=== PATIENT | male | born 1950 | race Caucasian/White ===

== ENCOUNTER 2017-07-03 07:25 | Emergency (ER) | payer OTHER, SELFPAY ==
[2017-07-03 07:26] VITALS: BP 146/96; PULSE 66; RESP 24; TEMP 36.7; O2SAT 95; BMI 35.8
--- NOTE | 2017-07-03 07:40 | ED.VISSUMM ---
- ER Visit Summary Date of Service: 07/03/17 Chief Complaint: Laceration History of Present Illness: The patient is a [address] Dashawn Perez. Reports that this morning he slipped and fell. He hit his face on a ladder. No loss of consciousness. He is not on any blood thinners. He is unsure when his last tetanus shot was. Patient suffered a laceration to the right side of his lower lip. He denies any loose teeth. No dental malocclusion. He also has a laceration to the bridge of his nose from his glasses. He reports the pain is 7 out of 10 in severity. He denies any pain to his neck, back, shoulder, wrist, or hips. Physical Examination: Vitals: Stable. Afebrile. Face: 3 cm laceration to the right side of his lower lip that does cross the vermilion border. This does not involve muscle. A superficial laceration is approximately 1 cm in length to the bridge of his nose with no active bleeding. No dental malocclusion. No loose teeth. No pain with palpation of his mandible and opening and closing his jaw. Neck: No vertebral tenderness. Full ROM without difficulty. Cleared by NEXUS criteria. Back: No vertebral tenderness. General: A&O x 3. NAD. Cardiovascular exam: Regular rate and rhythm, no murmur, rub or gallop. Respiratory exam: Chest nontender. No crepitus. Clear to auscultation bilaterally. No wheezes or stridor. Abdominal exam: Soft, nontender, nondistended, normal bowel sounds. No pain in RUQ or LUQ specifically. No peritoneal signs. Extremity: Atraumatic. No pain with range of motion. Emergency Department Course and Treatment: Patient refused pain medications. He had his tetanus updated. He had his wounds anesthetized and repaired. He tolerated this well. Treatment Plan: Patient will be discharged instructions to follow-up with Dr. Dashawn Perez as needed. Repair of the inner surface of his lip the patient will on amoxicillin and given a first dose in the emergency department. Return to the emergency department for any worsening symptoms. Disposition: To home in improved and stable condition. Impression: 1. Fall. 2. Laceration lower lip, 3 cm, repaired. 3. Laceration to bridge of nose, 1 cm, not repaired. Procedure note: Wound was cleansed with chlorhexidine soap. Anesthetized with 1% lidocaine without epinephrine. Copiously irrigated with normal saline. Wound was explored there is no foreign material present. It was closed with 5 simple interrupted 5-0 rapid Vicryl sutures externally and 2 simple interrupted 5-0 Vicryl sutures internally. Care was taken to align the vermilion border with the first stitch. The patient tolerated it well. This note was generated with [employer] dictation software. It may contain incorrect words, spelling, and punctuation that were not noted in review of the chart prior to signing ED Disposition - Plan for ED Patient: Chief Complaint: Fall Instructions: ED Laceration Facial Sutr Tape Prescriptions: Amoxicillin 500 mg PO TID #21 tab Referrals: Dashawn Perez MD [Primary Care Provider] - As Needed
[2017-07-03] MEDS: Diphth,Pertuss(Acell),Tet Vac 0.5 ML Vial IM (07:54)
[2017-07-03] MEDS: AMOXICILLIN 500 MG CAPSULE PO (08:27)
== END 2017-07-03 08:38 | disposition home or self-care (01) ==
LOC: ED 08:07
PROVIDERS: Emergency Provider Emergency Medicine; Family Provider Family Medicine; PCP Family Medicine
DX: S01.511A Laceration without foreign body of lip, initial encounter (principal); S01.21XA Laceration without foreign body of nose, initial encounter; Z23 Encounter for immunization; I10 Essential (primary) hypertension; E78.00 Pure hypercholesterolemia, unspecified; Z79.82 Long term (current) use of aspirin; Z79.899 Other long term (current) drug therapy; W01.198A Fall on same level from slipping, tripping and stumbling with subsequent striking against other object, initial encounter; Y93.89 Activity, other specified; Y92.009 Unspecified place in unspecified non-institutional (private) residence as the place of occurrence of the external cause; Y99.8 Other external cause status
CPT/HCPCS: 12013; 90715; 99283

== ENCOUNTER → 2017-10-13 08:48 | Outpatient (CLI) | payer OTHER, SELFPAY ==
[2017-10-13 10:45] LABS: Anion Gap 10 (5-15); BUN 22 mg/dL (7-18); BUN/Creat Ratio 23.7 RATIO (10-20); Calcium,Total 8.4 mg/dL (8.5-10.1); Chloride 104 mmol/L (98-107); Cholesterol 196 mg/dL (200); Creatinine, Serum 0.93 mg/dL (0.70-1.30); EST Glomerular Filtration Rate 87 mL/min (>60); Est Glom Filt Rate - Afr Amer 105 mL/min (>60); Glucose 224 mg/dL (74-106); High Density Lipoprotein 37 mg/dL; PSA,Total - Annual Screen 1.91 ng/mL (0.00-4.00); Potassium 3.9 mmol/L (3.5-5.1); Sodium Level 141 mmol/L (136-145); Thyroid Stim Hormone (TSH) 1.43 uIU/mL (0.358-3.74); Triglycerides 111 mg/dL; Very Low Density Lipoprotein 22 mg/dL (5-40)
== END ==
PROVIDERS: Family Provider Family Medicine; PCP Family Medicine; Visit Provider Family Medicine
DX: I10 Essential (primary) hypertension (principal); E89.0 Postprocedural hypothyroidism; E78.5 Hyperlipidemia, unspecified; Z12.5 Encounter for screening for malignant neoplasm of prostate
CPT/HCPCS: 36415; 80048; 80061; 84153; 84443; G0103

== ENCOUNTER 2017-10-26 16:13 | Emergency (ER) | payer OTHER, SELFPAY ==
[2017-10-26 16:14] VITALS: BP 179/98; PULSE 67; RESP 16; TEMP 37.1; O2SAT 97; BMI 32.9
--- NOTE | 2017-10-26 16:34 | ED.DCSUM_ITS ---
- ER Visit Summary Date of Service: 10/26/17 Chief Complaint: Headache History of Present Illness: The patient is a 67 M with history of ocular migraines. Patient states he had visual auras from his right eye this morning. During voodoo had a slight vision cut from the right peripheral vision. After voodoo he developed pressure across his eyes and sinuses. He states he usually does not get any pain with these ocular migraines. He has had some nausea and dry heaves. He did take 3 tabs of ibuprofen approximately 1 hour prior to arrival. Patient denies recent URI symptoms. He has not had recent head trauma. There is no clotting disorders in the family. Physical Examination: Blood pressure is 179/98, other vitals normal. Patient sitting upright in bed no acute distress. Head neck examination unremarkable. Heart is regular rate and rhythm. Lung sounds are clear. Abdomen is soft nontender. Neuro exam is unremarkable with an NIH score of 0. Test Results: Noncontrast head CT is unremarkable other than chronic involutional changes. Emergency Department Course and Treatment: Patient had taken ibuprofen shortly before arrival. He was given IV fluids, Compazine, and Benadryl. On repeat evaluation headache and vision changes are essentially resolved. He will be discharged home with family at this time. Treatment Plan: [] Disposition: Discharge Impression: Migraine, improved This note was generated with [employer] dictation software. It may contain incorrect words, spelling, and punctuation that were not noted in review of the chart prior to signing ED Disposition - Plan for ED Patient: Chief Complaint: Headache Referrals: Dashawn Perez MD [Primary Care Provider] -
[2017-10-26] MEDS: 0.9% Normal Saline 1,000 ML 999 ML IV (16:43)
[2017-10-26] MEDS: DiphenhydrAMINE 50 MG/ML Syringe 25 MG IV (16:44)
[2017-10-26] MEDS: proCHLORPERazine 10 MG/2 ML Vial IV (16:45)
[2017-10-26 17:39] VITALS: BP 176/101; PULSE 74; RESP 18; O2SAT 96
--- NOTE | 2017-10-26 17:39 | NURSING ---
NO LW OR POA
--- NOTE | 2017-10-26 17:49 | ED.DEP ---
ED Disposition - Plan for ED Patient: Disposition: Home or Assisted Living Chief Complaint: Headache Instructions: ED Headache Migraine Referrals: Dashawn Perez MD [Primary Care Provider] - As Needed
[2017-10-26 18:10] VITALS: BP 160/96; PULSE 70; RESP 18; O2SAT 98
== END 2017-10-26 18:11 | disposition home or self-care (01) ==
PROVIDERS: Emergency Provider Emergency Medicine; Family Provider Family Medicine; PCP Family Medicine
DX: G43.109 Migraine with aura, not intractable, without status migrainosus (principal); K21.9 Gastro-esophageal reflux disease without esophagitis; Z79.82 Long term (current) use of aspirin; Z79.899 Other long term (current) drug therapy
CPT/HCPCS: 70450; 96374; 96375; 99283; J7030; A4216

== ENCOUNTER → 2017-12-08 08:25 | Outpatient (CLI) | payer OTHER, SELFPAY ==
[2017-12-08 10:25] LABS: Glucose 263 mg/dL (74-106)
[2017-12-08 10:35] LABS: Hemoglobin A1c 9.8 % (4.2-6.3)
== END ==
PROVIDERS: Family Provider Family Medicine; PCP Family Medicine; Visit Provider Family Medicine
DX: E11.9 Type 2 diabetes mellitus without complications (principal)
CPT/HCPCS: 36415; 82947; 83036

== ENCOUNTER → 2018-02-27 08:43 | Outpatient (CLI) | payer OTHER, SELFPAY ==
--- NOTE | 2018-02-27 08:46 | US_ITS ---
STUDY: ABDOMINAL ULTRASOUND - RIGHT UPPER QUADRANT REASON FOR VISIT: Male, 67 years old. epigastric pain x 2 years -- hernia repair 2001. TECHNIQUE: Ultrasound evaluation of the right upper quadrant was performed with real-time and static villalta-scale imaging. TECHNICAL QUALITY: Adequate. COMPARISON: None. FINDINGS: Liver: The liver measures 16.3 cm. There is normal echogenicity of the liver. The bile ducts are within normal limits. There is hepatic color flow. The direction of portal flow is hepatopetal. There is no demonstrated mass lesion. Gallbladder: Normal distended gallbladder. The gallbladder wall measures 2.4 mm. There is a negative sonographic Kay's sign. There is no pericholecystic fluid. There are no gallstones. Common Bile Duct (C.B.D.): The common bile duct measures 4.0 mm. Pancreas: Normal size of the head, body of the pancreas. There is normal echogenicity of the pancreas. There is no demonstrated pancreatic mass or cyst. Right Kidney: Normal size of the right kidney. The right kidney measures 10.0 x 4.8 x 5.6 cm. Normal renal cortex. The right cortex measures cm. There is no demonstrated renal mass or cyst. There is no right hydronephrosis. US/Abdomen Limited IMPRESSION: Normal right upper quadrant ultrasound examination. Electronically Signed: Shravan Craig MD at 12:26 EST Tel , Service support ,
--- OUTSIDE RECORDS SUMMARY | 2018-04-14 21:15 | XMS RPT_ITS ---
:1950 Author Organization [place] Support Name Relationship Address Phone [facility] Unavailable [address] + [place] [address] [place] Unavailable [address] + [place] [address] [facility] Unavailable [address] + [place] [address] [place] Unavailable [address] + [place] [address] [facility] Unavailable [address] + [place] [address] [place] Unavailable [address] + [place] [address] [facility] Unavailable [address] + [place] [address] [place] Unavailable [address] + [place] [address] [facility] Unavailable [address] + [place] [address] [place] Unavailable [address] + [place] [address] HERALD, ASAF Unavailable Unavailable Unavailable CAITLIN HAAS Unavailable Unavailable Unavailable [facility] Unavailable [address] + [place] [address] [place] Unavailable [address] + [place] [address] HERALD, ASAF Unavailable Unavailable Unavailable HERCAITLIN GRANADO Unavailable Unavailable Unavailable HERALD, ASAF Unavailable Unavailable Unavailable HERLOY, CAITLIN Unavailable Unavailable Unavailable HERALD, ASAF Unavailable Unavailable Unavailable HERALD, CAITLIN Unavailable Unavailable Unavailable HERALD, ASAF Unavailable Unavailable Unavailable HERALD, CAITLIN Unavailable Unavailable Unavailable HERALD, ASAF Unavailable Unavailable Unavailable HERALD, CAITLIN Unavailable Unavailable Unavailable [facility] Unavailable [address] + [place] [address] HERNEW GRANADO Unavailable [address] + [place] [address] [facility] Unavailable [address] + [place] [address] HERNEW GRANADO Unavailable [address] + [place] [address] [facility] Unavailable [address] + [place] [address] HERNEW GRANADO Unavailable [address] + [place] [address] [facility] Unavailable [address] + [place] [address] HERNEW GRANADO Unavailable [address] + [place] [address] [facility] Unavailable [address] + [place] [address] HERNEW GRANADO Unavailable [address] + [place] [address] [facility] Unavailable [address] + [place] [address] HERNEW GRANADO Unavailable [address] + [place] [address] [facility] Unavailable [address] + [place] [address] HERLOYFORTINOE Unavailable [address] + [place] [address] [facility] Unavailable [address] + [place] [address] HERLOYFORTINOE Unavailable [address] + [place] [address] [facility] Unavailable [address] + [place] [address] HERLO[facility]FORTINOE Unavailable [address] + [place] [address] Care Team Providers Name Role Phone KEMAR IGNACIO Attending Unavailable CEBUL, CAITLIN D Referring Unavailable DIAZ, GEETHA K Primary Care Unavailable KEMAR IGNACIO Admitting Unavailable KEMAR IGNACIO Attending Unavailable CEBUL, CAITLIN D Referring Unavailable DIAZ, GEETHA K Primary Care Unavailable KEMAR IGNACIO Attending Unavailable SELF, SELF Referring Unavailable DIAZ, GEETHA K Primary Care Unavailable KEMRA IGNACIO Attending Unavailable BERNARDO REEDER Referring Unavailable DIAZ, GEETHA K Primary Care Unavailable KEMAR IGNACIO Referring Unavailable DIAZ, GEETHA K Primary Care Unavailable KEMAR IGNACIO Attending Unavailable PRAH, ALFRED Referring Unavailable DIAZ, GEETHA K Primary Care Unavailable NANCY MCGUIRE (DEYSI) Attending Unavailable Diaz, Geetha Attending Unavailable Diaz, Geetha Referring Unavailable Diaz, Geetha Primary Care Unavailable Cebul, Caitlin Attending Unavailable Diaz, Geetha Referring Unavailable Cebul, Caitlin Attending Unavailable Cebul, Caitlin Referring Unavailable Diaz, Geetha Primary Care Unavailable Cebul, Caitlin Attending Unavailable Cebul, Caitlin Referring Unavailable Diaz, Geetha Primary Care Unavailable Cebul, Caitlin Attending Unavailable Cebul, Caitlin Referring Unavailable Diaz, Geetha Primary Care Unavailable Prah, Alfred Attending Unavailable Diaz, Geetha Primary Care Unavailable Diaz, Geetha Primary Care Unavailable Robel Montoya Attending Unavailable Diaz, Geetha Attending Unavailable Diaz, Geetha Referring Unavailable Diaz, Geetha Primary Care Unavailable Diaz, Geetha Primary Care Unavailable Funmilayo Hu Attending Unavailable Prah, Alfred Attending Unavailable Diaz, Geetha Primary Care Unavailable Prah, Alfred Consulting Unavailable Cebul, Caitlin Referring Unavailable Cebul, Caitlin Attending Unavailable Diaz, Geetha Referring Unavailable Cebul, Caitlin Attending Unavailable Diaz, Geetha Primary Care Unavailable Cebul, Caitlin Referring Unavailable RocioBritany concepcion Attending Unavailable Diaz, Geetha Primary Care Unavailable Prah, Alfred Consulting Unavailable Prah, Alfred Attending Unavailable Diaz, Geetha Primary Care Unavailable Prah, Alfred Consulting Unavailable Diaz, Geetha Referring Unavailable Diaz, Geetha Attending Unavailable Diaz, Geetha Referring Unavailable Diaz, Geetha Primary Care Unavailable PROBLEMS PROBLEMS DATE TYPE CONDITION / CODE ATTENDING STATUS SOURCE 04/01/2018 Unknown R11.2 - Nausea MarnieAlfred harrell Active [place] with vomiting, Community unspecified / Hospital R11.2(ICD-10) Repository 04/01/2018 Unknown C25.1 - Malignant Prajulio cesar, Alfred Active [place] neoplasm of body Community of pancreas / Hospital C25.1(ICD-10) Repository 04/01/2018 Unknown C25.9 - Malignant Prah, Alfred Active [place] neoplasm of Community pancreas, Hospital unspecified / Repository C25.9(ICD-10) 04/01/2018 Unknown R52 - Kaylie, Alfred Estrella Active [place] unspecified / Community R52(ICD-10) Hospital Repository 03/12/2018 Admitting Post Op Visit / KEMAR IGNACIO Active [facility] diagnosis 554() [facility] Repository 03/05/2018 Admitting Disease of KEMAR IGNACIO Active [facility] diagnosis pancreas, University unspecified / [facility] K86.9(ICD-10) Center Repository 03/05/2018 Admitting Type 2 diabetes KMEAR IGNACIO Active [facility] diagnosis mellitus with University other specified [facility] complication / Center E11.69(ICD-10) Repository 03/16/2018 Unknown R14.0 - Abdominal CebulCaitlin Active [place] distension Community (gaseous) / Hospital R14.0(ICD-10) Repository 03/04/2018 Unknown Z86.010 - Personal CebulCaitlin Active [place] history of colonic Community polyps / Hospital Z86.010(ICD-10) Repository 10/26/2017 Active Unspecified visual NANCY MCGUIRE Active [place] disturbance / ([facility] Main H53.9(ICD-10) [place] Repository PROCEDURES PROCEDURES No Procedure Records FoundRESULTS RESULTS ONCOLOGY VISIT REPORT Observed: 04/01/2018 Status: F Source: [place] 1:[address] [facility] REPOSITORY [facility] [address] [place] [address] OFFICE VISIT Date of Service: 04/01/18 0859 MR#: [id number] Acct: [id number] Name: CAITLIN HAAS Rep #: [id number] : 1950 From: Alfred Estrella MD Age/Sex: 67/M Location: ONC Status: Signed Subjective - Date of Service Date of Service:: 04/01/18 - Chief Complaint F/u for chemotherapy-FOLFIRNOX - History of Present Illness 67y.o.man was found to have duodenal obstruction secondary to a mass in the body of the pancreas. CA19-9 was elevated-2139. He had laparotomy at [facility] and was found to have multiple peritoneal nodules. He had gastrojejunostomy for duodenal obstruction and biopsy of peritoneal nodules on 03/06/2018. He is now referred for palliative chemotherapy. 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 He had a PET/CT and comes to start chemotherapy. - Past Medical/Social History Past Medical History Cancer: Pancreatic cancer Social History Social History: No changes Smoking Status Former smoker Review of Systems Constitutional:: Reports: Pain - epigastric area on and off, taking tylenol.. Denies: Fever, Sweats, Weight loss, Appetite change, Chills Cardiovascular:: Denies: Chest pain, Palpitations, Dyspnea on exertion, Orthopnea, PND, Shortness of breath Respiratory: Denies: Cough, Hemoptysis, Shortness of Breath, Wheezing Gastrointestinal:: Denies: Abdominal pain, Nausea, Vomiting, Diarrhea, Constipation, Hematochezia Genitourinary: Denies: Dysuria, Hematuria, 15, Flank pain Musculoskeletal:: Denies: Back pain, Myalgia, Arthralgia Skin: Denies: Rash, Skin Changes, Wounds Neurological:: Denies: Headache, Dizziness, Visual changes, Tinnitus, Hearing loss Psychiatric: Denies: Anxiety, Depression, Homicidal Ideations, Suicidal Ideations Vital Signs Height 5 ft 6 in Weight: 79.379 kg Weight in Pounds 175.0 lbs Pulse Ox 97 - Physical Exam General: Alert, Oriented x3, No apparent distress Laboratory Data: Laboratory Tests WBC 10.0 Hgb 12.0 L Hct 36.8 L Plt Count 218 Absolute Neuts (auto) 7.2 Diagnostic Data: Diagnostic Data PET, CT Tumor Imaging 03/23/18 11:03 IMPRESSION: 1. ABNORMAL EXAMINATION INDICATIVE OF MALIGNANT VIABLE NEOPLASM. 2. Increased glucose concentration observed in the pancreatic body-tail fulfills quantitative criteria for viable neoplasm. 3. Facilitated glucose concentration noted throughout the abdominal-pelvic mesentery and abdominal retroperitoneum corresponding soft tissue adenopathy, mass formation, fulfills quantitative criteria for viable neoplasm. 4. Enhanced FDG distribution noted in the mid to distal gastric body likely represents physiologic distribution of the radiopharmaceutical. Histopathologic analysis may be indicated. 5. The increase in radiopharmaceutical concentration noted in the bilateral supraclavicular regions fulfills quantitative criteria for viable neoplasm with single point technique. 6. The facilitated fluorine labeled glucose uptake noted in the left lobe of the hepatic parenchyma involving segment I does not fulfill strict quantitative criteria for viable hepatic parenchymal neoplasm. (Tamara et al, Archives of Surgery, 133:510 1997). Correlation with magnetic resonance imaging utilizing Gd-EOB-DTPA may be of benefit for further evaluation. (Job et al, J Nucl Med 51: 692, 2010). Electronic Signature Navneet Bhandari D.O. Electronically Signed: Navneet Bhandari DO at 22:56 EST Tel , Service support , Assessment and Plan Pancreatic cancer, stage IV(cT3 cNx M1) Peritoneal nodules/supraclavicular nodes. PS 0. To start FOLFIRINOX every 2 weeks today. Discussed risks, benefits and side effects again. Pt accepted. Port placed 03/24/2018. Plan is to proceed with C1 FOLFIRINOX today with Neulasta. RTC 2 weeks with CBC/CMP for C2. Medications: Prescriptions This Visit Medication Instructions Recorded Docusate Sodium [Colace] 100 mg PO BID 03/16/18 Enoxaparin [Lovenox] 40 mg SC DAILY@0600 03/16/18 Medications Added to Medication List This Visit 0.9% Saline Lock Med 04/01/18 00:00 Active 10 ml IV UD PRN Atropine Sulfate Med 04/01/18 00:00 Active 0.25 mg SC UD PRN Dexamethasone [Decadron] 10 mg Med 04/01/18 00:00 Active Primary Care Provider: Geetha Diaz MD Referring Provider: - Problem List (1) Pancreatic cancer Status: Chronic Code Visit Office Visits / Consults: [id number] OV L5 Est 04/01/18 1331 <Electronically signed by Alfred Estrella MD> Date Alfred Estrella MD Cosign Signature: Date (if applicable) CC: Geetha Diaz MD ONCOLOGY VISIT REPORT Observed: 03/26/2018 Status: F Source: [place] 3:[address] [facility] REPOSITORY [facility] [address] [place] [address] OFFICE VISIT Date of Service: 03/26/18 1314 MR#: [id number] Acct: [id number] Name: CAITLIN HAAS Rep #: [id number] : 1950 From: Britany IBARRA Age/Sex: 67/M Location: OMD Status: Signed Subjective - Date of Service Date of Service:: 03/26/18 - Chief Complaint Chemotherapy Education-FOLFIRNOX - History of Present Illness 67y.o.man was found to have duodenal obstruction secondary to a mass in the body of the pancreas. CA19-9 was elevated-2139. He had laparotomy at [facility] and was found to have multiple peritoneal nodules. He had gastrojejunostomy for duodenal obstruction and biopsy of peritoneal nodules on 03/06/2018. He is now referred for palliative chemotherapy. 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 - Interval History The patient is presenting to clinic accompanied by spouse for chemotherapy education. It has been proposed he begin palliative chemotherapy with FOLFIRINOX. Describes good support system at home by way of spouse, family and his friends. ECOG 0. - Past Medical/Social History Social History Social History: No changes Smoking Status Former smoker Review of Systems Constitutional:: Reports: Fatigue, Weight loss. Denies: Fever, Sweats, Appetite change, Chills Cardiovascular:: Denies: Chest pain, Palpitations, Dyspnea on exertion, Orthopnea, PND, Shortness of breath Respiratory: Denies: Cough, Hemoptysis, Shortness of Breath, Wheezing Gastrointestinal:: Reports: Nausea - Intermittently, improved with Reglan. Denies: Abdominal pain, Vomiting, Diarrhea, Constipation, Hematochezia Genitourinary: Denies: Dysuria, Hematuria, 15, Flank pain Musculoskeletal:: Reports: Backache. Denies: Back pain, Myalgia, Arthralgia Skin: Denies: Rash, Skin Changes, Wounds Neurological:: Denies: Headache, Dizziness, Numbness, Tingling, Visual changes, Tinnitus, Hearing loss Psychiatric: Denies: Anxiety, Depression, Homicidal Ideations, Suicidal Ideations Vital Signs Height 5 ft 6 in Weight: 181 lb Weight in Pounds 181.0 lbs Pulse Ox 95 - Physical Exam General: Alert, Oriented x3, No apparent distress HEENT: Atraumatic, PERRLA, EOMI, Normocephalic Psychiatric:: Appropriate affect, Euthymic Diagnostic Data: Diagnostic Data PET, CT Tumor Imaging 03/23/18 11:03 IMPRESSION: 1. ABNORMAL EXAMINATION INDICATIVE OF MALIGNANT VIABLE NEOPLASM. 2. Increased glucose concentration observed in the pancreatic body-tail fulfills quantitative criteria for viable neoplasm. 3. Facilitated glucose concentration noted throughout the abdominal-pelvic mesentery and abdominal retroperitoneum corresponding soft tissue adenopathy, mass formation, fulfills quantitative criteria for viable neoplasm. 4. Enhanced FDG distribution noted in the mid to distal gastric body likely represents physiologic distribution of the radiopharmaceutical. Histopathologic analysis may be indicated. 5. The increase in radiopharmaceutical concentration noted in the bilateral supraclavicular regions fulfills quantitative criteria for viable neoplasm with single point technique. 6. The facilitated fluorine labeled glucose uptake noted in the left lobe of the hepatic parenchyma involving segment I does not fulfill strict quantitative criteria for viable hepatic parenchymal neoplasm. (Tamara et al, Archives of Surgery, 133:510 1998). Correlation with magnetic resonance imaging utilizing Gd-EOB-DTPA may be of benefit for further evaluation. (Job et al, J Nucl Med 51: 692, 2010). Electronic Signature Navneet Bhandari D.O. Electronically Signed: Navneet Bhandari DO at 22:56 EST Tel , Service support , Assessment and Plan 1. Pancreatic cancer, stage IV(cT3 cNx M1), Peritoneal nodules- PET/CT obtained 03/23/18, report is pending. It has been proposed he begin palliative FOLFIRINOX. The patient has been thoroughly educated to risks/benefits associated with oxaliplatin, irinotecan, fluorouracil and leucovorin. Specifically, he has been educated to potential side effects, recommendations for symptom management, and circumstances in which he should contact provider immediately, such as the development of any signs/symptoms of infection inclusive of temperature > 100.4. Encouraged to go directly to ED should fever occur outside normal clinic hours. He has been provided written educational information and after hours contact information and prescriptions for prn antiemetics/EMLA cream. Port placement Greater than 50% of this one hour visit was spent in counseling and a significant amount of time was allotted for questions. All the patient's concerns were addressed to his satisfaction and he is agreeable to proceed. Tentatively, he will commence with cycle 1 on 04/01/18. Britany Chan, MSN, SPLUNK ARCHITECT, AOCNP Medications: Prescriptions This Visit Medication Instructions Recorded Docusate Sodium [Colace] 100 mg PO BID 03/16/18 Primary Care Provider: Geetha Diaz MD Referring Provider: - Problem List (1) Pancreatic cancer Status: Acute (2) Educational circumstance Status: Acute 03/26/18 1542 <Electronically signed by Britany Chan BINDER STRIPPER HAND-C> Date Britany Chan BINDER STRIPPER HAND-C Cosigner Signature: Date (if applicable) CC: CBC W/DIFF, AUTOMATED Collected: 03/26/2018 Status: F Source: [place] 1:[address] [facility] REPOSITORY Order Comment: Reason for Laboratory Test . TYPE CODE TESTS RESULT OUT OF RANGE REFERENCE UNITS LAB L100.1000 4.4-11.0 K/mm3 Normal WBC 10.0 LAB L100.1200 4.6-6.2 M/mm3 Low RBC 3.97 LAB L100.1300 13.0-16.5 g/dl Low HGB 12.0 LAB L100.1400 40-54 % Low HCT 36.8 LAB L100.1500 80-94 fL Normal MCV 92.7 LAB L100.1600 27.0-32.0 pg Normal MCH 30.2 LAB L100.1700 32-36 g/gl Normal MCHC 32.6 LAB L100.1810 11.6-14.6 % High RDW CV 14.8 LAB L100.1820 35.1-43.9 fl High RDW SD 49.3 LAB L100.1900 150-450 K/mm3 Normal PLT 218 LAB L100.2000 6.2-12.0 fl Normal MPV 11.6 LAB L100.2100 47-70 % High NEUT% 72.5 LAB L100.2200 19-41 % Low LY% 11.3 LAB L100.2300 0-10 % High MONO% 11.0 LAB L100.2400 0-5 % Normal EO% 4.7 LAB L100.2500 0-1 % Normal BASO% 0.3 LAB L100.2550 0.0-0.9 % Normal IM GRAN % 0.200 Result Comment: IG% - Immature Granulocytes (promyelocytes, myelocytes and metamyelocytes) > 1% indicates that a LEFT SHIFT is Present. LAB L100.2620 2.0-7.7 X10 3/uL Normal Absolute Neut 7.2 LAB L100.2720 0.83-4.51 X10 3/ul Normal Absolute Lymph 1.13 Performed By: #### L100.0100 #### [facility] [address] [place], [address] COMPREHENSIVE METABOLIC Collected: 03/26/2018 Status: F Source: [facility] 1:[address] [facility] REPOSITORY Order Comment: Reason for Laboratory Test . TYPE CODE TESTS RESULT OUT OF RANGE REFERENCE UNITS LAB L501.0100 74-106 mg/dL High GLU 134 Result Comment: Fasting Glucose result greater than or equal to 126 mg/dL suggests DIABETES MELLITUS per A.D.A. criteria. Please note revised GLUCOSE reference range effective 2017. LAB L501.1000 7-18 mg/dL Normal BUN 16 LAB L501.1100 0.70-1.30 mg/dL Normal CREAT,SERUM 0.77 Result Comment: The validity of the calculated GFR AND GFRAA in patients over 70 years has not been determined. Clinical correlation is essential. LAB L501.1110 >60 mL/min Normal EST GFR 108 Result Comment: Non- GFR Calc LAB L501.1115 >60 mL/min Normal EST GFR - AA 130 Result Comment: GFR Calc LAB L501.1255 ml/min Normal Estimated CRCL 86.31 LAB L501.1300 10-20 RATIO High BUN/CRE 20.8 LAB L501.1500 6.4-8. g/dL Normal 2 T PROT 6.5 LAB L501.1800 3.2-5. g/dL Low 0 ALB 2.9 LAB L501.1950 2.2-4. g/dL Normal 2 GLOB 3.6 LAB L501.2000 0.9-2. RATIO Low 4 A/G 0.8 LAB L501.2200 8.5-10 mg/dL Normal .1 CA 8.5 LAB L501.4100 15-37 U/L Low AST 9 LAB L501.4305 45-117 U/L Normal ALK P 58 LAB L501.4405 16-61 U/L Normal ALT 16 LAB L501.4600 0.20-1 mg/dL Normal .00 T BILI 0.40 LAB L501.5300 136-14 mmol/L Normal 5 NA 137 LAB L501.5600 3.5-5. mmol/L Normal 1 K 3.7 LAB L501.5900 98-107 mmol/L Normal CL 102 LAB L501.6100 21.0-3 mmol/L Normal 2.0 CO2 26.0 LAB L501.6200 5-15 Normal GAP 9 Performed By: #### L500.4050 #### [facility] [address] [place], [place] [address], [address] CARBOHYDRATE AG 19-9 Collected: 03/26/2018 Status: F Source: [place] 1:[address] [facility] REPOSITORY Order Comment: Reason for Laboratory Test . TYPE CODE TESTS RESULT OUT OF RANGE REFERENCE UNITS LAB L3100.5020 0-35 U/mL High CA 19-9 1276 2261 Result Comment: Results confirmed on dilution. [facility] Electrochemiluminescence Immunoassay (ECLIA) Values obtained with different assay methods or kits cannot be used interchangeably. Results cannot be interpreted as absolute evidence of the presence or absence of malignant disease. Performed at: - [facility], [place], [place] [id number] Real Estate Intern: Eladio Yu PhD, Phone: [phone] Performed By: #### L3100.5020 #### [facility] (refer to report for specific site) refer to report for address and phone number OPERATIVE REPORT Observed: 03/25/2018 Status: F Source: [place] 6:[address] [facility] REPOSITORY 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 Reference #[id number] lot number RECX [id number] expiry date 08/15/2019 Description of Surgical Findings:: Timeout and informed consent was obtained. 67-year-old gent was taken the operative placement table underwent monitored anesthesia care local anesthetic. Ancef 2 g given intravenously preoperatively. The right neck and chest were sterilely prepped and draped. Under ultrasound guidance 1% lidocaine mixed 50-50 with 0.5% Marcaine was used as a local anesthetic. Throughout the procedure a total of 17 cc was used. Local was instilled micropuncture needle inserted micropuncture wire inserted micropuncture sheath inserted 035 Glidewire was used to advance the sheath in the good position and fluoroscopic control and exchange out for an 035 J-wire. Local was instilled down upon the chest wall. A transverse incision was made midclavicular line second intercostal space and using electrocautery sub-changes pocket was created. The tubing was tunneled from the neck to the chest site. The sheath dilator was placed over the wire the wire and dilator were removed the catheter was advanced to the sheath the sheath was split the catheter was positioned to be at the SVC atrial junction. It was amputated to length connected the port secured there with port attachment device. The port was placed in the pocket and secured there with interrupted 2- 0 silk. The port site was closed with interrupted 3-0 Vicryl subdermal stitches. The neck was closed with interrupted 5-0 Vicryl subdermal stitch. Steri-Strips Telfa and OpSite dressings applied. The port was accessed and aspirated easily was flushed with saline and then 2 cc of heparinized saline. Sponge and instrument and needle counts were reported to the surgeon be correct. Specimens none. Drains none. Blood loss minimal. Stat portable chest x-ray is pending as the patient is taken to the recovery area in satisfactory condition. Caitlin Cueto M.D., F.A.C.S. Type of Anesthesia:: Local MAC Anesthesiologist: Ana Abad 03/25/18 0622 <Electronically signed by Caitlin Cueto MD> Date Caitlin Cueto MD CC: Geetha Diaz MD; Caitlin Cueto MD Signed DISCHARGE INSTRUCTION Observed: 03/25/2018 Status: F Source: [place] 6:[address] [facility] REPOSITORY [facility] Medical Records Department [address] [place] [address] Instructions for Home/Discharge Instructions 03/24/18 1008 MR#: [id number] Acct: [id number] Name: CAITLIN HAAS Rep #: [id number] : 1950 67 From: Caitlin Cueto MD PCP: Geetha Diaz MD Status: DEP [facility] Discharge Diet: No Restrictions - Pain medication may cause nausea. You should typically eat light foods as you take your pain medication. Discharge Activity: Return to Normal Activity, May Shower - Leave the bandage on for 2-3 days. When you remove the bandage, leave the steri-strips intact until they fall off. Additional Dressing/Incision Instructions:: Leave the bandage on for 2-3 days. When you remove the bandage, leave the steri-strips intact until they fall off. Allergies/Adverse Reactions: Allergies oxycodone HCl [From Percocet] Adverse Reaction (Severe, Verified 03/23/18 11:42) Other nightmares Tetracyclines Adverse Reaction (Severe, Verified 03/23/18 11:42) Upset Stomach Medications to take at Discharge Cholecalciferol (VIT D3) [Vitamin D3] 2,000 unit PO DAILY 02/24/15 Lisinopril/Hydrochlorothiazide [Zestoretic 20-12.5 mg Tablet] 1 ea PO DAILY 02/24/15 Multivitamins,Therapeutic [Multivitamin] 1 tab PO MOWEFR 02/24/15 Levothyroxine [Synthroid] 125 mcg PO DAILY #90 tab 02/27/15 Aspirin [Aspirin, Baby] 81 mg PO DAILY@0800 09/19/16 Escitalopram Oxalate [Lexapro] 10 mg PO DAILY 09/19/16 Pantoprazole Sodium [Protonix] 40 mg PO DAILY 09/19/16 glipizide 10 mg tablet 10 mg PO DAILY 03/03/18 Docusate Sodium [Colace] 100 mg PO BID 03/16/18 Enoxaparin [Lovenox] 40 mg SC DAILY@0600 03/16/18 Lorazepam [Ativan] 1 mg PO DAILY PRN 03/16/18 Mirtazapine [Remeron] 15 mg PO QHS #30 tab 03/16/18 Metoclopramide [Reglan] 10 mg PO DAILY #90 tablet 03/24/18 The following prescriptions were given: Metoclopramide [Reglan] 10 mg PO DAILY #90 tablet Primary Care Physician: Geetha Diaz MD [Primary Care Provider] - Test Results: Test results from this visit will be discussed in further detail at your follow-up appointment, if applicable. Please Follow Up With: Caitlin Cueto MD - [phone] When: Office follow-up may be as needed 03/25/18621 <Electronically signed by Caitlin Cueto MD> Date Caitlin Cueto MD CC: Geetha Diaz MD Signed CHEST 1 VIEW Observed: 03/24/2018 Status: F Source: LUCAS (PORTABLE) 10:[address] [facility] REPOSITORY [facility] Imaging Services [facility] [place] [address] [place] [address] Chest 1 View (Portable) MR#: [id number] Acct: [id number] Name: CAITLIN HAAS Rep #: [id number] : 1950 M 67 From: Sonny Guevara MD PCP: Geetha Diaz MD Status: REG [facility] Study: Chest 1 View (Portable) Date of Exam: 03/24/18 Exam# [id number] Ordering Dr: Caitlin Cueto MD STUDY: X-RAY CHEST REASON FOR EXAM: Male, 67 years old. Port placement. TECHNIQUE: Single AP portable view of the chest. COMPARISON: Comparison is made with prior study dated September 19, 2016. FINDINGS: A right-sided sulema catheter is in situ. The tip is in the midportion of the superior vena cava. Stable elevation of the left hemidiaphragm. Mild increased linear markings at the left lung base suggestive of linear atelectasis and/or linear scarring. There is no demonstrated pleural abnormality. Normal size heart. Normal mediastinum and andreas. Normal visualized pulmonary arteries. Normal visualized aortic arch and descending thoracic aorta. Normal visualized thoracic spine. Normal visualized ribs, clavicles, and shoulders. There is no demonstrated abnormality of the visualized soft tissue structures of the upper abdomen. RAD/Chest 1 View (Portable) IMPRESSION: The tip of the right portacatheter is in the midportion of the superior vena cava. Stable elevation of the left hemidiaphragm with linear scarring and/or atelectasis. Electronically Signed: Sonny Guevara MD at 11:43 EST Tel [phone], Service support , CC: Geetha Diaz MD; Caitlin Cueto MD Comber Fixer: Signed BEDSIDE GLUCOSE Collected: 03/24/2018 Status: F Source: LUCAS 9:[address] [facility] REPOSITORY TYPE CODE TESTS RESULT OUT OF REFERENCE UNITS RANGE LAB L501.080 70-110 mg/dL High BEDSIDE GLU 113 Result Comment: MANAGEMENT OF PATIENT CARE PER NURSING PROTOCOL Performed By: #### L501.080 #### [facility] Point of Care [address] [place] [address] PET/CT TUMOR BASE Observed: 03/23/2018 Status: F Source: LUCAS -THIGH INIT 11:[address] [facility] REPOSITORY [facility] Imaging Services [address] [place] [address] PET/CT Tumor Base -Thigh Init MR#: [id number] Acct: [id number] Name: CAITLIN HAAS Rep #: [id number] : 1950 M 67 From: Navneet Bhandari DO PCP: Geetha Diaz MD Status: REG RCR Study: PET/CT Tumor Base -Thigh Init Date of Exam: 03/23/18 Exam# [id number] Ordering Dr: Alfred Estrella MD EXAMINATION: FDG PET/CT INDICATIONS: A 67-year-old male with reported history of primary pancreatic carcinoma presenting for initial staging examination. COMPARISON EXAMINATION: CT of the abdomen and pelvis report dated 03/04/18 INDEX LESION SIZE SUV INTERPRETATION Pancreatic body-tail mass 40.1 x 61.9-mm (frame 152) 9.7 Fulfills quantitative criteria for viable neoplasm Abdominal retroperitoneum, abdominal-pelvic mesentery soft tissue mass, lymph nodes 36.9 x 30.3-mm (largest) (frame 138) 5.4 (max) Fulfills quantitative criteria for viable neoplasm Bilateral supraclavicular region (n=2) 9.3-mm (largest) (frame 232) 2.7 (max) Fulfills quantitative criteria for viable neoplasm Left lobe hepatic parenchyma segment I 10.4-mm (frame 160) 3.1 ratio < 2.0 May be further investigated with magnetic resonance imaging Distal gastric body 6.8 (max) May necessitate histopathologic investigation TECHNIQUE: Following the intravenous administration of 13.11 mCi of F-18 deoxyglucose via the right antecubital fossa, multiplanar image acquisitions of the neck, chest, abdomen and pelvis to level of mid thigh, obtained at one hour post radiopharmaceutical administration contemporaneously interpreted with the current CT of the neck, chest, abdomen and pelvis to level of mid thigh, dated 03/23/[address] of the abdomen and pelvis report dated 03/04/18 reveal: SERUM GLUCOSE LEVEL: 76 mg/dl. HEIGHT: 66 inches. WEIGHT: 170 lbs. FINDINGS: 1. Heterogeneous enhanced glucose metabolism is manifest in the left upper abdomen contiguous to apparent pancreatic body-tail mass formation generating a calculated maximal standard uptake value of 9.7. The maximal axial diameter of the corresponding metabolic, morphologic abnormality on review of CT of the abdomen dated 03/23/18 is 40.1-mm (transverse) x 61.9-mm (AP). 2. Multifocal increased glucose metabolism is defined in the abdominal mesentery, single nodular focus within the left upper pelvic mesentery and left paramedian abdominal retroperitoneum, peripancreatic in location. The calculated maximal standard uptake value is 5.4. The largest corresponding metabolic, morphologic abnormality on review of CT of the abdomen and pelvis dated 03/23/18 is 36.9-mm (transverse) x 30.3-mm (AP). 3. Prominent glucose metabolism is defined in the lesser curvature of the mid-distal gastric body, segmental in presentation, generating a calculated maximal standard uptake value of 6.8. 4. Mild increased FDG concentration is demonstrated in the bilateral supraclavicular regions with a calculated maximal standard uptake value of 2.7. The maximal axial diameter of the largest corresponding soft tissue density on review of CT of the neck-chest dated 03/23/18 is 9.3-mm (AP). 5. Subtle enhanced FDG concentration is noted in the left lobe of the hepatic (2.4) parenchyma involving segment I. The calculated maximal standard uptake value is 3.1. The maximal axial diameter of the metabolic abnormality on review of CT of the abdomen dated 03/23/18 is 10.4-mm (AP). 6. Normal physiologic distribution of the radiopharmaceutical is apparent in the splenic parenchyma, both renal units, bladder and visualized intestinal tract. Diffuse radiopharmaceutical concentration is noted in all four quadrants of the abdomen and pelvis. Pertinent CT findings are as follows: CHEST: There is atherosclerotic calcification defined in the thoracic aorta without evidence of dilatation-aneurysm formation. Coronary arterial calcification is observed. ABDOMEN AND PELVIS: Abdominal-pelvic ascites formation demonstrates no evidence of quantitatively significant increased glucose metabolism. Multiple subcentimeter mesenteric soft tissue densities are non-glucose avid. Right-left inguinal soft tissue is ametabolic. Dystrophic calcification is manifest within the prostate gland without evidence of facilitated glucose metabolism. Calcified phlebolith formation is noted in the left lower hemipelvis. SKELETAL: Degenerative changes are noted in the cervical, thoracic and lumbar spine. PET/PET/CT Tumor Base -Thigh Init IMPRESSION: 1. ABNORMAL EXAMINATION INDICATIVE OF MALIGNANT VIABLE NEOPLASM. 2. Increased glucose concentration observed in the pancreatic body-tail fulfills quantitative criteria for viable neoplasm. 3. Facilitated glucose concentration noted throughout the abdominal-pelvic mesentery and abdominal retroperitoneum corresponding soft tissue adenopathy, mass formation, fulfills quantitative criteria for viable neoplasm. 4. Enhanced FDG distribution noted in the mid to distal gastric body likely represents physiologic distribution of the radiopharmaceutical. Histopathologic analysis may be indicated. 5. The increase in radiopharmaceutical concentration noted in the bilateral supraclavicular regions fulfills quantitative criteria for viable neoplasm with single point technique. 6. The facilitated fluorine labeled glucose uptake noted in the left lobe of the hepatic parenchyma involving segment I does not fulfill strict quantitative criteria for viable hepatic parenchymal neoplasm. (Tamara et al, Archives of Surgery, 133:510 1997). Correlation with magnetic resonance imaging utilizing Gd-EOB-DTPA may be of benefit for further evaluation. (Job et al, J Nucl Med 51: 692, 2010). Electronic Signature Navneet Bhandari D.O. Electronically Signed: Navneet Bhandari DO at 22:56 EST Tel , Service support , CC: Geetha Diaz MD; Alfred Estrella MD Comber Fixer: Signed SURGERY VISIT REPORT Observed: 03/21/2018 Status: F Source: IRVINE 9:49 AM [facility] [address] [place] [address] [address] [place] [address] OFFICE VISIT Date of Service: 03/21/18 MR#: [id number] Acct: [id number] Name: CAITLIN HAAS Rep #: [id number] : 1950 Provider: Caitlin Cueto MD Age/Sex: 67/M Location: [facility] Status: Signed Intake Vital Signs03/21/18 Blood Pressure 112/75 Intake Visit Reasons: Port Placement Consult Chief Complaint: port consult High Value Associate Required: No Is patient in pain?: No Allergies acetaminophen [From Percocet] Adverse Reaction (Severe, Verified 03/21/18 08:13) Other oxycodone HCl [From Percocet] Adverse Reaction (Severe, Verified 03/21/18 08:13) Other Tetracyclines Adverse Reaction (Severe, Verified 03/21/18 08:13) Upset Stomach Medications Cholecalciferol (VIT D3) [Vitamin D3] 2,000 unit PO DAILY 02/24/15 [History Confirmed 03/16/18] Lisinopril/Hydrochlorothiazide [Zestoretic 20-12.5 mg Tablet] 1 ea PO DAILY 02/24/15 [History Confirmed 03/16/18] Multivitamins,Therapeutic [Multivitamin] 1 tab PO MOWEFR 02/24/15 [History Confirmed 03/16/18] Levothyroxine [Synthroid] 125 mcg PO DAILY #90 tab 02/27/15 [Rx Confirmed 03/16/18] Aspirin [Aspirin, Baby] 81 mg PO DAILY@0800 09/19/16 [History Confirmed 03/16/18] Escitalopram Oxalate [Lexapro] 10 mg PO DAILY 09/19/16 [History Confirmed 03/16/18] Pantoprazole Sodium [Protonix] 40 mg PO DAILY PRN 09/19/16 [History Confirmed 03/16/18] glipizide 10 mg tablet 10 mg PO DAILY 03/03/18 [History Confirmed 03/16/18] Docusate Sodium [Colace] 100 mg PO BID 03/16/18 [History Confirmed 03/16/18] Enoxaparin [Lovenox] 40 mg SUBCUT DAILY@0600 03/16/18 [History Confirmed 03/16/18] Lorazepam [Ativan] 1 mg PO DAILY 03/16/18 [History Confirmed 03/16/18] Mirtazapine [Remeron] 15 mg PO QHS #30 tab 03/16/18 [Rx] Oxycodone [Oxyir] 5 mg PO UD 03/16/18 [History Confirmed 03/16/18] Senna [Senokot] 1 tab PO DAILY PRN 03/16/18 [History Confirmed 03/16/18] [facility] Medical History Abdominal distension (gaseous) (Acute) Personal history of colonic polyps (Acute) Nausea and vomiting (Acute) Bloating (Acute) Diabetes (Acute) GERD (gastroesophageal reflux disease) (Acute) Hemorrhoids (Acute) Hypothyroidism (Acute) robotic gastrojejunostomy (Acute) HTN (hypertension) (Chronic) Surgical History History of colonoscopy (Acute 2014) History of esophagogastroduodenoscopy (EGD) (Acute 2014) History of right inguinal hernia repair (Acute) History of rotator cuff surgery (Acute) History of thyroidectomy (Acute) Family History Father Colon cancer Heart disease Hypertension Myocardial infarction Social History Smoking Status: Former smoker HPI HPI HPI: CAITLIN HAAS, is a 67 M who presents to the office today for port placement referred from Dr Estrella. I have assisted with previous evaluation with CT and EGD and Colonoscopy. 67y.o.man was found to have duodenal obstruction secondary to a mass in the body of the pancreas. CA19-9 was elevated-2139. He had robotic laparoscopy at [facility] and was found to have multiple peritoneal nodules. He had gastrojejunostomy for duodenal obstruction and biopsy of peritoneal nodules on 03/06/2018. He is now referred for palliative chemotherapy. Pathology on 03/06/2018 peritoneal nodules showed adenocarcinoma poorly differentiated My previous notes reflect: MR#:[id number]:[id number] Name: CAITLIN HAAS [facility] #:[id number] : 1950 Provider:Catilin Cueto MD Age/Sex: 67/M Location:[facility] Status:Signed Intake Vital Signs 03/03/18 Height 5 ft 6 in 03/03/18 Weight: 177 lb 1 oz 03/03/18 Body Mass Index (BMI) 28.5 03/03/18 Blood Pressure 121/81 H 03/03/18 Blood Pressure Location Rt brachial 03/03/18 Blood Pressure Position Sitting 03/03/18 Respiratory Rate 20 H 03/03/18 Pulse Rate 86 03/03/18 Pulse Ox 97 Intake Visit Reasons: HX OF COLON POLYPS AND GERD, TROUBLE EATING Chief Complaint: bloating/ GERD, history of colon polyps High Value Associate Required: No Is patient in pain?: No Allergies acetaminophen [From Percocet] Adverse Reaction (Verified 03/03/18 15:52) Other oxycodone HCl [From Percocet] Adverse Reaction (Verified 03/03/18 15:52) Other Tetracyclines Adverse Reaction (Verified 03/03/18 15:52) Upset Stomach Medications Cholecalciferol (VIT D3) [Vitamin D3] 2,000 unit PO DAILY 02/24/15 [History Confirmed 03/03/18] Lisinopril/Hydrochlorothiazide [Zestoretic 20-12.5 mg Tablet] 1 ea PO DAILY 02/24/15 [History Confirmed 03/03/18] Multivitamins,Therapeutic [Multivitamin] 1 tab PO MOWEFR 02/24/15 [History Confirmed 03/03/18] Levothyroxine [Synthroid] 125 mcg PO DAILY #90 tab 02/27/15 [Rx Confirmed 03/03/18] Aspirin [Aspirin, Baby] 81 mg PO DAILY@0800 09/19/16 [History Confirmed 03/03/18] Escitalopram Oxalate [Lexapro] 5 mg PO DAILY 09/19/16 [History Confirmed 03/03/18] Pantoprazole Sodium [Protonix] 40 mg PO DAILY PRN 09/19/16 [History Confirmed 03/03/18] glipizide 10 mg tablet 10 mg PO DAILY 03/03/18 [History Confirmed 03/03/18] sitagliptin 100 mg tablet 100 mg PO DAILY 03/03/18 [History Confirmed 03/03/18] PFSH Medical History Abdominal distension (gaseous) (Acute) Personal history of colonic polyps (Acute) Nausea and vomiting (Acute) Bloating (Acute) Diabetes (Acute) GERD (gastroesophageal reflux disease) (Acute) Hemorrhoids (Acute) Hypothyroidism (Acute) HTN (hypertension) (Chronic) Surgical History History of colonoscopy (Acute 2014) History of esophagogastroduodenoscopy (EGD) (Acute 2014) History of right inguinal hernia repair (Acute) History of rotator cuff surgery (Acute) History of thyroidectomy (Acute) Family History Father Colon cancer Heart disease Hypertension Myocardial infarction Social History Smoking Status: Former smoker HPI HPI HPI: CAITLIN HAAS, is a 67 M who presents to the office today for surgical consultation regarding abdominal bloating nausea vomiting. He has had a previous upper and lower endoscopy per myself December 13, 2014. The upper endoscopy was not remarkable showing normal structures. The colonoscopy demonstrated 2 polyps both in the distal sigmoid colon. Pathology was consistent with tubular adenoma. On this occasion however the patient is referred by Dr. Geetha Diaz for surgical consultation regarding significant weight loss equivalent greater than 40 pounds abdominal distention bloating nausea vomiting significant belching of air. He has had a right upper quadrant ultrasound showing a normal gallbladder this was performed on February 27, 2018. He complains of feeling bloated does not really have any focused abdominal pain. He has been taking a stool softener claims that his stools seem to be more sticky but are not discolored ROS General General: Yes weight change and fatigue; no appetite, colon cancer, breast cancer or weakness HEENT HEENT: No difficulty swallowing, eye injury, eye surgery, swollen glands or hoarseness Endo Endocrine: Yes thyroid disease and diabetes mellitus; no thyroid cancer, Hair loss, heat intolerance or cold intolerance Cardio Cardiovascular: Yes high blood pressure; no murmur, pacemaker, heart disease, atrial fibrillation, heart attack, heart stent, palpitations, shortness of breat with exertion or chest pain Resp Respiratory: No shortness of breath, Yes sleep apnea, No cough, No COPD, No asthma, No emphysema, No wheezing Gastro Gastrointestinal: Yes abdominal pain, Yes nausea or vomiting, No diarrhea, Yes constipation, No blood in stool, Yes acid reflux, Yes hemorrhoids, No ulcers, No gallbladder problem, No black,tarry stools Neuro Neurologic: No weakness Exam Const General: cooperative Orientation: alert, awake, oriented x3 HENMT Head: normal to inspection Chest Chest palpation AND inspection: normal inspection of the chest Resp Effort AND Inspection: normal respiratory effort Auscultation: clear to auscultation bilaterally Cardio Rate: regular rate Rhythm: regular rhythm Heart Sounds: no murmurs GI Palpation: soft Auscultation: high-pitched sounds, hyperactive bowel sounds Other: Notably distended and tympanitic Neuro General: alert, awake Extrem General: no clubbing, cyanosis or edema Psych Affect: normal affect Assessment AND Plan Problems 1. Nausea and vomiting, intractability of vomiting not specified, unspecified vomiting type R11.2 2. Personal history of colonic polyps Z86.010 3. Abdominal distension (gaseous) R14.0 Plan The initial concern was that the patient's nausea vomiting burping belching weight loss was secondary to oral diabetic medications. It is not completely clear to me at this point that the severity of his symptoms correlates as well. The patient however did start having troubles when he initiated Janumet. The patient is acting like potential of a bowel obstruction or ileus or possible gastroparesis. I recommend to him a CT scan of the abdomen and pelvis with oral and IV contrast. We will obtain a complete metabolic profile CBC and lipase. I then would recommend to a combined esophagogastroduodenoscopy with possible biopsy or colonoscopy with possible biopsy or polypectomy is indicated. He is aware of the technique, benefits, risks and alternatives. We will obtain the CT scan tomorrow morning and then proceed with further diagnostic maneuvers as indicated. I very much appreciate the kind opportunity of assisting with his surgical care CC: Dr. SHERRIE Cueto M.D., F.A.C.S. ROS General General: Yes weight change and fatigue; no appetite, colon cancer, breast cancer or weakness HEENT HEENT: No difficulty swallowing, eye injury, eye surgery, swollen glands or hoarseness Endo Endocrine: Yes thyroid disease and diabetes mellitus; no thyroid cancer, Hair loss, heat intolerance or cold intolerance Cardio Cardiovascular: Yes high blood pressure; no murmur, pacemaker, heart disease, atrial fibrillation, heart attack, heart stent, palpitations, shortness of breat with exertion or chest pain Resp Respiratory: No shortness of breath, Yes sleep apnea, No cough, No COPD, No asthma, No emphysema, No wheezing Gastro Gastrointestinal: Yes abdominal pain, Yes nausea or vomiting, No diarrhea, Yes constipation, No blood in stool, Yes acid reflux, Yes hemorrhoids, No ulcers, No gallbladder problem, No black,tarry stools Neuro Neurologic: No weakness Exam Const General: cooperative, healthy appearing, comfortable, no acute distress Nutritional Appearance: average body habitus [facility] Head: normal to inspection Chest Chest palpation AND inspection: normal inspection of the chest Resp Effort AND Inspection: normal respiratory effort Auscultation: clear to auscultation bilaterally Cardio Rate: regular rate Rhythm: regular rhythm Heart Sounds: no murmurs GI Other: Soft, slightly distended, nicely healed low abdomen robotic port sites Extrem General: no calf tenderness bilaterally Psych Affect: normal affect Assessment AND Plan Problems 1. Malignant neoplasm of tail of pancreas C25.2 Plan Metastatic pancreatic cancer I have previously assisted this patient with a thyroidectomy He also has had right shoulder reconstruction surgery. He has incisions at both of these sites I propose for him a right internal jugular port placement. I have discussed the technique, benefits, risks, alternatives. He has had an opportunity to ask and have questions answered. He has a PET scan scheduled for Friday, March 23, 2018. I hopefully anticipate a port placement the following Friday. CC: Dr. Alfred Estrella and Dr. SHERRIE Cueto M.D., F.A.C.S. Coding Level of Care Code Off vis,est,level 2 Diagnoses Malignant neoplasm of tail of pancreas C25.2 Pancreatic malignancy location: tail of pancreas 03/21/18 0949 <Electronically signed by Caitlin Cueto MD> Date Caitlin Cueto MD Cosigner Signature: Date (if applicable) CC: Geetha Diaz MD; Alfred Estrella MD ONCOLOGY CONSULTATION Observed: 03/19/2018 Status: F Source: IRVINE 12:[address] [facility] REPOSITORY [facility] [address] [place] [address] Oncology Consultation Date of Service: 03/16/18 1434 MR#: [id number] Acct: [id number] Name: CAITLIN HAAS Rep #: [id number] : 1950 From: Alfred Estrella MD Age/Sex: 67/M Location: [facility] Status: Signed Consult Referring Physician: Dr. Girish Cueto, Dr. Tony Ignacio Consult Results: Pancreatic cancer stage IV-peritoneal metastasis. Subjective Date of Service:: 03/16/18 Chief Complaint: Referred for management of metastatic pancreatic cancer. History of Present Illness: 67y.o.man was found to have duodenal obstruction secondary to a mass in the body of the pancreas. CA19-9 was elevated-2139. He had laparotomy at [facility] and was found to have multiple peritoneal nodules. He had gastrojejunostomy for duodenal obstruction and biopsy of peritoneal nodules on 03/06/2018. He is now referred for palliative chemotherapy. 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 Living Will: Yes Health History: Past Medical History (Last Reviewed 03/16/18 @ 13:32 by Porsha Villagomez) Abdominal distension (gaseous) (Acute) Personal history of colonic polyps (Acute) Nausea and vomiting (Acute) Bloating (Acute) Diabetes (Acute) GERD (gastroesophageal reflux disease) (Acute) Hemorrhoids (Acute) Hypothyroidism (Acute) robotic gastrojejunostomy (Acute) HTN (hypertension) (Chronic) Past Surgical History (Last Reviewed 03/16/18 @ 13:32 by Porsha Villagomez) History of colonoscopy (Acute 2014) History of esophagogastroduodenoscopy (EGD) (Acute 2014) History of right inguinal hernia repair (Acute) History of rotator cuff surgery (Acute) History of thyroidectomy (Acute) Family History (Last Reviewed 03/16/18 @ 13:32 by Porsha Villagomez) Father Colon cancer Heart disease Hypertension Myocardial infarction Allergies/Adverse Reactions: Allergy/AdvReac Type Severity Reaction Status Date / Time acetaminophen [From Percocet] AdvReac Severe Other Verified 03/16/18 13:33 Review of Systems Constitutional:: Reports: Weight loss - 50lbs over 6 months. Denies: Fever, Sweats, Appetite change, Chills Cardiovascular:: Denies: Chest pain, Palpitations, Dyspnea on exertion, Orthopnea, PND, Shortness of breath Respiratory: Denies: Cough, Hemoptysis, Shortness of Breath, Wheezing Gastrointestinal:: Denies: Abdominal pain, Nausea, Vomiting, Diarrhea, Constipation, Hematochezia Genitourinary: Denies: Dysuria, Hematuria, 15, Flank pain Musculoskeletal:: Denies: Back pain, Myalgia, Arthralgia Skin: Denies: Rash, Skin Changes, Wounds Neurological:: Denies: Headache, Dizziness, Visual changes, Tinnitus, Hearing loss Psychiatric: Denies: Anxiety, Depression, Homicidal Ideations, Suicidal Ideations Vital Signs Height 5 ft 6 in Weight: 82.1 kg Weight in Pounds 181.0 lbs Pulse Ox 95 - Physical Exam General: Alert, Oriented x3, No apparent distress HEENT: Atraumatic, PERRLA, EOMI, Normocephalic Oropharynx:: Dry mucosa Neck:: Supple, Trachea midline. Negative for: JVD, bilateral Cardiac:: Regular rate, Regular rhythm, Normal S1, Normal S2. Negative for: Murmur Lungs: Clear to auscultation, Excusion symmetrical. Negative for: Rhonchi, Wheezes Abdomen:: Bowel sounds x 4, Soft, Non-tender, Non-distended. Negative for: Hepatosplenomegaly Extremities:: Negative for: Cyanosis, Edema Neurological: Neuro grossly intact Skin:: Negative for: Lesions, Rash, Petechiae, Ecchymosis Psychiatric:: Appropriate affect, Euthymic Lymphatics:: Negative for: Cervical lymphadenopathy, Supraclavicular lymphadenopathy, Axillary lymphadenopathy Diagnostic Data: 02/22/2018 CT abdomen and pelvis reviewed, shows 9.7 cm irregular mass involving body and tail of pancreas with increased markings in the peritoneal fat. There is dilation of the second and third portions of the duodenum. Nonopacification of the splenic vein with evidence of varices in the region of the splenic hilum. Assessment and Plan Pancreatic cancer, stage IV(cT3 cNx M1) Peritoneal nodules. PS 0. Discussed therapy with various chemotherapy regimens. Suggested FOLFIRINOX every 2 weeks. Discussed risks, benefits and side effects. Pt accepted. Plan is to obtain PET/CT, surgery consult for Port placement. RTC 2 weeks to start chemotherapy. Medications: Prescriptions This Visit Medication Instructions Recorded Docusate Sodium [Colace] 100 mg PO BID 03/16/18 Primary Care Provider: Geetha Diaz MD Referring Provider: - Problem List (1) Pancreatic cancer Status: Acute Code Visit Office Visits / Consults: [id number] OP Consult L5 03/19/18 1255 <Electronically signed by Alfred Estrella MD> Date Alfred Estrella MD Cosigner Signature: Date (if applicable) CC: Geetha Diaz MD XR ABDOMEN 1 VIEW Observed: 03/11/2018 Status: F Source: [facility] 12:[address] [facility] REPOSITORY EXAM: XR ABDOMEN 1 VIEW PORTABLE, 03/08/2018 13:43 PM COMPARISON: 2017 10:32 AM CLINICAL INDICATIONS: eval for gastric bubble. Previous XRs were not high enough to see the stomach. Thank you! FINDINGS: Tubes: Enteric tube with its tip backward into the gastric fundus and its sidehole near the gastric cardia. A questionable left hemidiaphragm. No gross free air. A small gastric gas bubble in the left upper quadrant. There is a non obstructive bowel gas pattern. No organomegaly or mass effect. No significant calcific densities or definite stones. Visualized osseous structures are unremarkable for the patient's age. IMPRESSION: No gaseous distention of the stomach. ABDOMEN 1 VIEW Observed: 03/09/2018 Status: F Source: [facility] 1:[address] [facility] REPOSITORY EXAM: XR ABDOMEN 1 VIEW PORTABLE, 03/08/2018 10:30 AM COMPARISON: March 06, 2018. CLINICAL INDICATIONS: eval gastric distention FINDINGS: Tubes: A nasogastric tube tip is in the gastric fundus as before. The bowel gas pattern is normal, and there is no gross free intraperineal air. There is no unusual gastric distention. IMPRESSION: 1. Satisfactory positioning of the nasogastric tube. 2. Normal bowel gas pattern, with no gastric distention. ABDOMEN 1 VIEW Observed: 03/09/2018 Status: F Source: [facility] 1:[address] [facility] REPOSITORY EXAM: XR ABDOMEN 1 VIEW PORTABLE, 03/06/2018 20:56 PM COMPARISON: No prior abdominal radiographs available for comparison. CLINICAL INDICATIONS: NG tube placement FINDINGS: Tubes: NG tube tip is in the proximal gastric body, with the proximal side port likely in the gastric cardia. The lower abdomen was excluded. There is elevation of the left hemidiaphragm. No gross free peritoneal air. The bowel gas pattern is normal. IMPRESSION: Satisfactory position of the nasogastric tube. GRAM (CBC AND Collected: 03/09/2018 Status: F Source: [place] [employer] [facility]) 1:[address] [facility] REPOSITORY TYPE CODE TESTS RESULT OUT OF REFERENCE UNITS RANGE LAB WBC 3.73-10.10 K/uL WBC Count 7.69 LAB RBC 4.38-5.83 M/uL RBC Count 4.40 LAB HGB 13.4-16.8 g/dL Low Hemoglobin 13.2 LAB HCT 39.6-48.8 % Hematocrit 39.6 LAB MCV 79.0-94.5 fL Mean Cell Volume 90.0 LAB MCH 26.1-33.3 pg Mean Cell Hgb 30.0 LAB MCHC 31.9-36.5 g/dL Mean Cell Hgb Conc 33.3 LAB RDW 10.9-14.3 % RBC Distribution 13.2 LAB PLT 146-337 K/uL Platelet Count 154 LAB MPV 8.7-12.3 fL Mean Platelet High Volume 12.7 LAB NRBC 0.0-0.2 /100 WBC NUCLEATED RBC 0.0 Performed By: #### HEMOGC, CA, CHM7, IPB, MGO #### [facility] [address] [address] CALCIUM Collected: 03/09/2018 Status: F Source: [facility] 1:[address] [facility] REPOSITORY TYPE CODE TESTS RESULT OUT OF REFERENCE UNITS RANGE LAB CA 8.6-10.5 mg/dL Low Calcium 8.1 Performed By: #### HEMOGC, CA, CHM7, IPB, MGO #### [facility] [address] [address] CHEM 7 Collected: 03/09/2018 Status: F Source: [facility] 1:[address] [facility] REPOSITORY TYPE CODE TESTS RESULT OUT OF REFERENCE UNITS RANGE LAB BUN 7-22 mg/dL BUN 8 LAB NA 133-143 mmol/L Sodium 138 LAB K 3.5-5.0 mmol/L Potassium 3.7 LAB CL 98-108 mmol/L Chloride 104 LAB CO2 22-30 mmol/L Carbon Dioxide 28 LAB GLUC 70-99 mg/dL Glucose High 153 LAB CREA 0.70-1.30 mg/dL Creatinine 0.70 LAB GAP 7-17 mmol/L Anion Gap 10 LAB BC BUN/CREA Ratio 11 LAB [facility] 278-305 mOsm/kg Osmolality 290 (Calc) LAB GFR >60 mL/min/1.73 sqM Est GFR,non >60 Lithuanian LAB GFRA >60 mL/min/1.73 sqM Est GFR, >60 Performed By: #### HEMOGC, CA, CHM7, IPB, MGO #### [facility] [address] [place] [id number] [place] [address] [place] [address] INORGANIC PHOSPHATE Collected: 03/09/2018 Status: F Source: [facility] 1:[address] [facility] REPOSITORY TYPE CODE TESTS RESULT OUT OF REFERENCE UNITS RANGE LAB IP 2.2-4.6 mg/dL Inorg Phosphate 2.7 Performed By: #### HEMOGC, CA, CHM7, IPB, MGO #### [facility] [address] [place] [address] [place] [address] MAGNESIUM Collected: 03/09/2018 Status: F Source: [facility] 1:[address] [facility] REPOSITORY TYPE CODE TESTS RESULT OUT OF REFERENCE UNITS RANGE LAB MG 1.6-2.6 mg/dL Magnesium 2.1 Performed By: #### HEMOGC, CA, CHM7, IPB, MGO #### [facility] [address] [id number] [place] [address] [place] [id number] HEMOGRAM (CBC AND Collected: 03/08/2018 Status: F Source: [facility]) 2:[address] [facility] REPOSITORY TYPE CODE TESTS RESULT OUT OF REFERENCE UNITS RANGE LAB WBC 3.73-10.10 K/uL WBC Count 8.69 LAB RBC 4.38-5.83 M/uL RBC Count 4.56 LAB HGB 13.4-16.8 g/dL Hemoglobin 13.7 LAB HCT 39.6-48.8 % Hematocrit 41.9 LAB MCV 79.0-94.5 fL Mean Cell Volume 91.9 LAB MCH 26.1-33.3 pg Mean Cell Hgb 30.0 LAB MCHC 31.9-36.5 g/dL Mean Cell Hgb Conc 32.7 LAB RDW 10.9-14.3 % RBC Distribution 13.5 LAB PLT 146-337 K/uL Platelet Count 161 LAB MPV 8.7-12.3 fL Mean Platelet High Volume 12.4 LAB NRBC 0.0-0.2 /100 WBC NUCLEATED RBC 0.0 Performed By: #### HEMOGC, CHM7, CA, IPB, MGO #### [facility] [address] [place] [address] [place] [address] CHEM 7 Collected: 03/08/2018 Status: F Source: [facility] 2:[address] [facility] REPOSITORY TYPE CODE TESTS RESULT OUT OF REFERENCE UNITS RANGE LAB BUN 7-22 mg/dL BUN 10 LAB NA 133-143 mmol/L Sodium 137 LAB K 3.5-5.0 mmol/L Potassium 3.7 LAB CL 98-108 mmol/L Chloride 103 LAB CO2 22-30 mmol/L Carbon Dioxide 26 LAB GLUC 70-99 mg/dL Glucose High 184 LAB CREA 0.70-1.30 mg/dL Low Creatinine 0.69 LAB GAP 7-17 mmol/L Anion Gap 12 LAB BC BUN/CREA Ratio 14 LAB [facility] 278-305 mOsm/kg Osmolality 291 (Calc) LAB GFR >60 mL/min/1.73 sqM Est GFR,non >60 Lithuanian LAB GFRA >60 mL/min/1.73 sqM Est GFR, >60 Performed By: #### HEMOGC, CHM7, CA, IPB, MGO #### [facility] [address] [place] [address] [place] [address] CALCIUM Collected: 03/08/2018 Status: F Source: [facility] 2:[address] [facility] REPOSITORY TYPE CODE TESTS RESULT OUT OF REFERENCE UNITS RANGE LAB CA 8.6-10.5 mg/dL Low Calcium 7.7 Performed By: #### HEMOGC, CHM7, CA, IPB, MGO #### [facility] [address] [id number] [place] [address] [place] [id number] INORGANIC PHOSPHATE Collected: 03/08/2018 Status: F Source: [facility] 2:[address] [facility] REPOSITORY TYPE CODE TESTS RESULT OUT OF REFERENCE UNITS RANGE LAB IP 2.2-4.6 mg/dL Inorg Phosphate 2.6 Performed By: #### HEMOGC, CHM7, CA, IPB, MGO #### [facility] [address] [place] [address] [facility] [address] [place], [place] [address] MAGNESIUM Collected: 03/08/2018 Status: F Source: [facility] 2:[address] [facility] REPOSITORY TYPE CODE TESTS RESULT OUT OF REFERENCE UNITS RANGE LAB MG 1.6-2.6 mg/dL Magnesium 2.0 Performed By: #### HEMOGC, CHM7, CA, IPB, MGO #### [facility] [address] [place] [address] [facility] [address] [place], [place] [address] *POC GLUCOSE BATTERY Collected: 03/07/2018 Status: F Source: [facility] 11:[address] [facility] REPOSITORY TYPE CODE TESTS RESULT OUT OF REFERENCE UNITS RANGE LAB GLUP 70-99 mg/dL High Glucose (poc 113 device) Result Comment: No BRAVE per RN: PATIENT TYPE LAB PCSTYP *POC Capillary SAMPLE TYPE Blood HEMOGRAM (CBC AND Collected: 03/07/2018 Status: F Source: [facility]) 2:[address] [facility] REPOSITORY TYPE CODE TESTS RESULT OUT OF REFERENCE UNITS RANGE LAB WBC 3.73-10.10 K/uL WBC Count High 10.97 LAB RBC 4.38-5.83 M/uL RBC Count 4.44 LAB HGB 13.4-16.8 g/dL Hemoglobin 13.4 LAB HCT 39.6-48.8 % Hematocrit 40.0 LAB MCV 79.0-94.5 fL Mean Cell Volume 90.1 LAB MCH 26.1-33.3 pg Mean Cell Hgb 30.2 LAB MCHC 31.9-36.5 g/dL Mean Cell Hgb Conc 33.5 LAB RDW 10.9-14.3 % RBC Distribution 13.4 LAB PLT 146-337 K/uL Platelet Count 156 LAB MPV 8.7-12.3 fL Mean Platelet High Volume 12.9 LAB NRBC 0.0-0.2 /100 WBC NUCLEATED RBC 0.0 Performed By: #### HEMOGC, CA, CHM7, IPB, MGO #### [facility] [address] [place] [address] [facility] [address] [place] [address] CALCIUM Collected: 03/07/2018 Status: F Source: [facility] 2:[address] [facility] REPOSITORY TYPE CODE TESTS RESULT OUT OF REFERENCE UNITS RANGE LAB CA 8.6-10.5 mg/dL Low Calcium 8.2 Performed By: #### HEMOGC, CA, CHM7, IPB, MGO #### [facility] [address] [place] [phone] [place] [address] [address] [place] [id number] CHEM 7 Collected: 03/07/2018 Status: F Source: [facility] 2:[address] [facility] REPOSITORY TYPE CODE TESTS RESULT OUT OF REFERENCE UNITS RANGE LAB BUN 7-22 mg/dL BUN 10 LAB NA 133-143 mmol/L Sodium 137 LAB K 3.5-5.0 mmol/L Potassium 3.6 LAB CL 98-108 mmol/L Chloride 101 LAB CO2 22-30 mmol/L Carbon Dioxide 29 LAB GLUC 70-99 mg/dL Glucose High 134 LAB CREA 0.70-1.30 mg/dL Creatinine 0.79 LAB GAP 7-17 mmol/L Anion Gap 11 LAB BC BUN/CREA Ratio 13 LAB [facility] 278-305 mOsm/kg Osmolality 288 (Calc) LAB GFR >60 mL/min/1.73 sqM Est GFR,non >60 Lithuanian LAB GFRA >60 mL/min/1.73 sqM Est GFR, >60 Performed By: #### HEMOGC, CA, CHM7, IPB, MGO #### [facility] [address] [place] [phone] [place] [address] [address] [place] [id number] INORGANIC PHOSPHATE Collected: 03/07/2018 Status: F Source: [facility] 2:[address] [facility] REPOSITORY TYPE CODE TESTS RESULT OUT OF REFERENCE UNITS RANGE LAB IP 2.2-4.6 mg/dL Inorg High Phosphate 4.9 Performed By: #### HEMOGC, CA, CHM7, IPB, MGO #### [facility] [address] [place] [address] [facility] [address] [place], [place] [address] MAGNESIUM Collected: 03/07/2018 Status: F Source: [facility] 2:[address] [facility] REPOSITORY TYPE CODE TESTS RESULT OUT OF REFERENCE UNITS RANGE LAB MG 1.6-2.6 mg/dL Magnesium 1.9 Performed By: #### HEMOGC, CA, CHM7, IPB, MGO #### [facility] [address] [place] [address] [facility] [address] [place], [place] [address] *POC GLUCOSE BATTERY Collected: 03/06/2018 Status: F Source: [facility] 8:[address] [facility] REPOSITORY TYPE CODE TESTS RESULT OUT OF REFERENCE UNITS RANGE LAB GLUP 70-99 mg/dL High Glucose (poc 143 device) Result Comment: No BRAVE per RN: PATIENT TYPE LAB PCSTYP *POC Capillary SAMPLE TYPE Blood *POC GLUCOSE BATTERY Collected: 03/06/2018 Status: F Source: [facility] 7:[address] [facility] REPOSITORY TYPE CODE TESTS RESULT OUT OF REFERENCE UNITS RANGE LAB GLUP 70-99 mg/dL High Glucose (poc 148 device) Result Comment: No BRAVE per RN: PATIENT TYPE LAB PCSTYP *POC Capillary SAMPLE TYPE Blood *POC GLUCOSE BATTERY Collected: 03/06/2018 Status: F Source: [facility] 6:[address] [facility] REPOSITORY TYPE CODE TESTS RESULT OUT OF REFERENCE UNITS RANGE LAB GLUP 70-99 mg/dL High Glucose (poc 141 device) Result Comment: No BRAVE per RN: PATIENT TYPE LAB PCSTYP *POC Capillary SAMPLE TYPE Blood CYTOLOGY- NON-NEONATAL SPECIALIST Observed: 03/06/2018 Status: F Source: [facility] 6:[address] [facility] REPOSITORY Cytology Report Patient Name: CAITLIN HAAS Med. Rec. #: [id number] Submitting Physician: KEMAR IGNACIO ---Clinical History:--- - 67 year old male with history of a pancreatic body mass and multiple pancreatic nodules ---Source of Specimen(s):--- A: Peritoneal Fluid Cytologic Diagnosis PERITONEAL FLUID (CYTOLOGY AND CELL BLOCK): - No Malignant Cells Are Identified. - Lymphocytosis. pexw/PEXW:03/12/2018 ---Electronically Signed Out By Iraj Saldaña Jr, MD--- Perfumer: Malik Cruz ---Procedures/Addenda--- Performed By: #### NONGN #### [facility] [address] [place] [address] [place] [address] Observed: 03/06/2018 Status: F Source: [facility] TYPE AND CROSS 4:[address] [facility] REPOSITORY ABO/RH(D): A NEGATIVE ANTIBODY SCREEN: NEGATIVE Performed By: #### XM #### [facility] [address] [place] [address] [place] [address] *POC GLUCOSE BATTERY Collected: 03/06/2018 Status: F Source: [facility] 4:[address] [facility] REPOSITORY TYPE CODE TESTS RESULT OUT OF REFERENCE UNITS RANGE LAB GLUP 70-99 mg/dL High Glucose (poc 193 device) Result Comment: No BRAVE per RN: PATIENT TYPE LAB PCSTYP *POC SAMPLE TYPE Venous SURGICAL PATHOLOGY Observed: 03/06/2018 Status: F Source: [facility] 8:[address] [facility] REPOSITORY Surgical Pathology Report Patient Name: CAITLIN HAAS Med. Rec #: [id number] Submitting Physician: KEMAR IGNACIO --- Clinical History --- K86.9 E11.69. Preop Diagnosis: Pancreatic mass. Type 2 diabetes mellitus with other specified complication, unspecified whether long- term insulin use. Medical History: Diabetes mellitus. Hyperlipidemia. Hypothyroidism. GERD. Essential hypertension, benign. Obstructive sleep apnea. ---Final Pathologic Diagnosis--- A. Peritoneum #1, biopsy: - Adipose tissue with detached clusters of atypical cells B. Peritoneum #2, biopsy: - Adenocarcinoma, moderately differentiated, involving fibroadipose tissue See COMMENT. COMMENT The tumor histomorphology is not site-specific but can be seen in metastatic pancreatic adenocarcinoma. cies03/MMY:03/12/2018 Electronically Signed By Saloni Mcfarland MD 03/12/2018 15:49:27 Professional Interpretation performed at location: [address] [place] [phone] ---SPECIMEN(S) RECEIVED:--- SBX A: Peritoneum, BX B: Peritoneum, BX ---GROSS DESCRIPTION:--- The specimens are received in two properly labeled containers with the patient's name and accession number. A. The specimen is designated peritoneal biopsy #1 and consists of one fragment of yellow soft tissue measuring 0.8 x 0.5 x 0.3 cm. TE 1 B. The specimen is designated peritoneal biopsy #2 and consists of one fragment of yellow-hannah rubbery tissue measuring 1.5 x 1.0 x 0.4 cm. TE 1 Lab Use Only: JobID [id number] Gross description by: Montse Lu Performed By: #### SURGP #### [facility] [address] [place] [address] XR CHEST PA AND Observed: 03/05/2018 Status: F Source: [facility] 6:[address] [facility] REPOSITORY EXAM: XR CHEST PA AND LATERAL, 03/05/2018 15:16 PM COMPARISON: No prior studies available for comparison. CLINICAL INDICATIONS: pre op RELEVANT CLINICAL HISTORY: K86.9:Pancreatic mass E11.69:Type 2 diabetes mellitus with other specified complication, unspecified whether long-term insulin use FINDINGS: (Adequate technique) Tubes, Lines, and life support hardware: None. Lungs: The lungs are clear. There are no pleural effusions. There is no pneumothorax. Nonspecific elevation of left hemidiaphragm. Cardiac, mediastinum, and hilum: The cardiomediastinal silhouette is within normal limits. ... Pulmonary Vessels: Normal, without PVH Bones, chest wall, and soft tissues: The visualized osseous structures are unremarkable. IMPRESSION: 1. No acute disease in the chest. 2. Nonspecific elevation of left hemidiaphragm. WITH DIFF Collected: 03/05/2018 Status: F Source: [facility] 2:[address] [facility] REPOSITORY TYPE CODE TESTS RESULT OUT OF REFERENCE UNITS RANGE LAB WBC 3.73-10.10 K/uL WBC Count 10.22 High LAB RBC 4.38-5.83 M/uL RBC Count 4.72 LAB HGB 13.4-16.8 g/dL Hemoglobin 14.8 LAB HCT 39.6-48.8 % Hematocrit 41.0 LAB MCV 79.0-94.5 fL Mean Cell 86.9 Volume LAB MCH 26.1-33.3 pg Mean Cell 31.4 Hgb LAB MCHC 31.9-36.5 g/dL Mean Cell 36.1 Hgb Conc LAB RDW 10.9-14.3 % RBC 13.2 Distribution LAB PLT 146-337 K/uL Platelet 166 Count LAB MPV 8.7-12.3 fL Mean 12.2 Platelet Volume LAB NRBC 0.0-0.2 /100 WBC NUCLEATED 0.0 RBC LAB DTYPE Electronic DIFFERENTIAL TYPE Differential LAB IGRE % IMMATURE 0.3 GRANS % LAB SEGS % NEUTROPHIL 68.2 SEGMENTED LAB LYM % LYMPHOCYTE 18.1 % LAB MON % MONOCYTE % 11.4 LAB EOS % *EOSINOPHIL 1.5 % LAB BASO % BASOPHIL % 0.5 LAB IGABS 0.00-0.07 K/uL IMMATURE <0.04 GRANS ABSOLUTE LAB SBANS 1.57-6.19 K/uL SEGS + 6.97 High Bands,Absolute LAB ALYM 0.83-3.57 K/uL Abs Lymph 1.85 LAB AMONO 0.24-0.93 K/uL Abs Unicoi 1.17 High LAB AEOS 0.00-0.48 K/uL Abs Eos 0.15 LAB ABASO 0.00-0.09 K/uL Abs Baso 0.05 Performed By: #### CBCDFM, CMPNC, LIPAC #### [facility] [address] [place] [address] #### CRP, PALB, A1CB, CA199 #### [facility] [address] [place] [address] [address] [place] [address] COMP METABOLIC Collected: 03/05/2018 Status: F Source: [facility] 2:[address] [facility] REPOSITORY TYPE CODE TESTS RESULT OUT OF REFERENCE UNITS RANGE LAB NA 133-143 mmol/L Sodium 137 LAB K 3.5-5.0 mmol/L Low Potassium 3.4 LAB CL 98-108 mmol/L Chloride 99 LAB BUN 7-22 mg/dL BUN 15 LAB CREA 0.70-1.30 mg/dL Creatinine 0.80 LAB GLUC 70-99 mg/dL Glucose High 117 LAB BILT <1.5 mg/dL Bilirubin Total 0.7 LAB ALB 3.5-5.0 g/dL Albumin 3.7 LAB TP 6.4-8.3 g/dL Total Protein 6.7 LAB AST 14-40 U/L Low AST 13 LAB ALP 32-126 U/L Alkaline Phosphatase 48 LAB CA 8.6-10.5 mg/dL Calcium 9.1 LAB CO2 22-30 mmol/L Carbon Dioxide 28 LAB ALT 10-52 U/L ALT 13 LAB GFR >60 mL/min/1.7 3sqM Est GFR,non >60 LAB GFRA >60 mL/min/1.7 3sqM Est GFR, >60 LAB GAP 7-17 mmol/L Anion Gap 13 LAB [facility] 278-305 mOsm/kg Osmolality (Calc) 288 Performed By: #### CBCDFM, CMPNC, LIPAC #### [facility] [address] [place] [address] #### CRP, PALB, A1CB, CA199 #### [place] [address] [address] [address] Collected: 03/05/2018 Status: F Source: [facility] 2:[address] [facility] REPOSITORY TYPE CODE TESTS RESULT OUT OF REFERENCE UNITS RANGE LAB LIPA 11-82 U/L Lipase 26 Performed By: #### CBCDFM, CMPNC, LIPAC #### [facility] [address] [place] [address] #### CRP, PALB, A1CB, CA199 #### [facility] [address] [place] [id number] C REACTIVE PROTEIN Collected: 03/05/2018 Status: F Source: [facility] 2:[address] [facility] REPOSITORY TYPE CODE TESTS RESULT OUT OF REFERENCE UNITS RANGE LAB CRP <10.00 mg/L C High Reactive 54.50 Protein Performed By: #### CBCDFM, CMPNC, LIPAC #### [place] [address] #### CRP, PALB, A1CB, CA199 #### [facility] [address] [place] [id number] [place] [address] [place] [address] PREALBUMIN Collected: 03/05/2018 Status: F Source: [facility] 2:[address] [facility] REPOSITORY TYPE CODE TESTS RESULT OUT OF REFERENCE UNITS RANGE LAB PALB 17-34 mg/dL Low Prealbumin 14 Performed By: #### CBCDFM, CMPNC, LIPAC #### [place] [address] #### CRP, PALB, A1CB, CA199 #### [facility] [address] [place] [address] [place] [address] HEMOGLOBIN A1C Collected: 03/05/2018 Status: F Source: [facility] 2:[address] [facility] REPOSITORY TYPE CODE TESTS RESULT OUT OF REFERENCE UNITS RANGE LAB A1C 4.7-5.6 % High Hemoglobin A1C 6.6 LAB EAG mg/dL Estimated 143 Average Glucose Performed By: #### CBCDFM, CMPNC, LIPAC #### [place] [address] #### CRP, PALB, A1CB, CA199 #### [facility] [address] [place] [address] CA 19-9 Collected: 03/05/2018 Status: F Source: [facility] 2:[address] [facility] REPOSITORY TYPE CODE TESTS RESULT OUT OF RANGE REFERENCE UNITS LAB CA199 0-37.00 U/mL High CA 19-9 2139.11 Performed By: #### CBCDFM, CMPNC, LIPAC #### [place] [address] #### CRP, PALB, A1CB, CA199 #### [facility] [address] [place] [address] [facility] [address] [place], [place] [address] OPERATIVE REPORT - Observed: 03/05/2018 Status: F Source: [facility] 7:[address] [facility] REPOSITORY [facility] Medical Records Department [address] [place] [address] Operative Report - Endoscopy MR#: [id number] Acct: [id number] Name: CAITLIN HAAS Rep #: [id number] : 1950 67 From: Caitlin Cueto MD PCP: Geetha Diaz MD Status: [facility] Patient Name: Caitlin Haas Procedure Date: 03/05/2018 6:48 AM Date of : 1950 Age: 67 Procedure: Colonoscopy Indications: Epigastric abdominal pain Providers: Caitlin Cueto MD Medicines: Midazolam 2 mg IV, Meperidine 50 mg IV Patient Profile: Last Colonoscopy: November 2014. Complications: No immediate complications. Procedure: Pre-Anesthesia Assessment: - Prior to the procedure, a History and Physical was performed, and patient medications and allergies were reviewed. The patient's tolerance of previous anesthesia was also reviewed. The risks and benefits of the procedure and the sedation options and risks were discussed with the patient. All questions were answered, and informed consent was obtained. Prior Anticoagulants: The patient has taken no previous anticoagulant or antiplatelet agents. ASA Grade Assessment: III - A patient with severe systemic disease. After reviewing the risks and benefits, the patient was deemed in satisfactory condition to undergo the procedure. After I obtained informed consent, the scope was passed under direct vision. Throughout the procedure, the patient's blood pressure, pulse, and oxygen saturations were monitored continuously. The Colonoscope was introduced through the anus and advanced to the cecum, identified by appendiceal orifice and ileocecal valve. The colonoscopy was performed without difficulty. The patient tolerated the procedure well. The quality of the bowel preparation was adequate to identify polyps. The ileocecal valve and the appendiceal orifice were photographed. Moderate Sedation: Moderate (conscious) sedation was personally administered by the endoscopist. The following parameters were monitored: oxygen saturation, heart rate, blood pressure, and response to care. Total physician intraservice time was 15 minutes. Scope In: 6:50:12 AM Scope Withdrawal Time 0 hours 14 minutes 48 seconds Scope Out: 7:10:02 AM Total Procedure Duration Time 0 hours 19 minutes 50 seconds Findings: The perianal and digital rectal examinations were normal. A 5 mm polyp was found in the proximal transverse colon. The polyp was sessile. The polyp was removed with a cold biopsy forceps. Resection and retrieval were complete. A 7 mm polyp was found in the distal sigmoid colon. The polyp was sessile. The polyp was removed with a hot snare. Resection and retrieval were complete. A 5 mm polyp was found in the rectum. The polyp was sessile. The polyp was removed with a hot snare. Resection and retrieval were complete. A 4 mm polyp was found in the rectum. The polyp was sessile. The polyp was removed with a cold biopsy forceps. Resection and retrieval were complete. A 6 mm polyp was found in the rectum. The polyp was sessile. The polyp was removed with a cold biopsy forceps. Resection and retrieval were complete. Scattered diverticula were found in the sigmoid colon. A 3 mm polyp was found in the proximal sigmoid colon. The polyp was sessile. The polyp was removed with a cold biopsy forceps. Resection and retrieval were complete. Impression: - One 5 mm polyp in the proximal transverse colon, removed with a cold biopsy forceps. Resected and retrieved. - One 7 mm polyp in the distal sigmoid colon, removed with a hot snare. Resected and retrieved. - One 3mm polyp in the distal sigmoid colon, removed with a cold biopsy forceps. Resected and retrieved - One 5 mm polyp in the rectum, removed with a hot snare. Resected and retrieved. - One 4 mm polyp in the rectum, removed with a cold biopsy forceps. Resected and retrieved. - One 6 mm polyp in the rectum, removed with a cold biopsy forceps. Resected and retrieved. - Diverticulosis in the sigmoid colon. Recommendation: - Discharge patient to home. - Resume previous diet. - Continue present medications. - Repeat colonoscopy in 3 years for surveillance. - Telephone my office for pathology results in 1 week. Procedure Code(s): --- Professional --- 64194, Colonoscopy, flexible; with removal of tumor(s), polyp(s), or other lesion(s) by snare technique 87386, 59, Colonoscopy, flexible; with biopsy, single or multiple 60057, 59, Moderate sedation services provided by the same physician or other qualified health medicare nurse performing the diagnostic or therapeutic service that the sedation supports, requiring the presence of an independent trained observer to assist in the monitoring of the patient's level of consciousness and physiological status; initial 15 minutes of intraservice time, patient age 5 years or older Diagnosis Code(s): --- Professional --- D12.3, Benign neoplasm of transverse colon (hepatic flexure or splenic flexure) D12.5, Benign neoplasm of sigmoid colon K62.1, Rectal polyp R10.13, Epigastric pain K57.30, Diverticulosis of large intestine without perforation or abscess without bleeding CPT copyright 2017 [employer]. All rights reserved. The codes documented in this report are preliminary and upon draw bench operator helper review may be revised to meet current compliance requirements. Caitlin Cueto MD 03/05/2018 7:26:49 AM This report has been signed electronically. Number of Addenda: 0 Note Initiated On: 03/05/2018 6:48 AM 03/05/18 0727 Date Caitlin Cueto MD Cosigner Signature: Date (if indicated) CC: Geetha Diaz MD; Caitlin Cueto MD Date Dictated: 03/05/18 0648 Date Transcribed: Comber Fixer: GLADIS Signed OPERATIVE REPORT - Observed: 03/05/2018 Status: F Source: [facility] ENDOSCOPY 7:[address] [facility] REPOSITORY [facility] Medical Records Department [address] [place] [address] Operative Report - Endoscopy MR#: [id number] Acct: [id number] Name: CAITLIN HAAS Rep #: [id number] : 1950 67 From: Caitlin Cueto MD PCP: Geetha Diaz MD Status: REG [facility] Patient Name: Caitlin Haas Procedure Date: 03/05/2018 6:22 AM Date of : 1950 Age: 67 Procedure: Upper GI endoscopy Indications: Epigastric abdominal pain, Abnormal CT of the GI tract Providers: Caitlin Cueto MD Medicines: Midazolam 4 mg IV, Meperidine 100 mg IV Complications: No immediate complications. Procedure: Pre-Anesthesia Assessment: - Prior to the procedure, a History and Physical was performed, and patient medications and allergies were reviewed. The patient's tolerance of previous anesthesia was also reviewed. The risks and benefits of the procedure and the sedation options and risks were discussed with the patient. All questions were answered, and informed consent was obtained. Prior Anticoagulants: The patient has taken no previous anticoagulant or antiplatelet agents. ASA Grade Assessment: III - A patient with severe systemic disease. After reviewing the risks and benefits, the patient was deemed in satisfactory condition to undergo the procedure. After obtaining informed consent, the endoscope was passed under direct vision. Throughout the procedure, the patient's blood pressure, pulse, and oxygen saturations were monitored continuously. The colonoscope was introduced through the mouth, and advanced to the fourth part of duodenum. The upper GI endoscopy was accomplished without difficulty. The patient tolerated the procedure well. Moderate Sedation: Moderate (conscious) sedation was personally administered by the endoscopist. The following parameters were monitored: oxygen saturation, heart rate, blood pressure, and response to care. Total physician intraservice time was 15 minutes. Scope In: 6:38:33 AM Scope Out: 6:47:11 AM Total Procedure Duration Time 0 hours 8 minutes 38 seconds Findings: The examined esophagus was normal. The Z-line was regular and was found 40 cm from the incisors. Diffuse moderate inflammation characterized by congestion (edema) was found in the entire examined stomach. Biopsies were taken with a cold forceps for histology. A medium amount of food (residue) was found in the gastric body. An acquired extrinsic severe stenosis was found in the fourth portion of the duodenum. Impression: - Normal esophagus. - Z-line regular, 40 cm from the incisors. - Gastritis. Biopsied. - A medium amount of food (residue) in the stomach. - Acquired duodenal stenosis. Recommendation: - Discharge patient to home. - - full liquid diet and supplements as tolerated - Continue present medications. Procedure Code(s): --- Professional --- 08743, Esophagogastroduodenoscopy, flexible, transoral; with biopsy, single or multiple 95027, 59, Moderate sedation services provided by the same physician or other qualified health medicare nurse performing the diagnostic or therapeutic service that the sedation supports, requiring the presence of an independent trained observer to assist in the monitoring of the patient's level of consciousness and physiological status; initial 15 minutes of intraservice time, patient age 5 years or older Diagnosis Code(s): --- Professional --- K29.70, Gastritis, unspecified, without bleeding K31.5, Obstruction of duodenum R10.13, Epigastric pain R93.3, Abnormal findings on diagnostic imaging of other parts of digestive tract CPT copyright 2017 [employer]. All rights reserved. The codes documented in this report are preliminary and upon draw bench operator helper review may be revised to meet current compliance requirements. Caitlin Cueto MD 03/05/2018 7:18:13 AM This report has been signed electronically. Number of Addenda: 0 Note Initiated On: 03/05/2018 6:22 AM 03/05/18717 Date Caitlin Cueto MD Cosigner Signature: Date (if indicated) CC: Geetha Diaz MD; Caitlin Cueto MD Date Dictated: 03/05/18621 Date Transcribed: Comber Fixer: GLADIS Signed EGD ([facility]) Observed: 03/05/2018 Status: F Source: [facility] 6:[address] [facility] REPOSITORY Patient: CAITLIN HAAS : 1950 (67/M) Acct Num: [id number] Phys: Nory LOPES,Caitlin Unit Num: [id number] Loc: EN Specimen: [id number] Received: 03/05/1831 Spec Type: EGD BIOPSY TISSUES 1 TISSUES: A. Gastric mucous membrane B. Transverse colon C. Sigmoid colon biopsy D. Rectum, NOS E. Rectum, NOS COMMENT A. The results of immunohistochemistry for Helicobacter pylori will be reported separately ([id number]). GROSS DESCRIPTION A - Received in fixative is one container labeled with the patient's name and designated antral biopsy. The specimen consists of two irregular fragments of light hannah soft tissue that in aggregate measure 0.6 x 0.2 x 0.1 cm. The specimen is totally submitted in one cassette. B - Received in fixative is one container labeled with the patient's name and designated proximal transverse polyp. The specimen consists of one irregular fragment of light hannah soft tissue that measures 0.5 x 0.3 x 0.1 cm. The specimen is totally submitted in one cassette. C - Received in fixative is one container labeled with the patient's name and designated distal sigmoid polyp. The specimen consists of multiple irregular fragments of light hannah soft tissue that in aggregate measure 1.3 x 1 x 0.2 cm. The specimen is totally submitted in one cassette. D - Received in fixative is one container labeled with the patient's name and designated proximal rectal polyp. The specimen consists of one irregular fragment of light hannah soft tissue that measures 0.6 x 0.5 x 0.2 cm. The specimen is totally submitted in one cassette. E - Received in fixative is one container labeled with the patient's name and designated distal rectal polyp biopsy. The specimen consists of two irregular fragments of light hannah soft tissue that in aggregate measure 0.5 x 0.3 x 0.1 cm. The specimen is totally submitted in one cassette. / AM:rg 03/05/18 TC:1 CPT: 92261 x5 HEADER OPERATION: Colonoscopy, EGD (MOD) PRE-OP DIAGNOSIS: GERD, history of polyps TISSUE SUBMITTED: A - Antral biopsy for H. pylori and pathology, B - Proximal transverse polyp biopsy, C - Distal sigmoid polyps, D - Proximal rectal polyp, E - Distal rectal polyp biopsies MICROSCOPIC DESCRIPTION Slides are reviewed. A. The specimen shows fragments of gastric mucosa with chronic inflammatory cell infiltrates in the lamina propria consisting of lymphocytes and plasma cells, consistent with mild chronic gastritis. MICROSCOPIC DIAGNOSIS A. Antral biopsy: Mild gastritis. B. Proximal transverse colon polyp, biopsy: Hyperplastic polyp. C. Distal sigmoid polyps, biopsy: Tubular adenoma. Serrated adenoma (mixed tubular adenoma and hyperplastic polyp). Fragments of fecal material. D. Proximal rectal polyp, biopsy: Serrated adenoma (mixed tubular adenoma and hyperplastic polyp). E. Distal rectal polyp, biopsy: Tubular adenoma. Serrated adenoma (mixed tubular adenoma and hyperplastic polyp). SJ:luke 03/06/18 Signed Robles Becerra MD 03/06/18 <signature on file> Performed By: #### PEGD #### [facility] [address] [place] [address]. [place], [place], [address] IMMUNOHISTOCHEMISTRY Observed: 03/05/2018 Status: F Source: [facility] 6:[address] [facility] REPOSITORY Patient: CAITLIN HAAS : 1950 (67/M) Acct Num: [id number] Phys: Caitlin Cueto MD Unit Num: [id number] Loc: EN Specimen: [id number] Received: 03/05/189 Spec Type: IMMUNO TISSUES 1 TISSUES: A. Stomach, NOS SPECIMEN INFORMATION: Tissue Source: A - Antral biopsy Clinical Info: GERD, history of polyps Specimen Number: [id number] CPT code: 89184 METHODOLOGY: Deparaffinized sections of prefer/formalin-fixed tissue or PAP/DQ stained slides are incubated with monoclonal/polyclonal antibodies/oligonucleotide probes. Localization is made via biotin free immunoperoxidase method. Appropriate controls are performed and reacted as expected. Results on target cell population are indicated in the following table: RESULTS: ANTIBODY / CLONE RESULT Block A H Pylori (polyclonal) negative These tests were developed and their performance characteristics determined by [facility]. They may not have been cleared or approved by the [place].S. Food and Drug Administration. The FDA has determined that such clearance or approval is not necessary. INTERPRETATION: A. Antral biopsy: Negative for Helicobacter pylori organisms. SJ:luke 03/06/18 PHYSICIAN AND INSTITUTION [address] [address] Signed Robles Becerra MD 03/06/18 <signature on file> Performed By: #### PIMM #### [facility] [address] [place], [address] BEDSIDE GLUCOSE Collected: 03/05/2018 Status: F Source: [facility] 6:[address] [facility] REPOSITORY TYPE CODE TESTS RESULT OUT OF REFERENCE UNITS RANGE LAB L501.080 70-110 mg/dL High BEDSIDE GLU 139 Result Comment: MANAGEMENT OF PATIENT CARE PER NURSING PROTOCOL Performed By: #### L501.080 #### [facility] Point of Care [address] [place] [address] ABDOMEN/PELVIS WITH Observed: 03/04/2018 Status: F Source: [facility] CONTRAST 8:[address] [facility] REPOSITORY [facility] Imaging Services [address] [place] [address] Abdomen/Pelvis WITH Contrast MR#: [id number] Acct: [id number] Name: CAITLIN HAAS Rep #: [id number] : 1950 M 67 From: Sonny Guevara MD PCP: Geetha Diaz MD Status: REG CLI Study: Abdomen/Pelvis WITH Contrast Date of Exam: 03/04/18 Exam# [id number] Ordering Dr: Caitlin Cueto MD STUDY: CT ABDOMEN AND PELVIS WITH CONTRAST REASON FOR EXAM: Male, 67 years old. Abdominal distention and constipation. History of 50 pound weight loss. RADIATION DOSAGE (If Supplied By Facility): CTDIvol = ( 18.94 ) mGy, DLP = ( 1120.89 ) mGycm TECHNIQUE: Transaxial images were obtained from the dome of the diaphragm to the symphysis pubis with oral contrast. 100CC ml of Isovue 300 contrast was administered. Sagittal and coronal images were reconstructed. Individualized dose optimization techniques were used for this CT. COMPARISON: None. FINDINGS: The visualized lung bases are unremarkable. The visualized portions of the heart are within normal limits. Minimally dilated central intrahepatic biliary ducts. Mildly distended gallbladder. Normal spleen. The splenic vein is not opacified. There is evidence of varices within the splenic hilum. There is evidence of irregular soft tissue mass with air involving the body and tail portions of the pancreas. This measures 9.7 cm x 4.1 cm. There is evidence of increased markings in the surrounding peritoneal fat. Infiltration at the root of the mesentery is suspected as well. A neoplastic process should be ruled out. The pancreatic head is unremarkable. Normal bilateral adrenal glands. Normal right kidney. Tiny cysts are seen in the lower pole of the left kidney. There is a diffuse thickening of the distal body of the stomach. There is a dilatation of the second and third portion of the duodenum up to the region of the ligament of Treitz. The right hemicolon is not well opacified with contrast although there is suggestion of the diffuse wall thickening. Increased markings are seen in the surrounding peritoneal fat. Scattered sigmoid diverticula. The appendix is visualized and appears normal. Normal abdominal aorta. Normal inferior vena cava. Normal retroperitoneum. Normal urinary bladder. There is enlargement of the prostate gland. This measures 5.2 cm x 6.5 cm. Small amount of free fluid is seen in the pelvis. Small bilateral inguinal hernias containing fat. 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 Disc space narrowing at the L5-S1 level. Loss of the normal lumbar lordosis. CT/Abdomen/Pelvis WITH Contrast IMPRESSION: Inhomogeneous mass seen in the body and tail portions of the pancreas with the air within it. There is evidence of thickening of the distal body of the stomach as well as dilatation of the second and third portions of the duodenum up to the ligament of Treitz. Nonopacification of the splenic vein with evidence of varices in the region of the splenic hilum. Small amount of free fluid in the cul-de-sac. Electronically Signed: Sonny Guevara MD at 9:34 EST Tel [phone], Service support , CC: Geetha Diaz MD; Caitlin Cueto MD Comber Fixer: Signed SURGERY VISIT REPORT Observed: 03/03/2018 Status: F Source: [place] 4:[address] [facility] REPOSITORY [facility] [address] [place] [address] [address] [place] [address] OFFICE VISIT Date of Service: 03/03/18 MR#: [id number] Acct: [id number] Name: CAITLIN HAAS Rep #: [id number] : 1950 Provider: Caitlin Cueto MD Age/Sex: 67/M Location: [facility] Status: Signed Intake Vital Signs03/03/18 Height 5 ft 6 in 03/03/18 Weight: 177 lb 1 oz 03/03/18 Body Mass Index (BMI) 28.5 03/03/18 Blood Pressure 121/81 H Intake Visit Reasons: HX OF COLON POLYPS AND GERD, TROUBLE EATING Chief Complaint: bloating/ GERD, history of colon polyps High Value Associate Required: No Is patient in pain?: No Allergies acetaminophen [From Percocet] Adverse Reaction (Verified 03/03/18 15:52) Other oxycodone HCl [From Percocet] Adverse Reaction (Verified 03/03/18 15:52) Other Tetracyclines Adverse Reaction (Verified 03/03/18 15:52) Upset Stomach Medications Cholecalciferol (VIT D3) [Vitamin D3] 2,000 unit PO DAILY 02/24/15 [History Confirmed 03/03/18] Lisinopril/Hydrochlorothiazide [Zestoretic 20-12.5 mg Tablet] 1 ea PO DAILY 02/24/15 [History Confirmed 03/03/18] Multivitamins,Therapeutic [Multivitamin] 1 tab PO MOWEFR 02/24/15 [History Confirmed 03/03/18] Levothyroxine [Synthroid] 125 mcg PO DAILY #90 tab 02/27/15 [Rx Confirmed 03/03/18] Aspirin [Aspirin, Baby] 81 mg PO DAILY@0800 09/19/16 [History Confirmed 03/03/18] Escitalopram Oxalate [Lexapro] 5 mg PO DAILY 09/19/16 [History Confirmed 03/03/18] Pantoprazole Sodium [Protonix] 40 mg PO DAILY PRN 09/19/16 [History Confirmed 03/03/18] glipizide 10 mg tablet 10 mg PO DAILY 03/03/18 [History Confirmed 03/03/18] sitagliptin 100 mg tablet 100 mg PO DAILY 03/03/18 [History Confirmed 03/03/18] [facility] Medical History Abdominal distension (gaseous) (Acute) Personal history of colonic polyps (Acute) Nausea and vomiting (Acute) Bloating (Acute) Diabetes (Acute) GERD (gastroesophageal reflux disease) (Acute) Hemorrhoids (Acute) Hypothyroidism (Acute) HTN (hypertension) (Chronic) Surgical History History of colonoscopy (Acute 2014) History of esophagogastroduodenoscopy (EGD) (Acute 2014) History of right inguinal hernia repair (Acute) History of rotator cuff surgery (Acute) History of thyroidectomy (Acute) Family History Father Colon cancer Heart disease Hypertension Myocardial infarction Social History Smoking Status: Former smoker HPI HPI HPI: CAITLIN HAAS, is a 67 M who presents to the office today for surgical consultation regarding abdominal bloating nausea vomiting. He has had a previous upper and lower endoscopy per myself December 13, 2014. The upper endoscopy was not remarkable showing normal structures. The colonoscopy demonstrated 2 polyps both in the distal sigmoid colon. Pathology was consistent with tubular adenoma. On this occasion however the patient is referred by Dr. Geetha Diaz for surgical consultation regarding significant weight loss equivalent greater than 40 pounds abdominal distention bloating nausea vomiting significant belching of air. He has had a right upper quadrant ultrasound showing a normal gallbladder this was performed on February 27, 2018. He complains of feeling bloated does not really have any focused abdominal pain. He has been taking a stool softener claims that his stools seem to be more sticky but are not discolored ROS General General: Yes weight change and fatigue; no appetite, colon cancer, breast cancer or weakness HEENT HEENT: No difficulty swallowing, eye injury, eye surgery, swollen glands or hoarseness Endo Endocrine: Yes thyroid disease and diabetes mellitus; no thyroid cancer, Hair loss, heat intolerance or cold intolerance Cardio Cardiovascular: Yes high blood pressure; no murmur, pacemaker, heart disease, atrial fibrillation, heart attack, heart stent, palpitations, shortness of breat with exertion or chest pain Resp Respiratory: No shortness of breath, Yes sleep apnea, No cough, No COPD, No asthma, No emphysema, No wheezing Gastro Gastrointestinal: Yes abdominal pain, Yes nausea or vomiting, No diarrhea, Yes constipation, No blood in stool, Yes acid reflux, Yes hemorrhoids, No ulcers, No gallbladder problem, No black,tarry stools Neuro Neurologic: No weakness Exam Const General: cooperative Orientation: alert, awake, oriented x3 HENMT Head: normal to inspection Chest Chest palpation AND inspection: normal inspection of the chest Resp Effort AND Inspection: normal respiratory effort Auscultation: clear to auscultation bilaterally Cardio Rate: regular rate Rhythm: regular rhythm Heart Sounds: no murmurs GI Palpation: soft Auscultation: high-pitched sounds, hyperactive bowel sounds Other: Notably distended and tympanitic Neuro General: alert, awake Extrem General: no clubbing, cyanosis or edema Psych Affect: normal affect Assessment AND Plan Problems 1. Nausea and vomiting, intractability of vomiting not specified, unspecified vomiting type R11.2 2. Personal history of colonic polyps Z86.010 3. Abdominal distension (gaseous) R14.0 Plan The initial concern was that the patient's nausea vomiting burping belching weight loss was secondary to oral diabetic medications. It is not completely clear to me at this point that the severity of his symptoms correlates as well. The patient however did start having troubles when he initiated Janumet. The patient is acting like potential of a bowel obstruction or ileus or possible gastroparesis. I recommend to him a CT scan of the abdomen and pelvis with oral and IV contrast. We will obtain a complete metabolic profile CBC and lipase. I then would recommend to a combined esophagogastroduodenoscopy with possible biopsy or colonoscopy with possible biopsy or polypectomy is indicated. He is aware of the technique, benefits, risks and alternatives. We will obtain the CT scan tomorrow morning and then proceed with further diagnostic maneuvers as indicated. I very much appreciate the kind opportunity of assisting with his surgical care CC: Dr. SHERRIE Cueto M.D., F.A.C.S. Orders Orders: Medications New: Coding Level of Care Code Comprehensive,moderate Diagnoses Nausea and vomiting, intractability of vomiting not specified, unspecified vomiting type R11.2 Vomiting type: unspecified Vomiting Intractability: unspecified Personal history of colonic polyps Z86.010 Abdominal distension (gaseous) R14.0 03/03/18 1652 <Electronically signed by Caitlin Cueto MD> Date Caitlin Cueto MD Cosigner Signature: Date (if applicable) CC: Geetha Diaz MD COMPREHENSIVE METABOLIC Collected: 03/03/2018 Status: F Source: [facility] CADE 4:[address] [facility] REPOSITORY TYPE CODE TESTS RESULT OUT OF RANGE REFERENCE UNITS LAB L501.0100 74-106 mg/dL High GLU 135 Result Comment: Fasting Glucose result greater than or equal to 126 mg/dL suggests DIABETES MELLITUS per A.D.A. criteria. Please note revised GLUCOSE reference range effective 2017. LAB L501.1000 7-18 mg/dL Normal BUN 18 LAB L501.1100 0.70-1.30 mg/dL Normal CREAT,SERUM 0.97 Result Comment: The validity of the calculated GFR AND GFRAA in patients over 70 years has not been determined. Clinical correlation is essential. LAB L501.1110 >60 mL/min Normal EST GFR 82 Result Comment: Non- GFR Calc LAB L501.1115 >60 mL/min Normal EST GFR - AA 100 Result Comment: GFR Calc LAB L501.1300 10-20 RATIO Normal BUN/CRE 18.5 LAB L501.1500 6.4-8.2 g/dL T Normal PROT 7.1 LAB L501.1800 3.2-5.0 g/dL Normal ALB 3.4 LAB L501.1950 2.2-4.2 g/dL Normal GLOB 3.7 LAB L501.2000 0.9-2.4 RATIO Normal A/G 0.9 LAB L501.2200 8.5-10.1 mg/dL Low CA 8.4 LAB L501.4100 15-37 U/L Low AST 11 LAB L501.4305 45-117 U/L Normal ALK P 59 LAB L501.4405 16-61 U/L Normal ALT 18 LAB L501.4600 0.20-1.00 mg/dL High T BILI 1.30 LAB L501.5300 136-145 mmol/L NA Normal 139 LAB L501.5600 3.5-5.1 mmol/L K Normal 3.9 LAB L501.5900 98-107 mmol/L CL Normal 100 LAB L501.6100 21.0-32.0 mmol/L Normal CO2 28.0 LAB L501.6200 5-15 Normal GAP 11 Performed By: #### L500.4050, L501.2450 #### [facility] [address] [place], [place], [address] LIPASE Collected: 03/03/2018 Status: F Source: [place] 4:[address] [facility] REPOSITORY TYPE CODE TESTS RESULT OUT OF RANGE REFERENCE UNITS LAB L501.2450 73-393 U/L Normal LIPASE 160 Performed By: #### L500.4050, L501.2450 #### [facility] [address] [place], [address] CBC W/DIFF, AUTOMATED Collected: 03/03/2018 Status: F Source: [place] 4:[address] [facility] REPOSITORY TYPE CODE TESTS RESULT OUT OF RANGE REFERENCE UNITS LAB L100.1000 4.4-11.0 K/mm3 High WBC 14.1 LAB L100.1200 4.6-6.2 M/mm3 Normal RBC 5.08 LAB L100.1300 13.0-16.5 g/dl Normal HGB 15.7 LAB L100.1400 40-54 % Normal HCT 45.8 LAB L100.1500 80-94 fL Normal MCV 90.2 LAB L100.1600 27.0-32.0 pg Normal MCH 30.9 LAB L100.1700 32-36 g/gl Normal MCHC 34.3 LAB L100.1810 11.6-14.6 % Normal RDW CV 13.8 LAB L100.1820 35.1-43.9 fl High RDW SD 45.1 LAB L100.1900 150-450 K/mm3 Normal PLT 176 LAB L100.2000 6.2-12.0 fl High MPV 13.2 LAB L100.2100 47-70 % High NEUT% 75.3 LAB L100.2200 19-41 % Low LY% 10.8 LAB L100.2300 0-10 % High MONO% 13.0 LAB L100.2400 0-5 % Normal EO% 0.5 LAB L100.2500 0-1 % Normal BASO% 0.2 LAB L100.2550 0.0-0.9 % Normal IM GRAN % 0.200 Result Comment: IG% - Immature Granulocytes (promyelocytes, myelocytes and metamyelocytes) > 1% indicates that a LEFT SHIFT is Present. LAB L100.2620 2.0-7.7 X10 3/uL High Absolute Neut 10.6 LAB L100.2720 0.83-4.51 X10 3/ul Normal Absolute Lymph 1.53 LAB L100.4500 Normal SMEAR COMMENT SCANNED Performed By: #### L100.0100 #### [facility] [address] [facility] [place], [address] ABDOMEN LIMITED Observed: 02/27/2018 Status: F Source: [place]VINE 8:[address] [facility] REPOSITORY [facility] Imaging Services [address] [place] [address] Abdomen Limited MR#: [id number] Acct: [id number] Name: CAITLIN HAAS Rep #: [id number] : 1950 67 From: Shravan Craig PCP: Geetha Diaz MD Status: REG CLI Study: Abdomen Limited Date of Exam: 02/27/18 Exam# [id number] Ordering Dr: Geetha Diaz MD STUDY: ABDOMINAL ULTRASOUND - RIGHT UPPER QUADRANT REASON FOR VISIT: Male, 67 years old. epigastric pain x 2 years -- hernia repair 2001. TECHNIQUE: Ultrasound evaluation of the right upper quadrant was performed with real-time and static villalta-scale imaging. TECHNICAL QUALITY: Adequate. COMPARISON: None. FINDINGS: Liver: The liver measures 16.3 cm. There is normal echogenicity of the liver. The bile ducts are within normal limits. There is hepatic color flow. The direction of portal flow is hepatopetal. There is no demonstrated mass lesion. Gallbladder: Normal distended gallbladder. The gallbladder wall measures 2.4 mm. There is a negative sonographic Kay's sign. There is no pericholecystic fluid. There are no gallstones. Common Bile Duct (C.B.D.): The common bile duct measures 4.0 mm. Pancreas: Normal size of the head, body of the pancreas. There is normal echogenicity of the pancreas. There is no demonstrated pancreatic mass or cyst. Right Kidney: Normal size of the right kidney. The right kidney measures 10.0 x 4.8 x 5.6 cm. Normal renal cortex. The right cortex measures cm. There is no demonstrated renal mass or cyst. There is no right hydronephrosis. US/Abdomen Limited IMPRESSION: Normal right upper quadrant ultrasound examination. Electronically Signed: Shravan Craig MD at 12:26 EST Tel , Service support , CC: Geetha Diaz MD Comber Fixer: Signed CNPN Observed: 12/16/2017 Status: COMPLETED Source: [place] 12:00 AM [facility] REPOSITORY Telephone (CHRISSY) CAITLIN HAAS ([id number]) 1950 M Date Time Provider Department 12/16/17 GEETHA DIAZ During your visit today, we recorded the following information about you: Mayuri Jacques, RN, RN 12/16/2017 11:17 AM Signed Patient due for 3 year follow up colonoscopy. Patient has h/o polyps. Patient needs OV prior due to family history of 1st-degree relative with colorectal cancer . Please call patient and schedule with Vaishali Nguyen. Mayuri Jacques RN Cindi Senior, RN, RN 12/17/2017 2:26 PM Signed Pt should be fine for open access. Will not need appt. RENATO Quiñones 12/19/2017 8:38 AM Signed Patient is not due till 2019 for a 5 year. . Can you update [email or web address] [facility]. Thank you Josue Diaz 12/19/2017 2:04 PM Signed 1st failed attempt Josue Senior, RN, RN 12/24/2017 11:59 AM Signed See pathology result note. Dr. Caitlin Cueto recommended 3 yr follow up. Pt is due for colonoscopy now. Pt okay for open access. Please call pt to schedule. Thank you, Cindi Senior, RENATO Rocha 12/24/2017 12:44 PM Signed 2nd failed attempt to contact patient, left voice message Candace Rocha Montse Fragoso Psr 12/26/2017 8:48 AM Signed 3rd failed attempt to contact patient, left voice message. Mailing colonoscopy letter. Montse Fragoso Psr Montse Fragoso Psr 12/26/2017 2:55 PM Signed Patient returned phone call, stated he wasn't aware he was due this year but will call back in at a better time to schedule colonoscopy. Montse Fragoso Psr Allergies As of Date: 12/16/2017 Noted Allergy Reaction HAY FEVER (SEASONAL ALLERGIES) 01/30/2015 1 - Mental Status Change Comments: Itchy eyes, runny nose, coughing, sneezing. TETRACYCLINE 02/27/2015 8 - GI Upset Date Reviewed: 10/26/2017 Reviewed by: [facility] Hospital[facility]ire - Fully Assessed Reason for Visit: open access colonoscopy [Other] Reason For Visit History Recorded Prescriptions as of 12/16/2017 Sig: MAGNESIUM OXIDE 500 MG TABLET Take 500 mg by mouth once salomon* LEVOTHYROXINE 125 MCG TABLET Take 1 tablet by mouth daily * LOVASTATIN 20 MG TABLET Take 1 tablet by mouth daily * COQ-10 ORAL Take 300 mg by mouth once salomon* NASACORT NASAL Use in the nose once daily. CHOLECALCIFEROL (VITAMIN D3) * Take 1 capsule by mouth once * CPAP LISINOPRIL 20 MG-HYDROCHLOROT* Take 1 tablet by mouth once d* LORAZEPAM 1 MG TABLET Take 1 mg by mouth once daily. GABAPENTIN 300 MG CAPSULE as needed. MULTIVITAMIN TABLET Take one(1) tablet daily. CLARITIN 10 MG TABLET Take one(1) tablet daily as n* Problem List As Of Date 12/16/2017 Noted Resolved Enlarged thyroid [E04.9] INVALID FOR*04/21/2015 Esophageal reflux [K21.9] INVALID FOR* HTN (hypertension) [I10] INVALID FOR* CORY (obstructive sleep apnea) [G47.33] INVALID FOR* More... Hyperthyroidism [E05.90] INVALID FOR*04/21/2015 Hyperlipidemia [E78.5] INVALID FOR* DDD (degenerative disc disease), lumbar [M51.36]INVALID FOR* JACKSON (hard of hearing) [H91.90] INVALID FOR* Anxiety neurosis [F41.1] INVALID FOR* Postsurgical hypothyroidism [E89.0] INVALID FOR* Obesity [E66.9] INVALID FOR* Letter Text [address] [place] [address] 12/26/2017 Caitlin Haas [id number] Dear Caitlin , As always, your health is of primary concern to our practice. We have been unsuccessful in reaching you by phone to schedule a follow up colonoscopy. Performing a follow up colonoscopy in a timely manner is important as a delay in testing can lead to an increased risk of colon cancer. Please contact our schedulers at [phone] to set up an appointment. If you have had your follow up colonoscopy elsewhere, please contact us as well, so we may update your records. We look forward to hearing from you. Sincerely, [facility] Encounter Status:Closed by MONTSE REYES on 12/26/17 GLUCOSE Collected: 12/08/2017 Status: F Source: [place] 8:[address] [facility] REPOSITORY TYPE CODE TESTS RESULT OUT OF RANGE REFERENCE UNITS LAB L501.0100 74-106 mg/dL High GLU 263 Result Comment: Glucose result greater than or equal to 200 mg/dL suggests DIABETES MELLITUS per A.D.A. criteria. Please note revised GLUCOSE reference range effective 2017. Performed By: #### L501.0100 #### [facility] [address] [place], [address] HEMOGLOBIN A1C Collected: 12/08/2017 Status: F Source: [place] 8:[address] [facility] REPOSITORY TYPE CODE TESTS RESULT OUT OF RANGE REFERENCE UNITS LAB L501.9985 4.2-6.3 % High HGB A1C 9.8 Performed By: #### L501.9985 #### [facility] [address] [place], [address] EMERGENCY DEPARTMENT Observed: 10/26/2017 Status: F Source: [place] SUMMARY 10:[address] [facility] REPOSITORY [facility] Medical Records Department [address] [place] [address] Emergency Department Summary 10/26/17 1633 MR#: [id number] Acct: [id number] Name: CAITLIN HAAS Rep #: [id number] : 1950 67 From: Funmilayo Hu MD PCP: Geetha Diaz MD Status: DEP ER - ER Visit Summary Date of Service: 10/26/17 Chief Complaint: Headache History of Present Illness: The patient is a 67 M with history of ocular migraines. Patient states he had visual auras from his right eye this morning. During taoism had a slight vision cut from the right peripheral vision. After taoism he developed pressure across his eyes and sinuses. He states he usually does not get any pain with these ocular migraines. He has had some nausea and dry heaves. He did take 3 tabs of ibuprofen approximately 1 hour prior to arrival. Patient denies recent URI symptoms. He has not had recent head trauma. There is no clotting disorders in the family. Physical Examination: Blood pressure is 179/98, other vitals normal. Patient sitting upright in bed no acute distress. Head neck examination unremarkable. Heart is regular rate and rhythm. Lung sounds are clear. Abdomen is soft nontender. Neuro exam is unremarkable with an NIH score of 0. Test Results: Noncontrast head CT is unremarkable other than chronic involutional changes. Emergency Department Course and Treatment: Patient had taken ibuprofen shortly before arrival. He was given IV fluids, Compazine, and Benadryl. On repeat evaluation headache and vision changes are essentially resolved. He will be discharged home with family at this time. Treatment Plan: [] Disposition: Discharge Impression: Migraine, improved This note was generated with [employer] dictation software. It may contain incorrect words, spelling, and punctuation that were not noted in review of the chart prior to signing ED Disposition - Plan for ED Patient: Chief Complaint: Headache Referrals: Geetha Diaz MD [Primary Care Provider] - What to do if you have Problems For any increased pain, shortness of breath, bleeding, nausea or vomiting, chest pain, or any unexpected problems, contact your Primary Care Provider. Call [facility] ([phone]) or report to the closest Emergency Room. Call 911 if necessary. 10/26/172247 <Electronically signed by Funmilayo Hu MD> Date Funmilayo Hu MD Cosigner Signature (If Indicated): Date CC: Geetha Diaz MD DISCHARGE INSTRUCTION Observed: 10/26/2017 Status: F Source: [place] 5:[address] [facility] REPOSITORY [facility] Medical Records Department [address] [place] [address] [place] [address] Discharge Instruction 10/26/171748 MR#: [id number] Acct: [id number] Name: CAITLIN HAAS Rep #: [id number] : 1950 67 From: Funmilayo Hu MD PCP: Geetha Diaz MD Status: REG ER ED Disposition - Plan for ED Patient: Disposition: Home or Assisted Living Chief Complaint: Headache Instructions: ED Headache Migraine Referrals: Geetha Diaz MD [Primary Care Provider] - As Needed What to do if you have Problems For any increased pain, shortness of breath, bleeding, nausea or vomiting, chest pain, or any unexpected problems, contact your Primary Care Provider. Call [facility] ([phone]) or report to the closest Emergency Room. Call 911 if necessary. 10/26/171749 <Electronically signed by Funmilayo Hu MD> Date Funmilayo Hu MD Cosigner Signature (If Indicated): Date CC: Geetha Diaz MD BRAIN/HEAD WITHOUT Observed: 10/26/2017 Status: F Source: [place]UC[place] CONTRAST 4:[address] [facility] REPOSITORY [facility] Imaging Services [address] [address] Brain/Head without Contrast MR#: [id number] Acct: [id number] Name: CAITLIN HAAS Rep #: [id number] : 1950 M 67 From: Gabino Purdy DO PCP: Geetha Diaz MD Status: REG ER Study: Brain/Head without Contrast Date of Exam: 10/26/17 Exam# [id number] Ordering Dr: Funmilayo Hu MD STUDY: CT BRAIN WITHOUT CONTRAST REASON FOR EXAM: Male, 67 years old. Bilateral visual disturbance RADIATION DOSAGE (If Supplied By Facility): CTDIvol = ( 44.99 ) mGy, DLP = ( 745.49 ) mGycm TECHNIQUE: Transaxial CT imaging of the brain was performed without administration of intravenous contrast material. Individualized dose optimization techniques were used for this CT. COMPARISON: None. FINDINGS: Normal soft tissue structures. Normal calvarium. There is mild cerebral atrophy with widening of the extra- axial spaces and ventricular dilatation. There are areas of decreased attenuation within the white matter tracts of the supratentorial brain, consistent with microvascular disease changes. Normal basal ganglia and thalami. Normal brainstem. There is mild cerebellar atrophy. There is no intracranial hemorrhage. There are no findings of an acute ischemic infarction. Normal visualized paranasal sinuses. CT/Brain/Head without Contrast IMPRESSION: Chronic involutional changes of the brain. Electronically Signed: Gabino Purdy DO at 17:44 EDT Tel , Service support , CC: Funmilayo Hu MD; Geetha Diaz MD Comber Fixer: Signed PROGRESS Observed: 10/26/2017 Status: COMPLETED Source: [place] 4:07 PM [facility] REPOSITORY HNO ID: [id number] Author: Nancy Mcguire Service: (none) Author Type: Nurse Practitioner Type: Progress Notes Filed: 10/26/2017 4:13 PM Note Text: Subjective HPI here today with intermittent vision changes and vomiting as of 10 AM today. Patient reports no hx of migraines. ROS Objective Physical Exam Constitutional: He is oriented to person, place, and time. Non-toxic appearance. He has a sickly appearance (mild). He appears distressed (mild). HENT: Head: Normocephalic and atraumatic. Pulmonary/Chest: Effort normal. No accessory muscle usage. No respiratory distress. Neurological: He is alert and oriented to person, place, and time. Skin: He is not diaphoretic. ASSESSMENT/PLAN: 1. Vision changes - ICD9: 368.9, ICD10: H53.9 -not appropriate for express care -concerns for eye/brain abnormality -Patients to drive pov, instructed patient I do not want him driving, no vision changes during visit. Nancy Mcguire APRN.CNP CNOV Observed: 10/26/2017 Status: COMPLETED Source: [place] 3:45 PM [facility] REPOSITORY Office Visit (WSTR) CAITLIN HAAS ([id number]) 1950 M Date Time Provider Department 10/26/17 3:45 PM NANCY MCGUIRE) WSTR During your visit today, we recorded the following information about you: Temperature Pulse Respiration Blood pressure 97.1 degrees 60/minute 16/minute 110/80 Weight 92.7 kg Nancy Mcguire APRN.CNP 10/26/2017 4:13 PM Signed Subjective HPI here today with intermittent vision changes and vomiting as of 10 AM today. Patient reports no hx of migraines. ROS Objective Physical Exam Constitutional: He is oriented to person, place, and time. Non-toxic appearance. He has a sickly appearance (mild). He appears distressed (mild). HENT: Head: Normocephalic and atraumatic. Pulmonary/Chest: Effort normal. No accessory muscle usage. No respiratory distress. Neurological: He is alert and oriented to person, place, and time. Skin: He is not diaphoretic. ASSESSMENT/PLAN: 1. Vision changes - ICD9: 368.9, ICD10: H53.9 -not appropriate for express care -concerns for eye/brain abnormality -Patients to drive pov, instructed patient I do not want him driving, no vision changes during visit. Nancy Mcguire APRN.CLERK OF WORKS Referring Provider: SELF [200] Allergies As of Date: 10/26/2017 Noted Allergy Reaction HAY FEVER (SEASONAL ALLERGIES) 01/30/2015 1 - Mental Status Change Comments: Itchy eyes, runny nose, coughing, sneezing. TETRACYCLINE 02/27/2015 8 - GI Upset Date Reviewed: 10/26/2017 Reviewed by: Nancy ([employer] Supervisor) - Fully Assessed Primary Visit Diagnosis:Vision changes [H53.9] Prescriptions as of 10/26/2017 Sig: LEVOTHYROXINE 125 MCG TABLET Take 1 tablet by mouth daily * LOVASTATIN 20 MG TABLET Take 1 tablet by mouth daily * NASACORT NASAL Use in the nose once daily. CHOLECALCIFEROL (VITAMIN D3) * Take 1 capsule by mouth once * CPAP LISINOPRIL 20 MG-HYDROCHLOROT* Take 1 tablet by mouth once d* LORAZEPAM 1 MG TABLET Take 1 mg by mouth once daily. MULTIVITAMIN TABLET Take one(1) tablet daily. CLARITIN 10 MG TABLET Take one(1) tablet daily as n* MAGNESIUM OXIDE 500 MG TABLET Take 500 mg by mouth once salomon* COQ-10 ORAL Take 300 mg by mouth once salomon* GABAPENTIN 300 MG CAPSULE as needed. Problem List As Of Date 10/26/2017 Noted Resolved Enlarged thyroid [E04.9] INVALID FOR*04/21/2015 Esophageal reflux [K21.9] INVALID FOR* HTN (hypertension) [I10] INVALID FOR* CORY (obstructive sleep apnea) [G47.33] INVALID FOR* More... Hyperthyroidism [E05.90] INVALID FOR*04/21/2015 Hyperlipidemia [E78.5] INVALID FOR* DDD (degenerative disc disease), lumbar [M51.36]INVALID FOR* JACKSON (hard of hearing) [H91.90] INVALID FOR* Anxiety neurosis [F41.1] INVALID FOR* Postsurgical hypothyroidism [E89.0] INVALID FOR* Obesity [E66.9] INVALID FOR* Encounter Status:Closed by NANCY MCGUIRE CNP on 10/26/17 BASIC METABOLIC Collected: 10/13/2017 Status: F Source: [place] PROFILE (BMP) 8:[address] [facility] REPOSITORY Order Comment: Order Date: 10/03/17 Order Info: 0667-1 - BMP Order Info: [id number] - LIPID Order Info: 3016-3 - TSH TYPE CODE TESTS RESULT OUT OF RANGE REFERENCE UNITS LAB L501.0100 74-106 mg/dL High GLU 224 Result Comment: Glucose result greater than or equal to 200 mg/dL suggests DIABETES MELLITUS per A.D.A. criteria. Please note revised GLUCOSE reference range effective 2017. LAB L501.1000 7-18 mg/dL High BUN 22 LAB L501.1100 0.70-1.30 mg/dL Normal CREAT,SERUM 0.93 Result Comment: The validity of the calculated GFR AND GFRAA in patients over 70 years has not been determined. Clinical correlation is essential. LAB L501.1110 >60 mL/min Normal EST GFR 87 Result Comment: Non- GFR Calc LAB L501.1115 >60 mL/min Normal EST GFR - AA 105 Result Comment: GFR Calc LAB L501.1300 10-20 RATIO High BUN/CRE 23.7 LAB L501.2200 8.5-10.1 mg/dL Low CA 8.4 LAB L501.5300 136-145 mmol/L NA Normal 141 LAB L501.5600 3.5-5.1 mmol/L K Normal 3.9 LAB L501.5900 98-107 mmol/L CL Normal 104 LAB L501.6100 21.0-32.0 mmol/L Normal CO2 27.0 LAB L501.6200 5-15 Normal GAP 10 Performed By: #### L500.2500, L500.4100, L501.9520 #### [facility] [address] [place], [address] LIPID PROFILE Collected: 10/13/2017 Status: F Source: [place]UCAS 8:[address] [facility] REPOSITORY Order Comment: Order Date: 10/03/17 Order Info: 0667-1 - BMP Order Info: [id number] - LIPID Order Info: 3016-3 - TSH TYPE CODE TESTS RESULT OUT OF RANGE REFERENCE UNITS LAB L501.4900 200 mg/dL Normal CHOL 196 Result Comment: <200 mg/dL Desirable 200-240 mg/dL Borderline >240 mg/dL High Risk LAB L501.5000 mg/dL Normal TRIG 111 Result Comment: The drugs N-Acetylcysteine and Metamizole may falsely depress this assay. Serum Triglycerides Reference Interval Normal <150 mg/dL Borderline high 150 - 199 mg/dL High 200 - 499 mg/dL Very High > or = 500 mg/dL LAB L501.6400 mg/dL Low HDL 37 Result Comment: The drugs N-Acetylcysteine and Metamizole may falsely depress this assay. Reference Range HDL <40 mg/dL Low HDL Cholesterol HDL >or= 60 mg/dL High HDL Cholesterol LAB L501.6500 0-130 mg/dL High LDL 137 LAB L501.6600 5-40 mg/dL Normal VLDL 22 Performed By: #### L500.2500, L500.4100, L501.9520 #### [facility] [address] [place], [address] THYROID STIM HORMONE Collected: 10/13/2017 Status: F Source: LUCAS (TSH) 8:[address] [facility] REPOSITORY Order Comment: Order Date: 10/03/17 Order Info: 0667-1 - BMP Order Info: [id number] - LIPID Order Info: 3016-3 - TSH TYPE CODE TESTS RESULT OUT OF RANGE REFERENCE UNITS LAB L501.9520 0.358-3.74 uIU/mL Normal TSH 1.43 Performed By: #### L500.2500, L500.4100, L501.9520 #### [facility] [address] [place], [address] PSA,TOTAL - ANNUAL Collected: 10/13/2017 Status: F Source: [place]UC[place] SCREEN 8:[address] [facility] REPOSITORY Order Comment: Order Date: 10/03/17 Order Info: 0667-1 - BMP Order Info: [id number] - LIPID Order Info: 3016-3 - TSH TYPE CODE TESTS RESULT OUT OF RANGE REFERENCE UNITS LAB L501.9910 0.00-4.00 ng/mL Normal PSA,TOT 1.91 SCREEN Result Comment: This test was performed using the TPSA assay method for the [employer] chemistry system. Values obtained with different assay methods cannot be used interchangably. When changing PSA assays in the course of monitoring a patient, additional sequential testing should be carried out to confirm baseline values. Performed By: #### L501.9910 #### [facility] [address] [facility] [place], [address] EMERGENCY DEPARTMENT Observed: 07/03/2017 Status: F Source: [place] SUMMARY 4:[address] [facility] REPOSITORY [facility] Medical Records Department [address] [facility] [address] Emergency Department Summary 07/03/17 0740 MR#: [id number] Acct: [id number] Name: CAITLIN HAAS Rep #: [id number] : 1950 66 From: Robel Montoya MD PCP: Geetha Diaz MD Status: DEP ER - ER Visit Summary Date of Service: 07/03/17 Chief Complaint: Laceration History of Present Illness: The patient is a [address] Geetha Diaz. Reports that this morning he slipped and fell. He hit his face on a ladder. No loss of consciousness. He is not on any blood thinners. He is unsure when his last tetanus shot was. Patient suffered a laceration to the right side of his lower lip. He denies any loose teeth. No dental malocclusion. He also has a laceration to the bridge of his nose from his glasses. He reports the pain is 7 out of 10 in severity. He denies any pain to his neck, back, shoulder, wrist, or hips. Physical Examination: Vitals: Stable. Afebrile. Face: 3 cm laceration to the right side of his lower lip that does cross the vermilion border. This does not involve muscle. A superficial laceration is approximately 1 cm in length to the bridge of his nose with no active bleeding. No dental malocclusion. No loose teeth. No pain with palpation of his mandible and opening and closing his jaw. Neck: No vertebral tenderness. Full ROM without difficulty. Cleared by NEXUS criteria. Back: No vertebral tenderness. General: A AND O x 3. NAD. Cardiovascular exam: Regular rate and rhythm, no murmur, rub or gallop. Respiratory exam: Chest nontender. No crepitus. Clear to auscultation bilaterally. No wheezes or stridor. Abdominal exam: Soft, nontender, nondistended, normal bowel sounds. No pain in RUQ or LUQ specifically. No peritoneal signs. Extremity: Atraumatic. No pain with range of motion. Emergency Department Course and Treatment: Patient refused pain medications. He had his tetanus updated. He had his wounds anesthetized and repaired. He tolerated this well. Treatment Plan: Patient will be discharged instructions to follow-up with Dr. Geetha Diaz as needed. Repair of the inner surface of his lip the patient will on amoxicillin and given a first dose in the emergency department. Return to the emergency department for any worsening symptoms. Disposition: To home in improved and stable condition. Impression: 1. Fall. 2. Laceration lower lip, 3 cm, repaired. 3. Laceration to bridge of nose, 1 cm, not repaired. Procedure note: Wound was cleansed with chlorhexidine soap. Anesthetized with 1% lidocaine without epinephrine. Copiously irrigated with normal saline. Wound was explored there is no foreign material present. It was closed with 5 simple interrupted 5-0 rapid Vicryl sutures externally and 2 simple interrupted 5-0 Vicryl sutures internally. Care was taken to align the vermilion border with the first stitch. The patient tolerated it well. This note was generated with [employer] dictation software. It may contain incorrect words, spelling, and punctuation that were not noted in review of the chart prior to signing ED Disposition - Plan for ED Patient: Chief Complaint: Fall Instructions: ED Laceration Facial Sutr Tape Prescriptions: Amoxicillin 500 mg PO TID #21 tab Referrals: Geetha Diaz MD [Primary Care Provider] - As Needed What to do if you have Problems For any increased pain, shortness of breath, bleeding, nausea or vomiting, chest pain, or any unexpected problems, contact your Primary Care Provider. Call [facility] ([phone]) or report to the closest Emergency Room. Call 911 if necessary. 07/03/17 1621 <Electronically signed by Robel Montoya MD> Date Robel Montoya MD Cosigner Signature (If Indicated): Date CC: Geetha Diaz MD ALLERGIES ALLERGIES DATE TYPE / CODE NAME / CODE REACTION SEVERITY SOURCE 04/01/2018 Drug oxycodone Other [place] Allergy/416 HCl/[id number](RXNO [facility] ED [facility]) Repository 04/01/2018 Drug Tetracyclines/F0010 Upset Stomach [place] Allergy/416 19392(RXNORM) [facility] 953791([facility] ED CT) Repository 03/21/2018 Drug acetaminophen/F0060 Other [place] Allergy/416 60280(RXNORM) [facility] 117222([facility] ED CT) Repository 02/27/2015 DRUG TETRACYCLINE GI UPSET [facility] INGREDI/419 [facility] 917581([facility] ED CT) 01/30/2015 Environ/420 SEASONAL ALLERGIES Mental Chg [facility] 405715([facility] ED CT) Repository ENCOUNTERS ENCOUNTERS ADMIT/DISCHARGE ACCOUNT NUMBER ADMITTING ENCOUNTER LOCATION SOURCE CLASS 04/03/2018 [id number] Ambulatory [facility] ding:ONC Repository 04/01/2018 [id number] Ambulatory BMSBuilding: [place] BMS.[facility] Repository 03/26/2018 [id number] Ambulatory BMSBuilding: [place] [facility] Repository 03/24/2018/03/24/19 [id number] [place]ulatory [place] ding:SDCRoom Repository : AC06 03/21/2018/03/21/19 [id number] Ambulatory BMSBuilding: [place] 19 BMS[facility] Repository 03/19/2018 [id number] Ambulatory Building:PTH [facility] Repository 03/16/2018 [id number] Ambulatory BMSBuilding: [place] BMS.CF[facility] Repository 03/12/2018 [id number] Ambulatory Building:K8T [facility] Repository 03/06/2018/03/09/20 [id number] SANDEE, Inpatient Building:[address] [address] KEMRA M Encounter ERoom: [place] [id number]: A [facility] Repository 03/05/2018 [id number] Ambulatory Building:KRI [facility] Repository 03/05/2018 [id number] Ambulatory Building:K1T [facility] Repository 03/05/2018 [id number] Ambulatory Building:K8T [facility] Repository 03/05/2018 [id number] Ambulatory Building:K1T [facility] Repository 03/05/2018/03/05/20 [id number] Ambulatory [address] ding:ENRoom: Repository AC10 03/04/2018 [id number] Ambulatory [facility] ding:CT Repository 03/03/2018 [id number] Ambulatory [facility] ding:LAB Repository 03/03/2018/03/03/20 [id number] Ambulatory BMSBuilding: [place] 18 BMS[facility] Repository 02/27/2018 [id number] Ambulatory [facility] ding:US Repository 12/08/2017 [id number] Ambulatory [facility] ding:MTLAB Repository 10/26/2017/10/27/19 [id number] Emergency [place] ding:ED Repository 10/26/2017 [id number] Ambulatory [facility] Repository 10/13/2017 [id number] Ambulatory [facility] ding:MTLAB Repository 07/03/2017/07/04/19 [id number] Emergency [place] ding:ED Repository PAYERS PAYERS ENCOUNTER GUARANTOR PAYER SUBSCRIBER SOURCE 04/03/2018 CAITLIN E Primary CAITLIN E [place] [id number] Insurance:GPATPA ALDDOB: Community [facility] Number: [id number] [place], [place] [id number] Repository [address]Ymz: (330) Date:5303-61-74[phone] (HP) [id number] [place] [phone]: 04/03/2018 Secondary CAITLIN E [place] Insurance:CHEMO HERALDDOB: [facility] [id number] Hospital Number: Effective Repository Date:2018-03-12 04/03/2018 Tertiary NOT GIVENUNK [place] Insurance:SELF PAY [facility] Number: Effective Repository Date:2018-03-12 04/01/2018 CAITLIN E Primary CAITLIN E [place] [id number] Insurance:GPATPA ALDDOB: [facility] THOR [facility] Number: [id number] [place], [place] [id number] Repository [address]Ezr: (330) Date:6890-68-08NU [phone] (HP) [phone], [place] [address]KR: 04/01/2018 Secondary NOT GIVENUNK [place] Insurance:SELF PAY [facility] Number: Effective Repository Date:2018-04-01 03/26/2018 CAITLIN E Primary CAITLIN E [place] [id number] PIN Insurance:GPATPA ALDDOB: [facility] ANGELES TAVERAE [facility] Number: [id number], [place] [id number] Repository [address]Nvb: (330) Date:8731-46-23[phone] (HP) 376726QBVROM, [place] [address]MC: 03/26/2018 Secondary NOT GIVENUNK [place] Insurance:SELF PAY [facility] Number: Effective Repository Date:2018-03-26 03/24/2018 CAITLIN E Primary CAITLIN E [place] [id number] PIN Insurance:GPATPA HERALDDOB: [facility] ANGELES GREGORY CERCOPolicy Number: [id number], [place] [id number] Repository [address]Syt: (330) Date:9909-44-18[phone] (HP) 271355ZJCDEG, [place] [address]LI: 03/24/2018 Secondary NOT GIVENUNK [place] Insurance:SELF PAY [facility] Number: Effective Repository Date:2018-03-23 03/21/2018 CAITLIN E Primary CAITLIN E [place] [id number] Insurance:GPATPA HERALDDOB: [facility] DANBERRY CER[facility]olgreater [facility] health Number: [id number] Valley, [place] [id number] Repository [address]Jjd: (330) Date:1858-50-46[phone] (HP) 415659QSJBLR, [place] [address]ML: 03/21/2018 Secondary NOT GIVENUNK [place] Insurance:SELF PAY [facility] Number: Effective Repository Date:2018-03-16 03/19/2018 CAITLIN Primary [facility] HERALDDOB: Insurance:[facility]OVER[facility]olicy [facility]ALEALDDOB: [place] Number: [id number] [facility] [id number] [place], [place] Date:5725-27-58EhpsGlennallen, [place] Repository [address]Joq: (330) Name:[facility] [address]79Van: (HP) [address]JEKMOT, [phone] (HP) [place] [address]YU: 03/16/2018 CAITLIN E Primary CAITLIN E [place] [id number] Insurance:GPATPA HERALDDOB: [facility] DANBERRY CERCOPolicy Number: [id number] Valley, [place] [id number] Repository [address]Qkf: (330) Date:5712-36-64WR [phone] (HP) 944157CBYGML, [place] [address]PK: 03/16/2018 Secondary NOT GIVENUNK [place] Insurance:SELF PAY [facility] Number: Effective Repository Date:2018-03-16 03/12/2018 CAITLIN Primary [facility] HERALDDOB: Insurance:CERCOPolicy HERALDDOB: [place] Number: [id number] [facility] [id number] Al[place], [place] Date:4000-81-78Tcmw [place], [place] Repository [address]Tjg: (330) Name:MANAGED CAREGPA [id number]: (HP) [address]ZKMAJZ, [phone] (HP) [place] [address]ZD: 03/06/2018 CAITLIN [facility] HERALDDOB: [place] Number: [id number] [facility] IPGBRIDGETON [id number] Alamos, [place] Date:5604-77-29Hxqv [place], [place] Repository [address]Slw: (330) Name:MANAGED CAREGPA [id number]: (HP) [address]LTHLIF, [phone] (HP) [place] [address]NJ: 03/05/2018 CAITLIN Primary [facility] Center[facility]DD[facility]: Insurance:CERCOPolicy HERALDDOB: [place] Number: [id number] [facility] [id number] [place], [place] Date:3288-97-14Yibz [place], [place] Repository [address]Wpx: (330) Name:MANAGED CAREGPA [id number]: (HP) [address]IRBHFX, [phone] (HP) [place] [address]XC: 03/05/2018 CAITLIN Primary [facility] CenterALDD[facility]: Insurance:CERCOPolicy HERALDDOB: [place] Number: [id number] [facility] [id number] [place], [place] Date:9473-56-92Fiaz [place], [place] Repository [address]Xny: (330) Name:MANAGED CAREGPA [address]Zvr: (HP) [address]XLQXUB, [phone] (HP) [place] [address]WQ: 03/05/2018 CAITLIN Primary [facility] CenterALDD[facility]: Insurance:CERCOPolicy HERALDDOB: [place] Number: [id number] [facility] [id number], [place] Date:0407-44-92Vkfg [place], [place] Repository [address]Uqp: (330) Name:MANAGED CAREGMA [address]Uop: (HP) [address]TSOGBG, [phone] (HP) [place] [address]SD: 03/05/2018 CAITLIN Primary [facility] CenterALDDOB: Insurance:CERCOPolicy HERALDDOB: [place] Number: [facility] [id number] [facility] Date:2501-01-62Cxis [place], [place] Name:MANAGED [place] Repository [address]Hzd: (330) [address]YVWOTA, [address]Qrw: (HP) [place] [address]EC: (HP) [phone] 03/05/2018 CAITLIN E Primary CAITLIN [id number] Insurance:GPATPA HERALDDOB: [facility] DANBERRY CERCOPolicy Number: [id number] Valley, [place] [id number] Repository [address]Kpm: (330) Date:9228-17-32[phone] (HP) 144202PYMIPEPLYMOUTH, [place] [address]MZ: 03/05/2018 Secondary NOT GIVENUNK [place] Insurance:SELF PAY [facility] Number: Effective Repository Date:2018-03-04 03/04/2018 CAITLIN E Primary CAITLIN E [place] [id number] Insurance:GPATPA HERALDDOB: Community DANBERRY CERCOPolicy Number: [id number] Valley, [place] [id number] Repository [address]Rao: (330) Date:2937-57-93QU [phone] (HP) [phone], [place] [address]BT: 03/04/2018 Secondary NOT GIVENUNK [place] Insurance:SELF PAY [facility] Hospital Number: Effective Repository Date:2018-03-03 03/03/2018 CAITLIN E Primary CAITLIN E [place] [id number] Insurance:GPATPA HERALDDOB: [facility] DANBERRY [facility] Number: [id number] Valley, [place] [id number] Repository [address]Ted: (330) Date:9242-14-28WG [phone] (HP) 067317XEUWWP, [place] [address]TT: 03/03/2018 Secondary NOT GIVENUNK [place] Insurance:SELF PAY [facility] Number: Effective Repository Date:2018-03-03 03/03/2018 CAITLIN E Primary CAITLIN E [place] [id number] Insurance:GPATPA HERALDDOB: Community DANBERRY CERCOPolicy Number: [id number] Valley, [place] [id number] Repository [address]Ijb: (330) Date:2677-50-45[phone] (HP) 765671INWSOL, [place] [address]PM: 03/03/2018 Secondary NOT GIVENUNK [place] Insurance:SELF PAY [facility] Number: Effective Repository Date:2018-03-03 02/27/2018 CAITLIN E Primary CAITLIN E [place] [id number] Insurance:GPATPA HERALDDOB: Community DANBERRY [facility] Number: [id number] Valley, [place] [id number] Repository [address]Tfg: (330) Date:4321-62-13TR [phone] (HP) 006086HVQQQZ, [place] [address]EH: 02/27/2018 Secondary NOT GIVENUNK [place] Insurance:SELF PAY [facility] Number: Effective Repository Date:2018-02-24 12/08/2017 Caitlin E Primary Caitlin E [place] [id number] Insurance:GPATPA HeraldDOB: [facility] CenterKAILA [facility] Number: [id number] Valley, [place] [id number] Repository [address]Kuw: (330) Date:4044-45-66VN [phone] (HP) 532122AHVZVD, [place] [address]KF: 12/08/2017 Secondary NOT GIVENUNK [place] Insurance:SELF PAY [facility] Number: Effective Repository Date:2017-12-08 10/26/2017 Caitlin E Primary Caitlin E [place] [id number] Insurance:GPATPA HeraldDOB: [facility] Thor [facility] Number: [id number] Hospital Aurora [id number] Repository [place] [address]Cyo: Date:0289-86-29WF [address] (HP) [phone]: 10/26/2017 Secondary NOT GIVENUNK [place] Insurance:SELF PAY [facility] Number: Effective Repository Date:2017-10-26 10/13/2017 Caitlin E Primary Caitlin E [place] [id number] Insurance:GPATPA aldDOB: [facility] Thor [facility] Number: [id number] Hospital [facility] [id number] Repository [place] [address]Fyk: Date:4509-05-15[address]ANGELA [address] (HP) [phone]: 10/13/2017 Secondary NOT GIVENUNK [place] Insurance:SELF PAY [facility] Number: Effective Repository Date:2017-10-13 07/03/2017 Caitlin [place] [id number] Insurance:GPATPA SaminaDOB: Community [place] [facility] Number: [id number] Hospital Aurora [id number] Repository [place] [address]Rie: Date:1784-39-61FO [phone] [address]JLIDRW, [place] 0-2 (EJ) [address]WP: 07/03/2017 Secondary NOT GIVENUNK [place] Insurance:SELF PAY [facility] Number: Effective Repository Date:2017-07-03
== END ==
PROVIDERS: Family Provider Family Medicine; PCP Family Medicine; Referring Provider Family Medicine; Visit Provider Family Medicine
DX: R10.84 Generalized abdominal pain (principal)
CPT/HCPCS: 76705

== ENCOUNTER → 2018-03-03 16:26 | Outpatient (CLI) | payer OTHER, SELFPAY ==
[2018-03-03 15:51] VITALS: BMI 28.5
[2018-03-03 17:48] LABS: ALB/GLOB Ratio 0.9 RATIO (0.9-2.4); AST(SGOT) 11 U/L (15-37); Alanine Aminotransfer ALT/SGPT 18 U/L (16-61); Albumin, Serum 3.4 g/dL (3.2-5.0); Alkaline Phosphatase 59 U/L (45-117); Anion Gap 11 (5-15); BUN 18 mg/dL (7-18); BUN/Creat Ratio 18.5 RATIO (10-20); Calcium,Total 8.4 mg/dL (8.5-10.1); Chloride 100 mmol/L (98-107); Creatinine, Serum 0.97 mg/dL (0.70-1.30); EST Glomerular Filtration Rate 82 mL/min (>60); Est Glom Filt Rate - Afr Amer 100 mL/min (>60); Globulin 3.7 g/dL (2.2-4.2); Glucose 135 mg/dL (74-106); Lipase 160 U/L (73-393); Potassium 3.9 mmol/L (3.5-5.1); Protein, Total 7.1 g/dL (6.4-8.2); Sodium Level 139 mmol/L (136-145)
[2018-03-03 17:51] LABS: Absolute Lymphocyte Count 1.53 X10^3/ul (0.83-4.51); Absolute Neutrophil Count 10.6 X10^3/uL (2.0-7.7); Basophil# 0.03 X10^3/uL; Basophil% 0.2 % (0-1); Eosinophil# 0.07 X10^3/uL; Eosinophils% 0.5 % (0-5); Hematocrit 45.8 % (40-54); Hemoglobin 15.7 g/dl (13.0-16.5); Lymphocyte # 1.53 X10^3/ul (4.0); Lymphocyte % 10.8 % (19-41); Mean Corp Hgb Conc 34.3 g/gl (32-36); Mean Corpuscular Hgb 30.9 pg (27.0-32.0); Mean Corpuscular Volume 90.2 fL (80-94); Mean Platelet Vol. 13.2 fl (6.2-12.0); Monocyte# 1.83 X10^3/uL; Neutrophil # 10.62 X10^3/uL (2.7-7.7); Neutrophil % 75.3 % (47-70); Platelet Count 176 K/mm3 (150-450); RBC Distribution Width CV 13.8 % (11.6-14.6); RBC Distribution Width SD 45.1 fl (35.1-43.9); Red Blood Count 5.08 M/mm3 (4.6-6.2); White Blood Count 14.1 K/mm3 (4.4-11.0)
[2018-03-03 18:07] LABS: Differential Indicated SCAN CRITERIA MET; POSITIVE COUNT NO; POSITIVE DIFFERENTIAL YES; POSITIVE MORPHOLOGY NO
[2018-03-03 18:20] LABS: Differential Comment SCANNED
--- OUTSIDE RECORDS SUMMARY | 2018-06-05 05:13 | XMS RPT_ITS ---
:1950 Author Organization [place] Support Name Relationship Address Phone [employer] Unavailable [address] + [place] [address] [place] Unavailable [address] + [place] [address] [facility] Unavailable [address] + [place] [address] [place] Unavailable [address] + [place] [address] [facility] Unavailable [address] + [place] [address] [place] Unavailable [address] + [place] [address] [facility] Unavailable [address] + [place] [address] [place] Unavailable [address] + [place] [address] [facility] Unavailable [address] + [place] [address] [place] Unavailable [address] + [place] [address] HERALD, ASAF Unavailable Unavailable Unavailable CAITLIN HAAS Unavailable Unavailable Unavailable [facility] Unavailable [address] + [place] [address] [place] Unavailable [address] + [place] [address] HERALD, ASAF Unavailable Unavailable Unavailable HERCAITLIN GRANADO Unavailable Unavailable Unavailable HERALD, ASAF Unavailable Unavailable Unavailable HERLOY, CAITLIN Unavailable Unavailable Unavailable HERALD, ASAF Unavailable Unavailable Unavailable HERALD, CAITLIN Unavailable Unavailable Unavailable HERALD, ASAF Unavailable Unavailable Unavailable HERALD, CAITLIN Unavailable Unavailable Unavailable HERALD, ASAF Unavailable Unavailable Unavailable HERALD, CAITLIN Unavailable Unavailable Unavailable [facility] Unavailable [address] + [place] [address] HERNEW GRANADO Unavailable [address] + [place] [address] [facility] Unavailable [address] + [place] [address] HERNEW GRANADO Unavailable [address] + [place] [address] [facility] Unavailable [address] + [place] [address] HERNEW GRANADO Unavailable [address] + [place] [address] [facility] Unavailable [address] + [place] [address] HERNEW GRANADO Unavailable [address] + [place] [address] [facility] Unavailable [address] + [place] [address] HERNEW GRANADO Unavailable [address] + [place] [address] [facility] Unavailable [address] + [place] [address] HERNEW GRANADO Unavailable [address] + [place] [address] [facility] Unavailable [address] + [place] [address] HERLOYFORTINOE Unavailable [address] + [place] [address] [facility] Unavailable [address] + [place] [address] HERLOYFORTINOE Unavailable [address] + [place] [address] [facility] Unavailable [address] + [place] [address] HERLOYFORTINOE Unavailable [address] + [place] [address] Care Team Providers Name Role Phone KEMAR IGNACIO Attending Unavailable CEBUL, CAITLIN D Referring Unavailable DIAZ, GEETHA K Primary Care Unavailable KEMAR IGNACIO Admitting Unavailable KEMAR IGNACIO Attending Unavailable CEBUL, CAITLIN D Referring Unavailable DIAZ, GEETHA K Primary Care Unavailable KEMAR IGNACIO Attending Unavailable SELF, SELF Referring Unavailable DIAZ, GEETHA K Primary Care Unavailable KEMAR IGNACIO Attending Unavailable BERNARDO REEDER Referring Unavailable [...] Primary Care Unavailable Prah, Alfred Attending Unavailable Idaz, Geetha Primary Care Unavailable Diaz, Geetha Primary [...] C25.1 - Malignant Prajulio cesar, Alfred Active [place] neoplasm [facility] body Community of pancreas / Hospital C25.1(ICD-10) Repository 04/01/2018 Unknown C25.9 - Malignant Prah, Alfred Active [place] [facility] of [facility] pancreas, Hospital unspecified / Repository C25.9(ICD-10) 04/01/2018 Unknown R52 - Kaylie, Alfred Estrella Active [place] unspecified / Community R52(ICD-10) Hospital Repository 03/12/2018 Admitting Post Op Visit / KEMAR IGNACIO Active [facility] diagnosis 554() [facility] Repository 03/05/2018 Admitting Disease of KEMAR IGNACIO Active [facility] diagnosis pancreas, University unspecified / [facility] Medical K86.9(ICD-10) Center Repository 03/05/2018 Admitting Type 2 diabetes KEMAR IGNACIO Active [facility] diagnosis mellitus with University other specified [facility] complication / Center E11.69(ICD-10) Repository 03/16/2018 Unknown R14.0 - Abdominal CebulCaitlin Active [place] distension Community (gaseous) / Hospital R14.0(ICD-10) Repository 03/04/2018 Unknown Z86.010 - Personal CebulCaitlin Active [place] history of colonic Community polyps / Hospital Z86.010(ICD-10) Repository 10/26/2017 Active Unspecified visual NANCY MCGUIRE Active [place] disturbance / ([facility] Main H53.9(ICD-10) [place] Repository PROCEDURES PROCEDURES No Procedure Records FoundRESULTS RESULTS ONCOLOGY VISIT REPORT Observed: 04/01/2018 Status: F Source: [place] 1:31 PM [facility] REPOSITORY [facility] Medical Oncology [address] [place] [address] OFFICE VISIT Date of Service: 04/01/18 0859 MR#: [id number] Acct: [id number] Name: CAITLIN HAAS Rep #: [id number] : 1950 From: Alfred Estrella MD Age/Sex: [...] Chronic Code Visit Office Visits / Consults: 57539 OV L5 Est 04/01/18 1331 <Electronically signed by Alfred Estrella MD> Date Alfred Estrella MD Cosign Signature: Date (if applicable) CC: Geetha Diaz MD ONCOLOGY VISIT REPORT Observed: 03/26/2018 Status: F Source: [place] 3:42 PM [facility] REPOSITORY [facility]cology [address] [place] [address] OFFICE VISIT Date of Service: 03/26/18 1314 MR#: [id number] Acct: [id number] Name: CAITLIN HAAS Rep #: [id number] : 1950 From: Britany IBARRA Age/Sex: 67/M [...] cycle 1 on 04/01/18. Britany Chan, MSN, IT PROGRAM ENGAGEMENT DIRECTOR, AOCNP Medications: Prescriptions This Visit Medication Instructions Recorded Docusate Sodium [Colace] 100 mg PO BID 03/16/18 Primary Care Provider: Geetha Diaz MD Referring Provider: - Problem List (1) Pancreatic cancer Status: Acute (2) Educational circumstance Status: Acute 03/26/18 1542 <Electronically signed by Britany Chan FISH HATCHERY INSPECTOR-C> Date Britany Chan FISH HATCHERY INSPECTOR-C Cosigner Signature: Date (if applicable) CC: CBC W/DIFF, AUTOMATED Collected: 03/26/2018 Status: F Source: [place] 1:15 PM [facility] REPOSITORY Order Comment: Reason for Laboratory Test [...] Lymph 1.13 Performed By: #### L100.0100 #### [facility] [address] [place], [address] COMPREHENSIVE METABOLIC Collected: 03/26/2018 Status: F Source: [facility] 1:15 PM [facility] REPOSITORY Order Comment: Reason for Laboratory Test [...] GAP 9 Performed By: #### L500.4050 #### [facility] Laboratory [address] [place], [place] [address], [address] CARBOHYDRATE AG 19-9 Collected: 03/26/2018 Status: F Source: [place] 1:15 PM [facility] REPOSITORY Order Comment: Reason for Laboratory Test [...] absence of malignant disease. Performed at: - [facility], [place], [place] [id number] Plant Accountant: Eladio Yu PhD, Phone: [phone] Performed By: #### L3100.5020 #### [facility] (refer to report for specific site) refer to report for address and phone number OPERATIVE REPORT Observed: 03/25/2018 Status: F Source: [place] 6:22 AM [facility] REPOSITORY [facility] Medical Records Department [address] [place] [address] Operative Report 03/24/18 1047 MR#: [id number] Acct: [id number] Name: CAITLIN HAAS Rep #: [id number] : 1950 67 From: Caitlin Cueto MD PCP: Geetha Diaz MD Status: DEP [facility] Y Location: [facility] Problem List (1) Pancreatic cancer Status: Acute Qualifiers: Report of Operation Date of Procedure: 03/24/18 Pre-Operative Diagnosis: 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 Reference #[id number] lot number RECX [id number] expiry date 08/15/2019 [...] DISCHARGE INSTRUCTION Observed: 03/25/2018 Status: F Source: [place] 6:22 AM [facility] REPOSITORY [facility] Medical Records Department [address] [place] [address] Instructions for Home/Discharge Instructions 03/24/18 1008 MR#: [id number] Acct: [id number] Name: CAITLIN HAAS Rep #: [id number] : 1950 67 From: Caitlin Cueto MD PCP: Geetha Diaz MD Status: DEP [facility] Discharge Diet: No Restrictions - Pain medication [...] if applicable. Please Follow Up With: Caitlin Ceuto MD - [phone] When: Office follow-up may be as needed 03/25/18621 <Electronically signed by Caitlin Cueto MD> Date Caitlin Cueto MD CC: Geetha Diaz MD Signed CHEST 1 VIEW Observed: 03/24/2018 Status: F Source: [place] (PORTABLE) 10:08 AM [facility] REPOSITORY [facility] Imaging Services [facility] [place] [address] Chest 1 View (Portable) MR#: [id number] Acct: [id number] Name: CAITLIN HAAS Rep #: [id number] : 1950 M 67 From: Sonny Guevara MD PCP: Geetha Diaz MD Status: REG [facility] Study: Chest 1 View (Portable) Date of Exam: 03/24/18 Exam# [id number] Ordering Dr: Caitlin Cueto MD STUDY: X-RAY [...] Sonny Guevara MD at 11:43 EST Tel [phone], Service support , CC: Geetha Diaz MD; Caitlin Cueto MD Ornamental Plaster Sticker: Signed BEDSIDE GLUCOSE Collected: 03/24/2018 Status: F Source: [place] 9:07 AM [facility] REPOSITORY TYPE CODE TESTS RESULT OUT OF REFERENCE UNITS RANGE LAB L501.080 70-110 mg/dL High BEDSIDE GLU 113 Result Comment: MANAGEMENT OF PATIENT CARE PER NURSING PROTOCOL Performed By: #### L501.080 #### [facility] Laboratory Point of Care [address] [place] [address] PET/CT TUMOR BASE Observed: 03/23/2018 Status: F Source: [place] -THIGH INIT 11:03 AM [facility] REPOSITORY [facility] Imaging Services [address] [place] [address] PET/CT Tumor Base -Thigh Init MR#: [id number] Acct: [id number] Name: CAITLIN HAAS Rep #: [id number] : 1950 M 67 From: Navneet Bhandari DO PCP: Geetha Diaz MD Status: REG RCR Study: PET/CT Tumor Base -Thigh Init Date of Exam: 03/23/18 Exam# [id number] Ordering Dr: Alfred Estrella MD EXAMINATION: FDG [...] CC: Geetha Diaz MD; Alfred Estrella MD Ornamental Plaster Sticker: Signed SURGERY VISIT REPORT Observed: 03/21/2018 Status: F Source: [place] 9:49 AM [facility] [address] [place] [address] [address] [place] [address] OFFICE VISIT Date of Service: 03/21/18 MR#: [id number] Acct: [id number] Name: CAITLIN HAAS Rep #: [id number] : 1950 Provider: Caitlin Cueto MD Age/Sex: 67/M Location: [facility] Status: Signed Intake Vital Signs03/21/18 Blood Pressure 112/75 Intake Visit Reasons: Port Placement Consult Chief Complaint: port consult Supervisor [facility] Required: No Is patient in pain?: No [...] PRN 03/16/18 [History Confirmed 03/16/18] [facility] Medical History Abdominal distension (gaseous) (Acute) Personal [...] adenocarcinoma poorly differentiated My previous notes reflect: MR#:[id number]:[id number] Name: CAITLIN HAAS [facility] #:[id number] : 1950 Provider:Caitlin Cueto MD Age/Sex: 67/M Location:[facility] Status:Signed Intake Vital Signs 03/03/18 Height 5 [...] Complaint: bloating/ GERD, history of colon polyps Supervisor [facility] Required: No Is patient in pain?: No [...] acute distress Nutritional Appearance: average body habitus [facility] Head: normal to inspection Chest Chest palpation [...] ONCOLOGY CONSULTATION Observed: 03/19/2018 Status: F Source: [place] 12:55 PM [facility] REPOSITORY [facility] Medical Oncology [address] [place] [address] Oncology Consultation Date of Service: 03/16/18 1434 MR#: [id number] Acct: [id number] Name: CAITLIN HAAS Rep #: [id number] : 1950 From: Alfred Estrella MD Age/Sex: [...] nodules showed adenocarcinoma poorly differentiated. Power of Health Policy Nurse: Yes Living Will: Yes Health History: Past [...] Acute Code Visit Office Visits / Consults: 46395 OP Consult L5 03/19/18 1255 <Electronically signed by Alfred Estrella MD> Date Alfred Estrella MD Cosigner Signature: Date (if applicable) CC: Geetha Diaz MD XR ABDOMEN 1 VIEW Observed: 03/11/2018 Status: F Source: [facility] PORTABLE 12:09 PM [facility] REPOSITORY EXAM: XR ABDOMEN 1 [...] 1 VIEW Observed: 03/09/2018 Status: F Source: [facility] PORTABLE 1:08 PM [facility] REPOSITORY EXAM: XR ABDOMEN 1 [...] 1 VIEW Observed: 03/09/2018 Status: F Source: [facility] PORTABLE 1:05 PM [facility] REPOSITORY EXAM: XR ABDOMEN 1 [...] (CBC AND Collected: 03/09/2018 Status: F Source: [place] [employer] PLATELET) 1:43 AM [facility] REPOSITORY TYPE CODE TESTS RESULT [...] #### HEMOGC, CA, CHM7, IPB, MGO #### [facility] [address] [address] CALCIUM Collected: 03/09/2018 Status: F Source: [facility] 1:43 AM [facility] REPOSITORY TYPE CODE TESTS RESULT OUT OF REFERENCE UNITS RANGE LAB CA 8.6-10.5 mg/dL Low Calcium 8.1 Performed By: #### HEMOGC, CA, CHM7, IPB, MGO #### [facility] [address] [address] CHEM 7 Collected: 03/09/2018 Status: F Source: [facility] 1:43 AM [facility] REPOSITORY TYPE CODE TESTS RESULT [...] GFR >60 mL/min/1.73 sqM Est GFR,non >60 [place] LAB GFRA >60 mL/min/1.73 sqM Est GFR, >60 Performed By: #### HEMOGC, CA, CHM7, IPB, MGO #### [facility] [address] [place] [id number] [place] [address] [address] [place] [address] INORGANIC PHOSPHATE Collected: 03/09/2018 Status: F Source: [facility] 1:43 AM [facility] REPOSITORY TYPE CODE TESTS RESULT OUT OF REFERENCE UNITS RANGE LAB IP 2.2-4.6 mg/dL Inorg Phosphate 2.7 Performed By: #### HEMOGC, CA, CHM7, IPB, MGO #### [facility] [address] [place] [address] [address] [place] [address] MAGNESIUM Collected: 03/09/2018 Status: F Source: [facility] 1:43 AM [facility] REPOSITORY TYPE CODE TESTS RESULT OUT OF REFERENCE UNITS RANGE LAB MG 1.6-2.6 mg/dL Magnesium 2.1 Performed By: #### HEMOGC, CA, CHM7, IPB, MGO #### [facility] [address] [place] [address] [place] [address] [address] [place] [address] HEMOGRAM (CBC AND Collected: 03/08/2018 Status: F Source: [facility] PLATELET) 2:07 AM [facility] REPOSITORY TYPE CODE TESTS RESULT [...] #### HEMOGC, CHM7, CA, IPB, MGO #### [facility] [address] [place] [address] [place] [address] CHEM 7 Collected: 03/08/2018 Status: F Source: [facility] 2:07 AM [facility] REPOSITORY TYPE CODE TESTS RESULT [...] GFR >60 mL/min/1.73 sqM Est GFR,non >60 [place] [facility] GFRA >60 mL/min/1.73 sqM Est GFR, >60 Performed By: #### HEMOGC, CHM7, CA, IPB, MGO #### [facility] [address] [place] [address] [address] [place] [address] CALCIUM Collected: 03/08/2018 Status: F Source: [facility] 2:07 AM [facility] REPOSITORY TYPE CODE TESTS RESULT OUT OF REFERENCE UNITS RANGE LAB CA 8.6-10.5 mg/dL Low Calcium 7.7 Performed By: #### HEMOGC, CHM7, CA, IPB, MGO #### [facility] [address] [place] [id number] [place] [address] [address] [place] [address] INORGANIC PHOSPHATE Collected: 03/08/2018 Status: F Source: [facility] 2:07 AM [facility] REPOSITORY TYPE CODE TESTS RESULT OUT OF REFERENCE UNITS RANGE LAB IP 2.2-4.6 mg/dL Inorg Phosphate 2.6 Performed By: #### HEMOGC, CHM7, CA, IPB, MGO #### [facility] [address] [place] [address] [facility] [address] [place], [place] [address] MAGNESIUM Collected: 03/08/2018 Status: F Source: [facility] 2:07 AM [facility] REPOSITORY TYPE CODE TESTS RESULT OUT OF REFERENCE UNITS RANGE LAB MG 1.6-2.6 mg/dL Magnesium 2.0 Performed By: #### HEMOGC, CHM7, CA, IPB, MGO #### [facility] [address] [place] [address] [facility] [address] [place], [place] [address] *POC GLUCOSE BATTERY Collected: 03/07/2018 Status: F Source: [facility] 11:29 AM [facility] REPOSITORY TYPE CODE TESTS RESULT OUT OF REFERENCE UNITS RANGE LAB GLUP 70-99 mg/dL High Glucose (poc 113 device) Result Comment: No BRAVE per RN: PATIENT TYPE LAB PCSTYP *POC Capillary SAMPLE TYPE Blood HEMOGRAM (CBC AND Collected: 03/07/2018 Status: F Source: [facility] PLATELET) 2:12 AM [facility] REPOSITORY TYPE CODE TESTS RESULT [...] HEMOGC, CA, CHM7, IPB, MGO #### [facility] [address] [place] [address] [facility] [address] [place] [address] CALCIUM Collected: 03/07/2018 Status: F Source: [facility] 2:12 AM [facility] REPOSITORY TYPE CODE TESTS RESULT OUT OF REFERENCE UNITS RANGE LAB CA 8.6-10.5 mg/dL Low Calcium 8.2 Performed By: #### HEMOGC, CA, CHM7, IPB, MGO #### [facility] [address] [place] [id number] [place] [address] [address] [place] [address] CHEM 7 Collected: 03/07/2018 Status: F Source: [facility] 2:12 AM [facility] REPOSITORY TYPE CODE TESTS RESULT [...] GFR >60 mL/min/1.73 sqM Est GFR,non >60 [place] LAB GFRA >60 mL/min/1.73 sqM Est GFR, >60 Performed By: #### HEMOGC, CA, CHM7, IPB, MGO #### [facility] [address] [place] [id number] [place] [address] [address] [place] [address] INORGANIC PHOSPHATE Collected: 03/07/2018 Status: F Source: [facility] 2:12 AM [facility] REPOSITORY TYPE CODE TESTS RESULT OUT OF REFERENCE UNITS RANGE LAB IP 2.2-4.6 mg/dL Inorg High Phosphate 4.9 Performed By: #### HEMOGC, CA, CHM7, IPB, MGO #### [facility] [address] [place] [address] [facility] [address] [place], [place] [address] MAGNESIUM Collected: 03/07/2018 Status: F Source: [facility] 2:12 AM [facility] REPOSITORY TYPE CODE TESTS RESULT OUT OF REFERENCE UNITS RANGE LAB MG 1.6-2.6 mg/dL Magnesium 1.9 Performed By: #### HEMOGC, CA, CHM7, IPB, MGO #### [facility] [address] [place] [address] [facility] [address] [place], [place] [address] *POC GLUCOSE BATTERY Collected: 03/06/2018 Status: F Source: [facility] 8:24 PM [facility] REPOSITORY TYPE CODE TESTS RESULT OUT OF REFERENCE UNITS RANGE LAB GLUP 70-99 mg/dL High Glucose (poc 143 device) Result Comment: No BRAVE per RN: PATIENT TYPE LAB PCSTYP *POC Capillary SAMPLE TYPE Blood *POC GLUCOSE BATTERY Collected: 03/06/2018 Status: F Source: [facility] 7:25 PM [facility] REPOSITORY TYPE CODE TESTS RESULT OUT OF REFERENCE UNITS RANGE LAB GLUP 70-99 mg/dL High Glucose (poc 148 device) Result Comment: No BRAVE per RN: PATIENT TYPE LAB PCSTYP *POC Capillary SAMPLE TYPE Blood *POC GLUCOSE BATTERY Collected: 03/06/2018 Status: F Source: [facility] 6:19 PM [facility] REPOSITORY TYPE CODE TESTS RESULT OUT OF REFERENCE UNITS RANGE LAB GLUP 70-99 mg/dL High Glucose (poc 141 device) Result Comment: No BRAVE per RN: PATIENT TYPE LAB PCSTYP *POC Capillary SAMPLE TYPE Blood CYTOLOGY- NON-BRUSH MATERIAL PREPARER Observed: 03/06/2018 Status: F Source: [facility] 6:19 PM [facility] REPOSITORY Cytology Report Patient Name: CAITLIN HAAS Med. Rec. #: [id number] Submitting Physician: KEMAR IGNACIO ---Clinical History:--- - 67 year old male with history of a pancreatic body mass and multiple pancreatic nodules ---Source of Specimen(s):--- A: Peritoneal Fluid Cytologic Diagnosis PERITONEAL FLUID (CYTOLOGY AND CELL BLOCK): - No Malignant Cells Are Identified. - Lymphocytosis. pexw/PEXW:03/12/2018 ---Electronically Signed Out By Iraj Saldaña Jr, MD--- Cfo Controller: Malik Cruz ---Procedures/Addenda--- Performed By: #### NONGN #### [facility] [address] [place] [address] [address] [place] [address] Observed: 03/06/2018 Status: F Source: [facility] TYPE AND CROSS 4:55 PM [facility] REPOSITORY ABO/RH(D): A NEGATIVE ANTIBODY SCREEN: NEGATIVE Performed By: #### XM #### [facility] [address] [place] [address] [place] [address] *POC GLUCOSE BATTERY Collected: 03/06/2018 Status: F Source: [facility] 4:48 PM [facility] REPOSITORY TYPE CODE TESTS RESULT OUT OF REFERENCE UNITS RANGE LAB GLUP 70-99 mg/dL High Glucose (poc 193 device) Result Comment: No BRAVE per RN: PATIENT TYPE LAB PCSTYP *POC SAMPLE TYPE Venous SURGICAL PATHOLOGY Observed: 03/06/2018 Status: F Source: [facility] 8:35 AM [facility] REPOSITORY Surgical Pathology Report Patient Name: CAITLIN HAAS Med. Rec #: [id number] Submitting Physician: KEMAR IGNACIO --- Clinical History [...] Professional Interpretation performed at location: [address] [place] [id number] ---SPECIMEN(S) RECEIVED:--- SBX A: Peritoneum, BX B: [...] cm. TE 1 Lab Use Only: JobID [id number] Gross description by: Montse Lu Performed By: #### SURGP #### [facility] [address] [place] [address] XR CHEST PA AND Observed: 03/05/2018 Status: F Source: [facility] LATERAL 6:14 PM [facility] REPOSITORY EXAM: XR CHEST PA AND LATERAL, 03/05/2018 15:16 PM COMPARISON: No prior studies available for comparison. CLINICAL INDICATIONS: pre op RELEVANT CLINICAL HISTORY: K86.9:Pancreatic mass E11.69:Type 2 diabetes mellitus with other specified complication, unspecified whether mcc insulin use FINDINGS: (Adequate technique) Tubes, Lines, [...] WITH DIFF Collected: 03/05/2018 Status: F Source: [facility] 2:51 PM [facility] REPOSITORY TYPE CODE TESTS RESULT [...] Lymph 1.85 LAB AMONO 0.24-0.93 K/uL Abs Sublette 1.17 High LAB AEOS 0.00-0.48 K/uL Abs Eos 0.15 LAB ABASO 0.00-0.09 K/uL Abs Baso 0.05 Performed By: #### CBCDFM, CMPNC, LIPAC #### [facility] [address] [place] [address] #### CRP, PALB, A1CB, CA199 #### [facility] [address] [place] [address] [address] [address] COMP METABOLIC Collected: 03/05/2018 Status: F Source: [facility] 2:51 PM [facility] REPOSITORY TYPE CODE TESTS RESULT [...] Performed By: #### CBCDFM, CMPNC, LIPAC #### [facility] [address] [place] [address] #### CRP, PALB, A1CB, CA199 #### [address] [address] [address] - [address] Collected: 03/05/2018 Status: F Source: [facility] LAB 2:51 PM [facility] REPOSITORY TYPE CODE TESTS RESULT OUT OF REFERENCE UNITS RANGE LAB LIPA 11-82 U/L Lipase 26 Performed By: #### CBCDFM, CMPNC, LIPAC #### [facility] [address] [place] [address] #### CRP, PALB, A1CB, CA199 #### [facility] [address] [place] [address] C REACTIVE PROTEIN Collected: 03/05/2018 Status: F Source: [facility] 2:51 PM [facility] REPOSITORY TYPE CODE TESTS RESULT OUT OF REFERENCE UNITS RANGE LAB CRP <10.00 mg/L C High Reactive 54.50 Protein Performed By: #### CBCDFM, CMPNC, LIPAC #### [place] [address] #### CRP, PALB, A1CB, CA199 #### [facility] [address] [place] [address] [place] [address] [address] [place] [address] PREALBUMIN Collected: 03/05/2018 Status: F Source: [facility] 2:51 PM [facility] REPOSITORY TYPE CODE TESTS RESULT OUT OF REFERENCE UNITS RANGE LAB PALB 17-34 mg/dL Low Prealbumin 14 Performed By: #### CBCDFM, CMPNC, LIPAC #### [place] [address] #### CRP, PALB, A1CB, CA199 #### [facility] [address] [place] [address] [place] [address] HEMOGLOBIN A1C Collected: 03/05/2018 Status: F Source: [facility] 2:51 PM [facility] REPOSITORY TYPE CODE TESTS RESULT OUT OF REFERENCE UNITS RANGE LAB A1C 4.7-5.6 % High Hemoglobin A1C 6.6 LAB EAG mg/dL Estimated 143 Average Glucose Performed By: #### CBCDFM, CMPNC, LIPAC #### [place] [address] #### CRP, PALB, A1CB, CA199 #### [facility] [address] [place] [address] CA 19-9 Collected: 03/05/2018 Status: F Source: [facility] 2:51 PM [facility] REPOSITORY TYPE CODE TESTS RESULT OUT OF RANGE REFERENCE UNITS LAB CA199 0-37.00 U/mL High CA 19-9 2139.11 Performed By: #### CBCDFM, CMPNC, LIPAC #### [place] [address] #### CRP, PALB, A1CB, CA199 #### [facility] [address] [place] [address] [facility] [address] [place], [place] [address] OPERATIVE REPORT - Observed: 03/05/2018 Status: F Source: [facility] 7:27 AM [facility] REPOSITORY [facility] Medical Records Department [address] [place] [address] Operative Report - Endoscopy MR#: [id number] Acct: [id number] Name: CAITLIN HAAS Rep #: [id number] : 1950 67 From: Caitlin Cueto MD PCP: Geetha Diaz MD Status: REG [facility] Patient Name: Caitlin Haas Procedure Date: 03/05/2018 [...] 1 week. Procedure Code(s): --- Professional --- 31843, Colonoscopy, flexible; with removal of tumor(s), polyp(s), or other lesion(s) by snare technique 87720, 59, Colonoscopy, flexible; with biopsy, single or multiple 60586, 59, Moderate sedation services provided by the same physician or other qualified health child care coordinator performing the diagnostic or therapeutic service that [...] or abscess without bleeding CPT copyright 2017 [employer]. All rights reserved. The codes documented in this report are preliminary and upon bundling machine operator review may be revised to meet current compliance requirements. Caitlin Cueto MD 03/05/2018 7:26:49 AM This report has been signed electronically. Number of Addenda: 0 Note Initiated On: 03/05/2018 6:48 AM 03/05/18 0727 Date Caitlin Cueto MD Cosigner Signature: Date (if indicated) CC: Geetha Diaz MD; Caitlin Cueto MD Date Dictated: 03/05/18 0648 Date Transcribed: Ornamental Plaster Sticker: GLADIS Signed OPERATIVE REPORT - Observed: 03/05/2018 Status: F Source: [facility] 7:18 AM [facility] REPOSITORY [facility] Medical Records Department [address] [place] [address] Operative Report - Endoscopy MR#: [id number] Acct: [id number] Name: CAITLIN HAAS Rep #: [id number] : 1950 67 From: Caitlin Cueto MD PCP: Geetha Diaz MD Status: REG [facility] Patient Name: Caitlin Haas Procedure Date: 03/05/2018 [...] present medications. Procedure Code(s): --- Professional --- 32257, Esophagogastroduodenoscopy, flexible, transoral; with biopsy, single or multiple 68624, 59, Moderate sedation services provided by the same physician or other qualified health child care coordinator performing the diagnostic or therapeutic service that [...] parts of digestive tract CPT copyright 2017 [employer]. All rights reserved. The codes documented in this report are preliminary and upon bundling machine operator review may be revised to meet current compliance requirements. Caitlin Cueto MD 03/05/2018 7:18:13 AM This report has been signed electronically. Number of Addenda: 0 Note Initiated On: 03/05/2018 6:22 AM 03/05/18717 Date Caitlin Cueto MD Cosigner Signature: Date (if indicated) CC: Geetha Diaz MD; Caitlin Cueto MD Date Dictated: 03/05/18621 Date Transcribed: Ornamental Plaster Sticker: GLADIS Signed EGD ([facility]) Observed: 03/05/2018 Status: F Source: [facility] 6:30 AM [facility] REPOSITORY Patient: CAITLIN HAAS : 1950 (67/M) Acct Num: [id number] Phys: Nory LOPES,Caitlin Unit Num: [id number] Loc: EN Specimen: [id number] Received: 03/05/1831 Spec Type: EGD BIOPSY TISSUES 1 TISSUES: A. Gastric mucous membrane B. Transverse colon C. Sigmoid colon biopsy D. Rectum, NOS E. Rectum, NOS COMMENT A. The results of immunohistochemistry for Helicobacter pylori will be reported separately ([id number]). GROSS DESCRIPTION A - Received in fixative [...] one cassette. / AM:rg 03/05/18 TC:1 CPT: 55043 x5 HEADER OPERATION: Colonoscopy, EGD (MOD) PRE-OP [...] on file> Performed By: #### PEGD #### [facility] [address] [place] [address]. [place], [place], [address] IMMUNOHISTOCHEMISTRY Observed: 03/05/2018 Status: F Source: [facility] 6:30 AM [facility] REPOSITORY Patient: CAITLIN HAAS : 1950 (67/M) Acct Num: [id number] Phys: Caitlin Cueto MD Unit Num: [id number] Loc: EN Specimen: [id number] Received: 03/05/189 Spec Type: IMMUNO TISSUES 1 TISSUES: A. Stomach, NOS SPECIMEN INFORMATION: Tissue Source: A - Antral biopsy Clinical Info: GERD, history of polyps Specimen Number: [id number] CPT code: 17515 METHODOLOGY: Deparaffinized sections of prefer/formalin-fixed tissue or [...] developed and their performance characteristics determined by [facility]. They may not have been cleared or approved by the U.S. Food and Drug Administration. The FDA has determined that such clearance or approval is not necessary. INTERPRETATION: A. Antral biopsy: Negative for Helicobacter pylori organisms. SJ:luke 03/06/18 PHYSICIAN AND INSTITUTION [address] [address] Signed Robles Becerra MD 03/06/18 <signature on file> Performed By: #### PIMM #### [facility] [address] [place], [address] BEDSIDE GLUCOSE Collected: 03/05/2018 Status: F Source: [facility] 6:02 AM [facility] REPOSITORY TYPE CODE TESTS RESULT OUT OF REFERENCE UNITS RANGE LAB L501.080 70-110 mg/dL High BEDSIDE GLU 139 Result Comment: MANAGEMENT OF PATIENT CARE PER NURSING PROTOCOL Performed By: #### L501.080 #### [facility] Point of Care [address] [place] [address] ABDOMEN/PELVIS WITH Observed: 03/04/2018 Status: F Source: [facility] CONTRAST 8:40 AM [facility] REPOSITORY [facility] Imaging Services [address] [place] [address] Abdomen/Pelvis WITH Contrast MR#: [id number] Acct: [id number] Name: CAITLIN HAAS Rep #: [id number] : 1950 M 67 From: Sonny Guevara MD PCP: Geetha Diaz MD Status: REG CLI Study: Abdomen/Pelvis WITH Contrast Date of Exam: 03/04/18 Exam# [id number] Ordering Dr: Caitlin Cueto MD STUDY: CT [...] Sonny Guevara MD at 9:34 EST Tel [phone], Service support , CC: Geetha Diaz MD; Caitlin Cueto MD Ornamental Plaster Sticker: Signed SURGERY VISIT REPORT Observed: 03/03/2018 Status: F Source: [facility] 4:52 PM [facility] REPOSITORY [facility] [address] [place] [address] [address] [place] [address] OFFICE VISIT Date of Service: 03/03/18 MR#: [id number] Acct: [id number] Name: CAITLIN HAAS Rep #: [id number] : 1950 Provider: Caitlin Cueto MD Age/Sex: 67/M Location: [facility] Status: Signed Intake Vital Signs03/03/18 Height 5 ft 6 in 03/03/18 Weight: 177 lb 1 oz 03/03/18 Body Mass Index (BMI) 28.5 03/03/18 Blood Pressure 121/81 H Intake Visit Reasons: HX OF COLON POLYPS AND GERD, TROUBLE EATING Chief Complaint: bloating/ GERD, history of colon polyps Supervisor [facility] Required: No Is patient in pain?: No [...] DAILY 03/03/18 [History Confirmed 03/03/18] [facility] Medical History Abdominal distension (gaseous) (Acute) Personal [...] Status: F Source: [facility] 4:30 PM [facility] REPOSITORY TYPE CODE TESTS RESULT OUT OF [...] 11 Performed By: #### L500.4050, L501.2450 #### [facility] [address] [place], [place], [address] LIPASE Collected: 03/03/2018 Status: F Source: [facility] 4:30 PM [facility] REPOSITORY TYPE CODE TESTS RESULT OUT OF RANGE REFERENCE UNITS LAB L501.2450 73-393 U/L Normal LIPASE 160 Performed By: #### L500.4050, L501.2450 #### [facility] [address] [place], [address] CBC W/DIFF, AUTOMATED Collected: 03/03/2018 Status: F Source: [facility] 4:30 PM [facility] REPOSITORY TYPE CODE TESTS RESULT OUT OF [...] COMMENT SCANNED Performed By: #### L100.0100 #### [facility] [address] [facility] [place], [address] ABDOMEN LIMITED Observed: 02/27/2018 Status: F Source: [facility] 8:47 AM [facility] REPOSITORY [facility] Imaging Services [address] [place] [address] Abdomen Limited MR#: [id number] Acct: [id number] Name: CAITLIN HAAS Rep #: [id number] : 1950 67 From: Shravan Craig PCP: Geetha Diaz MD Status: REG CLI Study: Abdomen Limited Date of Exam: 02/27/18 Exam# [id number] Ordering Dr: Geetha Diaz MD STUDY: ABDOMINAL [...] Service support , CC: Geetha Diaz MD Ornamental Plaster Sticker: Signed CNPN Observed: 12/16/2017 Status: COMPLETED Source: [place] 12:00 AM [facility] REPOSITORY Telephone (CHRISSY) CAITLIN HAAS ([id number]) 1950 M Date Time Provider Department 12/16/17 [...] a 5 year. . Can you update [facility] Thank you Josue Diaz 12/19/2017 2:04 PM Signed 1st failed attempt Josue Senior, RN, RN 12/24/2017 11:59 AM Signed See pathology result note. Dr. Caitlni Cueto recommended 3 yr follow up. Pt [...] Upset Date Reviewed: 10/26/2017 Reviewed by: Nancy [facility]Lawrence [facility] HospitalIsabel Mcguire - Fully Assessed Reason for [...] DDD (degenerative disc disease), lumbar [M51.36]INVALID FOR* TANANA (hard of hearing) [H91.90] INVALID FOR* Anxiety neurosis [F41.1] INVALID FOR* Postsurgical hypothyroidism [E89.0] INVALID FOR* Obesity [E66.9] INVALID FOR* Letter Text [address] [place] [place] [address] 12/26/2017 Caitlin Haas [id number] Dear Caitlin , As always, your health is of primary concern to our practice. We have been unsuccessful in reaching you by phone to schedule a follow up colonoscopy. Performing a follow up colonoscopy in a timely manner is important as a delay in testing can lead to an increased risk of colon cancer. Please contact our schedulers at [phone] to set up an appointment. If you have had your follow up colonoscopy elsewhere, please contact us as well, so we may update your records. We look forward to hearing from you. Sincerely, [facility] Encounter Status:Closed by MONTSE REYES on 12/26/17 GLUCOSE Collected: 12/08/2017 Status: F Source: [facility] 8:37 AM [facility] REPOSITORY TYPE CODE TESTS RESULT OUT OF RANGE REFERENCE UNITS LAB L501.0100 74-106 mg/dL High GLU 263 Result Comment: Glucose result greater than or equal to 200 mg/dL suggests DIABETES MELLITUS per A.D.A. criteria. Please note revised GLUCOSE reference range effective 2017. Performed By: #### L501.0100 #### [facility] [address] [place], [address] HEMOGLOBIN A1C Collected: 12/08/2017 Status: F Source: [facility] 8:37 AM [facility] REPOSITORY TYPE CODE TESTS RESULT OUT OF RANGE REFERENCE UNITS LAB L501.9985 4.2-6.3 % High HGB A1C 9.8 Performed By: #### L501.9985 #### [facility] [address] [place], [address] EMERGENCY DEPARTMENT Observed: 10/26/2017 Status: F Source: [facility] SUMMARY 10:48 PM [facility] REPOSITORY [facility] Medical Records Department [address] [place] [address] Emergency Department Summary 10/26/17 1633 MR#: [id number] Acct: [id number] Name: CAITLIN HAAS Rep #: [id number] : 1950 67 From: Funmilayo Hu MD PCP: Geetha Diaz MD Status: DEP ER - ER Visit Summary Date of Service: 10/26/17 Chief Complaint: Headache History of Present Illness: The patient is a 67 M with history of ocular migraines. Patient states he had visual auras from his right eye this morning. During hinduism had a slight vision cut from the right peripheral vision. After hinduism he developed pressure across his eyes and [...] Migraine, improved This note was generated with adicate timeads dictation software. It may contain incorrect words, [...] your Primary Care Provider. Call [facility] ([phone]) or report to the closest Emergency Room. Call 911 if necessary. 10/26/172247 <Electronically signed by Funmilayo Hu MD> Date Funmilayo Hu MD Cosigner Signature (If Indicated): Date CC: Geetha Diaz MD DISCHARGE INSTRUCTION Observed: 10/26/2017 Status: F Source: [facility] 5:50 PM [facility] REPOSITORY [facility] Medical Records Department [address] [place] [address] [place] [address] Discharge Instruction 10/26/171748 MR#: [id number] Acct: [id number] Name: CAITLIN HAAS Rep #: [id number] : 1950 67 From: Funmilayo Hu MD [...] your Primary Care Provider. Call [facility] ([phone]) or report to the closest Emergency Room. Call 911 if necessary. 10/26/171749 <Electronically signed by Funmilayo Hu MD> Date Funmilayo Hu MD Cosigner Signature (If Indicated): Date CC: Geetha Diaz MD BRAIN/HEAD WITHOUT Observed: 10/26/2017 Status: F Source: [facility] CONTRAST 4:30 PM [facility] REPOSITORY [facility] Imaging Services [address] [place] [address] Brain/Head without Contrast MR#: [id number] Acct: [id number] Name: CAITLIN HAAS Rep #: [id number] : 1950 M 67 From: Gabino Purdy DO PCP: Geetha Diaz MD Status: REG ER Study: Brain/Head without Contrast Date of Exam: 10/26/17 Exam# [id number] Ordering Dr: Funmilayo Hu MD STUDY: CT [...] CC: Funmilayo Hu MD; Geetha Diaz MD Ornamental Plaster Sticker: Signed PROGRESS Observed: 10/26/2017 Status: COMPLETED Source: [place] 4:07 PM [facility] REPOSITORY HNO ID: [id number] Author: Nancy Mcguire Service: (none) Author Type: [...] APRN.CNP CNOV Observed: 10/26/2017 Status: COMPLETED Source: [place] 3:45 PM [facility] REPOSITORY Office Visit (WSTR) CAITLIN HAAS ([id number]) 1950 M Date Time Provider Department 10/26/17 [...] no vision changes during visit. Nancy Mcguire APRN.PIANO CASE MAKER Referring Provider: SELF [200] Allergies As of Date: 10/26/2017 Noted Allergy Reaction HAY FEVER (SEASONAL ALLERGIES) 01/30/2015 1 - Mental Status Change Comments: Itchy eyes, runny nose, coughing, sneezing. TETRACYCLINE 02/27/2015 8 - GI Upset Date Reviewed: 10/26/2017 Reviewed by: Nancy (Photograph Mounter) - Fully Assessed Primary Visit Diagnosis:Vision changes [...] DDD (degenerative disc disease), lumbar [M51.36]INVALID FOR* TANANA (hard of hearing) [H91.90] INVALID FOR* Anxiety neurosis [F41.1] INVALID FOR* Postsurgical hypothyroidism [E89.0] INVALID FOR* Obesity [E66.9] INVALID FOR* Encounter Status:Closed by NANCY MCGUIRE CNP on 10/26/17 BASIC METABOLIC Collected: 10/13/2017 Status: F Source: [facility] PROFILE (BMP) 8:53 AM [facility] REPOSITORY Order Comment: Order Date: 10/03/17 Order Info: 0667-1 - BMP Order Info: 06968-9 - LIPID Order Info: 3016-3 - TSH [...] Performed By: #### L500.2500, L500.4100, L501.9520 #### [facility] [address] [place], [address] LIPID PROFILE Collected: 10/13/2017 Status: F Source: [facility] 8:53 AM [facility] REPOSITORY Order Comment: Order Date: 10/03/17 Order Info: 0667-1 - BMP Order Info: 67272-6 - LIPID Order Info: 3016-3 - TSH [...] Performed By: #### L500.2500, L500.4100, L501.9520 #### [facility] [address] [place], [address] THYROID STIM HORMONE Collected: 10/13/2017 Status: F Source: [facility] (TSH) 8:53 AM [facility] REPOSITORY Order Comment: Order Date: 10/03/17 Order Info: 0667-1 - BMP Order Info: 04342-2 - LIPID Order Info: 3016-3 - TSH TYPE CODE TESTS RESULT OUT OF RANGE REFERENCE UNITS LAB L501.9520 0.358-3.74 uIU/mL Normal TSH 1.43 Performed By: #### L500.2500, L500.4100, L501.9520 #### [facility] [address] [place], [address] PSA,TOTAL - ANNUAL Collected: 10/13/2017 Status: F Source: [facility] SCREEN 8:53 AM [facility] REPOSITORY Order Comment: Order Date: 10/03/17 Order Info: 0667-1 - BMP Order Info: 17714-6 - LIPID Order Info: 3016-3 - TSH TYPE CODE TESTS RESULT OUT OF RANGE REFERENCE UNITS LAB L501.9910 0.00-4.00 ng/mL Normal PSA,TOT 1.91 SCREEN Result Comment: This test was performed using the TPSA assay method for the [employer] chemistry system. Values obtained with different assay methods cannot be used interchangably. When changing PSA assays in the course of monitoring a patient, additional sequential testing should be carried out to confirm baseline values. Performed By: #### L501.9910 #### [facility] [address] [facility] [place], [address] EMERGENCY DEPARTMENT Observed: 07/03/2017 Status: F Source: [facility] SUMMARY 4:21 PM [facility] REPOSITORY [facility] Medical Records Department [address] [facility] [place] [address] Emergency Department Summary 07/03/17 0740 MR#: [id number] Acct: [id number] Name: CAITLIN HAAS Rep #: [id number] : 1950 66 From: Robel Montoya MD PCP: Geetha Diza MD Status: DEP ER - ER Visit [...] it well. This note was generated with adicate timeads dictation software. It may contain incorrect words, [...] problems, contact your Primary Care Provider. Call [facility] ([phone]) or report to the closest Emergency Room. Call 911 if necessary. 07/03/17 1621 <Electronically signed by Robel Montoya MD> Date Robel Montoya MD Cosigner Signature (If Indicated): Date CC: Geetha Diaz MD ALLERGIES ALLERGIES DATE TYPE / CODE NAME / CODE REACTION SEVERITY SOURCE 04/01/2018 Drug oxycodone Other [place] Allergy/416 HCl/[id number](RXNO [facility]) Repository 04/01/2018 Drug Tetracyclines/F0010 Upset Stomach [place] Allergy/416 53611(RXNORM) [facility] 150177([facility] ED CT) Repository 03/21/2018 Drug acetaminophen/F0060 Other [place] Allergy/416 88218(RXNORM) [facility] 430280([facility] ED CT) Repository 02/27/2015 DRUG TETRACYCLINE GI UPSET [facility] INGREDI/419 [facility] 225528([facility] ED CT) 01/30/2015 Environ/420 SEASONAL ALLERGIES Mental Chg [facility] 981778([facility] ED CT) Repository ENCOUNTERS ENCOUNTERS ADMIT/DISCHARGE ACCOUNT NUMBER ADMITTING ENCOUNTER LOCATION SOURCE CLASS 04/03/2018 [id number] Ambulatory [facility] ding:ONC Repository 04/01/2018 [id number] Ambulatory BMSBuilding: [place] BMS.CF.[facility] Repository 03/26/2018 [id number] Ambulatory BMSBuilding: [place] BMS.[facility] Repository 03/24/2018/03/24/19 [id number] Ambulatory [place] ding:SDCRoom Repository : AC06 03/21/2018/03/21/19 [id number] Ambulatory BMSBuilding: [place] 19 BMS.[facility] Repository 03/19/2018 [id number] Ambulatory Building:PTH [facility] Repository 03/16/2018 [id number] Ambulatory BMSBuilding: [place] BMS.CF.[facility] Repository 03/12/2018 [id number] Ambulatory Building:K8T [facility] Repository 03/06/2018/03/09/20 [id number] SAN[place], Inpatient Building:[address] [place] [address] KEMAR M Encounter ERoom: [place] [address]Bed: A [facility] Repository 03/05/2018 [id number] Ambulatory Building:KRI [facility] Repository 03/05/2018 [id number] Ambulatory Building:K1T [facility] Repository 03/05/2018 [id number] Ambulatory Building:K8T [facility] Repository 03/05/2018 [id number] Ambulatory Building:K1T [facility] Repository 03/05/2018/03/05/20 [id number] Ambulatory [address] ding:ENRoom: Repository AC10 03/04/2018 [id number] Ambulatory [facility] ding:CT Repository 03/03/2018 [id number] Ambulatory [facility] ding:LAB Repository 03/03/2018/03/03/20 [id number] Ambulatory BMSBuilding: [place] 18 BMS.[facility] Repository 02/27/2018 [id number] Ambulatory [facility] Hospital ding:US Repository 12/08/2017 [id number] Ambulatory [facility] Hospital ding:MTLAB Repository 10/26/2017/10/27/19 [id number] Emergency [place] ding:ED Repository 10/26/2017 [id number] Ambulatory [facility] Repository 10/13/2017 [id number] Ambulatory [facility] ding:MTLAB Repository 07/03/2017/07/04/19 [id number] Emergency [place] ding:ED Repository PAYERS PAYERS ENCOUNTER GUARANTOR PAYER SUBSCRIBER SOURCE 04/03/2018 CAITLIN E Primary CAITLIN E [place] [id number] Insurance:GPATPA ALDDOB: Community [facility] Number: [id number], [place] [id number] Repository [address]Wwb: (330) Date:8774-92-10[phone] (HP) 470227PTXFCL [place] [address]DA: 04/03/2018 Secondary CAITLIN E [place] Insurance:CHEMO HERALDDOB: [facility] [id number] Hospital Number: Effective Repository Date:2018-03-12 04/03/2018 Tertiary NOT GIVENUNK [place] Insurance:SELF PAY [facility] Number: Effective Repository Date:2018-03-12 04/01/2018 CAITLIN E Primary CAITLIN E [place] [id number] Insurance:GPATPA ALDDOB: [facility] THOR [facility] Number: [id number], [place] [id number] Repository [address]Dbl: (330) Date:3224-43-20[phone] (HP) 835257KKFRHG, [place] [address]OQ: 04/01/2018 Secondary NOT GIVENUNK [place] Insurance:SELF PAY [facility] Number: Effective Repository Date:2018-04-01 03/26/2018 CAITLIN E Primary CAITLIN E [place] [id number] PIN Insurance:GPATPA ALDDOB: [facility] ANGELES TAVERAE [facility] Number: [id number], [place] [id number] Repository [address]Dlq: (330) Date:2252-75-32[phone] (HP) 276[address]HOCAQK, [place] [address]NM: 03/26/2018 Secondary NOT GIVENUNK [place] Insurance:SELF PAY [facility] Number: Effective Repository Date:2018-03-26 03/24/2018 CAITLIN E Primary CAITLIN E [place] [id number] PIN Insurance:GPATPA HERALDDOB: Formerly [facility] ANGELES GREGORY CERCOPolicy Number: [id number], [place] [id number] Repository [address]Ceu: (330) Date:6359-75-16[phone] (HP) 415410GPWSKQ, [place] [address]ME: 03/24/2018 Secondary NOT GIVENUNK [place] Insurance:SELF PAY [facility] Number: Effective Repository Date:2018-03-23 03/21/2018 CAITLIN E Primary CAITLIN E [place] [id number] Insurance:GPATPA HERALDDOB: [facility]ly [facility] DANBERRY [facility] Number: [id number], [place] [id number] Repository [address]Kht: (330) Date:9420-33-00[phone] (HP) 876[address]BFIGXP, [place] [address]TW: 03/21/2018 Secondary NOT GIVENUNK [place] Insurance:SELF PAY [facility] Number: Effective Repository Date:2018-03-16 03/19/2018 CAITLIN Primary [facility] HERALDDOB: [facility]: [place] Number: [id number] [facility] [facility] [id number] [place], [place] Date:6356-15-32[place], [place] Repository [address]Qqx: (330) Name:[facility] 33348Dxh: (HP) [address]EYJNID, [phone] (HP) [place] [address]VK: 03/16/2018 CAITLIN E Primary CAITLIN E Lucas [id number] Insurance:GPATPA HERALDDOB: Formerly [facility] DANBERRY CERCOPolicy Number: [id number], [place] [id number] Repository [address]Hfx: (330) Date:1079-33-20[phone] (HP) 669865UOIYNG, [place] [address]EQ: 03/16/2018 Secondary NOT GIVENUNK [place] Insurance:SELF PAY [facility] Number: Effective Repository Date:2018-03-16 03/12/2018 CAITLIN Primary [facility] HERALDDOB: Insurance:CERCOPolicy HERALDDOB: [place] Number: [id number] [facility] [id number] [place], [place] Date:2472-14-63Eygx [place], [place] Repository [address]Vec: (330) Name:MANAGED CAREGPA [address]Ify: (HP) [address]FLNYMY, [phone] (HP) [place] [address]AW: 03/06/2018 [facility]LIN [facility] [place] Number: [id number] [facility] [place] [id number] [place], [place] Date:2515-08-73Mtjf [place], [place] Repository [address]Cce: (330) Name:MANAGED CAREGPA [address]Eac: (HP) [address]TMROHL, [phone] (HP) [place] [address]AW: 03/05/2018 CAITLIN Primary [facility] Insurance:CERCOPolicy HERALDDOB: [place] Number: [id number] [facility] [id number] Linda, [place] Date:9580-70-44Ukjl [place], [place] Repository [address]Csp: (330) Name:MANAGED CAREGPA 65420Fls: (HP) [address]WCOLWY, [phone] (HP) [place] [address]PW: 03/05/2018 CAITLIN Primary [facility] Insurance:CERCOPolicy HERALDDOB: [place] Number: [id number] [facility] [id number] [place], [place] Date:4115-20-38Tqmu [place], [place] Repository [address]Lwm: (330) Name:MANAGED CAREGPA [id number]: (HP) [address]OXEUHZ, [phone] (HP) [place] [address]IQ: 03/05/2018 CAITLIN Primary [facility] Insurance:CERCOPolicy HERALDDOB: [place] Number: [id number] [facility] [id number], [place] Date:0876-52-32Tbfc [place], [place] Repository [address]Dyl: (330) Name:MANAGED CAREGFL [id number]: (HP) [address]UBTRUG, [phone] (HP) [place] [address]ER: 03/05/2018 CAITLIN Primary [facility] Insurance:CERCOPolicy HERALDDOB: [place] Number: [facility] [id number] [facility] Date:1142-27-64Xpjs [place], [place] Name:MANAGED [place], [place] Repository [address]Pic: (330) [address]KWNAHH, [address]Dgl: (HP) [place] [address]JC: (HP) [phone] 03/05/2018 CAITLIN E Primary [facility]LIN [id number]:GPATPA HERALDDOB: Formerly [facility] DANBERRY CERCOPolicy Number: [id number], [place] [id number] Repository [address]Osk: (330) Date:2407-83-50[phone] (HP) 958872UJGKYGGLENDALE, [place] [address]HZ: 03/05/2018 Secondary NOT GIVENUNK [place] Insurance:SELF PAY [facility] Number: Effective Repository Date:2018-03-04 03/04/2018 CAITLIN E Primary CAITLIN E Lucas [id number] Insurance:GPATPA HERALDDOB: Community DANBERRY CERCOPolicy Number: [id number], [place] [id number] Repository [address]Fsv: (330) Date:7938-38-93CK [phone] (HP) 658983EARVQJ, [place] [address]LM: 03/04/2018 Secondary NOT GIVENUNK [place] Insurance:SELF PAY [facility] Number: Effective Repository Date:2018-03-03 03/03/2018 CAITLIN E Primary CAITLIN E [place] [id number] Insurance:GPATPA HERALDDOB: Formerly [facility] DANBERRY [facility] Number: [id number], [place] [id number] Repository [address]Phw: (330) Date:3696-41-08JH [phone] (HP) 115792DQKWBI, [place] [address]KQ: 03/03/2018 Secondary NOT GIVENUNK [place] Insurance:SELF PAY [facility] Number: Effective Repository Date:2018-03-03 03/03/2018 CAITLIN E Primary CAITLIN E [place] [id number] Insurance:GPATPA HERALDDOB: Community DANBERRY CERCOPolicy Number: [id number], [place] [id number] Repository [address]Oqm: (330) Date:8157-71-81BW [phone] (HP) 750791YQCQUU, [place] [address]LX: 03/03/2018 Secondary NOT GIVENUNK [place] Insurance:SELF PAY [facility] Number: Effective Repository Date:2018-03-03 02/27/2018 CAITLIN E Primary CAITLIN E [place] [id number] Insurance:GPATPA HERALDDOB: Community DANBERRY [facility] Number: [id number], [place] [id number] Repository [address]Fvz: (330) Date:4162-26-34QI [phone] (HP) 824107PGZSYB, [place] [address]HY: 02/27/2018 Secondary NOT GIVENUNK [place] Insurance:SELF PAY [facility] Number: Effective Repository Date:2018-02-24 12/08/2017 Caitlin E Primary Caitlin E Lucas [id number] Insurance:GPATPA HeraldDOB: [facility] Number: [id number], [place] [id number] Repository [address]Zwa: (330) Date:4453-77-73GD [phone] (HP) 147667MIYRRR, [place] [address]TK: 12/08/2017 Secondary NOT GIVENUNK [place] Insurance:SELF PAY [facility] Number: Effective Repository Date:2017-12-08 10/26/2017 Caitlin E Primary Caitlin E Lucas [id number] Insurance:GPATPA HeraldDOB: Formerly [facility] Number: [id number] [id number] Repository [place] [address]Dpq: Date:5771-03-72[address] (HP) [phone]: 10/26/2017 Secondary NOT GIVENUNK [place] Insurance:SELF PAY [facility] Number: Effective Repository Date:2017-10-26 10/13/2017 Caitlin E Primary Caitlin E Lucas [id number] Insurance:GPATPA aldDOB: Formerly [facility] Number: [id number] Hospital - [facility] [id number] Repository [place] [address]Jkg: Date:5505-30-44JI [address]ANGELA AGU[address] (HP) [phone]: 10/13/2017 Secondary NOT GIVENUNK [place] Insurance:SELF PAY [facility] Number: Effective Repository Date:2017-10-13 07/03/2017 Caitlin Zavala [id number] Insurance:GPATPA SaminaDOB: Community [place] [facility] Number: [id number] Hospital [facility] [id number] Repository [place] [address]Eoi: Date:2516-73-36UB [phone] 7024[address]IJXVPL, [place] 0-2 (JX) [address]WP: 07/03/2017 Secondary NOT GIVENUNK [place] Insurance:SELF PAY [facility] Number: Effective Repository Date:2017-07-03
== END ==
PROVIDERS: Family Provider Family Medicine; PCP Family Medicine; Referring Provider Surgery; Visit Provider Surgery
DX: R14.0 Abdominal distension (gaseous) (principal); R11.2 Nausea with vomiting, unspecified
CPT/HCPCS: 36415; 80053; 83690; 85025

== ENCOUNTER → 2018-03-04 08:38 | Outpatient (CLI) | payer OTHER, SELFPAY ==
[2018-03-03 15:51] VITALS: BMI 28.5
--- NOTE | 2018-03-04 08:40 | CT_ITS ---
STUDY: CT ABDOMEN AND PELVIS WITH CONTRAST REASON FOR EXAM: Male, 67 years old. Abdominal distention and constipation. History of 50 pound weight loss. RADIATION DOSAGE (If Supplied By Facility): CTDIvol = ( 18.94 ) mGy, DLP = ( 1120.89 ) mGycm TECHNIQUE: Transaxial images were obtained from the dome of the diaphragm to the symphysis pubis with oral contrast. 100CC ml of Isovue 300 contrast was administered. Sagittal and coronal images were reconstructed. Individualized dose optimization techniques were used for this CT. COMPARISON: None. FINDINGS: The visualized lung bases are unremarkable. The visualized portions of the heart are within normal limits. Minimally dilated central intrahepatic biliary ducts. Mildly distended gallbladder. Normal spleen. The splenic vein is not opacified. There is evidence of varices within the splenic hilum. There is evidence of irregular soft tissue mass with air involving the body and tail portions of the pancreas. This measures 9.7 cm x 4.1 cm. There is evidence of increased markings in the surrounding peritoneal fat. Infiltration at the root of the mesentery is suspected as well. A neoplastic process should be ruled out. The pancreatic head is unremarkable. Normal bilateral adrenal glands. Normal right kidney. Tiny cysts are seen in the lower pole of the left kidney. There is a diffuse thickening of the distal body of the stomach. There is a dilatation of the second and third portion of the duodenum up to the region of the ligament of Treitz. The right hemicolon is not well opacified with contrast although there is suggestion of the diffuse wall thickening. Increased markings are seen in the surrounding peritoneal fat. Scattered sigmoid diverticula. The appendix is visualized and appears normal. Normal abdominal aorta. Normal inferior vena cava. Normal retroperitoneum. Normal urinary bladder. There is enlargement of the prostate gland. This measures 5.2 cm x 6.5 cm. Small amount of free fluid is seen in the pelvis. Small bilateral inguinal hernias containing fat. 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 Disc space narrowing at the L5-S1 level. Loss of the normal lumbar lordosis. CT/Abdomen/Pelvis WITH Contrast IMPRESSION: Inhomogeneous mass seen in the body and tail portions of the pancreas with the air within it. There is evidence of thickening of the distal body of the stomach as well as dilatation of the second and third portions of the duodenum up to the ligament of Treitz. Nonopacification of the splenic vein with evidence of varices in the region of the splenic hilum. Small amount of free fluid in the cul-de-sac. Electronically Signed: Sonny Guevara MD at 9:34 EST Tel [phone], Service support ,
--- OUTSIDE RECORDS SUMMARY | 2018-06-05 09:18 | XMS RPT_ITS ---
:1950 Author Organization [place] Support Name Relationship Address Phone [employer] Unavailable [address] + [place] [address] [place] Unavailable [address] + [place] [address] [facility] Unavailable [address] + [place] [address] [place] Unavailable [address] + [place] [address] [facility] Unavailable [address] + [place] [address] [place] Unavailable [address] + [place] [address] [facility] Unavailable [address] + [place] [address] [place] Unavailable [address] + [place] [address] [facility] Unavailable [address] + [place] [address] [place] Unavailable [address] + [place] [address] HERALD, ASAF Unavailable Unavailable Unavailable CAITLIN HAAS Unavailable Unavailable Unavailable [facility] Unavailable [address] + [place] [address] [place] Unavailable [address] + [place] [address] HERALD, ASAF Unavailable Unavailable Unavailable HERCAITLIN GRANADO Unavailable Unavailable Unavailable HERALD, ASAF Unavailable Unavailable Unavailable HERLOY, CAITLIN Unavailable Unavailable Unavailable HERALD, ASAF Unavailable Unavailable Unavailable HERALD, CAITLIN Unavailable Unavailable Unavailable HERALD, ASAF Unavailable Unavailable Unavailable HERALD, CAITLIN Unavailable Unavailable Unavailable HERALD, ASAF Unavailable Unavailable Unavailable HERALD, CAITLIN Unavailable Unavailable Unavailable [facility] Unavailable [address] + [place] [address] HERNEW GRANADO Unavailable [address] + [place] [address] [facility] Unavailable [address] + [place] [address] HERNEW GRANADO Unavailable [address] + [place] [address] [facility] Unavailable [address] + [place] [address] HERNEW GRANADO Unavailable [address] + [place] [address] [facility] Unavailable [address] + [place] [address] HERNEW GRANADO Unavailable [address] + [place] [address] [facility] Unavailable [address] + [place] [address] HERNEW GRANADO Unavailable [address] + [place] [address] [facility] Unavailable [address] + [place] [address] HERNEW GRANADO Unavailable [address] + [place] [address] [facility] Unavailable [address] + [place] [address] HERLO[facility]FORTINOE Unavailable [address] + [place] [address] [facility] Unavailable [address] + [place] [address] [facility]LO[facility]FORTIN[facility] Unavailable [address] + [place] [address] [facility] Unavailable [address] + [place] [address] [facility]LO[facility]FORTIN[facility] Unavailable [address] + [place] [address] Care Team Providers Name Role Phone KEMAR [...] DIAZ, GEETHA K Primary Care Unavailable NANCY MCGUIRE) Attending Unavailable Diaz, Geetha Attending Unavailable Diaz, Geetha Referring Unavailable Diaz, Geetha Primary Care Unavailable Prah, Alfred Attending Unavailable Diaz, Geetha Primary Care Unavailable Prah, Alfred Consulting Unavailable Diaz, Geetha Referring Unavailable RocioBritany Attending Unavailable Diaz, Geetha Primary Care Unavailable Prah, Alfred Consulting Unavailable Cebul, Caitlin Attending Unavailable Diaz, Geetha Primary Care Unavailable Cebul, Caitlin Referring Unavailable Prah, Alfred Attending Unavailable Diaz, Geetha Primary Care Unavailable Prah, Alfred Consulting Unavailable Cebul, Caitlin Referring Unavailable Diaz, Geetha Primary Care Unavailable Funmilayo Hu Attending Unavailable Diaz, Geetha Attending Unavailable Diaz, Geetha Referring Unavailable Diaz, Geetha Primary Care Unavailable Diaz, Geetha Primary Care Unavailable Robel Montoya Attending Unavailable Cebul, Caitlin Attending Unavailable Cebul, Caitlin Referring Unavailable Diaz, Geetha Primary Care Unavailable Cebul, Caitlin Attending Unavailable Diaz, Geetha Referring Unavailable Diaz, Geetha Attending Unavailable Diaz, Geetha Referring Unavailable Diaz, Geetha Primary Care Unavailable Cebul, Caitlin Attending Unavailable Diaz, Geetha Referring Unavailable Prah, Alfred Attending Unavailable Diaz, Geetha Primary Care Unavailable Cebul, Caitlin Attending Unavailable Cebul, Caitlin Referring Unavailable Diaz, Geetha Primary Care Unavailable Cebul, Caitlin Attending Unavailable Cebul, Caitlin Referring Unavailable Diaz, Geetha Primary Care Unavailable PROBLEMS PROBLEMS DATE TYPE CONDITION / CODE ATTENDING STATUS SOURCE 04/01/2018 Unknown C25.1 - Malignant PraAlfred harrell Active [place] neoplasm of body Community of pancreas / Hospital C25.1(ICD-10) Repository 04/01/2018 Unknown R11.2 - Nausea Prajulio cesar, Alfred Active [place] with vomiting, Community unspecified / Hospital R11.2(ICD-10) Repository 04/01/2018 Unknown C25.9 - Malignant Prajulio cesarAlfred Active [place] neoplasm of Community pancreas, Hospital unspecified / Repository C25.9(ICD-10) 04/01/2018 Unknown R52 - Kaylie, [place] Estrella Active [place] unspecified / Community R52(ICD-10) Hospital Repository 03/12/2018 Admitting Post Op Visit / KEMAR IGNACIO Active [place] [facility] 554() [facility] Repository 03/05/2018 Admitting Disease of KEMAR IGNACIO Active [facility] diagnosis pancreas, University unspecified / [facility] Medical K86.9(ICD-10) Center Repository 03/05/2018 Admitting Type 2 diabetes KEMAR IGNACIO Active [facility] diagnosis mellitus with University other specified [facility] complication / Center E11.69(ICD-10) Repository 03/16/2018 Unknown R14.0 - Abdominal CebulCaitlin Active [place] distension Community (gaseous) / Hospital R14.0(ICD-10) Repository 03/04/2018 Unknown Z86.010 - Personal CebulCaitlin Active [place] history of colonic Community polyps / Hospital Z86.010(ICD-10) Repository 10/26/2017 Active Unspecified visual NANCY MCGUIRE Active [place] disturbance / [facility] Main H53.9(ICD-10) [place] Repository PROCEDURES PROCEDURES No Procedure Records FoundRESULTS RESULTS ONCOLOGY VISIT REPORT Observed: 04/01/2018 Status: F Source: [place] 1:31 PM [facility] REPOSITORY [facility] [address] [place] [address] OFFICE VISIT Date of Service: 04/01/18 0859 MR#: [id number] Acct: [id number] Name: CAITLIN HAAS Rep #: [id number] : 1950 From: [place] Estrella MD Age/Sex: [...] Chronic Code Visit Office Visits / Consults: [phone] OV L5 Est 04/01/18 1331 <Electronically signed by [place] Estrella MD> Date [place] Estrella MD Cosign Signature: Date (if applicable) CC: Geetha Diaz MD ONCOLOGY VISIT REPORT Observed: 03/26/2018 Status: F Source: [place] 3:42 PM [facility] REPOSITORY [facility] [address] [place] [address] OFFICE VISIT Date of Service: 03/26/18 1314 MR#: [id number] Acct: [id number] Name: CAITLIN HAAS Rep #: [id number] : 1950 From: Britany IBARRA Age/Sex: 67/M [...] cycle 1 on 04/01/18. Britany Chan, MSN, PARAMEDIC RN, AOCNP Medications: Prescriptions This Visit Medication Instructions Recorded Docusate Sodium [Colace] 100 mg PO BID 03/16/18 Primary Care Provider: Geteha Diaz MD Referring Provider: - Problem List (1) Pancreatic cancer Status: Acute (2) Educational circumstance Status: Acute 03/26/18 1542 <Electronically signed by Britany Chan DIECAST MACHINE OPERATOR-C> Date Britany Chan DIECAST MACHINE OPERATOR-C Cosigner Signature: Date (if applicable) CC: CBC W/DIFF, AUTOMATED Collected: 03/26/2018 Status: F Source: [place] 1:15 PM [facility] REPOSITORY Order Comment: Reason for [...] Lymph 1.13 Performed By: #### L100.0100 #### [facility] [address] [place], [address] COMPREHENSIVE METABOLIC Collected: 03/26/2018 Status: F Source: [facility] 1:15 PM [facility] REPOSITORY Order Comment: Reason for [...] GAP 9 Performed By: #### L500.4050 #### [facility] [address] [place], [place] [address], [address] CARBOHYDRATE AG 19-9 Collected: 03/26/2018 Status: F Source: [place] 1:15 PM [facility] REPOSITORY Order Comment: Reason for [...] absence of malignant disease. Performed at: - [facility], [place], [place] [address] [employer] Plant Operator: Eladio Yu PhD, Phone: [phone] Performed By: #### L3100.5020 #### [facility] (refer to report for specific site) refer to report for address and phone number OPERATIVE REPORT Observed: 03/25/2018 Status: F Source: [place] 6:22 AM [facility] REPOSITORY [facility] Medical Records Department [address] [place] [address] Operative Report 03/24/18 1047 MR#: [id number] Acct: [id number] Name: CAITLIN HAAS Rep #: [id number] : 1950 67 From: Caitlin Cueto MD PCP: Geetha Diaz MD [place] [facility] [place] [facility] [place] Problem List (1) Pancreatic cancer Status: Acute Qualifiers: Report of Operation Date of Procedure: 03/24/18 Pre-Operative Diagnosis: 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 Reference #[id number] lot number RECX [id number] expiry date 08/15/2019 [...] DISCHARGE INSTRUCTION Observed: 03/25/2018 Status: F Source: [place] 6:22 AM [facility] REPOSITORY [facility] Medical Records Department [address] [place] [address] Instructions for Home/Discharge Instructions 03/24/18 1008 MR#: [id number] Acct: [id number] Name: CAITLIN HAAS Rep #: [id number] : 1950 67 From: Caitlin Cueto MD PCP: Geetha Diaz MD [place] [facility] [place] Diet: No Restrictions - Pain medication [...] Follow Up With: Caitlin Cueto MD - [phone] When: Office follow-up may be as needed 03/25/18621 <Electronically signed by Caitlin Cueto MD> Date Caitlin Cueto MD CC: Geetha Diaz MD Signed CHEST 1 VIEW Observed: 03/24/2018 Status: F Source: [place] (PORTABLE) 10:08 AM [facility] REPOSITORY [facility] Imaging Services [facility] [place] [address] Chest 1 View (Portable) MR#: [id number] Acct: [id number] Name: CAITLIN HAAS Rep #: [id number] : 1950 M 67 From: Sonny Guevara MD PCP: Geetha Diaz MD Status: [place] [facility] [place] Study: Chest 1 View (Portable) Date of Exam: 03/24/18 Exam# [id number] Ordering Dr: Caitlin Cueto MD STUDY: X-RAY [...] Sonny Guevara MD at 11:43 EST Tel [phone], Service support , CC: Geetha Diaz MD; Caitlin Cueto MD Laboratory Development Technician: Signed BEDSIDE GLUCOSE Collected: 03/24/2018 Status: F Source: [place] 9:07 AM [facility] REPOSITORY TYPE CODE TESTS RESULT OUT OF REFERENCE UNITS RANGE LAB L501.080 70-110 mg/dL High BEDSIDE GLU 113 Result Comment: MANAGEMENT OF PATIENT CARE PER NURSING PROTOCOL Performed By: #### L501.080 #### [facility] Point of Care [address] [place] [address] PET/CT TUMOR BASE Observed: 03/23/2018 Status: F Source: [place] -THIGH INIT 11:03 AM [facility] REPOSITORY [facility] Imaging Services [address] [place] [address] PET/CT Tumor Base -Thigh Init MR#: [id number] Acct: [id number] Name: CAITLIN HAAS Rep #: [id number] : 1950 M 67 From: Navneet Bhandari DO PCP: Geetha Diaz MD Status: REG RCR Study: PET/CT Tumor Base -Thigh Init Date of Exam: 03/23/18 Exam# [id number] Ordering Dr: [place] Estrella MD EXAMINATION: FDG [...] CC: Geetha Diaz MD; Alfred Estrella MD Laboratory Development Technician: Signed SURGERY VISIT REPORT Observed: 03/21/2018 Status: F Source: [place] 9:49 AM [facility] [address] [place] [address] [address] [place] [address] OFFICE VISIT Date of Service: 03/21/18 MR#: [id number] Acct: [id number] Name: CAITLIN HAAS Rep #: [id number] : 1950 Provider: Caitlin Cueto MD Age/Sex: 67/M Location: [facility] Status: Signed Intake Vital Signs03/21/18 Blood Pressure 112/75 Intake Visit Reasons: Port Placement Consult Chief Complaint: port consult Stores Assistant Required: No Is patient in pain?: No [...] PO DAILY PRN 03/16/18 [History Confirmed 03/16/18] [facility] Medical History Abdominal distension (gaseous) (Acute) Personal [...] adenocarcinoma poorly differentiated My previous notes reflect: MR#:[id number]:[id number] Name: CAITLIN HAAS [facility] #:[id number] : 1950 Provider:Caitlin Cueto MD Age/Sex: 67/M Location:[facility] Status:Signed Intake Vital Signs 03/03/18 Height 5 [...] Complaint: bloating/ GERD, history of colon polyps Stores Assistant Required: No Is patient in pain?: No [...] acute distress Nutritional Appearance: average body habitus [facility] Head: normal to inspection Chest Chest palpation [...] ONCOLOGY CONSULTATION Observed: 03/19/2018 Status: F Source: [place] 12:55 PM [facility] REPOSITORY [facility] [address] [place] [address] Oncology Consultation Date of Service: 03/16/18 1434 MR#: [id number] Acct: [id number] Name: CAITLIN HAAS Rep #: [id number] : 1950 From: [place] Estrella MD Age/Sex: [...] nodules showed adenocarcinoma poorly differentiated. Power of Inspector Insulation: Yes Living Will: Yes Health History: Past [...] Acute Code Visit Office Visits / Consults: [id number] OP Consult L5 03/19/18 1255 <Electronically signed by [place] Estrella MD> Date [place] Estrella MD Cosigner Signature: Date (if applicable) CC: Geetha Diaz MD XR ABDOMEN 1 VIEW Observed: 03/11/2018 Status: F Source: [facility] PORTABLE 12:09 PM [facility] REPOSITORY EXAM: XR ABDOMEN 1 VIEW PORTABLE, [...] 1 VIEW Observed: 03/09/2018 Status: F Source: [facility] PORTABLE 1:08 PM [facility] REPOSITORY EXAM: XR ABDOMEN 1 VIEW PORTABLE, [...] 1 VIEW Observed: 03/09/2018 Status: F Source: [facility] PORTABLE 1:05 PM [facility] REPOSITORY EXAM: XR ABDOMEN 1 VIEW PORTABLE, [...] (CBC AND Collected: 03/09/2018 Status: F Source: [facility] PLATELET) 1:43 AM [facility] REPOSITORY TYPE CODE TESTS RESULT OUT OF [...] CA, CHM7, IPB, MGO #### [facility] [address] [address] CALCIUM Collected: 03/09/2018 Status: F Source: [facility] 1:43 AM [facility] REPOSITORY TYPE CODE TESTS RESULT OUT OF REFERENCE UNITS RANGE LAB CA 8.6-10.5 mg/dL Low Calcium 8.1 Performed By: #### HEMOGC, CA, CHM7, IPB, MGO #### [facility] [address] [address] CHEM 7 Collected: 03/09/2018 Status: F Source: [facility] 1:43 AM [facility] REPOSITORY TYPE CODE TESTS RESULT OUT OF [...] GFR >60 mL/min/1.73 sqM Est GFR,non >60 [facility]ese LAB GFRA >60 mL/min/1.73 sqM Est GFR, >60 Performed By: #### HEMOGC, CA, CHM7, IPB, MGO #### [facility] [address] [place] [id number] [place] [address] [place] [address] INORGANIC PHOSPHATE Collected: 03/09/2018 Status: F Source: [facility] 1:43 AM [facility] REPOSITORY TYPE CODE TESTS RESULT OUT OF REFERENCE UNITS RANGE LAB IP 2.2-4.6 mg/dL Inorg Phosphate 2.7 Performed By: #### HEMOGC, CA, CHM7, IPB, MGO #### [facility] [address] [place] [address] [address] [place] [address] MAGNESIUM Collected: 03/09/2018 Status: F Source: [facility] 1:43 AM [facility] REPOSITORY TYPE CODE TESTS RESULT OUT OF REFERENCE UNITS RANGE LAB MG 1.6-2.6 mg/dL Magnesium 2.1 Performed By: #### HEMOGC, CA, CHM7, IPB, MGO #### [facility] [address] [place] [id number] [place] [address] [place] [address] HEMOGRAM (CBC AND Collected: 03/08/2018 Status: F Source: [facility] PLATELET) 2:07 AM [facility] REPOSITORY TYPE CODE TESTS RESULT OUT OF [...] CHM7, CA, IPB, MGO #### [facility] [address] [place] [address] [address] [place] [address] CHEM 7 Collected: 03/08/2018 Status: F Source: [facility] 2:07 AM [facility] REPOSITORY TYPE CODE TESTS RESULT OUT OF [...] GFR >60 mL/min/1.73 sqM Est GFR,non >60 [place] LAB GFRA >60 mL/min/1.73 sqM Est GFR, >60 Performed By: #### HEMOGC, CHM7, CA, IPB, MGO #### [facility] [address] [place] [address] [address] [place] [address] CALCIUM Collected: 03/08/2018 Status: F Source: [facility] 2:07 AM [facility] REPOSITORY TYPE CODE TESTS RESULT OUT OF REFERENCE UNITS RANGE LAB CA 8.6-10.5 mg/dL Low Calcium 7.7 Performed By: #### HEMOGC, CHM7, CA, IPB, MGO #### [facility] [address] [place] [id number] [place] [address] [place] [address] INORGANIC PHOSPHATE Collected: 03/08/2018 Status: F Source: [facility] 2:07 AM [facility] REPOSITORY TYPE CODE TESTS RESULT OUT OF REFERENCE UNITS RANGE LAB IP 2.2-4.6 mg/dL Inorg Phosphate 2.6 Performed By: #### HEMOGC, CHM7, CA, IPB, MGO #### [facility] [address] [place] [address] [facility] [address] [place], [place] [address] MAGNESIUM Collected: 03/08/2018 Status: F Source: [facility] 2:07 AM [facility] REPOSITORY TYPE CODE TESTS RESULT OUT OF REFERENCE UNITS RANGE LAB MG 1.6-2.6 mg/dL Magnesium 2.0 Performed By: #### HEMOGC, CHM7, CA, IPB, MGO #### [facility] [address] [place] [address] [facility] [address] [place], [place] [address] *POC GLUCOSE BATTERY Collected: 03/07/2018 Status: F Source: [facility] 11:29 AM [facility] REPOSITORY TYPE CODE TESTS RESULT OUT OF REFERENCE UNITS RANGE LAB GLUP 70-99 mg/dL High Glucose (poc 113 device) Result Comment: No BRAVE per RN: PATIENT TYPE LAB PCSTYP *POC Capillary SAMPLE TYPE Blood HEMOGRAM (CBC AND Collected: 03/07/2018 Status: F Source: [facility] PLATELET) 2:12 AM [facility] REPOSITORY TYPE CODE TESTS RESULT OUT OF [...] HEMOGC, CA, CHM7, IPB, MGO #### [facility] [address] [place] [address] [facility] [address] [place] [address] CALCIUM Collected: 03/07/2018 Status: F Source: [facility] 2:12 AM [facility] REPOSITORY TYPE CODE TESTS RESULT OUT OF REFERENCE UNITS RANGE LAB CA 8.6-10.5 mg/dL Low Calcium 8.2 Performed By: #### HEMOGC, CA, CHM7, IPB, MGO #### [facility] [address] [place] [id number] [place] [address] [address] [place] [address] CHEM 7 Collected: 03/07/2018 Status: F Source: [facility] 2:12 AM [facility] REPOSITORY TYPE CODE TESTS RESULT OUT OF [...] GFR >60 mL/min/1.73 sqM Est GFR,non >60 [facility] LAB GFRA >60 mL/min/1.73 sqM Est GFR, >60 Performed By: #### HEMOGC, CA, CHM7, IPB, MGO #### [facility] [address] [place] [phone] [place] [address] [address] [place] [address] INORGANIC PHOSPHATE Collected: 03/07/2018 Status: F Source: [facility] 2:12 AM [facility] REPOSITORY TYPE CODE TESTS RESULT OUT OF REFERENCE UNITS RANGE LAB IP 2.2-4.6 mg/dL Inorg High Phosphate 4.9 Performed By: #### HEMOGC, CA, CHM7, IPB, MGO #### [facility] [address] [place] [address] [facility] [address] [place], [place] [address] MAGNESIUM Collected: 03/07/2018 Status: F Source: [facility] 2:12 AM [facility] REPOSITORY TYPE CODE TESTS RESULT OUT OF REFERENCE UNITS RANGE LAB MG 1.6-2.6 mg/dL Magnesium 1.9 Performed By: #### HEMOGC, CA, CHM7, IPB, MGO #### [facility] [address] [place] [address] [facility] [address] [place], [place] [address] *POC GLUCOSE BATTERY Collected: 03/06/2018 Status: F Source: [facility] 8:24 PM [facility] REPOSITORY TYPE CODE TESTS RESULT OUT OF REFERENCE UNITS RANGE LAB GLUP 70-99 mg/dL High Glucose (poc 143 device) Result Comment: No BRAVE per RN: PATIENT TYPE LAB PCSTYP *POC Capillary SAMPLE TYPE Blood *POC GLUCOSE BATTERY Collected: 03/06/2018 Status: F Source: [facility] 7:25 PM [facility] REPOSITORY TYPE CODE TESTS RESULT OUT OF REFERENCE UNITS RANGE LAB GLUP 70-99 mg/dL High Glucose (poc 148 device) Result Comment: No BRAVE per RN: PATIENT TYPE LAB PCSTYP *POC Capillary SAMPLE TYPE Blood *POC GLUCOSE BATTERY Collected: 03/06/2018 Status: F Source: [facility] 6:19 PM [facility] REPOSITORY TYPE CODE TESTS RESULT OUT OF REFERENCE UNITS RANGE LAB GLUP 70-99 mg/dL High Glucose (poc 141 device) Result Comment: No BRAVE per RN: PATIENT TYPE LAB PCSTYP *POC Capillary SAMPLE TYPE Blood CYTOLOGY- NON-CARPENTER SUPERVISOR Observed: 03/06/2018 Status: F Source: [facility] 6:19 PM [facility] REPOSITORY Cytology Report Patient Name: CAITLIN HAAS Med. Rec. #: [id number] Submitting Physician: KEMAR IGNACIO ---Clinical History:--- - 67 year old male with history of a pancreatic body mass and multiple pancreatic nodules ---Source of Specimen(s):--- A: Peritoneal Fluid Cytologic Diagnosis PERITONEAL FLUID (CYTOLOGY AND CELL BLOCK): - No Malignant Cells Are Identified. - Lymphocytosis. pexw/PEXW:03/12/2018 ---Electronically Signed Out By Iraj Saldaña Jr, MD--- Research Worker Kitchen: Malik Cruz ---Procedures/Addenda--- Performed By: #### NONGN #### [facility] [address] [place] [address] [address] [place] [address] Observed: 03/06/2018 Status: F Source: [facility] TYPE AND CROSS 4:55 PM [facility] REPOSITORY ABO/RH(D): A NEGATIVE ANTIBODY SCREEN: NEGATIVE Performed By: #### XM #### [facility] [address] [place] [address] [address] [place] [address] *POC GLUCOSE BATTERY Collected: 03/06/2018 Status: F Source: [facility] 4:48 PM [facility] REPOSITORY TYPE CODE TESTS RESULT OUT OF REFERENCE UNITS RANGE LAB GLUP 70-99 mg/dL High Glucose (poc 193 device) Result Comment: No BRAVE per RN: PATIENT TYPE LAB PCSTYP *POC SAMPLE TYPE Venous SURGICAL PATHOLOGY Observed: 03/06/2018 Status: F Source: [facility] 8:35 AM [facility] REPOSITORY Surgical Pathology Report Patient Name: CAITLIN HAAS Med. Rec #: [id number] Submitting Physician: KEMAR IGNACIO --- Clinical History [...] Professional Interpretation performed at location: [address] [place] [id number] ---SPECIMEN(S) RECEIVED:--- SBX A: Peritoneum, BX B: [...] cm. TE 1 Lab Use Only: JobID [id number] Gross description by: Montse Lu Performed By: #### SURGP #### [facility] [address] [place] [address] XR CHEST PA AND Observed: 03/05/2018 Status: F Source: [facility] LATERAL 6:14 PM [facility] REPOSITORY EXAM: XR CHEST PA AND LATERAL, 03/05/2018 15:16 PM COMPARISON: No prior studies available for comparison. CLINICAL INDICATIONS: pre op RELEVANT CLINICAL HISTORY: K86.9:Pancreatic mass E11.69:Type 2 diabetes mellitus with other specified complication, unspecified whether longterm insulin use FINDINGS: (Adequate technique) Tubes, Lines, [...] WITH DIFF Collected: 03/05/2018 Status: F Source: [facility] 2:51 PM [facility] REPOSITORY TYPE CODE TESTS RESULT OUT OF [...] Lymph 1.85 LAB AMONO 0.24-0.93 K/uL Abs [place] 1.17 High LAB AEOS 0.00-0.48 K/uL Abs Eos 0.15 LAB ABASO 0.00-0.09 K/uL Abs Baso 0.05 Performed By: #### CBCDFM, CMPNC, LIPAC #### [facility] [address] [place] [address] #### CRP, PALB, A1CB, CA199 #### [facility] [address] [place] [address] [address] [place] [address] COMP METABOLIC Collected: 03/05/2018 Status: F Source: [facility] 2:51 PM [facility] REPOSITORY TYPE CODE TESTS RESULT OUT OF [...] Performed By: #### CBCDFM, CMPNC, LIPAC #### [facility] [address] [place] [address] #### CRP, PALB, A1CB, CA199 #### [place] [address] [place] [address] [address] - [address] Collected: 03/05/2018 Status: F Source: [facility] LAB 2:51 PM [facility] REPOSITORY TYPE CODE TESTS RESULT OUT OF REFERENCE UNITS RANGE LAB LIPA 11-82 U/L Lipase 26 Performed By: #### CBCDFM, CMPNC, LIPAC #### [facility] [address] [place] [address] #### CRP, PALB, A1CB, CA199 #### [facility] [address] [place] [address] C REACTIVE PROTEIN Collected: 03/05/2018 Status: F Source: [facility] 2:51 PM [facility] REPOSITORY TYPE CODE TESTS RESULT OUT OF REFERENCE UNITS RANGE LAB CRP <10.00 mg/L C High Reactive 54.50 Protein Performed By: #### CBCDFM, CMPNC, LIPAC #### [place] [address] #### CRP, PALB, A1CB, CA199 #### [facility] [address] [place] [address] [place] [address] [place] [address] PREALBUMIN Collected: 03/05/2018 Status: F Source: [facility] 2:51 PM [facility] REPOSITORY TYPE CODE TESTS RESULT OUT OF REFERENCE UNITS RANGE LAB PALB 17-34 mg/dL Low Prealbumin 14 Performed By: #### CBCDFM, CMPNC, LIPAC #### [place] [address] #### CRP, PALB, A1CB, CA199 #### [facility] [address] [place] [address] [place] [address] HEMOGLOBIN A1C Collected: 03/05/2018 Status: F Source: [facility] 2:51 PM [facility] REPOSITORY TYPE CODE TESTS RESULT OUT OF REFERENCE UNITS RANGE LAB A1C 4.7-5.6 % High Hemoglobin A1C 6.6 LAB EAG mg/dL Estimated 143 Average Glucose Performed By: #### CBCDFM, CMPNC, LIPAC #### [place] [address] #### CRP, PALB, A1CB, CA199 #### [facility] [address] [place] [address] CA 19-9 Collected: 03/05/2018 Status: F Source: [facility] 2:51 PM [facility] REPOSITORY TYPE CODE TESTS RESULT OUT OF RANGE REFERENCE UNITS LAB CA199 0-37.00 U/mL High CA 19-9 2139.11 Performed By: #### CBCDFM, CMPNC, LIPAC #### [place] [address] #### CRP, PALB, A1CB, CA199 #### [facility] [address] [place] [address] [facility] [address] [place], [place] [address] OPERATIVE REPORT - Observed: 03/05/2018 Status: F Source: [facility] 7:27 AM [facility] REPOSITORY [facility] Medical Records Department [address] [place] [address] Operative Report - Endoscopy MR#: [id number] Acct: [id number] Name: CAITLIN HAAS Rep #: [id number] : 1950 67 From: Caitlin Cueto MD PCP: Geetha Diaz MD Status: [place] [facility] [place] Patient Name: Caitlin Haas Procedure Date: 03/05/2018 [...] 1 week. Procedure Code(s): --- Professional --- 53586, Colonoscopy, flexible; with removal of tumor(s), polyp(s), or other lesion(s) by snare technique 37168, 59, Colonoscopy, flexible; with biopsy, single or multiple 62438, 59, Moderate sedation services provided by the same physician or other qualified health care center manager performing the diagnostic or therapeutic service that [...] or abscess without bleeding CPT copyright 2017 [employer]. All rights reserved. The codes documented in this report are preliminary and upon clinical education specialist review may be revised to meet current compliance requirements. Caitlin Cueto MD 03/05/2018 7:26:49 AM This report has been signed electronically. Number of Addenda: 0 Note Initiated On: 03/05/2018 6:48 AM 03/05/18 0727 Date Caitlin Cueto MD Cosigner Signature: Date (if indicated) CC: Geetha Diaz MD; Caitlin Cueto MD Date Dictated: 03/05/18 0648 Date Transcribed: Laboratory Development Technician: GLADIS Signed OPERATIVE REPORT - Observed: 03/05/2018 Status: F Source: [facility] 7:18 AM [facility] REPOSITORY [facility] Medical Records Department [address] [place] [address] Operative Report - Endoscopy MR#: [id number] Acct: [id number] Name: CAITLIN HAAS Rep #: [id number] : 1950 67 From: Caitlin Cueto MD PCP: Geetha Diaz MD Status: [place] [facility] [place] Patient Name: Caitlin Haas Procedure Date: 03/05/2018 [...] present medications. Procedure Code(s): --- Professional --- 14616, Esophagogastroduodenoscopy, flexible, transoral; with biopsy, single or multiple 70660, 59, Moderate sedation services provided by the same physician or other qualified health care center manager performing the diagnostic or therapeutic service that [...] parts of digestive tract CPT copyright 2017 [employer]. All rights reserved. The codes documented in this report are preliminary and upon clinical education specialist review may be revised to meet current compliance requirements. Caitlin Cueto MD 03/05/2018 7:18:13 AM This report has been signed electronically. Number of Addenda: 0 Note Initiated On: 03/05/2018 6:22 AM 03/05/18717 Date Caitlin Cueto MD Cosigner Signature: Date (if indicated) CC: Geetha Diaz MD; Caitlin Cueto MD Date Dictated: 03/05/18621 Date Transcribed: Laboratory Development Technician: GLADIS Signed EGD ([facility] SITE) Observed: 03/05/2018 Status: F Source: [facility] 6:30 AM [facility] REPOSITORY Patient: CAITLIN HAAS : 1950 (67/M) Acct Num: [id number] Phys: Nory LOPES,Caitlin Unit Num: [id number] Loc: EN Specimen: [id number] Received: 03/05/1831 Spec Type: EGD BIOPSY TISSUES 1 TISSUES: A. Gastric mucous membrane B. Transverse colon C. Sigmoid colon biopsy D. Rectum, NOS E. Rectum, NOS COMMENT A. The results of immunohistochemistry for Helicobacter pylori will be reported separately ([id number]). GROSS DESCRIPTION A - Received in fixative [...] one cassette. / AM:rg 03/05/18 TC:1 CPT: 39302 x5 HEADER OPERATION: Colonoscopy, EGD (MOD) PRE-OP [...] on file> Performed By: #### PEGD #### [facility] [address] [place] [address]. [place], [place], [address] IMMUNOHISTOCHEMISTRY Observed: 03/05/2018 Status: F Source: [facility] 6:30 AM [facility] REPOSITORY Patient: CAITLIN HAAS : 1950 (67/M) Acct Num: [id number] Phys: Caitlin Cueto MD Unit Num: [id number] Loc: EN Specimen: [id number] Received: 03/05/189 Spec Type: IMMUNO TISSUES 1 TISSUES: A. Stomach, NOS SPECIMEN INFORMATION: Tissue Source: A - Antral biopsy Clinical Info: GERD, history of polyps Specimen Number: [id number] CPT code: 02058 METHODOLOGY: Deparaffinized sections of prefer/formalin-fixed tissue or [...] developed and their performance characteristics determined by [facility]. They may not have been cleared or approved by the U.S. Food and Drug Administration. The FDA has determined that such clearance or approval is not necessary. INTERPRETATION: A. Antral biopsy: Negative for Helicobacter pylori organisms. SJ:luke 03/06/18 PHYSICIAN [facility] INSTITUTION [address] [address] Signed Robles Becerra MD 03/06/18 <signature on file> Performed By: #### PIMM #### [facility] [address] [place], [address] BEDSIDE GLUCOSE Collected: 03/05/2018 Status: F Source: [facility] 6:02 AM [facility] REPOSITORY TYPE CODE TESTS RESULT OUT OF REFERENCE UNITS RANGE LAB L501.080 70-110 mg/dL High BEDSIDE GLU 139 Result Comment: MANAGEMENT OF PATIENT CARE PER NURSING PROTOCOL Performed By: #### L501.080 #### [facility] Point of Care [address] [place] [address] ABDOMEN/PELVIS WITH Observed: 03/04/2018 Status: F Source: [facility] CONTRAST 8:40 AM [facility] REPOSITORY [facility] Imaging Services [address] [place] [address] Abdomen/Pelvis WITH Contrast MR#: [id number] Acct: [id number] Name: CAITLIN HAAS Rep #: [id number] : 1950 M 67 From: Sonny Guevara MD PCP: Geetha Diaz MD Status: REG CLI Study: Abdomen/Pelvis WITH Contrast Date of Exam: 03/04/18 Exam# [id number] Ordering Dr: Caitlin Cueto MD STUDY: CT [...] Sonny Guevara MD at 9:34 EST Tel [phone], Service support , CC: Geetha Diaz MD; Caitlin Cueto MD Laboratory Development Technician: Signed SURGERY VISIT REPORT Observed: 03/03/2018 Status: F Source: [facility] 4:52 PM [facility] REPOSITORY [facility] [address] [place] [address] [address] [place] [address] OFFICE VISIT Date of Service: 03/03/18 MR#: [id number] Acct: [id number] Name: CAITLIN HAAS Rep #: [id number] : 1950 Provider: Caitlin Cueto MD Age/Sex: 67/M Location: [facility] Status: Signed Intake Vital Signs03/03/18 Height 5 ft 6 in 03/03/18 Weight: 177 lb 1 oz 03/03/18 Body Mass Index (BMI) 28.5 03/03/18 Blood Pressure 121/81 H Intake Visit Reasons: HX OF COLON POLYPS AND GERD, TROUBLE EATING Chief Complaint: bloating/ GERD, history of colon polyps Stores Assistant Required: No Is patient in pain?: No [...] mg PO DAILY 03/03/18 [History Confirmed 03/03/18] [facility] Medical History Abdominal distension (gaseous) (Acute) Personal [...] Status: F Source: [facility] CADE 4:30 PM [facility] REPOSITORY TYPE CODE TESTS RESULT [...] 11 Performed By: #### L500.4050, L501.2450 #### [facility] [address] [place], [place], [address] LIPASE Collected: 03/03/2018 Status: F Source: [facility] 4:30 PM [facility] REPOSITORY TYPE CODE TESTS RESULT OUT OF RANGE REFERENCE UNITS LAB L501.2450 73-393 U/L Normal LIPASE 160 Performed By: #### L500.4050, L501.2450 #### [facility] [address] [place], [address] CBC W/DIFF, AUTOMATED Collected: 03/03/2018 Status: F Source: [facility] 4:30 PM [facility] REPOSITORY TYPE CODE TESTS RESULT [...] COMMENT SCANNED Performed By: #### L100.0100 #### [facility] [address] [facility] [place], [address] ABDOMEN LIMITED Observed: 02/27/2018 Status: F Source: [facility] 8:47 AM [facility] REPOSITORY [facility] Imaging Services [address] [place] [address] Abdomen Limited MR#: [id number] Acct: [id number] Name: CAITLIN HAAS Rep #: [id number] : 1950 67 From: Shravan Craig PCP: Geetha Diaz MD Status: REG CLI Study: Abdomen Limited Date of Exam: 02/27/18 Exam# [id number] Ordering Dr: Geetha Diaz MD STUDY: ABDOMINAL [...] Service support , CC: Geetha Diaz MD Laboratory Development Technician: Signed CNPN Observed: 12/16/2017 Status: COMPLETED Source: [place] 12:00 AM [facility] REPOSITORY Telephone (CHRISSY) CAITLIN HAAS ([id number]) 1950 M Date Time Provider Department 12/16/17 [...] a 5 year. . Can you update [facility] Thank you Josue Diaz 12/19/2017 2:04 [...] Upset Date Reviewed: 10/26/2017 Reviewed by: Nancy [facility]oughton[facility]abel Mcguire - Fully Assessed Reason for Visit: [...] DDD (degenerative disc disease), lumbar [M51.36]INVALID FOR* [place] (hard of hearing) [H91.90] INVALID FOR* Anxiety neurosis [F41.1] INVALID FOR* Postsurgical hypothyroidism [E89.0] INVALID FOR* Obesity [E66.9] INVALID FOR* Letter Text [address] [place] [place] [address] 12/26/2017 Caitlin Haas [id number] Dear Caitlin , As always, your health is of primary concern to our practice. We have been unsuccessful in reaching you by phone to schedule a follow up colonoscopy. Performing a follow up colonoscopy in a timely manner is important as a delay in testing can lead to an increased risk of colon cancer. Please contact our schedulers at [phone] to set up an appointment. If you have had your follow up colonoscopy elsewhere, please contact us as well, so we may update your records. We look forward to hearing from you. Sincerely, [facility] Encounter Status:Closed by MONTSE REYES on 12/26/17 GLUCOSE Collected: 12/08/2017 Status: F Source: [facility] 8:37 AM [facility] REPOSITORY TYPE CODE TESTS RESULT OUT OF RANGE REFERENCE UNITS LAB L501.0100 74-106 mg/dL High GLU 263 Result Comment: Glucose result greater than or equal to 200 mg/dL suggests DIABETES MELLITUS per A.D.A. criteria. Please note revised GLUCOSE reference range effective 2017. Performed By: #### L501.0100 #### [facility] [address] [place], [address] HEMOGLOBIN A1C Collected: 12/08/2017 Status: F Source: [facility] 8:37 AM [facility] REPOSITORY TYPE CODE TESTS RESULT OUT OF RANGE REFERENCE UNITS LAB L501.9985 4.2-6.3 % High HGB A1C 9.8 Performed By: #### L501.9985 #### [facility] [address] [place], [address] EMERGENCY DEPARTMENT Observed: 10/26/2017 Status: F Source: [facility] SUMMARY 10:48 PM [facility] REPOSITORY [facility] Medical Records Department [address] [place] [address] Emergency Department Summary 10/26/17 1633 MR#: [id number] Acct: [id number] Name: CAITLIN HAAS Rep #: [id number] : 1950 67 From: Funmilayo Hu MD PCP: Geetha Diaz MD Status: DEP ER - ER Visit Summary Date of Service: 10/26/17 Chief Complaint: Headache History of Present Illness: The patient is a 67 M with history of ocular migraines. Patient states he had visual auras from his right eye this morning. During islam had a slight vision cut from the right peripheral vision. After islam he developed pressure across his eyes and [...] Migraine, improved This note was generated with [employer] dictation software. It may contain incorrect words, [...] your Primary Care Provider. Call [facility] ([phone]) or report to the closest Emergency Room. Call 911 if necessary. 10/26/172247 <Electronically signed by Funmilayo Hu MD> Date Funmilayo Hu MD Cosigner Signature (If Indicated): Date CC: Geetha Diaz MD DISCHARGE INSTRUCTION Observed: 10/26/2017 Status: F Source: [facility] 5:50 PM [facility] REPOSITORY [facility] Medical Records Department [address] [place] [address] [place] [address] Discharge Instruction 10/26/171748 MR#: [id number] Acct: [id number] Name: CAITLIN HAAS Rep #: [id number] : 1950 67 From: Funmilayo Hu MD [...] your Primary Care Provider. Call [facility] ([phone]) or report to the closest Emergency Room. Call 911 if necessary. 10/26/171749 <Electronically signed by Funmilayo Hu MD> Date Funmilayo Hu MD Cosigner Signature (If Indicated): Date CC: Geetha Diaz MD BRAIN/HEAD WITHOUT Observed: 10/26/2017 Status: F Source: [facility] CONTRAST 4:30 PM [facility] REPOSITORY [facility] Imaging Services [address] [place] [address] Brain/Head without Contrast MR#: [id number] Acct: [id number] Name: CAITLIN HAAS Rep #: [id number] : 1950 M 67 From: Gabino Purdy DO PCP: Geetha Diaz MD Status: REG ER Study: Brain/Head without Contrast Date of Exam: 10/26/17 Exam# [id number] Ordering Dr: Funmilayo Hu MD STUDY: CT [...] CC: Funmilayo Hu MD; Geetha Diaz MD Laboratory Development Technician: Signed PROGRESS Observed: 10/26/2017 Status: COMPLETED Source: [place] 4:07 PM [facility] REPOSITORY HNO ID: [id number] Author: Nancy Mcguire Service: (none) Author Type: [...] APRN.CNP CNOV Observed: 10/26/2017 Status: COMPLETED Source: [place] 3:45 PM [facility] REPOSITORY Office Visit (WSTR) CAITLIN HAAS ([id number]) 1950 M Date Time Provider Department 10/26/17 [...] no vision changes during visit. Nancy Mcguire APRN.[employer] Referring Provider: SELF [200] Allergies As of Date: 10/26/2017 Noted Allergy Reaction HAY FEVER (SEASONAL ALLERGIES) 01/30/2015 1 - Mental Status Change Comments: Itchy eyes, runny nose, coughing, sneezing. TETRACYCLINE 02/27/2015 8 - GI Upset Date Reviewed: 10/26/2017 Reviewed by: Nancy (Senior Medical Transcriptionist) - Fully Assessed Primary Visit Diagnosis:Vision changes [...] DDD (degenerative disc disease), lumbar [M51.36]INVALID FOR* [place] (hard of hearing) [H91.90] INVALID FOR* Anxiety neurosis [F41.1] INVALID FOR* Postsurgical hypothyroidism [E89.0] INVALID FOR* Obesity [E66.9] INVALID FOR* Encounter Status:Closed by NANCY MCGUIRE CNP on 10/26/17 BASIC METABOLIC Collected: 10/13/2017 Status: F Source: [facility] PROFILE (BMP) 8:53 AM [facility] REPOSITORY Order Comment: Order Date: 10/03/17 Order Info: 0667-1 - BMP Order Info: 20111-3 - LIPID Order Info: 3016-3 - TSH [...] Performed By: #### L500.2500, L500.4100, L501.9520 #### [facility] [address] [place], [address] LIPID PROFILE Collected: 10/13/2017 Status: F Source: [place] 8:53 AM [facility] REPOSITORY Order Comment: Order Date: 10/03/17 Order Info: 0667-1 - BMP Order Info: [id number] - LIPID Order Info: 3016-3 - TSH [...] Performed By: #### L500.2500, L500.4100, L501.9520 #### [facility] [address] [place], [address] THYROID STIM HORMONE Collected: 10/13/2017 Status: F Source: [place] (TSH) 8:53 AM [facility] REPOSITORY Order Comment: Order Date: 10/03/17 Order Info: 0667-1 - BMP Order Info: 28102-6 - LIPID Order Info: 3016-3 - TSH TYPE CODE TESTS RESULT OUT OF RANGE REFERENCE UNITS LAB L501.9520 0.358-3.74 uIU/mL Normal TSH 1.43 Performed By: #### L500.2500, L500.4100, L501.9520 #### [facility] [address] [place], [address] PSA,TOTAL - ANNUAL Collected: 10/13/2017 Status: F Source: [place] SCREEN 8:53 AM [facility] REPOSITORY Order Comment: Order Date: 10/03/17 Order Info: 0667-1 - BMP Order Info: [id number] - LIPID Order Info: 3016-3 - TSH TYPE CODE TESTS RESULT OUT OF RANGE REFERENCE UNITS LAB L501.9910 0.00-4.00 ng/mL Normal PSA,TOT 1.91 SCREEN Result Comment: This test was performed using the TPSA assay method for the [employer] chemistry system. Values obtained with different assay methods cannot be used interchangably. When changing PSA assays in the course of monitoring a patient, additional sequential testing should be carried out to confirm baseline values. Performed By: #### L501.9910 #### [facility] [address] [facility] [place], [address] EMERGENCY DEPARTMENT Observed: 07/03/2017 Status: F Source: [place] SUMMARY 4:21 PM [facility] REPOSITORY [facility] Medical Records Department [address] [facility] [place] [address] Emergency Department Summary 07/03/17 0740 MR#: [id number] Acct: [id number] Name: CAITLIN HAAS Rep #: [id number] : 1950 66 From: Robel Montoya MD [...] it well. This note was generated with [employer] dictation software. It may contain incorrect words, [...] problems, contact your Primary Care Provider. Call [facility] ([phone]) or report to the closest Emergency Room. Call 911 if necessary. 07/03/17 1621 <Electronically signed by Robel Montoya MD> Date Robel Montoya MD Cosigner Signature (If Indicated): Date CC: Geetha Diaz MD ALLERGIES ALLERGIES DATE TYPE / CODE NAME / CODE REACTION SEVERITY SOURCE 04/01/2018 Drug oxycodone Other [place] Allergy/416 HCl/[id number](RXNO [facility] ED [facility]) Repository 04/01/2018 Drug Tetracyclines/F0010 Upset Stomach [place] Allergy/416 00967(RXNORM) [facility] 937456([facility] ED CT) Repository 03/21/2018 Drug acetaminophen/F0060 Other [place] Allergy/416 30958(RXNORM) [facility] 888300([facility] ED CT) Repository 02/27/2015 DRUG TETRACYCLINE GI UPSET [facility] INGREDI/419 [facility] 597895([facility] ED CT) 01/30/2015 Environ/420 SEASONAL ALLERGIES Mental Chg [facility] 450958([facility] ED CT) Repository ENCOUNTERS ENCOUNTERS ADMIT/DISCHARGE ACCOUNT NUMBER ADMITTING ENCOUNTER LOCATION SOURCE CLASS 04/03/2018 [id number] [facility]ulatory [facility] ding:ONC Repository 04/01/2018 [id number] Ambulatory BMSBuilding: [place] BMS.[facility] Repository 03/26/2018 [id number] Ambulatory BMSBuilding: [place] BMS.[facility] Repository 03/24/2018/03/24/19 [id number] [place] ding:SDCRoom Repository : AC06 03/21/2018/03/21/19 [id number] Ambulatory BMSBuilding: [place] 19 BMS.[facility] Repository 03/19/2018 [id number] Ambulatory Building:PTH [facility] Repository 03/16/2018 [id number] Ambulatory BMSBuilding: [place] BMS.CF.[facility] Repository 03/12/2018 [id number] Ambulatory Building:K8T [facility] Repository 03/06/2018/03/09/20 [id number] SANDE[place], Inpatient Building:[address] [place] [address] KEMAR M Encounter ERoom: [place] [id number]: A [facility] Repository 03/05/2018 [id number] Ambulatory Building:KRI [facility] Repository 03/05/2018 [id number] Ambulatory Building:K1T [facility] Repository 03/05/2018 [id number] Ambulatory Building:K8T [facility] Repository 03/05/2018 [id number] Ambulatory Building:K1T [facility] Repository 03/05/2018/03/05/20 [id number] Ambulatory [address] ding:ENRoom: Repository AC10 03/04/2018 [id number] Ambulatory [facility] ding:CT Repository 03/03/2018 [id number] [facility]ulatory [facility] ding:LAB Repository 03/03/2018/03/03/20 [id number] Ambulatory BMSBuilding: [place] 18 BMS.[facility] Repository 02/27/2018 [id number] Ambulatory [facility] ding:US Repository 12/08/2017 [id number] Ambulatory [facility] ding:MTLAB Repository 10/26/2017/10/27/19 [id number] Emergency [place] ding:ED Repository 10/26/2017 [id number] Ambulatory [facility] Repository 10/13/2017 [id number] Ambulatory [facility] ding:MTLAB Repository 07/03/2017/07/04/19 [id number] Emergency [place] ding:ED Repository PAYERS PAYERS ENCOUNTER GUARANTOR PAYER SUBSCRIBER SOURCE 04/03/2018 CAITLIN E Primary CAITLIN E Lucas [id number] Insurance:GPATPA ALDDOB: Community [facility] Number: [id number], [place] [id number] Repository 10063Zhd: (330) Date:8165-03-63Q[phone] (HP) 168766KJZIXY [place] [address]TQ: 04/03/2018 Secondary CAITLIN E Lucas Insurance:CHEMO HERALDDOB: [id number] Hospital Number: Effective Repository Date:2018-03-12 04/03/2018 Tertiary NOT GIVENUNK [place] Insurance:SELF PAY [facility] Number: Effective Repository Date:2018-03-12 04/01/2018 CAITLIN E Primary CAITLIN E [place] [id number] Insurance:GPATPA ALDDOB: [facility] THOR [facility] Number: [id number], [place] [id number] Repository 829[address]Ffu: (330) Date:0978-67-57WY [phone] (HP) 730229SELKPF, [place] [address]BS: 04/01/2018 Secondary NOT GIVENUNK [place] Insurance:SELF PAY [facility] Number: Effective Repository Date:2018-04-01 03/26/2018 CAITLIN E Primary CAITLIN E Lucas [id number] PIN Insurance:GPATPA ALDDOB: [facility] ANGELES TAVERAE [facility] Number: [id number], [place] [id number] Repository 187[address]Jok: (330) Date:7049-94-95ZF [phone] (HP) 448645XASNBV, [place] [address]DG: 03/26/2018 Secondary NOT GIVENUNK [place] Insurance:SELF PAY [facility] Number: Effective Repository Date:2018-03-26 03/24/2018 CAITLIN E Primary CAITLIN E [place] [id number] PIN Insurance:GPATPA HERALDDOB: [facility] ANGELES GREGORY CERCOPolicy Number: [id number], [place] [id number] Repository 91020Teh: (330) Date:1358-06-32JU [phone] (HP) 695077INBHIJ, [place] [address]YG: 03/24/2018 Secondary NOT GIVENUNK [place] Insurance:SELF PAY [facility] Number: Effective Repository Date:2018-03-23 03/21/2018 CAITLIN E Primary CAITLIN E [place] [id number] Insurance:GPATPA HERALDDOB: [facility] DANBERRY [facility]ol[facility] Number: [id number], [place] [id number] Repository [address]Oyi: (330) Date:7698-77-09IO [phone] (HP) 702714BZHHLS, [place] [address]IQ: 03/21/2018 Secondary NOT GIVENUNK [place] Insurance:SELF PAY [facility] Number: Effective Repository Date:2018-03-16 03/19/2018 CAITLIN Primary [facility] HERALDDOB: [facility] [place] Number: [id number] [facility] [id number] [place], [place] Date:1273-67-08OcgbBenton, [place] Repository 10[address]Hkr: (330) Name:[facility] 43434Zim: (HP) [address]BFLVMG, [phone] (HP) [place] [address]HA: 03/16/2018 CAITLIN E Primary CAITLIN E Lucas [id number] Insurance:GPATPA HERALDDOB: [facility] DANBERRY CERCOPolicy Number: [id number], [place] [id number] Repository 55[address]Gxz: (330) Date:7605-82-93YP [phone] (HP) 813002WUPISV, [place] [address]PU: 03/16/2018 Secondary NOT GIVENUNK [place] Insurance:SELF PAY [facility] Number: Effective Repository Date:2018-03-16 03/12/2018 CAITLIN Primary [facility] HERALDDOB: Insurance:CERCOPolicy HERALDDOB: [place] Number: [id number] [facility] [id number], [place] Date:1742-53-65Lblh [place] Repository [address]Ybc: (330) Name:MANAGED CAREGPA 39352Ftr: (HP) [address]NDQQOB, [phone] (HP) [place] [address]AZ: 03/06/2018 [facility]LIN [facility] HERALDDOB: [place] Number: [id number] [facility] TEXbaseMCLEANSBORO [id number], [place] Date:1381-82-95Piwb [place] Repository [address]Cwg: (330) Name:MANAGED CAREGPA 29153Jdw: (HP) [address]KEWLNP, [phone] (HP) [place] [address]WM: 03/05/2018 CAITLIN Primary [facility]AL[facility]: Insurance:CERCOPolicy HERALDDOB: [place] Number: [id number] [facility] [id number], [place] Date:1799-09-34Umgp [place] Repository [address]Mur: (330) Name:MANAGED CAREGPA 34519Qtm: (HP) [address]ACWPRQ, [phone] (HP) [place] [address]UO: 03/05/2018 CAITLIN Primary [facility] HospitalALDD[facility]: Insurance:CERCOPolicy HERALDDOB: [place] Number: [id number] [facility] [id number], [place] Date:5335-96-11Dapj [place] Repository [address]Ayt: (330) Name:MANAGED CAREGPA 95796Rlx: (HP) [address]PRBFYL, [phone] (HP) [place] [address]XD: 03/05/2018 CAITLIN Primary [facility] HospitalALDD[facility]: Insurance:CERCOPolicy HERALDDOB: [place] Number: [id number] [facility] [id number] Crosse, [place] Date:4428-25-20Wfdg [place] Repository 16[address]Avy: (330) Name:MANAGED CAREGNE 22316Xoh: (HP) [address]SAAJSP, [phone] (HP) [place] [address]VO: 03/05/2018 CAITLIN Primary [facility] HospitalALDD[facility]: Insurance:CERCOPolicy HERALDDOB: [place] Number: [facility] [id number] [facility] Date:0993-56-24Ycba [place], [place] Name:MANAGED [place], [place] Repository [address]Edd: (330) [address]MNFRUS, [address]Kai: (HP) [place] [address]SQ: (HP) [phone] 03/05/2018 CAITLIN E Primary CAITLIN [id number] Insurance:GPATPA HERALDDOB: [facility] DANBERRY CERCOPolicy Number: [id number], [place] [id number] Repository 04336Dni: (330) Date:5156-27-13LR [phone] (HP) 949246LSUNABCARSON, [place] [address]HI: 03/05/2018 Secondary NOT GIVENUNK [place] Insurance:SELF PAY [facility] Number: Effective Repository Date:2018-03-04 03/04/2018 CAITLIN E Primary CAITLIN E Lucas [id number] Insurance:GPATPA HERALDDOB: Community DANBERRY CERCOPolicy Number: [id number], [place] [id number] Repository 77[address]Dki: (330) Date:1598-52-72XS [phone] (HP) 567941WOEVOJ, [place] [address]FT: 03/04/2018 Secondary NOT GIVENUNK [place] Insurance:SELF PAY [facility] Number: Effective Repository Date:2018-03-03 03/03/2018 CAITLIN E Primary CAITLIN E Lucas [id number] Insurance:GPATPA HERALDDOB: [facility] DANBERRY [facility] Number: [id number], [place] [id number] Repository 94898Exb: (330) Date:7524-60-54JM [phone] (HP) 484795HHROQW, [place] [address]BO: 03/03/2018 Secondary NOT GIVENUNK [place] Insurance:SELF PAY [facility] Number: Effective Repository Date:2018-03-03 03/03/2018 CAITLIN E Primary CAITLIN E [place] [id number] Insurance:GPATPA HERALDDOB: Community DANBERRY CERCOPolicy Number: [id number], [place] [id number] Repository 555[address]Ags: (330) Date:7606-22-33TA [phone] (HP) 144919RGJEWS, [place] [address]DB: 03/03/2018 Secondary NOT GIVENUNK [place] Insurance:SELF PAY [facility] Number: Effective Repository Date:2018-03-03 02/27/2018 CAITLIN E Primary CAITLIN E [place] [id number] Insurance:GPATPA HERALDDOB: Community DANBERRY [facility] Number: [id number], [place] [id number] Repository 520[address]Qsn: (330) Date:5482-72-90AO [phone] (HP) 269061HYMYVW, [place] [address]TJ: 02/27/2018 Secondary NOT GIVENUNK [place] Insurance:SELF PAY [facility] Number: Effective Repository Date:2018-02-24 12/08/2017 Caitlin E Primary Acitlin E Lucas [id number] Insurance:GPATPA HeraldDOB: [facility] Number: [id number], [place] [id number] Repository 666[address]Fcq: (330) Date:6718-05-08KJ [phone] (HP) 025765JOXEAX, [place] [address]KT: 12/08/2017 Secondary NOT GIVENUNK [place] Insurance:SELF PAY [facility] Number: Effective Repository Date:2017-12-08 10/26/2017 Caitlin E Primary Caitlin E Lucas [id number] Insurance:GPATPA HeraldDOB: [facility] Thor [facility] Number: [id number] [id number] [place]ository [place] [address]Qem: Date:3861-14-67[address]ANGELA AGUIRRE (HP) [address]FE: 10/26/2017 Secondary NOT GIVENUNK [place] Insurance:SELF PAY [facility] Number: Effective Repository Date:2017-10-26 10/13/2017 Caitlin E Primary Caitlin E [place] [id number] Insurance:GPATPA aldDOB: [facility] Thor [facility] Number: [id number] View Hospital [id number] Repository [place] [address]Zyv: Date:6660-24-65EF [address]ANGELA AGUIRRE (HP) [address]ZX: 10/13/2017 Secondary NOT GIVENUNK [place] Insurance:SELF PAY [facility] Number: Effective Repository Date:2017-10-13 07/03/2017 Caitlin Zavala [id number] Insurance:GPATPA SaminaDOB: [facility] [place] [facility] Number: [id number] View Hospital [id number] [place] [address]Uxu: Date:1306-06-36UX [phone] [address]896[address]NXSHRI, [place] 0-2 (EY) [address]WP: 07/03/2017 Secondary NOT GIVENUNK [place] Insurance:SELF PAY [facility] Number: Effective Repository Date:2017-07-03
== END ==
PROVIDERS: Family Provider Family Medicine; PCP Family Medicine; Referring Provider Surgery; Visit Provider Surgery
DX: R11.2 Nausea with vomiting, unspecified (principal); R14.0 Abdominal distension (gaseous)
CPT/HCPCS: 74177; Q9967

== ENCOUNTER 2018-03-05 05:25 | Day surgery (SDC) | payer OTHER, SELFPAY ==
[2018-03-03 15:51] VITALS: BMI 28.5
[2018-03-05] VITALS (9 sets, daily range): BP systolic 104–153; BP diastolic 70–98; PULSE 78–98; RESP 16; TEMP 36.2–36.7; O2SAT 92–100; BMI 28.6
[2018-03-05 06:11] LABS: Bedside Glucose 139 mg/dL (70-110)
--- NOTE | 2018-03-05 06:30 | IMM_PTH ---
PATIENT: CAITLIN MARCELINO LOC: EN U#:[id number] AGE/SX: 67/M ROOM: RE03/05/[address]: Dr. Caitlin Cueto MD : 1950 BED: DIS: 03/05/2018 SPEC #: [id number] RECD: 03/05/18 14:39 STATUS: LAMINE REJohn #: [id number] ROSALIA: 03/05/18 06:[address]: Caitlin Cueto DEPT: IMMUNOHISTOCHEMISTRY RECD BY: Michelle Boyer ENTERED: 03/05/18 14:40 SP TYPE: IMMUNO OTHR DR: Dr. Dashawn Perez MD Tissues: A - Stomach, NOS Procedures: H Pylori (initial) PHYSICIAN & INSTITUTION [place] [address] SPECIMEN INFORMATION: Tissue Source: A - Antral biopsy Clinical Info: GERD, history of polyps Specimen Number: [id number] CPT code: 84758 METHODOLOGY: Deparaffinized sections of prefer/formalin-fixed tissue or PAP/DQ stained slides are incubated with monoclonal/polyclonal antibodies/oligonucleotide probes. Localization is made via biotin free immunoperoxidase method. Appropriate controls are performed and reacted as expected. Results on target cell population are indicated in the following table: RESULTS: ANTIBODY / CLONE RESULT Block A H Pylori (polyclonal) negative These tests were developed and their performance characteristics determined by [facility]. They may not have been cleared or approved by the U.S. Food and Drug Administration. The FDA has determined that such clearance or approval is not necessary. INTERPRETATION: A. Antral biopsy: Negative for Helicobacter pylori organisms. SJ:luke 03/06/18
--- NOTE | 2018-03-05 06:30 | EGD_PTH ---
PATIENT: CAITLIN MARCELINO LOC: EN U#:[id number] AGE/SX: 67/M ROOM: RE03/05/[address]: Dr. Caitlin Cueto MD : 1950 BED: DIS: 03/05/2018 SPEC #: [id number] RECD: 03/05/18 09:31 STATUS: LAMINE VIK #: [id number] ROSALIA: 03/05/18 06:[address]: Caitlin Cueto DEPT: SURGICAL PATHOLOGY RECD BY: Tong Toney ENTERED: 03/05/18 12:22 SP TYPE: EGD BIOPSY OT DR: Dr. Dashawn Perez MD Tissues: A - Gastric mucous membrane B - Transverse colon C - Sigmoid colon biopsy D - Rectum, NOS E - Rectum, NOS Procedures: Surgery Specimen Level IV HEADER OPERATION: Colonoscopy, EGD (MOD) PRE-OP DIAGNOSIS: GERD, history of polyps TISSUE SUBMITTED: A - Antral biopsy for H. pylori and pathology, B - Proximal transverse polyp biopsy, C - Distal sigmoid polyps, D - Proximal rectal polyp, E - Distal rectal polyp biopsies MICROSCOPIC DIAGNOSIS A. Antral biopsy: Mild gastritis. B. Proximal transverse colon polyp, biopsy: Hyperplastic polyp. C. Distal sigmoid polyps, biopsy: Tubular adenoma. Serrated adenoma (mixed tubular adenoma and hyperplastic polyp). Fragments of fecal material. D. Proximal rectal polyp, biopsy: Serrated adenoma (mixed tubular adenoma and hyperplastic polyp). E. Distal rectal polyp, biopsy: Tubular adenoma. Serrated adenoma (mixed tubular adenoma and hyperplastic polyp). SJ:luke 03/06/18 COMMENT A. The results of immunohistochemistry for Helicobacter pylori will be reported separately ([id number]). MICROSCOPIC DESCRIPTION Slides are reviewed. A. The specimen shows fragments of gastric mucosa with chronic inflammatory cell infiltrates in the lamina propria consisting of lymphocytes and plasma cells, consistent with mild chronic gastritis. GROSS DESCRIPTION A - Received in fixative is one container labeled with the patient's name and designated antral biopsy. The specimen consists of two irregular fragments of light hannah soft tissue that in aggregate measure 0.6 x 0.2 x 0.1 cm. The specimen is totally submitted in one cassette. B - Received in fixative is one container labeled with the patient's name and designated proximal transverse polyp. The specimen consists of one irregular fragment of light hannah soft tissue that measures 0.5 x 0.3 x 0.1 cm. The specimen is totally submitted in one cassette. C - Received in fixative is one container labeled with the patient's name and designated distal sigmoid polyp. The specimen consists of multiple irregular fragments of light hannah soft tissue that in aggregate measure 1.3 x 1 x 0.2 cm. The specimen is totally submitted in one cassette. D - Received in fixative is one container labeled with the patient's name and designated proximal rectal polyp. The specimen consists of one irregular fragment of light hannah soft tissue that measures 0.6 x 0.5 x 0.2 cm. The specimen is totally submitted in one cassette. E - Received in fixative is one container labeled with the patient's name and designated distal rectal polyp biopsy. The specimen consists of two irregular fragments of light hannah soft tissue that in aggregate measure 0.5 x 0.3 x 0.1 cm. The specimen is totally submitted in one cassette. / AM:luke 03/05/18 TC:1 CPT: 86231 x5
--- NOTE | 2018-03-05 07:18 | OP.ENDO_ITS ---
Patient Name: Jeronimo Haas Procedure Date: 03/05/2018 6:22 AM Date of : 1950 Age: 67 Procedure: Upper GI endoscopy Indications: Epigastric abdominal pain, Abnormal CT of the GI tract Providers: Jeronimo Cueto MD Medicines: Midazolam 4 mg IV, Meperidine 100 mg IV Complications: No immediate complications. Procedure: Pre-Anesthesia Assessment: - Prior to the procedure, a History and Physical was performed, and patient medications and allergies were reviewed. The patient's tolerance of previous anesthesia was also reviewed. The risks and benefits of the procedure and the sedation options and risks were discussed with the patient. All questions were answered, and informed consent was obtained. Prior Anticoagulants: The patient has taken no previous anticoagulant or antiplatelet agents. ASA Grade Assessment: III - A patient with severe systemic disease. After reviewing the risks and benefits, the patient was deemed in satisfactory condition to undergo the procedure. After obtaining informed consent, the endoscope was passed under direct vision. Throughout the procedure, the patient's blood pressure, pulse, and oxygen saturations were monitored continuously. The colonoscope was introduced through the mouth, and advanced to the fourth part of duodenum. The upper GI endoscopy was accomplished without difficulty. The patient tolerated the procedure well. Moderate Sedation: Moderate (conscious) sedation was personally administered by the endoscopist. The following parameters were monitored: oxygen saturation, heart rate, blood pressure, and response to care. Total physician intraservice time was 15 minutes. Scope In: 6:38:33 AM Scope Out: 6:47:11 AM Total Procedure Duration Time 0 hours 8 minutes 38 seconds Findings: The examined esophagus was normal. The Z-line was regular and was found 40 cm from the incisors. Diffuse moderate inflammation characterized by congestion (edema) was found in the entire examined stomach. Biopsies were taken with a cold forceps for histology. A medium amount of food (residue) was found in the gastric body. An acquired extrinsic severe stenosis was found in the fourth portion of the duodenum. Impression: - Normal esophagus. - Z-line regular, 40 cm from the incisors. - Gastritis. Biopsied. - A medium amount of food (residue) in the stomach. - Acquired duodenal stenosis. Recommendation: - Discharge patient to home. - - full liquid diet and supplements as tolerated - Continue present medications. Procedure Code(s): --- Professional --- 12984, Esophagogastroduodenoscopy, flexible, transoral; with biopsy, single or multiple 42287, 59, Moderate sedation services provided by the same physician or other qualified health care navigator performing the diagnostic or therapeutic service that the sedation supports, requiring the presence of an independent trained observer to assist in the monitoring of the patient's level of consciousness and physiological status; initial 15 minutes of intraservice time, patient age 5 years or older Diagnosis Code(s): --- Professional --- K29.70, Gastritis, unspecified, without bleeding K31.5, Obstruction of duodenum R10.13, Epigastric pain R93.3, Abnormal findings on diagnostic imaging of other parts of digestive tract CPT copyright 2017 [employer]. All rights reserved. The codes documented in this report are preliminary and upon radiologic electronic specialist review may be revised to meet current compliance requirements. Jeronimo Cueto MD 03/05/2018 7:18:13 AM This report has been signed electronically. Number of Addenda: 0 Note Initiated On: 03/05/2018 6:22 AM
--- NOTE | 2018-03-05 07:27 | OP.ENDO_ITS ---
Patient Name: Jeronimo Haas Procedure Date: 03/05/2018 6:48 AM Date of : 1950 Age: 67 Procedure: Colonoscopy Indications: Epigastric abdominal pain Providers: Jeronimo Cueto MD Medicines: Midazolam 2 mg IV, Meperidine 50 mg IV Patient Profile: Last Colonoscopy: November 2014. Complications: No immediate complications. Procedure: Pre-Anesthesia Assessment: - Prior to the procedure, a History and Physical was performed, and patient medications and allergies were reviewed. The patient's tolerance of previous anesthesia was also reviewed. The risks and benefits of the procedure and the sedation options and risks were discussed with the patient. All questions were answered, and informed consent was obtained. Prior Anticoagulants: The patient has taken no previous anticoagulant or antiplatelet agents. ASA Grade Assessment: III - A patient with severe systemic disease. After reviewing the risks and benefits, the patient was deemed in satisfactory condition to undergo the procedure. After I obtained informed consent, the scope was passed under direct vision. Throughout the procedure, the patient's blood pressure, pulse, and oxygen saturations were monitored continuously. The Colonoscope was introduced through the anus and advanced to the cecum, identified by appendiceal orifice and ileocecal valve. The colonoscopy was performed without difficulty. The patient tolerated the procedure well. The quality of the bowel preparation was adequate to identify polyps. The ileocecal valve and the appendiceal orifice were photographed. Moderate Sedation: Moderate (conscious) sedation was personally administered by the endoscopist. The following parameters were monitored: oxygen saturation, heart rate, blood pressure, and response to care. Total physician intraservice time was 15 minutes. Scope In: 6:50:12 AM Scope Withdrawal Time 0 hours 14 minutes 48 seconds Scope Out: 7:10:02 AM Total Procedure Duration Time 0 hours 19 minutes 50 seconds Findings: The perianal and digital rectal examinations were normal. A 5 mm polyp was found in the proximal transverse colon. The polyp was sessile. The polyp was removed with a cold biopsy forceps. Resection and retrieval were complete. A 7 mm polyp was found in the distal sigmoid colon. The polyp was sessile. The polyp was removed with a hot snare. Resection and retrieval were complete. A 5 mm polyp was found in the rectum. The polyp was sessile. The polyp was removed with a hot snare. Resection and retrieval were complete. A 4 mm polyp was found in the rectum. The polyp was sessile. The polyp was removed with a cold biopsy forceps. Resection and retrieval were complete. A 6 mm polyp was found in the rectum. The polyp was sessile. The polyp was removed with a cold biopsy forceps. Resection and retrieval were complete. Scattered diverticula were found in the sigmoid colon. A 3 mm polyp was found in the proximal sigmoid colon. The polyp was sessile. The polyp was removed with a cold biopsy forceps. Resection and retrieval were complete. Impression: - One 5 mm polyp in the proximal transverse colon, removed with a cold biopsy forceps. Resected and retrieved. - One 7 mm polyp in the distal sigmoid colon, removed with a hot snare. Resected and retrieved. - One 3mm polyp in the distal sigmoid colon, removed with a cold biopsy forceps. Resected and retrieved - One 5 mm polyp in the rectum, removed with a hot snare. Resected and retrieved. - One 4 mm polyp in the rectum, removed with a cold biopsy forceps. Resected and retrieved. - One 6 mm polyp in the rectum, removed with a cold biopsy forceps. Resected and retrieved. - Diverticulosis in the sigmoid colon. Recommendation: - Discharge patient to home. - Resume previous diet. - Continue present medications. - Repeat colonoscopy in 3 years for surveillance. - Telephone my office for pathology results in 1 week. Procedure Code(s): --- Professional --- 17708, Colonoscopy, flexible; with removal of tumor(s), polyp(s), or other lesion(s) by snare technique 84046, 59, Colonoscopy, flexible; with biopsy, single or multiple 18059, 59, Moderate sedation services provided by the same physician or other qualified health caregiver services home performing the diagnostic or therapeutic service that the sedation supports, requiring the presence of an independent trained observer to assist in the monitoring of the patient's level of consciousness and physiological status; initial 15 minutes of intraservice time, patient age 5 years or older Diagnosis Code(s): --- Professional --- D12.3, Benign neoplasm of transverse colon (hepatic flexure or splenic flexure) D12.5, Benign neoplasm of sigmoid colon K62.1, Rectal polyp R10.13, Epigastric pain K57.30, Diverticulosis of large intestine without perforation or abscess without bleeding CPT copyright 2017 [employer]. All rights reserved. The codes documented in this report are preliminary and upon oncology navigator review may be revised to meet current compliance requirements. Jeronimo Cueto MD 03/05/2018 7:26:49 AM This report has been signed electronically. Number of Addenda: 0 Note Initiated On: 03/05/2018 6:48 AM
== END 2018-03-05 08:16 | disposition home or self-care (01) ==
LOC: EN 05:25 → AC 05:27
PROVIDERS: Family Provider Family Medicine; PCP Family Medicine; Referring Provider Surgery; Visit Provider Surgery
PROC: 0DJD8ZZ Inspection of Lower Intestinal Tract, Via Natural or Artificial Opening Endoscopic (ICD-10-PCS; CPT 45378; principal; 2018-03-05 06:25)
DX: K29.70 Gastritis, unspecified, without bleeding (principal); K63.5 Polyp of colon; D12.8 Benign neoplasm of rectum; D12.5 Benign neoplasm of sigmoid colon; K57.30 Diverticulosis of large intestine without perforation or abscess without bleeding; K31.5 Obstruction of duodenum; E11.9 Type 2 diabetes mellitus without complications; K21.9 Gastro-esophageal reflux disease without esophagitis; E03.9 Hypothyroidism, unspecified; I10 Essential (primary) hypertension; Z87.891 Personal history of nicotine dependence; Z86.010 Personal history of colon polyps; Z79.82 Long term (current) use of aspirin; Z79.899 Other long term (current) drug therapy
CPT/HCPCS: 43239; 45380; 82962; 88305; 88342; 99152; 99153; J7120

== ENCOUNTER 2018-03-24 08:41 | Day surgery (SDC) | payer OTHER, SELFPAY ==
[2018-03-16 13:34] VITALS: BMI 29.2
[2018-03-24 09:03] VITALS: BP 118/73; PULSE 83; RESP 16; TEMP 36.6; O2SAT 99; BMI 28.8
[2018-03-24 09:25] LABS: Bedside Glucose 113 mg/dL (70-110)
[2018-03-24] MEDS: Cefazolin 2 GM in 0.9% Normal Saline 100 ML IV (10:06)
--- NOTE | 2018-03-24 10:09 | DCINST_ITS ---
Discharge Diet: No Restrictions - Pain medication may cause nausea. You should typically eat light foods as you take your pain medication. Discharge Activity: Return to Normal Activity, May Shower - Leave the bandage on for 2-3 days. When you remove the bandage, leave the steri-strips intact until they fall off. Additional Dressing/Incision Instructions:: Leave the bandage on for 2-3 days. When you remove the bandage, leave the steri-strips intact until they fall off. Allergies/Adverse Reactions: Allergies oxycodone HCl [From Percocet] Adverse Reaction (Severe, Verified 03/23/18 11:42) Other nightmares Tetracyclines Adverse Reaction (Severe, Verified 03/23/18 11:42) Upset Stomach Medications to take at Discharge Cholecalciferol (VIT D3) [Vitamin D3] 2,000 unit PO DAILY 02/24/15 Lisinopril/Hydrochlorothiazide [Zestoretic 20-12.5 mg Tablet] 1 ea PO DAILY 02/24/15 Multivitamins,Therapeutic [Multivitamin] 1 tab PO MOWEFR 02/24/15 Levothyroxine [Synthroid] 125 mcg PO DAILY #90 tab 02/27/15 Aspirin [Aspirin, Baby] 81 mg PO DAILY@0800 09/19/16 Escitalopram Oxalate [Lexapro] 10 mg PO DAILY 09/19/16 Pantoprazole Sodium [Protonix] 40 mg PO DAILY 09/19/16 glipizide 10 mg tablet 10 mg PO DAILY 03/03/18 Docusate Sodium [Colace] 100 mg PO BID 03/16/18 Enoxaparin [Lovenox] 40 mg SC DAILY@0600 03/16/18 Lorazepam [Ativan] 1 mg PO DAILY PRN 03/16/18 Mirtazapine [Remeron] 15 mg PO QHS #30 tab 03/16/18 Metoclopramide [Reglan] 10 mg PO DAILY #90 tablet 03/24/18 The following prescriptions were given: Metoclopramide [Reglan] 10 mg PO DAILY #90 tablet Primary Care Physician: Dashawn Perez MD [Primary Care Provider] - Test Results: Test results from this visit will be discussed in further detail at your follow- up appointment, if applicable. Please Follow Up With: Jeronimo Cueto MD - [phone] When: Office follow-up may be as needed
[2018-03-24] MEDS: Bupivacaine 0.5% PF 10 ML VIAL (10:22)
--- NOTE | 2018-03-24 10:47 | PCM.OPRPT ---
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 Reference #[id number] lot number [id number] expiry date 08/15/2019 Description of Surgical Findings:: Timeout and informed consent was obtained. 67-year-old gent was taken the operative placement table underwent monitored anesthesia care local anesthetic. Ancef 2 g given intravenously preoperatively. The right neck and chest were sterilely prepped and draped. Under ultrasound guidance 1% lidocaine mixed 50-50 with 0.5% Marcaine was used as a local anesthetic. Throughout the procedure a total of 17 cc was used. Local was instilled micropuncture needle inserted micropuncture wire inserted micropuncture sheath inserted 035 Glidewire was used to advance the sheath in the good position and fluoroscopic control and exchange out for an 035 J-wire. Local was instilled down upon the chest wall. A transverse incision was made midclavicular line second intercostal space and using electrocautery sub-changes pocket was created. The tubing was tunneled from the neck to the chest site. The sheath dilator was placed over the wire the wire and dilator were removed the catheter was advanced to the sheath the sheath was split the catheter was positioned to be at the SVC atrial junction. It was amputated to length connected the port secured there with port attachment device. The port was placed in the pocket and secured there with interrupted 2-0 silk. The port site was closed with interrupted 3-0 Vicryl subdermal stitches. The neck was closed with interrupted 5-0 Vicryl subdermal stitch. Steri-Strips Telfa and OpSite dressings applied. The port was accessed and aspirated easily was flushed with saline and then 2 cc of heparinized saline. Sponge and instrument and needle counts were reported to the surgeon be correct. Specimens none. Drains none. Blood loss minimal. Stat portable chest x-ray is pending as the patient is taken to the recovery area in satisfactory condition. Jeronimo Cueto M.D., F.A.C.S. Type of Anesthesia:: Local MAC Anesthesiologist: Ana Abad
--- NOTE | 2018-03-24 10:51 | OP.PCM_ITS ---
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 Reference #[id number] lot number [id number] expiry date 08/15/2019 Description of Surgical Findings:: Timeout and informed consent was obtained. 67-year-old gent was taken the operative placement table underwent monitored anesthesia care local anesthetic. Ancef 2 g given intravenously preoperatively. The right neck and chest were sterilely prepped and draped. Under ultrasound guidance 1% lidocaine mixed 50- 50 with 0.5% Marcaine was used as a local anesthetic. Throughout the procedure a total of 17 cc was used. Local was instilled micropuncture needle inserted micropuncture wire inserted micropuncture sheath inserted 035 Glidewire was used to advance the sheath in the good position and fluoroscopic control and exchange out for an 035 J-wire. Local was instilled down upon the chest wall. A transverse incision was made midclavicular line second intercostal space and using electrocautery sub-changes pocket was created. The tubing was tunneled from the neck to the chest site. The sheath dilator was placed over the wire the wire and dilator were removed the catheter was advanced to the sheath the sheath was split the catheter was positioned to be at the SVC atrial junction. It was amputated to length connected the port secured there with port attachment device. The port was placed in the pocket and secured there with interrupted 2- 0 silk. The port site was closed with interrupted 3-0 Vicryl subdermal stitches. The neck was closed with interrupted 5-0 Vicryl subdermal stitch. Steri-Strips Telfa and OpSite dressings applied. The port was accessed and aspirated easily was flushed with saline and then 2 cc of heparinized saline. Sponge and instrument and needle counts were reported to the surgeon be correct. Specimens none. Drains none. Blood loss minimal. Stat portable chest x-ray is pending as the patient is taken to the recovery area in satisfactory condition. Jeronimo Cueto M.D., F.A.C.S. Type of Anesthesia:: Local MAC Anesthesiologist: Ana Abad
[2018-03-24 10:55] VITALS: BP 118/73; BP 82/68; PULSE 72; RESP 16; TEMP 36.4; O2SAT 96
--- NOTE | 2018-03-24 10:55 | RAD_ITS ---
STUDY: X-RAY CHEST REASON FOR EXAM: Male, 67 years old. Port placement. TECHNIQUE: Single AP portable view of the chest. COMPARISON: Comparison is made with prior study dated September 19, 2016. FINDINGS: A right-sided sulema catheter is in situ. The tip is in the midportion of the superior vena cava. Stable elevation of the left hemidiaphragm. Mild increased linear markings at the left lung base suggestive of linear atelectasis and/or linear scarring. There is no demonstrated pleural abnormality. Normal size heart. Normal mediastinum and andreas. Normal visualized pulmonary arteries. Normal visualized aortic arch and descending thoracic aorta. Normal visualized thoracic spine. Normal visualized ribs, clavicles, and shoulders. There is no demonstrated abnormality of the visualized soft tissue structures of the upper abdomen. RAD/Chest 1 View (Portable) IMPRESSION: The tip of the right portacatheter is in the midportion of the superior vena cava. Stable elevation of the left hemidiaphragm with linear scarring and/or atelectasis. Electronically Signed: Sonny Guevara MD at 11:43 EST Tel [phone], Service support ,
[2018-03-24 11:00] VITALS: BP 118/73; BP 95/70; PULSE 69; RESP 16; O2SAT 95
[2018-03-24 11:05] VITALS: BP 100/73; BP 118/73; PULSE 69; RESP 16; O2SAT 96
[2018-03-24 11:10] VITALS: BP 118/73; BP 93/68; PULSE 71; RESP 16; O2SAT 95
[2018-03-24 12:16] VITALS: BP 102/62; BP 118/73; PULSE 64; RESP 16; TEMP 36.3; O2SAT 96
== END 2018-03-24 12:24 | disposition home or self-care (01) ==
LOC: SDC 08:42 → AC 08:45
PROVIDERS: Family Provider Family Medicine; PCP Family Medicine; Referring Provider Surgery; Visit Provider Surgery
PROC: (CPT 36571; principal; 2018-03-24 10:30)
DX: C25.2 Malignant neoplasm of tail of pancreas (principal); Z45.2 Encounter for adjustment and management of vascular access device; E11.9 Type 2 diabetes mellitus without complications; K21.9 Gastro-esophageal reflux disease without esophagitis; E03.9 Hypothyroidism, unspecified; I10 Essential (primary) hypertension; E78.00 Pure hypercholesterolemia, unspecified; F41.9 Anxiety disorder, unspecified; G47.30 Sleep apnea, unspecified; Z87.891 Personal history of nicotine dependence; Z85.828 Personal history of other malignant neoplasm of skin; Z79.84 Long term (current) use of oral hypoglycemic drugs; Z79.82 Long term (current) use of aspirin; Z79.891 Long term (current) use of opiate analgesic; Z79.899 Other long term (current) drug therapy
CPT/HCPCS: 00532; 36571; 71045; 77001; 82962; J7120; C1769

== ENCOUNTER → 2018-04-22 09:51 | Outpatient (CLI) | payer OTHER, SELFPAY ==
[2018-04-17 14:45] VITALS: BMI 28.5
[2018-04-22 12:29] LABS: Thyroid Stim Hormone (TSH) 8.07 uIU/mL (0.358-3.74)
== END ==
PROVIDERS: Family Provider Family Medicine; PCP Family Medicine; Referring Provider Family Medicine; Visit Provider Family Medicine
DX: E05.90 Thyrotoxicosis, unspecified without thyrotoxic crisis or storm (principal)
CPT/HCPCS: 36415; 84443

== ENCOUNTER → 2018-04-30 13:24 | Outpatient (CLI) | payer OTHER, SELFPAY ==
[2018-04-29 08:37] VITALS: BMI 30.2
--- NOTE | 2018-04-30 13:44 | US_ITS ---
PROCEDURE: Ultrasound guided paracentesis. DATE OF EXAMINATION: April 30, 2018. INDICATION: Male, 67 years old. Ascites. PHYSICIAN: Sonny Guevara M.D. TECHNIQUE: The risks, benefits, and alternatives to the procedure were explained to the patient. The specific risks of bleeding, infection, and damage to bowel were detailed and accepted. Witnessed informed consent was obtained. The abdomen was ultrasonographically surveyed. An appropriate pocket of fluid was identified at the right lower quadrant. The skin were cleaned and prepped in the usual sterile fashion. Using ultrasound guidance, the peritoneal cavity was accessed with a 5-Sami paracentesis needle/catheter system. The trocar was removed. A total of 3550 ml of chylous fluid were removed from the peritoneal cavity. The catheter was removed and a sterile dressing was applied. The procedure was well tolerated. US/Paracentesis with US IMPRESSION: Ultrasound guided paracentesis. Electronically Signed: Sonny Guevara MD at 15:09 EST , Service support ,
[2018-04-30 15:21] VITALS: BP 111/81; BP 116/78; BP 126/84; PULSE 86; PULSE 90; RESP 16; O2SAT 96; O2SAT 97
== END ==
PROVIDERS: Family Provider Family Medicine; PCP Family Medicine; Referring Provider Internal Medicine Medical Oncology; Visit Provider Internal Medicine Medical Oncology
DX: R18.8 Other ascites (principal)
CPT/HCPCS: 49083

== ENCOUNTER 2018-05-08 15:49 | Inpatient (IN) | payer OTHER, SELFPAY ==
[2018-05-08] VITALS (18 sets, daily range): BP systolic 98–156; BP diastolic 66–101; PULSE 112–148; RESP 18–30; TEMP 37.1–37.9; O2SAT 95–99; BMI 30.2; BMI 28.5; BMI 29.0
--- NOTE | 2018-05-08 16:18 | EKG12_ITS ---
Test Reason : TACHYCARDIA Blood Pressure : / mmHG Vent. Rate : 144 BPM Atrial Rate : 144 BPM P-R Int : 112 ms QRS Dur : 084 ms QT Int : 366 ms P-R-T Axes : 032 021 069 degrees QTc Int : 566 ms Sinus tachycardia Low voltage QRS Borderline ECG Confirmed by SIVA LOPES, ALY ([id number]), desk editor SHANNON TELLO ([id number]) on 05/12/2018 4:44:57 PM Referred By: CHRISTOFER Confirmed By:ALY PANIAGUA MD
--- NOTE | 2018-05-08 16:19 | VDLE_ITS ---
Reason For Study: LEG SWELLING RIGHT LEFT CFV is compressible, spontaneous, phasic, GSV is normal. competent and demonstrates normal CFV is compressible, spontaneous, phasic, augmentation. competent, and demonstrates normal Procedure augmentation. Exam performed portable in ED. Acute deep vein thrombosis is noted in the A preliminary report was called and/or faxed left femoral vein. to Dr. Schaefer. Acute deep vein thrombosis is noted in the left popliteal vein. Acute deep vein thrombosis is noted in the left peroneal vein. PTV is compressible. Acute deep vein thrombosis is noted in the left soleus vein. Acute deep vein thrombosis noted in Gastroc veins. Interpretation Summary Acute deep venous thrombosis left femoral, popliteal, peroneal, soleus and gastrocnemius veins. Patent and compressible left great saphenous vein Normal flow patterns right common femoral vein Ordering Physician: Sedrick Schaefer Referring Physician: Dashawn Perez M.D. Performed By: Vero William RVT
--- NOTE | 2018-05-08 16:23 | ED.VISSUMM ---
- ER Visit Summary Date of Service: 05/08/18 Chief Complaint: Shortness of breath History of Present Illness: The patient is a [address] of pancreatic CA with metastases. Chemo therapy has had 3 rounds. He recently had abdominal paracentesis for abdominal ascites. He is starting to reaccumulate again.. Denies any hemoptysis. Physical Examination: Vital signs stable pulse ox 95% room air no hypoxia. Temperature 9 9.1. Heart rate 148. I have the HEENT exam dry mixed memories. Otherwise unremarkable. He has no nausea. Lungs clear to auscultation bilaterally. Heart tachycardic no murmur. Rate about 148. Abdomen soft. Abdominal ascites. Nontender. Moving all 4 extremities. Neurovascular intact. He has edema both lower extremities trace on the right significantly worse on the left. Calves are nontender without cords. Neurologically is awake alert with no focal motor deficit. Clinically this patient does look ill. Test Results: Chest x-ray shows mildly elevated left hemidiaphragm otherwise unremarkable read both by myself the radiologist. CBC shows a neutropenia with a white count 1.2. Hemoglobin 9.4 which is his baseline. Low platelets 93,000. 45 segs and 19% bands. Electrolytes show CO2 of 13. BUN of 26 creatinine 1.1 consistent with dehydration. Glucose of 236 and an elevated anion gap of 20 PT PTT INR unremarkable. Lactic acid is elevated 8.8. UA shows no signs of infection 50+ ketones. Troponin normal. D-dimer normal EKG sinus tachycardia rate of 144 no signs of ischemia. Ultrasound of his left leg showed a mid thigh DVT going distally to his lower leg. CTA of the chest shows bilateral pulmonary emboli right side more so than the left. Also questionable free air on the CT of the chest on the upper abdomen. For that reason a CTA abdomen pelvis was done without contrast due to his prior IV contrast bolus. I discussed this with the radiologist who thinks the free air is secondary to a necrotic pancreatic mass with extension to the kidney. He sees no sign of perforated bowel or colon. Emergency Department Course and Treatment: Pt to undergo a septic workup. To be treated with a liter normal saline. Oxygen. He will be admitted. Treatment Plan: Patient is currently doing much better after 2 L normal saline. I have written for third. Clinically he looks better and is feeling better. He will be started on a heparin bolus and drip for the bilateral pulmonary emboli and DVT. Due to his neutropenia and he developed a fever of 101 in the emergency department he will be started on Zosyn and vancomycin IV. Blood cultures were already obtained. He will be admitted to the ICU. I have already spoken to the hospitalist. Disposition: Admission to the ICU Impression: Acute neutropenic fever Septic shock Hypotension Lactic acidosis Bilateral pulmonary emboli Left lower extremity DVT Known pancreatic cancer with metastases inoperable Pancytopenia Immunocompromised patient from chemotherapy Critical care time 35 minutes This note was generated with [employer] software. It may contain incorrect words, spelling, and punctuation that were not noted in review of the chart prior to signing <Sedrick Schaefer - Last Filed: 05/08/18 21:14> - ER Visit Summary Date of Service: 05/08/18 Chief Complaint: [] History of Present Illness: The patient is a 67 M [] Physical Examination: [] Test Results: [] Emergency Department Course and Treatment: [] Treatment Plan: [] Disposition: [] Impression: [] This note was generated with [employer] software. It may contain incorrect words, spelling, and punctuation that were not noted in review of the chart prior to signing <Alfred Bailey - Last Filed: 05/08/18 22:04>
[2018-05-08] MEDS: 0.9% Normal Saline 1,000 ML 999 ML IV ×3 (16:27→21:39)
[2018-05-08] MEDS: Ondansetron 4 MG/2 ML Vial IV ×2 (16:28→19:14)
--- NOTE | 2018-05-08 16:55 | RAD_ITS ---
STUDY: X-RAY CHEST REASON FOR EXAM: Male, 67 years old. Shortness of breath TECHNIQUE: Frontal view of the chest COMPARISON: 03/24/2018 FINDINGS: Again noted is elevation of the left hemidiaphragm with overlying atelectasis. The lungs are otherwise clear. There are no pleural effusions. There is no pneumothorax. The heart is normal in size. There is a right-sided port again noted. The visualized osseous structures are within normal limits. RAD/Chest 1 View (Portable) IMPRESSION: No acute thoracic pathology. Electronically Signed: Fredo Pathak, at 17:26 EST Tel , Service support ,
[2018-05-08 17:34] LABS: Hemoglobin 9.4 g/dl (13.0-16.5); Red Blood Count 3.08 M/mm3 (4.6-6.2)
[2018-05-08 17:35] LABS: Hematocrit 29.2 % (40-54); Mean Corp Hgb Conc 32.2 g/gl (32-36); Mean Corpuscular Hgb 30.5 pg (27.0-32.0); Mean Corpuscular Volume 94.8 fL (80-94); Mean Platelet Vol. 11.9 fl (6.2-12.0); POSITIVE COUNT YES; POSITIVE DIFFERENTIAL YES; POSITIVE MORPHOLOGY YES; Platelet Count 93 K/mm3 (150-450); RBC Distribution Width CV 19.2 % (11.6-14.6); RBC Distribution Width SD 65.5 fl (35.1-43.9)
[2018-05-08 17:36] LABS: ALB/GLOB Ratio 0.5 RATIO (0.9-2.4); AST(SGOT) 18 U/L (15-37); Alanine Aminotransfer ALT/SGPT 27 U/L (16-61); Albumin, Serum 1.8 g/dL (3.2-5.0); Alkaline Phosphatase 76 U/L (45-117); Anion Gap 20 (5-15); BUN 26 mg/dL (7-18); BUN/Creat Ratio 23.2 RATIO (10-20); Calcium,Total 7.6 mg/dL (8.5-10.1); Chloride 102 mmol/L (98-107); Creatinine, Serum 1.12 mg/dL (0.70-1.30); EST Glomerular Filtration Rate 70 mL/min (>60); Est Glom Filt Rate - Afr Amer 85 mL/min (>60); Estimated Creatinine Clearance 59.34 ml/min; Globulin 3.3 g/dL (2.2-4.2); Glucose 236 mg/dL (74-106); Lactic Acid 8.8 mmol/L (0.4-2.0); Potassium 3.7 mmol/L (3.5-5.1); Protein, Total 5.1 g/dL (6.4-8.2); Sodium Level 135 mmol/L (136-145)
--- NOTE | 2018-05-08 17:36 | ED.RN ---
PER LAB PT LACTIC 8.8, WBC 1.2. DR SHOEMAKER AWARE.
[2018-05-08 17:37] LABS: Differential Indicated MANUAL DIFF
--- NOTE | 2018-05-08 17:49 | CT_ITS ---
We are attempting to reach Sedrick Schaefer MD to discuss findings. An addendum with communication details will be sent when the communication is complete. STUDY: CTA CHEST REASON FOR EXAM: Male, 67 years old. Shortness of breath. History of pancreatic and skin cancer. RADIATION DOSAGE (If Supplied By Facility): CTDIvol = ( 11.86 ) mGy, DLP = ( 591.41 ) mGycm TECHNIQUE: The examination was performed with the intravenous administration of Isovue 370 100ML IV. Post-processing of the angiographic images was performed, with multiplanar reformation and 3D reconstruction. Individualized dose optimization techniques were used for this CT. COMPARISON: 04/28/2018 FINDINGS: There are segmental and subsegmental pulmonary emboli in the right middle and lower lobes. There are subsegmental pulmonary emboli in the left lower lobe. There is no evidence of thoracic aortic aneurysm or dissection. The heart is normal in size. Again noted are coronary artery calcifications. There is stable elevation of the left hemidiaphragm with associated atelectasis. The lungs are otherwise clear. There are no pleural effusions. There is no pneumothorax. Images through the upper abdomen demonstrate a stable pancreatic mass. This is not fully visualized on this exam. Again noted is ascites. There is free air noted in the upper abdomen. This was not visualized on the prior chest CT. CT/CTA Chest W/WO Contrast IMPRESSION: Segmental and subsegmental pulmonary emboli in the right middle and lower lobes. Subsegmental pulmonary emboli in the left upper lobe. No pulmonary infiltrates or pleural effusions. Stable elevation of the left hemidiaphragm. Free air noted in the upper abdomen which was not present on the prior chest CT. Correlation for a history of a recent surgical intervention is recommended. If there was no recent surgery, further evaluation with abdominal CT is recommended. Electronically Signed: Fredo Pathak, at 19:09 EST Tel , Service support ,
[2018-05-08 17:56] LABS: Partial Thromboplast Time 33.7 Seconds (24.1-36.2); Prothrombin Time (Protime)PT. 13.2 SECONDS (11.7-14.9)
[2018-05-08 18:03] LABS: NRBC Flagged by Analyzer 23.1 % (0-5)
[2018-05-08 18:04] LABS: Absolute Nucleated RBC Count 0.26 10^3/uL (0-5)
[2018-05-08 18:17] LABS: Corrected WBC 1.1 K/mm3 (4.4-11.0); Lymphocyte 13 % (19-41); Metamyelocyte 2 % (0-1); Monocyte 21 % (0-10); Neutrophil-Band 19 % (0-5); Neutrophil-Segmented 45 % (47-70); Nucleated Red Bld Cells,Manual 9 % (0-5); Total Cells Counted 100 (MANUAL DIFF)
[2018-05-08 18:19] LABS: Anisocytosis 2+; Platelet Estimate MOD DEC (ADEQ); Red Cell Morphology N CHROM NORMAL (NORM C&C); Tear Drop Cell 1+
[2018-05-08 18:47] LABS: Bacteria 0 SEEN /hpf (None Seen); Red Blood Cells-Urine 0 SEEN /hpf (0-5); Squamous Epithelial Cells - UA 0 SEEN /hpf (0-5); White Blood Cells 0 SEEN /hpf (0-5)
[2018-05-08 18:48] LABS: Color, Urine Yellow (Yellow); Glucose, Dipstick 1000 mg/dl (Normal); Ketone-Dipstick 50 mg/dl (Negative); Leukocyte Esterase-Dipstick Negative /ul (Negative); Nitrite-Dipstick Negative (Negative); Occult Blood-Urine 25 /ul (Negative); Protein-Dipstick 30 mg/dl (Negative); Urine Bilirubin Dipstick Negative (Negative); Urine Clarity Clear (Clear); Urine Urobilinogen Normal (Normal)
[2018-05-08 19:04] LABS: Coarse Granular Cast 0-5 SEEN /lpf (0-5 /lpf); Hyaline Cast 0-5 SEEN /lpf (0-5)
[2018-05-08 19:06] LABS: Mucous, Urine RARE /hpf (<or=2+)
[2018-05-08] MEDS: Morphine 4 MG/ML Syringe IV (19:14)
--- NOTE | 2018-05-08 19:22 | CT_ITS ---
We are attempting to reach Sedrick Schaefer MD to discuss findings. An addendum with communication details will be sent when the communication is complete. STUDY: CT ABDOMEN AND PELVIS WITHOUT CONTRAST REASON FOR EXAM: Male, 67 years old. Pancreatic cancer. Free air on chest CT. RADIATION DOSAGE (If Supplied By Facility): CTDIvol = ( 12.05 ) mGy, DLP = ( 801.09 ) mGycm TECHNIQUE: Transaxial images were obtained from the dome of the diaphragm to the symphysis pubis without oral contrast, and without intravenous contrast. Sagittal and coronal images were reconstructed. Individualized dose optimization techniques were used for this CT. COMPARISON: 03/04/2018 FINDINGS: Evaluation of the abdominal viscera is limited in the absence of intravenous contrast. There are no calcified gallstones present. The liver demonstrates an unremarkable unenhanced appearance. The spleen is normal in size. The patient's known pancreatic mass not well evaluated on this noncontrast CT. On the prior contrast CT, the demonstrated an associated air and fluid-filled lesion. This appears grossly unchanged. The adrenal glands are within normal limits. There is free air noted in the left retroperitoneal space adjacent to the left kidney. This may be due to extension of air from the air and fluid filled cavitary lesion associated with the patient's pancreatic mass. The kidneys are excreting contrast from the prior chest CT. There is no urinary contrast extravasation. There are no renal or ureteral stones. There is no hydronephrosis. Normal visualized stomach. There is no bowel obstruction or inflammation. There are stable omental implants, consistent with the patient's history of carcinomatosis. The aorta is normal in caliber. There is a moderate amount of free fluid. There is no free air, fluid collection or lymphadenopathy. The prostate is enlarged measuring 6.4 x 5.0 cm. There are no destructive osseous lesions. CT/Abdomen/Pelvis without Cont IMPRESSION: Study limited without contrast. Redemonstration of a pancreatic mass with an associated air and fluid-filled lesion (necrotic mass versus pseudocyst). This appears grossly unchanged when compared with a contrast-enhanced CT dated 03/04/2018. Free retroperitoneal air adjacent to the left kidney and in the left perinephric space. This is likely due to extension of the air from the adjacent pancreatic cavitary lesion. No urinary contrast extravasation. 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 Moderate amount of ascites. Enlarged prostate. Electronically Signed: Fredo Pathak, at 20:42 EST Tel , Service support ,
[2018-05-08 20:32] LABS: Absolute Lymphocyte Count 0.14 X10^3/ul (0.83-4.51); Absolute Neutrophil Count 0.8 X10^3/uL (2.0-7.7); Lymphocyte # 0.14 X10^3/ul (4.0); Neutrophil # 0.81 X10^3/uL (2.7-7.7)
--- NOTE | 2018-05-08 21:03 | HP.PCM_ITS ---
Problem List (1) Septic shock Status: Acute (2) DVT (deep venous thrombosis) Status: Acute (3) Pulmonary embolism Status: Acute (4) Diabetes Status: Acute (5) Nausea and vomiting Status: Inactive Qualifiers: Vomiting type: unspecified Vomiting Intractability: unspecified Qualified Code(s): R11.2 - Nausea with vomiting, unspecified History of Present Illness Date of Admission: 05/08/18 Chief Complaint: shortness of breath The patient is a 67 year old M with a significant history of hypertension; hypothyroidism; pancreatic cancer with metastases and on chemotherapy; recently diagnosed diabetes mellitus who presented to the emergency department with progressively worsening shortness of breath that started 5 to 6 hours prior to presentation. Her family report that for some time patient had shortness of breath but in the last few hours it progressively worsened as above. Associated with his symptoms is weakness to the point that he is unable to walk. Patient follows up with the [facility] at [facility]. He had IV fluid infusion at the [facility] today (same day of admission). Because patient had elevated heart rate whiles at the infusion center, he was going to be sent to the hospital. However because patient had an appointment with PCP he was released to go to see his PCP. At the PCPs office, because of his tachycardia, he was instructed to come to the emergency department. At the emergency department because patient complained of right leg pain a bilateral extremity Doppler was done that rather showed a clot in his left leg. A follow-up CTPA showed bilateral clots in his lungs. Also the patient was found to have lactic acidosis with lactic acid of 8.8. His white count was at 1.1. His hemoglobin was 9.4 and his platelet count was 93. Urine cultures and blood cultures x2 was taken at the emergency department. Blood culture was taken peripherally and from his port. Patient was given IV fluids bolus per septic shock protocol and broad-spectrum antibiotics of vancomycin and Zosyn was started. Of note patient had paracentesis for ascites about a week ago. Ascites was attributed to pancreatic cancer. Past Medical History Past Medical History (Chronic Problems): Chronic Problems (Last Reviewed 05/09/18 @ 01:03 by Alfred Bailey MD) Pancreatic cancer (Chronic) Abdominal pain (Chronic) Medical History: Medical History (Last Reviewed 05/09/18 @ 01:03 by Alfred Bailey MD) Abdominal distension (gaseous) (Acute) R14.0 Personal history of colonic polyps (Acute) Z86.010 Nausea and vomiting (Acute) R11.2 Bloating R14.0 Diabetes E11.9 GERD (gastroesophageal reflux disease) K21.9 Hemorrhoids K64.9 Hypothyroidism E03.9 robotic gastrojejunostomy 03/06/18 DR. KEMAR IGNACIO HTN (hypertension) I10 Allergies oxycodone HCl [From Percocet] Adverse Reaction (Severe, Verified 05/08/18 16:49) nightmares nightmares Tetracyclines Adverse Reaction (Severe, Verified 05/08/18 15:54) Upset Stomach Home Medications: Ambulatory Orders Medication Instructions Recorded Pantoprazole Sodium [Protonix] 40 mg PO DAILY 09/19/16 Docusate Sodium [Colace] 100 mg PO BID 03/16/18 Lidocaine/Prilocaine 1 applicatio TP DAILY PRN PRN 30 03/26/18 [Lidocaine-Prilocaine Cream] Days #1 tube Dexamethasone [Decadron] 8 mg PO DAILY@0800 PRN #30 tablet 04/03/18 Olanzapine [Zyprexa] 10 mg PO DAILY #30 tablet 04/03/18 proCHLORPERazine suppository 25 mg RECTAL BID PRN PRN #14 04/03/18 [Compazine suppository] suppos. Guaifen/Dextromethorphan/PE 10 ml PO PRN PRN 05/08/18 [Tussin Cf Cough-Cold Liquid] Insulin Glargine,Hum.rec.anlog 15 unit SQ DAILY 05/08/18 [Basaglar Kwikpen U-100] Levothyroxine [Synthroid] 125 mcg PO DAILY 05/08/18 Mirtazapine [Remeron] 15 mg PO QHS 05/08/18 Ondansetron HCl 8 mg PO PRN PRN 05/08/18 Spironolactone 50 mg PO BID 05/08/18 fentaNYL patch [Duragesic Patch] 12 mcg TRANSDERM. Q3D 05/08/18 Surgical History: Surgical History (Last Reviewed 05/09/18 @ 01:03 by Alfred Bailey MD) History of colonoscopy Onset Date: ~2014 Z98 History of esophagogastroduodenoscopy (EGD) Onset Date: ~2014 Z98.890 History of right inguinal hernia repair Z98.890, Z87.19 History of rotator cuff surgery Z98.890 History of thyroidectomy Z98.890 Lives: Spouse/ Significant Other Smoking Status: Former smoker Alcohol: None - *Family History Maternal Family History: Family History (Last Reviewed 05/09/18 @ 01:04 by Alfred Bailey MD) Father Colon cancer Heart disease Hypertension Myocardial infarction Review of Systems Constitutional: Reports: Chills. Denies: Weight Change HEENT: Reports: - - Sore mouth and dryness of mouth. Denies: Head Aches, Sinus Congestion, Sinus Drainage Cardiovascular: Denies: Chest Pain, Palpitations Respiratory: Reports: Shortness of Breath. Denies: Cough, Sputum production Gastrointestinal: Reports: - - Abdominal fullness. Denies: Abdominal Pain, Nausea, Vomiting Genitourinary: Denies: Dysuria Musculoskeletal: Denies: Joint Pain, Joint Tenderness Skin: Denies: Rash, Wounds Neurological: Denies: Numbness, Tingling, Focal weakness Psychiatric: Denies: Anxiety, Depression, Homicidal Ideations, Suicidal Ideations Hematologic/ Lymphatic: Denies: Easy Bruising, Easy Bleeding VTE Information - Inpt Only VTE Present on Admission: Yes VTE Mechan Device Prophylaxis: None VTE Pharm Prophylaxis ordered?: No Reason prophylaxis not ordered:: Treatment Not Indicated - Patient was started on therapeutic treatment for DVT and PE Patient Problems: Active and Suspected Problems (Last Reviewed 05/09/18 @ 01:03 by Alfred Bailey MD) Educational circumstance (Acute) SOB (shortness of breath) (Acute) Ascites, malignant (Acute) Septic shock (Acute) DVT (deep venous thrombosis) (Acute) Pulmonary embolism (Acute) Diabetes (Acute) - Physical Exam General: Alert, Oriented x3, Cooperative HEENT: Atraumatic, PERRLA, EOMI, Normocephalic Neck: Supple, Trachea Midline Lungs: Clear to auscultation, Normal air movement, Rales - R lower base Cardiovascular: Regular rate, No murmurs Abdomen: Bowel Sounds Present, Soft, Non Tender, Obese Extremities: Capillary Refill Less than 3 Seconds, Edema - bilateral legs Skin: No rashes, No breakdown Musculoskeletal: No Tenderness to Palpation of Joints or Extremities Neurological: Neuro grossly intact Psych/Mental Status: Normal Affect, Appropriate Vital Signs Temp Pulse Resp BP Pulse Ox 100.3 F H 116 H 22 H 116/82 H 98 05/08/18 19:00 05/08/18 19:09 05/08/18 19:09 05/08/18 19:09 05/08/18 19:09 Oxygen Flow Rate (L/min) 2 Oxygen Delivery Method Nasal Cannula Weight: 80.2 kg Body Mass Index (BMI) 28.5 Laboratory Tests Past 24 Hrs 05/08/18 05/08/18 05/08/18 16:10 16:10 16:10 WBC SENIOR PROPERTY ACCOUNTANT Corrected WBC 1.1 L* RBC 3.08 L Hgb 9.4 L Hct 29.2 L MCV 94.8 H MCH 30.5 MCHC 32.2 RDW 19.2 H RDW Differential 65.5 H Plt Count 93 L MPV 11.9 Neut % (Auto) Not Reportable Absolute Neuts (auto) 0.8 L Absolute Lymphs (auto) 0.14 L Total Counted 100 Neutrophils % (Manual) 45 L Band Neutrophils % 19 H Lymphocytes % (Manual) 13 L Monocytes % (Manual) 21 H Metamyelocytes % 2 H Nucleated RBC % 23.1 H Nucleated RBCs/100 WBC 9 H Diff Path Review May foll Platelet Estimate MOD DEC RBC Morphology N CHROM Anisocytosis 2+ Tear Drop Cells 1+ Absolute Retic 0.26 PT 13.2 INR 1.0 APTT 33.7 D-Dimer Quant (PE/DVT) 0.30 Sodium 135 L Potassium 3.7 Chloride 102 Carbon Dioxide 13.0 L Anion Gap 20 H BUN 26 H Creatinine 1.12 Estim Creat Clear Calc 59.34 Est GFR (MDRD) Af Amer 85 Est GFR (MDRD) Non-Af 70 BUN/Creatinine Ratio 23.2 H Glucose 236 H Lactic Acid Calcium 7.6 L Total Bilirubin 0.50 AST 18 ALT 27 Alkaline Phosphatase 76 Troponin I < 0.015 Total Protein 5.1 L Albumin 1.8 L Globulin 3.3 Albumin/Globulin Ratio 0.5 L Urine Color Urine Clarity Urine pH Ur Specific [place] Urine Protein Urine Glucose (UA) Urine Ketones Urine Occult Blood Urine Nitrite Urine Bilirubin Urine Urobilinogen Ur Leukocyte Esterase Urine RBC Urine WBC Ur Squamous Epith Cells Urine Bacteria Hyaline Casts Coarse Granular Casts Urine Mucus 05/08/18 05/08/18 16:10 18:40 WBC Corrected WBC RBC Hgb Hct MCV MCH MCHC RDW RDW Differential Plt Count MPV Neut % (Auto) Absolute Neuts (auto) Absolute Lymphs (auto) Total Counted Neutrophils % (Manual) Band Neutrophils % Lymphocytes % (Manual) Monocytes % (Manual) Metamyelocytes % Nucleated RBC % Nucleated RBCs/100 WBC Diff Path Review Platelet Estimate RBC Morphology Anisocytosis Tear Drop Cells Absolute Retic PT INR APTT D-Dimer Quant (PE/DVT) Sodium Potassium Chloride Carbon Dioxide Anion Gap BUN Creatinine Estim Creat Clear Calc Est GFR (MDRD) Af Amer Est GFR (MDRD) Non-Af BUN/Creatinine Ratio Glucose Lactic Acid 8.8 H* Calcium Total Bilirubin AST ALT Alkaline Phosphatase Troponin I Total Protein Albumin Globulin Albumin/Globulin Ratio Urine Color Yellow Urine Clarity Clear Urine pH 5.0 Ur Specific [place] 1.020 Urine Protein 30 H Urine Glucose (UA) 1000 H Urine Ketones 50 H Urine Occult Blood 25 H Urine Nitrite Negative Urine Bilirubin Negative Urine Urobilinogen Normal Ur Leukocyte Esterase Negative Urine RBC 0 SEEN Urine WBC 0 SEEN Ur Squamous Epith Cells 0 SEEN Urine Bacteria 0 SEEN Hyaline Casts 0-5 SEEN Coarse Granular Casts 0-5 SEEN Urine Mucus RARE Assessment/Plan All Active Problems (Last Reviewed 05/09/18 @ 01:03 by Alfrde Bailey MD) Educational circumstance (Acute) SOB (shortness of breath) (Acute) Ascites, malignant (Acute) Septic shock (Acute) DVT (deep venous thrombosis) (Acute) Pulmonary embolism (Acute) Diabetes (Acute) Abdominal distension (gaseous) (Acute) Personal history of colonic polyps (Acute) The patient is a 67 year old M with a significant history of hypertension; hypothyroidism; pancreatic cancer with metastases; recently diagnosed diabetes mellitus who presented to the emergency department with progressively worsening shortness of breath and weakness and found to have left leg DVT; bilateral PE and meets SIRS criteria with elevated lactic acid. Bilateral PE Started on heparin drip at emergency department. We will continue heparin drip. Of note patient have a low platelet of 93. Discussed case with Britany Chan, store protection specialist SENIOR PROPERTY ACCOUNTANT for [facility] at [facility] Troponin was negative We will get a BNP and echocardiogram. DVT Management as above Probable septic shock Patient meets SIRS criteria with tachycardia. Emergency department doctor reported a heart rate of 140. Documented heart rate of 112-125. Respiratory rate highest of 25 With a T-max of 100.3 Leukopenia with white blood cell count of 1.1; and bandemia of 19% which could also be from chemotherapy too Lactic acid 8.8 Blood cultures x2 and urine cultures were obtained. Blood culture was obtained from peripherally and from his port. Patient was started on broad-spectrum antibiotics at the emergency department; will continue vancomycin and Zosyn Trend lactic acid Tylenol as needed Hold home Aldactone. Engagement Lead consult Oncology consult. The patient is a DNR CC. However he was uncertain whether he would receive pressors if he becomes severely hypotensive. So a decision was made to send patient to the intensive care unit for close monitoring and vasopressors if needed. Patient and family will make further decision on pressors. Other different diagnosis include viral illness. Rapid influenza screen ordered Neutropenic fever Management as in probable septic shock above. Oncology consulted. Anion gap metabolic acidosis Patient with bicarbonate of 13 and an anion gap of 20. Likely secondary to lactic acidosis Anion Gap = 20 Delta Gap = 20-12 = 8 Bicarbonate + Delta Gap = 13 + 8 = 21; New bicarbonate = 21; likely no other acid base imbalance; or some additional non anion gap acidosis Metastatic pancreatic cancer Continue home narcotic and medication; antiemetics and bowel protocol. Uncontrolled type 1 diabetes Diabetes likely secondary to pancreatic cancer On home Basaglar 15 units daily; continue We will add correction scale at this time. Elevated blood glucose in the urine likely secondary to diabetes. DVT prophylaxis Patient will be started on heparin drip for DVT and PE. Code Visit Inpatient E&M: 41709 Init Hosp L3
[2018-05-08 21:11] LABS: Reflex Lactate? Y
[2018-05-08] MEDS: HEPARIN/D5w 25,000 UNITS 25,000 UNITS/250 ML IV.SOLN. 11 UNITS IV (21:45)
[2018-05-08] MEDS: Heparin Injection (Vial) 5,000 UNIT/ML VIAL 5000 UNIT IV (21:45)
--- NOTE | 2018-05-08 22:10 | ECHOCS_ITS ---
Reason For Study: Emboli Procedure This was a 2D Doppler, Color Flow transthoracic echocardiogram. The study was technically difficult. Contrast injection was performed. Exam performed portable in ICU/CCU. Left Ventricle Normal LV size. Mild segmental systolic dysfunction (see wall motion). The estimated ejection fraction is 50 %. No evidence for diastolic dysfunction. Mid-Anterior : Hypokinetic. Mid-Lateral : Hypokinetic. Mid-Posterior: Hypokinetic. Mid-Inferior: Hypokinetic. Mid-inferoseptal : Hypokinetic. Mid-anteroseptal : Hypokinetic. Nunda : Hypokinetic. Right Ventricle Normal RV size. Normal systolic function. Atria Normal left atrium. Normal right atrium. No doppler evidence for ASD. Bubble contrast study negative for right to left interatrial shunt. Mitral Valve There is no mitral annular calcification. Normal mitral valve. Trivial mitral valve insufficiency. Tricuspid Valve Normal tricuspid valve. Trivial tricuspid valve insufficiency. Right ventricular systolic pressure estimated to be 24 mmHg. Aortic Valve The aortic valve is not well visualized. Pulmonic Valve The pulmonic valve is not well visualized. Great Vessels The aortic root is not well visualized. Pericardium/Pleural Trivial pericardial effusion. There are no echocardiographic indications of cardiac tamponade. Medication Performed a rapid injection of agitated mix of 9 cc saline and 1cc air to assess for atrial septal defect. Definity0.3ml given slow IV push to enhance endocardial definition. MMode/2D Measurements & Calculations LVIDd: 4.4 cm IVSd: 0.89 cm LA dimension: 3.0 cm LVIDs: 2.9 cm LVPWd: 0.96 cm RVDd: 3.8 cm FS: 34.9 % LAV(MOD-bp): 34.2 ml LVAd ap4: 26.7 cm2 SV(MOD-sp4): 47.4 ml LAV(MOD-bp) Indexed: 18.1 ml/m2 EDV(MOD-sp4): 81.0 ml LAV(MOD-sp2): 55.2 ml EDV(sp4-el): 84.3 ml LAV(MOD-sp4): 20.0 ml LVAs ap4: 15.8 cm2 ESV(MOD-sp4): 33.7 ml ESV(sp4-el): 33.4 ml EF(MOD-sp4): 58.5 % EF(sp4-el): 60.4 % SV(sp4-el): 50.9 ml LA A4 area: 10.4 cm2 RA A4 area: 10.3 cm2 Doppler Measurements & Calculations MV E max jay: 60.9 cm/sec Lat Peak E' Jay: 10.5 cm/sec Med Peak E' Jay: 6.7 cm/sec MV A max jay: 92.7 cm/sec E/E' lat: 5.8 E/E' med: 9.1 MV E/A: 0.66 Ao V2 max: 151.5 cm/sec LV V1 max: 120.4 cm/sec PA V2 max: 67.3 cm/sec Ao max P.2 mmHg LV V1 max P.8 mmHg Ao V2 mean: 112.3 cm/sec Ao mean P.4 mmHg Ao V2 VTI: 19.1 cm TR max jay: 227.0 cm/sec TR max P.6 mmHg Interpretation Summary The study was technically difficult. Contrast injection was performed. Mild segmental systolic dysfunction (see wall motion). The estimated ejection fraction is 50 %. Trivial mitral valve insufficiency. Trivial tricuspid valve insufficiency. Trivial pericardial effusion. There are no echocardiographic indications of cardiac tamponade. Right ventricular systolic pressure estimated to be 24 mmHg. No evidence for diastolic dysfunction. Bubble contrast study negative for right to left interatrial shunt. Ordering Physician: Alfred Bailey Referring Physician: Dashawn Perez Performed By: Kalani Almaraz RDCS, RVT
[2018-05-08] MEDS: Docusate Sodium 100 MG Capsule PO (22:36)
[2018-05-08 22:41] LABS: Bedside Glucose 153 mg/dL (70-110)
[2018-05-08] MEDS: Insulin Lispro 100 UNIT/ML INSULN.PEN SQ (22:42)
[2018-05-08 23:01] LABS: Phosphorus 1.7 mg/dL (2.5-4.9)
[2018-05-08 23:13] LABS: Lactic Acid 3.8 mmol/L (0.4-2.0)
[2018-05-08] MEDS: 0.9% Normal Saline 1,000 ML 75 ML IV (23:23)
[2018-05-08] MEDS: Mirtazapine 15 MG Tablet PO (23:27)
[2018-05-09] VITALS (30 sets, daily range): BP systolic 83–120; BP diastolic 55–84; PULSE 98–138; RESP 18–28; TEMP 37.2–38.6; O2SAT 91–100
--- NOTE | 2018-05-09 01:31 | PCM.RX.CS ---
Consult Pharmacy has been consulted to manage selected antiobiotic: Vancomycin Type of Consult: New start Suspected Infection: Sepsis Prior Doses of Antibiotics Received/Current Regimen: Medications Discontinued Medications Vancomycin HCl 1,250 mg/ (Dextrose) 275 mls @ 250 mls/hr IV X1 ONE Stop: 05/08/18 22:17 Last Admin: 05/08/18 23:27 Dose: 250 mls/hr Vancomycin 1000 mg IV q12h to be started 05/09/18 1200 Labs: Sodium 135 mmol/L (136-145) L 05/08/18 16:10 Potassium 3.7 mmol/L (3.5-5.1) 05/08/18 16:10 Chloride 102 mmol/L (98-107) 05/08/18 16:10 Carbon Dioxide 13.0 mmol/L (21.0-32.0) L 05/08/18 16:10 Anion Gap 20 (5-15) H 05/08/18 16:10 BUN 26 mg/dL (7-18) H 05/08/18 16:10 Creatinine 1.12 mg/dL (0.70-1.30) 05/08/18 16:10 Est GFR (MDRD) Af Amer 85 mL/min (>60) 05/08/18 16:10 Est GFR (MDRD) Non-Af 70 mL/min (>60) 05/08/18 16:10 BUN/Creatinine Ratio 23.2 RATIO (10-20) H 05/08/18 16:10 Glucose 236 mg/dL (74-106) H 05/08/18 16:10 Weight used for dosin.5 kg Estimated Creatinine Clearance: 59.34 Goal Trough: 15-20 mcg/mL Pharmacy Plan for Drug Dosing: Pharmacy Service will continue to monitor and adjust dosing as required. Follow-Up Labs: Trough Vancomycin Labs to be done on [date and time ordered]: 05/10/18 1130 before the 4th dose
[2018-05-09 01:55] LABS: BNP,B-Type NATRIURETIC PEPTIDE 357.8 pg/mL (0-100)
[2018-05-09] MEDS: Insulin Lispro 100 UNIT/ML INSULN.PEN SQ (02:22)
[2018-05-09 02:30] LABS: Bedside Glucose 173 mg/dL (70-110)
--- NOTE | 2018-05-09 02:45 | NURSING ---
This RN in room to clean pt and change linens. It was noted that pt had weakness on his left side, and facial drooping on the left side. Stroke alert called by Dennis Springer RN at 0245. See stroke documentation for additional details.
--- NOTE | 2018-05-09 02:51 | CT_ITS ---
STUDY: CT BRAIN WITHOUT CONTRAST REASON FOR EXAM: Male, 67 years old. Possible stroke RADIATION DOSAGE (If Supplied By Facility): CTDIvol = ( ) mGy, DLP = ( ) mGycm TECHNIQUE: Transaxial CT imaging of the brain was performed without administration of intravenous contrast material. Individualized dose optimization techniques were used for this CT. COMPARISON: None. FINDINGS: Normal soft tissue structures. Normal calvarium. There is mild cerebral atrophy with widening of the extra-axial spaces and ventricular dilatation. There are areas of decreased attenuation within the white matter tracts of the supratentorial brain, consistent with microvascular disease changes. Normal basal ganglia and thalami. Normal brainstem. There is no intracranial hemorrhage. There are no findings of an acute ischemic infarction. There are old lacunar infarct defects in the basal ganglia. Normal visualized paranasal sinuses. CT/Brain/Head without Contrast IMPRESSION: There is NO evidence of acute ischemic event or hemorrhage. There are chronic involutional and ischemic changes as described. N.B. : The above information has been verbally conveyed by Zafar Freire MD to Dennis Ricks RN, on 05/09/2018 03:32:11 (ET). Electronically Signed: Zafar Freire MD at 3:33 EST , Service support ,
--- NOTE | 2018-05-09 02:51 | CT_ITS ---
STUDY: CTA OF THE BRAIN REASON FOR EXAM: Male, 67 years old. Weakness RADIATION DOSAGE (If Supplied By Facility): CTDIvol = ( 13.93 ) mGy, DLP = ( 785.20 ) mGycm TECHNIQUE: CT angiography was performed with a multi-detector CT scanner. Data acquisition was obtained from the skull base through the vertex following intravenous administration of Isovue 370 100ML IV. MIP images were reconstructed from the axial data set. Post-processing of the angiographic images was performed, with multiplanar reformation and 3D reconstruction. Individualized dose optimization techniques were used for this CT. COMPARISON: None. FINDINGS: Normal bilateral petrous carotid arteries. Normal right cavernous carotid artery with a normal supraclinoid bifurcation. Normal left cavernous carotid artery with a normal supraclinoid bifurcation. Normal right A1 segments of the anterior cerebral artery. Normal left A1 segments of the anterior cerebral artery. Normal intact anterior communicating artery (ACOM). Normal bilateral A2 segments of the anterior cerebral arteries. Normal right M1 and M2 segments of the middle cerebral arteries, with a normal M1 bifurcation. Normal left M1 and M2 segments of the middle cerebral arteries, with a normal M1 bifurcation. Normal right posterior communicating artery (PCOM). Normal left posterior communicating artery (PCOM). Normal bilateral vertebral arteries. Normal basilar artery with a normal basilar bifurcation. The visualized bilateral superior cerebellar (SCA) arteries are normal. Normal bilateral P1, P2 and visualized P3 segments of the posterior cerebral arteries. There is no demonstrated aneurysm of the [place]. There is no demonstrated abnormality of the visualized brain. IMPRESSION: Normal [place] without a demonstrated aneurysm or hemodynamically significant stenosis. Electronically Signed: Zafar Freire MD at 3:43 EST , Service support , STUDY: CTA NECK WITH CONTRAST REASON FOR EXAM: Male, 67 years old. Weakness RADIATION DOSAGE (If Supplied By Facility): CTDIvol = ( ) mGy, DLP = ( ) mGycm TECHNIQUE: CT angiography with multi-detector data acquisition was performed from the aortic arch to the skull base following intravenous administration of . MIP images were reconstructed from the axial data set. Post-processing of the angiographic images was performed, with multiplanar reformation and 3D reconstruction. Individualized dose optimization techniques were used for this CT. COMPARISON: None. FINDINGS: AORTIC ARCH: Normal visualized aortic arch. Normal origins of the brachiocephalic, left common carotid, and left subclavian arteries. RIGHT CAROTID ARTERIES: Normal right common carotid artery (CCA). Normal right common carotid bulb. Normal origin of the right internal carotid (ICA) artery without a hemodynamically significant stenosis. Normal visualized cervical portion of the right internal carotid artery. Normal origin of the right external carotid artery (ECA). LEFT CAROTID ARTERIES: Normal left common carotid artery (CCA). Normal left common carotid bulb. Normal origin of the left internal carotid (ICA) artery without a hemodynamically significant stenosis. Normal visualized cervical portion of the left internal carotid artery. Normal origin of the left external carotid artery (ECA). VERTEBRAL ARTERIES: Normal bilateral vertebral arteries. CT/CTA Head W/WO Contrast IMPRESSION: Normal bilateral cervical carotid and vertebral arteries. Electronically Signed: Zafar Freire MD at 4:07 EST , Service support ,
--- NOTE | 2018-05-09 02:51 | CT_ITS ---
STUDY: CTA OF THE BRAIN REASON FOR EXAM: Male, 67 years old. Weakness RADIATION DOSAGE (If Supplied By Facility): CTDIvol = ( 13.93 ) mGy, DLP = ( 785.20 ) mGycm TECHNIQUE: CT angiography was performed with a multi-detector CT scanner. Data acquisition was obtained from the skull base through the vertex following intravenous administration of Isovue 370 100ML IV. MIP images were reconstructed from the axial data set. Post-processing of the angiographic images was performed, with multiplanar reformation and 3D reconstruction. Individualized dose optimization techniques were used for this CT. COMPARISON: None. FINDINGS: Normal bilateral petrous carotid arteries. Normal right cavernous carotid artery with a normal supraclinoid bifurcation. Normal left cavernous carotid artery with a normal supraclinoid bifurcation. Normal right A1 segments of the anterior cerebral artery. Normal left A1 segments of the anterior cerebral artery. Normal intact anterior communicating artery (ACOM). Normal bilateral A2 segments of the anterior cerebral arteries. Normal right M1 and M2 segments of the middle cerebral arteries, with a normal M1 bifurcation. Normal left M1 and M2 segments of the middle cerebral arteries, with a normal M1 bifurcation. Normal right posterior communicating artery (PCOM). Normal left posterior communicating artery (PCOM). Normal bilateral vertebral arteries. Normal basilar artery with a normal basilar bifurcation. The visualized bilateral superior cerebellar (SCA) arteries are normal. Normal bilateral P1, P2 and visualized P3 segments of the posterior cerebral arteries. There is no demonstrated aneurysm of the [place] of [place]. There is no demonstrated abnormality of the visualized brain. IMPRESSION: Normal [place] of [place] without a demonstrated aneurysm or hemodynamically significant stenosis. Electronically Signed: Zafar Freire MD at 3:43 EST , Service support , STUDY: CTA NECK WITH CONTRAST REASON FOR EXAM: Male, 67 years old. Weakness RADIATION DOSAGE (If Supplied By Facility): CTDIvol = ( ) mGy, DLP = ( ) mGycm TECHNIQUE: CT angiography with multi-detector data acquisition was performed from the aortic arch to the skull base following intravenous administration of . MIP images were reconstructed from the axial data set. Post-processing of the angiographic images was performed, with multiplanar reformation and 3D reconstruction. Individualized dose optimization techniques were used for this CT. COMPARISON: None. FINDINGS: AORTIC ARCH: Normal visualized aortic arch. Normal origins of the brachiocephalic, left common carotid, and left subclavian arteries. RIGHT CAROTID ARTERIES: Normal right common carotid artery (CCA). Normal right common carotid bulb. Normal origin of the right internal carotid (ICA) artery without a hemodynamically significant stenosis. Normal visualized cervical portion of the right internal carotid artery. Normal origin of the right external carotid artery (ECA). LEFT CAROTID ARTERIES: Normal left common carotid artery (CCA). Normal left common carotid bulb. Normal origin of the left internal carotid (ICA) artery without a hemodynamically significant stenosis. Normal visualized cervical portion of the left internal carotid artery. Normal origin of the left external carotid artery (ECA). VERTEBRAL ARTERIES: Normal bilateral vertebral arteries. CT/CTA Neck W/WO Contrast IMPRESSION: Normal bilateral cervical carotid and vertebral arteries. Electronically Signed: Zafar Freire MD at 4:07 EST , Service support ,
--- NOTE | 2018-05-09 02:59 | PCM.PN.BLA ---
Progress Note Responded to stroke alert. Nursing team reported that Last found normal was 46 minutes earlier NIH of 9 . Patient could not answer neither level of consciousness questions correctly. He had a partial gaze. He had no effort against gravity on his left leg. His right leg drifted by the end of 5 seconds. He had mild to moderate dysrhythmia. Blood sugar unremarkable. Heparin drip ongoing was stopped. CTA head without contrast ordered CT brain and head without contrast ordered CTA neck w/wo contrast ordered ordered. Lukas Worthington neurologist black top spreader machine operator. Called Dr. Villa and discussed the case with him. Per Dr. Villa patient is not a candidate of TPA since he has low platelets of 93 and he was on heparin drip when his strokelike symptoms began. If no sign of bleeding Dr. Villa recommended an MRI. Per Dr Villa Consideration can be made for Lovenox if there is no bleed. If there is bleeding consideration will be made for patient to be transferred out. Last blood pressure was 100/71. We will give normal saline 1 L bolus and continue patient on maintenance infusion. Stop all heparin products at this time. Radiology called nursing team stating that head imaging did not show any acute pathology. Independent review of head imaging did not show any acute pathology. We will get MRI of brain. We will keep patient n.p.o. and stop long-acting insulin. Accu-Chek q. before meals at bedtime every 4 hours with coverage while n.p.o.
--- NOTE | 2018-05-09 03:02 | PN_ITS ---
Progress Note Responded to stroke alert. Nursing team reported that Last found normal was 46 minutes earlier NIH of 9 . Patient could not answer neither level of consciousness questions correctly. He had a partial gaze. He had no effort against gravity on his left leg. His right leg drifted by the end of 5 seconds. He had mild to moderate dysrhythmia. Blood sugar unremarkable. Heparin drip ongoing was stopped. CTA head without contrast ordered CT brain and head without contrast ordered CTA neck w/wo contrast ordered ordered. Lukas Worthington neurologist commercial fishing vessel operator. Called Dr. Villa and discussed the case with him. Per Dr. Villa patient is not a candidate of TPA since he has low platelets of 93 and he was on heparin drip when his strokelike symptoms began. If no sign of bleeding Dr. Villa recommended an MRI. Per Dr Villa Consideration can be made for Lovenox if there is no bleed. If there is bleeding consideration will be made for patient to be transferred out. Last blood pressure was 100/71. We will give normal saline 1 L bolus and continue patient on maintenance infusion. Stop all heparin products at this time. Radiology called nursing team stating that head imaging did not show any acute pathology. Independent review of head imaging did not show any acute pathology. We will get MRI of brain. We will keep patient n.p.o. and stop long-acting insulin. Accu-Chek q. before meals at bedtime every 4 hours with coverage while n.p.o.
[2018-05-09] MEDS: 0.9% NaCl VAD Flush 10 ML IV (03:31)
[2018-05-09] MEDS: 0.9% NaCl Peripheral Flush Adult/Peds IV (03:32)
[2018-05-09 03:42] LABS: Bedside Glucose 166 mg/dL (70-110)
--- NOTE | 2018-05-09 03:43 | MRI_ITS ---
STUDY: MRI BRAIN WITHOUT CONTRAST REASON FOR EXAM: Male, 67 years old. CVA, bilateral weakness and TECHNIQUE: Standardized multiplanar fat and water weighted pulse sequences were obtained. COMPARISON: None. FINDINGS: Normal size of the ventricles and extra-axial spaces for the patient's age. There are multiple white matter hyperintensities, distributed throughout the deep white matter tracts of the cerebral hemispheres, consistent with moderate chronic white matter ischemic changes. Punctate bilateral centrum semiovale ovale DWI signal is present with the right measuring 3 mm and the left measuring 4 mm as seen on series 4 image 21 consistent with punctate acute infarct. There are prominent perivascular spaces (PVS) involving the basal ganglia. Normal thalami. There is no extra-axial fluid accumulation. Normal flow voids within the major intracranial circulation suggesting patency by spin echo criteria. Normal sella turcica, pituitary gland, infundibular stalk, optic chiasm and hypothalamus. Normal tectal plate and pineal gland. Normal midbrain, marilu and medulla. Normal cerebellum. Normal basal cisterns. Normal bilateral temporal bones. Normal bilateral internal auditory canals. No demonstrated orbital abnormality, within the constraints of a routine brain study. Normal visualized paranasal sinuses. Normal calvarium and skull base. Normal visualized soft tissue structures. Normal visualized upper cervical spine. MRI/Brain without Contrast IMPRESSION: 1. 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 Senescent changes as above. Electronically Signed: Tone Amaya DO at 10:50 EST , Service support ,
[2018-05-09 03:55] LABS: Partial Thromboplast Time 43.5 Seconds (24.1-36.2)
[2018-05-09 03:58] LABS: Anion Gap 15 (5-15); BUN 22 mg/dL (7-18); BUN/Creat Ratio 24.5 RATIO (10-20); Calcium,Total 6.6 mg/dL (8.5-10.1); Chloride 105 mmol/L (98-107); EST Glomerular Filtration Rate 90 mL/min (>60); Est Glom Filt Rate - Afr Amer 109 mL/min (>60); Estimated Creatinine Clearance 73.84 ml/min; Glucose 175 mg/dL (74-106); Sodium Level 136 mmol/L (136-145)
[2018-05-09 04:00] LABS: Absolute Neutrophil Count 0.3 X10^3/uL (2.0-7.7); Basophil# 0.01 X10^3/uL; Basophil% 1.2 % (0-1); Hematocrit 25.2 % (40-54); Hemoglobin 8.2 g/dl (13.0-16.5); Lymphocyte % 23.5 % (19-41); Mean Corp Hgb Conc 32.5 g/gl (32-36); Mean Corpuscular Hgb 30.4 pg (27.0-32.0); Mean Corpuscular Volume 93.3 fL (80-94); Mean Platelet Vol. 11.2 fl (6.2-12.0); Monocyte# 0.32 X10^3/uL; Monocyte% 37.6 % (0-10); Neutrophil # 0.32 X10^3/uL (2.7-7.7); Neutrophil % 37.7 % (47-70); RBC Distribution Width CV 19.2 % (11.6-14.6); RBC Distribution Width SD 65.1 fl (35.1-43.9)
[2018-05-09] MEDS: 0.9% Normal Saline 1,000 ML 999 ML IV (04:00)
[2018-05-09 04:04] LABS: Differential Indicated SCAN CRITERIA MET; POSITIVE COUNT YES; POSITIVE DIFFERENTIAL YES; POSITIVE MORPHOLOGY YES; Scan Indicated on CBC? Y/N YES- FLAGS NOTED
[2018-05-09 04:05] LABS: Platelet Count 35 K/mm3 (150-450); White Blood Count 0.9 K/mm3 (4.4-11.0)
[2018-05-09 04:09] LABS: Cholesterol 63 mg/dL (200); High Density Lipoprotein 22 mg/dL; Triglycerides 93 mg/dL; Very Low Density Lipoprotein 19 mg/dL (5-40)
[2018-05-09 04:30] LABS: Anisocytosis 1+; Differential Comment SEE COMMENTS; Platelet Estimate MKD DEC (ADEQ)
[2018-05-09 04:31] LABS: Hypochromasia RARE; Macrocytosis 1+; Tear Drop Cell RARE
[2018-05-09] MEDS: Acetaminophen 650 MG Suppository RECTAL (04:36)
[2018-05-09] MEDS: 0.9% Normal Saline 1,000 ML 100 ML IV ×2 (05:19→18:51)
[2018-05-09] MEDS: 0.9% NaCl IVPB Med Flush (250 mL) 15 ML IV (06:32)
[2018-05-09 06:40] LABS: Bedside Glucose 142 mg/dL (70-110)
[2018-05-09] MEDS: 0.9% Normal Saline 1,000 ML 500 ML IV (08:30)
--- NOTE | 2018-05-09 08:51 | PCM.CON.CC ---
Problem List (1) Pancreatic cancer Status: Chronic Qualifiers: Pancreatic malignancy location: overlapping sites of pancreas Qualified Code(s): C25.8 - Malignant neoplasm of overlapping sites of pancreas (2) Ascites, malignant Status: Acute (3) DVT (deep venous thrombosis) Status: Acute (4) Pulmonary embolism Status: Acute (5) Diabetes Status: Acute (6) Abdominal distension (gaseous) Status: Acute Reason for Consult Date of Consultation: 05/09/18 Reason for Consultation: Septic shock History of Present Illness: The patient is a 67 year old M, with past medical history listed below, who presented to [facility] on 05/08/2018 secondary to shortness of breath and fatigue. Patient was being treated with chemotherapy for pancreatic cancer last chemo was 3 days prior to presentation. Patient had reported increased shortness of breath, but no cough or nasal congestion. Patient had noted some left lower extremity swelling. Family had reported some diarrhea 3-5 days ago and had been taking Imodium to help with symptomatology. Patient states he has not had a bowel movement in the last 2 days. Patient reports he has been passing gas, but has much more burping than normal. In the emergency room, patient was noted to be tachycardic at 148 bpm. Patient was also noted to have dry mucous membranes, but saturating 95% on room air. Laboratory workup showed neutropenia with elevated ketones. Ultrasound of his left lower extremity showed a DVT, CTA of the chest showed bilateral PE, right greater than left and patient was admitted to the intensive care unit for further monitoring. Patient did receive 2 L nasal saline, Zosyn and vancomycin. While in the intensive care unit, patient was noted to have left-sided weakness. NIH was noted to be 9. Patient was reportedly seen by the hospitalist and neurology was consulted. No TPA was given. Patient's repeat NIH has been as low as 7, but no clot has been noted on any scans. Did discuss with the patient about his CODE STATUS. Patient states that he is a DNR Comfort Care arrest without intubation. Family at the bedside to witness this conversation and agree with his decision. Patient denies any recent dysuria, but does state that he has had decreased urination. Patient denies any fevers at home, but has had fever since he has been here. Patient denies any chest pain, but does have abdominal pain at baseline. Review of systems otherwise negative x10 systems. Past Medical History Past Medical History (Chronic Problems): Chronic Problems (Last Reviewed 05/09/18 @ 01:03 by Alfred Bailey MD) Pancreatic cancer (Chronic) Abdominal pain (Chronic) Medical History: Medical History (Last Reviewed 05/09/18 @ 01:03 by Alfred Bailey MD) Abdominal distension (gaseous) (Acute) R14.0 Personal history of colonic polyps (Acute) Z86.010 Nausea and vomiting (Inactive) R11.2 Bloating R14.0 Diabetes E11.9 GERD (gastroesophageal reflux disease) K21.9 Hemorrhoids K64.9 Hypothyroidism E03.9 robotic gastrojejunostomy 03/06/18 DR. KEMAR IGNACIO HTN (hypertension) I10 Allergies oxycodone HCl [From Percocet] Adverse Reaction (Severe, Verified 05/08/18 16:49) nightmares nightmares Tetracyclines Adverse Reaction (Severe, Verified 05/08/18 15:54) Upset Stomach Home Medications: Ambulatory Orders Medication Instructions Recorded Pantoprazole Sodium [Protonix] 40 mg PO DAILY 09/19/16 Docusate Sodium [Colace] 100 mg PO BID 03/16/18 Lidocaine/Prilocaine 1 applicatio TP DAILY PRN PRN 30 03/26/18 [Lidocaine-Prilocaine Cream] Days #1 tube Dexamethasone [Decadron] 8 mg PO DAILY@0800 PRN #30 tablet 04/03/18 Olanzapine [Zyprexa] 10 mg PO DAILY #30 tablet 04/03/18 proCHLORPERazine suppository 25 mg RECTAL BID PRN PRN #14 04/03/18 [Compazine suppository] suppos. Guaifen/Dextromethorphan/PE 10 ml PO PRN PRN 05/08/18 [Tussin Cf Cough-Cold Liquid] Insulin Glargine,Hum.rec.anlog 15 unit SQ DAILY 05/08/18 [Basaglar Kwikpen U-100] Levothyroxine [Synthroid] 125 mcg PO DAILY 05/08/18 Mirtazapine [Remeron] 15 mg PO QHS 05/08/18 Ondansetron HCl 8 mg PO PRN PRN 05/08/18 Spironolactone 50 mg PO BID 05/08/18 fentaNYL patch [Duragesic Patch] 12 mcg TRANSDERM. Q3D 05/08/18 Surgical History: Surgical History (Last Reviewed 05/09/18 @ 01:03 by Alfred Bailey MD) History of colonoscopy Onset Date: ~2014 Z98. History of esophagogastroduodenoscopy (EGD) Onset Date: ~2014 Z98.890 History of right inguinal hernia repair Z98.890, Z87.19 History of rotator cuff surgery Z. History of thyroidectomy Z. Lives: Spouse/ Significant Other Smoking Status: Former smoker Alcohol: None - *Family History Maternal Family History: Family History (Last Reviewed 05/09/18 @ 01:04 by Alfred Bailey MD) Father Colon cancer Heart disease Hypertension Myocardial infarction Review of Systems Comment: See HPI Patient Problems: Active and Suspected Problems (Last Reviewed 05/09/18 @ 01:03 by Alfred Bailey MD) Educational circumstance (Acute) SOB (shortness of breath) (Acute) Ascites, malignant (Acute) Septic shock (Acute) DVT (deep venous thrombosis) (Acute) Pulmonary embolism (Acute) Diabetes (Acute) Objective: All imaging was personally reviewed. Agree with formal interpretations. - Physical Exam General: Alert, Oriented x3, Cooperative, - - Appears ill. Slightly pale, but not jaundiced. Mild conversational dyspnea HEENT: Atraumatic, PERRLA, EOMI, Normocephalic, - - No icterus appreciated Oral: No Gingival or Mucosal Lesions/ Ulcerations, Dry Mucosa Neck: Supple, No JVD, No Nodes, Trachea Midline Lungs: No rhonchi, No wheeze, No rales, Diminished Cardiovascular: Normal S1, Normal S2, No murmurs, No rub noted, No Gallop, Tachycardic Abdomen: Bowel Sounds Present, Distended, Tender - Epigastric with palpation. No rebound, mild guarding. Possible fluid wave noted. Extremities: No clubbing, No cyanosis, Capillary Refill Less than 3 Seconds, Edema - Left lower extremity greater than others Skin: No rashes, No breakdown Musculoskeletal: No Tenderness to Palpation of Joints or Extremities Lymphatic: No Cervical, Supraclavicular, or Inguinal Adenopathy Neurological: - - Slight facial droop and left-sided weakness appreciated. Sensation appears intact. Mild dysarthria. Psych/Mental Status: Appropriate, Flat Affect Vital Signs Temp Pulse Resp BP Pulse Ox 37.7 C H 123 H 26 H 83/68 L 97 05/09/18 06:00 05/09/18 07:33 05/09/18 06:00 05/09/18 06:00 05/09/18 06:00 Oxygen Flow Rate (L/min) 2 Oxygen Delivery Method Room Air Weight: 64.1 kg Body Mass Index (BMI) 29.0 Finger Stick Blood Glucose 166 Intake and Output for Last 24 Hours 05/07/18 05/08/18 05/09/18 23:59 23:59 23:59 Intake Total 2993.2 / 2993.2 Output Total 200 / 200 Balance 2793.2 / 2793.2 Laboratory Tests Past 24 Hrs 05/08/18 05/08/18 05/08/18 16:10 16:10 16:10 WBC [employer] Corrected WBC 1.1 L* RBC 3.08 L Hgb 9.4 L Hct 29.2 L MCV 94.8 H MCH 30.5 MCHC 32.2 RDW 19.2 H RDW Differential 65.5 H Plt Count 93 L MPV 11.9 Immature Gran % (Auto) Neut % (Auto) Not Reportable Lymph % (Auto) Mitchell % (Auto) Eos % (Auto) Baso % (Auto) Absolute Neuts (auto) 0.8 L Absolute Lymphs (auto) 0.14 L Total Counted 100 Neutrophils % (Manual) 45 L Band Neutrophils % 19 H Lymphocytes % (Manual) 13 L Monocytes % (Manual) 21 H Metamyelocytes % 2 H Nucleated RBC % 23.1 H Nucleated RBCs/100 WBC 9 H Differential Comment Diff Path Review May foll Platelet Estimate MOD DEC RBC Morphology N CHROM Hypochromasia Anisocytosis 2+ Macrocytosis Tear Drop Cells 1+ Absolute Retic 0.26 PT 13.2 INR 1.0 APTT 33.7 D-Dimer Quant (PE/DVT) 0.30 Sodium 135 L Potassium 3.7 Chloride 102 Carbon Dioxide 13.0 L Anion Gap 20 H BUN 26 H Creatinine 1.12 Estim Creat Clear Calc 59.34 Est GFR (MDRD) Af Amer 85 Est GFR (MDRD) Non-Af 70 BUN/Creatinine Ratio 23.2 H Glucose 236 H Lactic Acid Calcium 7.6 L Phosphorus Total Bilirubin 0.50 AST 18 ALT 27 Alkaline Phosphatase 76 Troponin I < 0.015 B-Natriuretic Peptide Total Protein 5.1 L Albumin 1.8 L Globulin 3.3 Albumin/Globulin Ratio 0.5 L Triglycerides Cholesterol LDL Cholesterol VLDL Cholesterol HDL Cholesterol Urine Color Urine Clarity Urine pH Ur Specific [place] Urine Protein Urine Glucose (UA) Urine Ketones Urine Occult Blood Urine Nitrite Urine Bilirubin Urine Urobilinogen Ur Leukocyte Esterase Urine RBC Urine WBC Ur Squamous Epith Cells Urine Bacteria Hyaline Casts Coarse Granular Casts Urine Mucus 05/08/18 05/08/18 05/08/18 16:10 18:40 22:30 WBC Corrected WBC RBC Hgb Hct MCV MCH MCHC RDW RDW Differential Plt Count MPV Immature Gran % (Auto) Neut % (Auto) Lymph % (Auto) Mitchell % (Auto) Eos % (Auto) Baso % (Auto) Absolute Neuts (auto) Absolute Lymphs (auto) Total Counted Neutrophils % (Manual) Band Neutrophils % Lymphocytes % (Manual) Monocytes % (Manual) Metamyelocytes % Nucleated RBC % Nucleated RBCs/100 WBC Differential Comment Diff Path Review Platelet Estimate RBC Morphology Hypochromasia Anisocytosis Macrocytosis Tear Drop Cells Absolute Retic PT INR APTT D-Dimer Quant (PE/DVT) Sodium Potassium Chloride Carbon Dioxide Anion Gap BUN Creatinine Estim Creat Clear Calc Est GFR (MDRD) Af Amer Est GFR (MDRD) Non-Af BUN/Creatinine Ratio Glucose Lactic Acid 8.8 H* 3.8 H Calcium Phosphorus Total Bilirubin AST ALT Alkaline Phosphatase Troponin I B-Natriuretic Peptide Total Protein Albumin Globulin Albumin/Globulin Ratio Triglycerides Cholesterol LDL Cholesterol VLDL Cholesterol HDL Cholesterol Urine Color Yellow Urine Clarity Clear Urine pH 5.0 Ur Specific [place] 1.020 Urine Protein 30 H Urine Glucose (UA) 1000 H Urine Ketones 50 H Urine Occult Blood 25 H Urine Nitrite Negative Urine Bilirubin Negative Urine Urobilinogen Normal Ur Leukocyte Esterase Negative Urine RBC 0 SEEN Urine WBC 0 SEEN Ur Squamous Epith Cells 0 SEEN Urine Bacteria 0 SEEN Hyaline Casts 0-5 SEEN Coarse Granular Casts 0-5 SEEN Urine Mucus RARE 05/08/18 05/08/18 05/09/18 22:30 22:30 03:30 WBC 0.9 L* Corrected WBC RBC 2.70 L Hgb 8.2 L Hct 25.2 L MCV 93.3 MCH 30.4 MCHC 32.5 RDW 19.2 H RDW Differential 65.1 H Plt Count 35 L* MPV 11.2 Immature Gran % (Auto) 0.000 Neut % (Auto) 37.7 L Lymph % (Auto) 23.5 Mitchell % (Auto) 37.6 H Eos % (Auto) 0.0 Baso % (Auto) 1.2 H Absolute Neuts (auto) 0.3 L Absolute Lymphs (auto) 0.20 L Total Counted Not Reportable Neutrophils % (Manual) Band Neutrophils % Lymphocytes % (Manual) Monocytes % (Manual) Metamyelocytes % Nucleated RBC % Nucleated RBCs/100 WBC Differential Comment SEE COMMENTS Diff Path Review May foll Platelet Estimate MKD DEC RBC Morphology Hypochromasia RARE Anisocytosis 1+ Macrocytosis 1+ Tear Drop Cells RARE Absolute Retic PT INR APTT D-Dimer Quant (PE/DVT) Sodium Potassium Chloride Carbon Dioxide Anion Gap BUN Creatinine Estim Creat Clear Calc Est GFR (MDRD) Af Amer Est GFR (MDRD) Non-Af BUN/Creatinine Ratio Glucose Lactic Acid Calcium Phosphorus 1.7 L Total Bilirubin AST ALT Alkaline Phosphatase Troponin I B-Natriuretic Peptide 357.8 H Total Protein Albumin Globulin Albumin/Globulin Ratio Triglycerides Cholesterol LDL Cholesterol VLDL Cholesterol HDL Cholesterol Urine Color Urine Clarity Urine pH Ur Specific [place] Urine Protein Urine Glucose (UA) Urine Ketones Urine Occult Blood Urine Nitrite Urine Bilirubin Urine Urobilinogen Ur Leukocyte Esterase Urine RBC Urine WBC Ur Squamous Epith Cells Urine Bacteria Hyaline Casts Coarse Granular Casts Urine Mucus 05/09/18 05/09/18 05/09/18 03:30 03:30 03:30 WBC Corrected WBC RBC Hgb Hct MCV MCH MCHC RDW RDW Differential Plt Count MPV Immature Gran % (Auto) Neut % (Auto) Lymph % (Auto) Mitchell % (Auto) Eos % (Auto) Baso % (Auto) Absolute Neuts (auto) Absolute Lymphs (auto) Total Counted Neutrophils % (Manual) Band Neutrophils % Lymphocytes % (Manual) Monocytes % (Manual) Metamyelocytes % Nucleated RBC % Nucleated RBCs/100 WBC Differential Comment Diff Path Review Platelet Estimate RBC Morphology Hypochromasia Anisocytosis Macrocytosis Tear Drop Cells Absolute Retic PT INR APTT 43.5 H D-Dimer Quant (PE/DVT) Sodium 136 Potassium 3.0 L Chloride 105 Carbon Dioxide 16.0 L Anion Gap 15 BUN 22 H Creatinine 0.90 Estim Creat Clear Calc 73.84 Est GFR (MDRD) Af Amer 109 Est GFR (MDRD) Non-Af 90 BUN/Creatinine Ratio 24.5 H Glucose 175 H Lactic Acid Calcium 6.6 L Phosphorus Total Bilirubin AST ALT Alkaline Phosphatase Troponin I < 0.015 B-Natriuretic Peptide Total Protein Albumin Globulin Albumin/Globulin Ratio Triglycerides Cholesterol LDL Cholesterol VLDL Cholesterol HDL Cholesterol Urine Color Urine Clarity Urine pH Ur Specific [place] Urine Protein Urine Glucose (UA) Urine Ketones Urine Occult Blood Urine Nitrite Urine Bilirubin Urine Urobilinogen Ur Leukocyte Esterase Urine RBC Urine WBC Ur Squamous Epith Cells Urine Bacteria Hyaline Casts Coarse Granular Casts Urine Mucus 05/09/18 03:30 WBC Corrected WBC RBC Hgb Hct MCV MCH MCHC RDW RDW Differential Plt Count MPV Immature Gran % (Auto) Neut % (Auto) Lymph % (Auto) Mitchell % (Auto) Eos % (Auto) Baso % (Auto) Absolute Neuts (auto) Absolute Lymphs (auto) Total Counted Neutrophils % (Manual) Band Neutrophils % Lymphocytes % (Manual) Monocytes % (Manual) Metamyelocytes % Nucleated RBC % Nucleated RBCs/100 WBC Differential Comment Diff Path Review Platelet Estimate RBC Morphology Hypochromasia Anisocytosis Macrocytosis Tear Drop Cells Absolute Retic PT INR APTT D-Dimer Quant (PE/DVT) Sodium Potassium Chloride Carbon Dioxide Anion Gap BUN Creatinine Estim Creat Clear Calc Est GFR (MDRD) Af Amer Est GFR (MDRD) Non-Af BUN/Creatinine Ratio Glucose Lactic Acid Calcium Phosphorus Total Bilirubin AST ALT Alkaline Phosphatase Troponin I B-Natriuretic Peptide Total Protein Albumin Globulin Albumin/Globulin Ratio Triglycerides 93 Cholesterol 63 LDL Cholesterol 22 VLDL Cholesterol 19 HDL Cholesterol 22 L Urine Color Urine Clarity Urine pH Ur Specific [place] Urine Protein Urine Glucose (UA) Urine Ketones Urine Occult Blood Urine Nitrite Urine Bilirubin Urine Urobilinogen Ur Leukocyte Esterase Urine RBC Urine WBC Ur Squamous Epith Cells Urine Bacteria Hyaline Casts Coarse Granular Casts Urine Mucus POC Glucose 05/09/18 05/09/18 05/09/18 06:24 02:51 02:21 POC Glucose 142 H 166 H 173 H 05/08/18 22:34 POC Glucose 153 H Clinical Impression(s) from Imaging Studies Chest X-Ray 05/08/18 16:55 IMPRESSION: No acute thoracic pathology. Electronically Signed: Fredo Pathak, at 17:26 EST Tel , Service support , Chest CTA 05/08/18 17:49 IMPRESSION: Segmental and subsegmental pulmonary emboli in the right middle and lower lobes. Subsegmental pulmonary emboli in the left upper lobe. No pulmonary infiltrates or pleural effusions. Stable elevation of the left hemidiaphragm. Free air noted in the upper abdomen which was not present on the prior chest CT. Correlation for a history of a recent surgical intervention is recommended. If there was no recent surgery, further evaluation with abdominal CT is recommended. Electronically Signed: Fredo Pathak, at 19:09 EST Tel , Service support , ADDENDUM: 05/08/18 1936 IMPRESSION: Segmental and subsegmental pulmonary emboli in the right middle and lower lobes. Subsegmental pulmonary emboli in the left upper lobe. No pulmonary infiltrates or pleural effusions. Stable elevation of the left hemidiaphragm. Free air noted in the upper abdomen which was not present on the prior chest CT. Correlation for a history of a recent surgical intervention is recommended. If there was no recent surgery, further evaluation with abdominal CT is recommended. N.B. : The above information has been verbally conveyed by Fredo Pathak to Sedrick Schaefer MD, , on 05/08/2018 19:29:28 (ET). Electronically Signed: Fredo Pathak, at 19:09 EST Tel , Service support , ADDENDUM: 05/08/18 1958 IMPRESSION: Segmental and subsegmental pulmonary emboli in the right middle and lower lobes. Subsegmental pulmonary emboli in the left upper lobe. No pulmonary infiltrates or pleural effusions. Stable elevation of the left hemidiaphragm. Free air noted in the upper abdomen which was not present on the prior chest CT. Correlation for a history of a recent surgical intervention is recommended. If there was no recent surgery, further evaluation with abdominal CT is recommended. N.B. : The above information has been verbally conveyed by Fredo Pathak to Sedrick Schaefer MD, MD, on 05/08/2018 19:29:28 (ET). Electronically Signed: Fredo Zo, at 19:09 EST Tel , Service support , Abdomen/Pelvis CT 05/08/18 19:22 IMPRESSION: Study limited without contrast. Redemonstration of a pancreatic mass with an associated air and fluid-filled lesion (necrotic mass versus pseudocyst). This appears grossly unchanged when compared with a contrast-enhanced CT dated 03/04/2018. Free retroperitoneal air adjacent to the left kidney and in the left perinephric space. This is likely due to extension of the air from the adjacent pancreatic cavitary lesion. No urinary contrast extravasation. 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 Moderate amount of ascites. Enlarged prostate. Electronically Signed: Fredo Pathak, at 20:42 EST Tel , Service support , ADDENDUM: 05/08/[id number] IMPRESSION: Study limited without contrast. Redemonstration of a pancreatic mass with an associated air and fluid-filled lesion (necrotic mass versus pseudocyst). This appears grossly unchanged when compared with a contrast-enhanced CT dated 03/04/2018. Free retroperitoneal air adjacent to the left kidney and in the left perinephric space. This is likely due to extension of the air from the adjacent pancreatic cavitary lesion. No urinary contrast extravasation. 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 Moderate amount of ascites. Enlarged prostate. N.B. : The above information has been verbally conveyed by Fredo Pathak to Sedrick Schaefer MD, MD, on 05/08/2018 20:56:06 (ET). Electronically Signed: Fredo Pathak, at 20:42 EST Tel , Service support , Brain CT 05/09/18 02:51 IMPRESSION: There is NO evidence of acute ischemic event or hemorrhage. There are chronic involutional and ischemic changes as described. N.B. : The above information has been verbally conveyed by Zafar Freire MD to Dennis Ricks RN, on 05/09/2018 03:32:11 (ET). Electronically Signed: Zafar Freire MD at 3:33 EST , Service support , Head CTA 05/09/18 02:51 IMPRESSION: Normal bilateral cervical carotid and vertebral arteries. Electronically Signed: Zafar Freire MD at 4:07 EST , Service support , Neck CTA 05/09/18 02:51 IMPRESSION: Normal bilateral cervical carotid and vertebral arteries. Electronically Signed: Zafar Freire MD at 4:07 EST , Service support , Assessment/Plan Active and Suspected Problems (Last Reviewed 05/09/18 @ 01:03 by Alfred Bailey MD) Educational circumstance (Acute) SOB (shortness of breath) (Acute) Ascites, malignant (Acute) Septic shock (Acute) DVT (deep venous thrombosis) (Acute) Pulmonary embolism (Acute) Diabetes (Acute) RECOMMENDATIONS: 1. Continue empiric antibiotics 2. Aggressive hydration 3. Heparin drip with no bolus 4. No aspirin given thrombocytopenia 5. Change CODE STATUS to DNR Comfort Care arrest without intubation IMPRESSIONS: 1. Probable septic shock in the setting of neutropenic fever secondary to chemotherapy Patient appears to be volume depleted at this time and has developed fever in the setting of neutropenia. Unclear source at this time. Patient is on broad-spectrum antibiotics. Patient may require central line and pressor therapy eventually, but will attempt treatment with fluid boluses for now. Cultures have been taken. We will continue to monitor in the intensive care unit 2. Possible CVA Patient does have some left-sided deficits. However, no obstruction can be seen on CT scan of the head. Clinical suspicion for CVA mimicker in the setting of severe sepsis. We will continue to support neurologically. Speech therapy will be consulted prior to any p.o. intake. No aspirin will be given secondary to thrombocytopenia. Will allow for permissive hypertension. 3. Metastatic pancreatic cancer on chemotherapy Patient last received chemotherapy on Friday. Oncology has been consulted. Long-term prognosis is poor. After discussion of patient's current situation, patient would like to be DNR Comfort Care arrest without intubation. Patient would like to continue with therapy otherwise. 4. Insulin-dependent diabetes mellitus Patient is not receiving steroids at this time, but may have an element of adrenal response secondary to severe illness. Continue to monitor blood sugar with sliding scale as indicated. Will hold off on basal insulin as long as patient is n.p.o. 5. Bilateral PE and DVT Patient increased risk for coagulation secondary to concurrent cancer. Patient will be placed on a heparin drip. No bolus will be given secondary to possible CVA. Oxygen status appears to be doing well at this time, but patient is significantly dehydrated. Would not be surprised if patient develops infiltrates after repeat hydration. Will obtain a chest x-ray tomorrow morning for evaluation. Code Visit Inpatient E&M: [id number] Init Hosp L3
--- NOTE | 2018-05-09 08:57 | CON.PCM_ITS ---
Problem List (1) Pancreatic cancer Status: Chronic Qualifiers: Pancreatic malignancy location: overlapping sites of pancreas Qualified Code(s): C25.8 - Malignant neoplasm of overlapping sites of pancreas (2) Ascites, malignant Status: Acute (3) DVT (deep venous thrombosis) Status: Acute (4) Pulmonary embolism Status: Acute (5) Diabetes Status: Acute (6) Abdominal distension (gaseous) Status: Acute Reason for Consult Date of Consultation: 05/09/18 Reason for Consultation: Septic shock History of Present Illness: The patient is a 67 year old M, with past medical history listed below, who presented to [facility] on 05/08/2018 secondary to shortness of breath and fatigue. Patient was being treated with chemotherapy for pancreatic cancer last chemo was 3 days prior to presentation. Patient had reported increased shortness of breath, but no cough or nasal congestion. Patient had noted some left lower extremity swelling. Family had reported some diarrhea 3-5 days ago and had been taking Imodium to help with symptomatology. Patient states he has not had a bowel movement in the last 2 days. Patient reports he has been passing gas, but has much more burping than normal. In the emergency room, patient was noted to be tachycardic at 148 bpm. Patient was also noted to have dry mucous membranes, but saturating 95% on room air. L aboratory workup showed neutropenia with elevated ketones. Ultrasound of his left lower extremity showed a DVT, CTA of the chest showed bilateral PE, right greater than left and patient was admitted to the intensive care unit for further monitoring. Patient did receive 2 L nasal saline, Zosyn and vancomycin. While in the intensive care unit, patient was noted to have left-sided weakness. NIH was noted to be 9. Patient was reportedly seen by the hospitalist and neurology was consulted. No TPA was given. Patient's repeat NIH has been as low as 7, but no clot has been noted on any scans. Did discuss with the patient about his CODE STATUS. Patient states that he is a DNR Comfort Care arrest without intubation. Family at the bedside to witness this conversation and agree with his decision. Patient denies any recent dysuria, but does state that he has had decreased urination. Patient denies any fevers at home, but has had fever since he has been here. Patient denies any chest pain, but does have abdominal pain at baseline. Review of systems otherwise negative x10 systems. Past Medical History Past Medical History (Chronic Problems): Chronic Problems (Last Reviewed 05/09/18 @ 01:03 by Alfred Bailey MD) Pancreatic cancer (Chronic) Abdominal pain (Chronic) Medical History: Medical History (Last Reviewed 05/09/18 @ 01:03 by Alfred Bailey MD) Abdominal distension (gaseous) (Acute) R14.0 Personal history of colonic polyps (Acute) Z86.010 Nausea and vomiting (Inactive) R11.2 Bloating R14.0 Diabetes E11.9 GERD (gastroesophageal reflux disease) K21.9 Hemorrhoids K64.9 Hypothyroidism E03.9 robotic gastrojejunostomy 03/06/18 DR. KEMAR IGNACIO HTN (hypertension) I10 Allergies oxycodone HCl [From Percocet] Adverse Reaction (Severe, Verified 05/08/18 16:49) nightmares nightmares Tetracyclines Adverse Reaction (Severe, Verified 05/08/18 15:54) Upset Stomach Home Medications: Ambulatory Orders Medication Instructions Recorded Pantoprazole Sodium [Protonix] 40 mg PO DAILY 09/19/16 Docusate Sodium [Colace] 100 mg PO BID 03/16/18 Lidocaine/Prilocaine 1 applicatio TP DAILY PRN PRN 30 03/26/18 [Lidocaine-Prilocaine Cream] Days #1 tube Dexamethasone [Decadron] 8 mg PO DAILY@0800 PRN #30 tablet 04/03/18 Olanzapine [Zyprexa] 10 mg PO DAILY #30 tablet 04/03/18 proCHLORPERazine suppository 25 mg RECTAL BID PRN PRN #14 04/03/18 [Compazine suppository] suppos. Guaifen/Dextromethorphan/PE 10 ml PO PRN PRN 05/08/18 [Tussin Cf Cough-Cold Liquid] Insulin Glargine,Hum.rec.anlog 15 unit SQ DAILY 05/08/18 [Basaglar Kwikpen U-100] Levothyroxine [Synthroid] 125 mcg PO DAILY 05/08/18 Mirtazapine [Remeron] 15 mg PO QHS 05/08/18 Ondansetron HCl 8 mg PO PRN PRN 05/08/18 Spironolactone 50 mg PO BID 05/08/18 fentaNYL patch [Duragesic Patch] 12 mcg TRANSDERM. Q3D 05/08/18 Surgical History: Surgical History (Last Reviewed 05/09/18 @ 01:03 by Alfred Bailey MD) History of colonoscopy Onset Date: ~2014 Z98.0 History of esophagogastroduodenoscopy (EGD) Onset Date: ~2014 Z98.890 History of right inguinal hernia repair Z98.890, Z87.19 History of rotator cuff surgery Z. History of thyroidectomy Z.0 Lives: Spouse/ Significant Other Smoking Status: Former smoker Alcohol: None - *Family History Maternal Family History: Family History (Last Reviewed 05/09/18 @ 01:04 by Alfred Bailey MD) Father Colon cancer Heart disease Hypertension Myocardial infarction Review of Systems Comment: See HPI Patient Problems: Active and Suspected Problems (Last Reviewed 05/09/18 @ 01:03 by Alfred Bailey MD) Educational circumstance (Acute) SOB (shortness of breath) (Acute) Ascites, malignant (Acute) Septic shock (Acute) DVT (deep venous thrombosis) (Acute) Pulmonary embolism (Acute) Diabetes (Acute) Objective: All imaging was personally reviewed. Agree with formal interpretations. - Physical Exam General: Alert, Oriented x3, Cooperative, - - Appears ill. Slightly pale, but not jaundiced. Mild conversational dyspnea HEENT: Atraumatic, PERRLA, EOMI, Normocephalic, - - No icterus appreciated Oral: No Gingival or Mucosal Lesions/ Ulcerations, Dry Mucosa Neck: Supple, No JVD, No Nodes, Trachea Midline Lungs: No rhonchi, No wheeze, No rales, Diminished Cardiovascular: Normal S1, Normal S2, No murmurs, No rub noted, No Gallop, Tachycardic Abdomen: Bowel Sounds Present, Distended, Tender - Epigastric with palpation. No rebound, mild guarding. Possible fluid wave noted. Extremities: No clubbing, No cyanosis, Capillary Refill Less than 3 Seconds, Edema - Left lower extremity greater than others Skin: No rashes, No breakdown Musculoskeletal: No Tenderness to Palpation of Joints or Extremities Lymphatic: No Cervical, Supraclavicular, or Inguinal Adenopathy Neurological: - - Slight facial droop and left-sided weakness appreciated. Sensation appears intact. Mild dysarthria. Psych/Mental Status: Appropriate, Flat Affect Vital Signs Temp Pulse Resp BP Pulse Ox 37.7 C H 123 H 26 H 83/68 L 97 05/09/18 06:00 05/09/18 07:33 05/09/18 06:00 05/09/18 06:00 05/09/18 06:00 Oxygen Flow Rate (L/min) 2 Oxygen Delivery Method Room Air Weight: 64.1 kg Body Mass Index (BMI) 29.0 Finger Stick Blood Glucose 166 Intake and Output for Last 24 Hours 05/07/18 05/08/18 05/09/18 23:59 23:59 23:59 Intake Total 2993.2 / 2993.2 Output Total 200 / 200 Balance 2793.2 / 2793.2 Laboratory Tests Past 24 Hrs 05/08/18 05/08/18 05/08/18 16:10 16:10 16:10 WBC DOUBLE REAMER OPERATOR Corrected WBC 1.1 L* RBC 3.08 L Hgb 9.4 L Hct 29.2 L MCV 94.8 H MCH 30.5 MCHC 32.2 RDW 19.2 H RDW Differential 65.5 H Plt Count 93 L MPV 11.9 Immature Gran % (Auto) Neut % (Auto) Not Reportable Lymph % (Auto) [place] % (Auto) Eos % (Auto) Baso % (Auto) Absolute Neuts (auto) 0.8 L Absolute Lymphs (auto) 0.14 L Total Counted 100 Neutrophils % (Manual) 45 L Band Neutrophils % 19 H Lymphocytes % (Manual) 13 L Monocytes % (Manual) 21 H Metamyelocytes % 2 H Nucleated RBC % 23.1 H Nucleated RBCs/100 WBC 9 H Differential Comment Diff Path Review May foll Platelet Estimate MOD DEC RBC Morphology N CHROM Hypochromasia Anisocytosis 2+ Macrocytosis Tear Drop Cells 1+ Absolute Retic 0.26 PT 13.2 INR 1.0 APTT 33.7 D-Dimer Quant (PE/DVT) 0.30 Sodium 135 L Potassium 3.7 Chloride 102 Carbon Dioxide 13.0 L Anion Gap 20 H BUN 26 H Creatinine 1.12 Estim Creat Clear Calc 59.34 Est GFR (MDRD) Af Amer 85 Est GFR (MDRD) Non-Af 70 BUN/Creatinine Ratio 23.2 H Glucose 236 H Lactic Acid Calcium 7.6 L Phosphorus Total Bilirubin 0.50 AST 18 ALT 27 Alkaline Phosphatase 76 Troponin I < 0.015 B-Natriuretic Peptide Total Protein 5.1 L Albumin 1.8 L Globulin 3.3 Albumin/Globulin Ratio 0.5 L Triglycerides Cholesterol LDL Cholesterol VLDL Cholesterol HDL Cholesterol Urine Color Urine Clarity Urine pH Ur Specific [place] Urine Protein Urine Glucose (UA) Urine Ketones Urine Occult Blood Urine Nitrite Urine Bilirubin Urine Urobilinogen Ur Leukocyte Esterase Urine RBC Urine WBC Ur Squamous Epith Cells Urine Bacteria Hyaline Casts Coarse Granular Casts Urine Mucus 05/08/18 05/08/18 05/08/18 16:10 18:40 22:30 WBC Corrected WBC RBC Hgb Hct MCV MCH MCHC RDW RDW Differential Plt Count MPV Immature Gran % (Auto) Neut % (Auto) Lymph % (Auto) [place] % (Auto) Eos % (Auto) Baso % (Auto) Absolute Neuts (auto) Absolute Lymphs (auto) Total Counted Neutrophils % (Manual) Band Neutrophils % Lymphocytes % (Manual) Monocytes % (Manual) Metamyelocytes % Nucleated RBC % Nucleated RBCs/100 WBC Differential Comment Diff Path Review Platelet Estimate RBC Morphology Hypochromasia Anisocytosis Macrocytosis Tear Drop Cells Absolute Retic PT INR APTT D-Dimer Quant (PE/DVT) Sodium Potassium Chloride Carbon Dioxide Anion Gap BUN Creatinine Estim Creat Clear Calc Est GFR (MDRD) Af Amer Est GFR (MDRD) Non-Af BUN/Creatinine Ratio Glucose Lactic Acid 8.8 H* 3.8 H Calcium Phosphorus Total Bilirubin AST ALT Alkaline Phosphatase Troponin I B-Natriuretic Peptide Total Protein Albumin Globulin Albumin/Globulin Ratio Triglycerides Cholesterol LDL Cholesterol VLDL Cholesterol HDL Cholesterol Urine Color Yellow Urine Clarity Clear Urine pH 5.0 Ur Specific [place] 1.020 Urine Protein 30 H Urine Glucose (UA) 1000 H Urine Ketones 50 H Urine Occult Blood 25 H Urine Nitrite Negative Urine Bilirubin Negative Urine Urobilinogen Normal Ur Leukocyte Esterase Negative Urine RBC 0 SEEN Urine WBC 0 SEEN Ur Squamous Epith Cells 0 SEEN Urine Bacteria 0 SEEN Hyaline Casts 0-5 SEEN Coarse Granular Casts 0-5 SEEN Urine Mucus RARE 05/08/18 05/08/18 05/09/18 22:30 22:30 03:30 WBC 0.9 L* Corrected WBC RBC 2.70 L Hgb 8.2 L Hct 25.2 L MCV 93.3 MCH 30.4 MCHC 32.5 RDW 19.2 H RDW Differential 65.1 H Plt Count 35 L* MPV 11.2 Immature Gran % (Auto) 0.000 Neut % (Auto) 37.7 L Lymph % (Auto) 23.5 [place] % (Auto) 37.6 H Eos % (Auto) 0.0 Baso % (Auto) 1.2 H Absolute Neuts (auto) 0.3 L Absolute Lymphs (auto) 0.20 L Total Counted Not Reportable Neutrophils % (Manual) Band Neutrophils % Lymphocytes % (Manual) Monocytes % (Manual) Metamyelocytes % Nucleated RBC % Nucleated RBCs/100 WBC Differential Comment SEE COMMENTS Diff Path Review May foll Platelet Estimate MKD DEC RBC Morphology Hypochromasia RARE Anisocytosis 1+ Macrocytosis 1+ Tear Drop Cells RARE Absolute Retic PT INR APTT D-Dimer Quant (PE/DVT) Sodium Potassium Chloride Carbon Dioxide Anion Gap BUN Creatinine Estim Creat Clear Calc Est GFR (MDRD) Af Amer Est GFR (MDRD) Non-Af BUN/Creatinine Ratio Glucose Lactic Acid Calcium Phosphorus 1.7 L Total Bilirubin AST ALT Alkaline Phosphatase Troponin I B-Natriuretic Peptide 357.8 H Total Protein Albumin Globulin Albumin/Globulin Ratio Triglycerides Cholesterol LDL Cholesterol VLDL Cholesterol HDL Cholesterol Urine Color Urine Clarity Urine pH Ur Specific [place] Urine Protein Urine Glucose (UA) Urine Ketones Urine Occult Blood Urine Nitrite Urine Bilirubin Urine Urobilinogen Ur Leukocyte Esterase Urine RBC Urine WBC Ur Squamous Epith Cells Urine Bacteria Hyaline Casts Coarse Granular Casts Urine Mucus 05/09/18 05/09/18 05/09/18 03:30 03:30 03:30 WBC Corrected WBC RBC Hgb Hct MCV MCH MCHC RDW RDW Differential Plt Count MPV Immature Gran % (Auto) Neut % (Auto) Lymph % (Auto) [place] % (Auto) Eos % (Auto) Baso % (Auto) Absolute Neuts (auto) Absolute Lymphs (auto) Total Counted Neutrophils % (Manual) Band Neutrophils % Lymphocytes % (Manual) Monocytes % (Manual) Metamyelocytes % Nucleated RBC % Nucleated RBCs/100 WBC Differential Comment Diff Path Review Platelet Estimate RBC Morphology Hypochromasia Anisocytosis Macrocytosis Tear Drop Cells Absolute Retic PT INR APTT 43.5 H D-Dimer Quant (PE/DVT) Sodium 136 Potassium 3.0 L Chloride 105 Carbon Dioxide 16.0 L Anion Gap 15 BUN 22 H Creatinine 0.90 Estim Creat Clear Calc 73.84 Est GFR (MDRD) Af Amer 109 Est GFR (MDRD) Non-Af 90 BUN/Creatinine Ratio 24.5 H Glucose 175 H Lactic Acid Calcium 6.6 L Phosphorus Total Bilirubin AST ALT Alkaline Phosphatase Troponin I < 0.015 B-Natriuretic Peptide Total Protein Albumin Globulin Albumin/Globulin Ratio Triglycerides Cholesterol LDL Cholesterol VLDL Cholesterol HDL Cholesterol Urine Color Urine Clarity Urine pH Ur Specific [place] Urine Protein Urine Glucose (UA) Urine Ketones Urine Occult Blood Urine Nitrite Urine Bilirubin Urine Urobilinogen Ur Leukocyte Esterase Urine RBC Urine WBC Ur Squamous Epith Cells Urine Bacteria Hyaline Casts Coarse Granular Casts Urine Mucus 05/09/18 03:30 WBC Corrected WBC RBC Hgb Hct MCV MCH MCHC RDW RDW Differential Plt Count MPV Immature Gran % (Auto) Neut % (Auto) Lymph % (Auto) [place] % (Auto) Eos % (Auto) Baso % (Auto) Absolute Neuts (auto) Absolute Lymphs (auto) Total Counted Neutrophils % (Manual) Band Neutrophils % Lymphocytes % (Manual) Monocytes % (Manual) Metamyelocytes % Nucleated RBC % Nucleated RBCs/100 WBC Differential Comment Diff Path Review Platelet Estimate RBC Morphology Hypochromasia Anisocytosis Macrocytosis Tear Drop Cells Absolute Retic PT INR APTT D-Dimer Quant (PE/DVT) Sodium Potassium Chloride Carbon Dioxide Anion Gap BUN Creatinine Estim Creat Clear Calc Est GFR (MDRD) Af Amer Est GFR (MDRD) Non-Af BUN/Creatinine Ratio Glucose Lactic Acid Calcium Phosphorus Total Bilirubin AST ALT Alkaline Phosphatase Troponin I B-Natriuretic Peptide Total Protein Albumin Globulin Albumin/Globulin Ratio Triglycerides 93 Cholesterol 63 LDL Cholesterol 22 VLDL Cholesterol 19 HDL Cholesterol 22 L Urine Color Urine Clarity Urine pH Ur Specific [place] Urine Protein Urine Glucose (UA) Urine Ketones Urine Occult Blood Urine Nitrite Urine Bilirubin Urine Urobilinogen Ur Leukocyte Esterase Urine RBC Urine WBC Ur Squamous Epith Cells Urine Bacteria Hyaline Casts Coarse Granular Casts Urine Mucus POC Glucose 05/09/18 05/09/18 05/09/18 06:24 02:51 02:21 POC Glucose 142 H 166 H 173 H 05/08/18 22:34 POC Glucose 153 H Clinical Impression(s) from Imaging Studies Chest X-Ray 05/08/18 16:55 IMPRESSION: No acute thoracic pathology. Electronically Signed: Fredo Pathak, at 17:26 EST Tel , Service support , Chest CTA 05/08/18 17:49 IMPRESSION: Segmental and subsegmental pulmonary emboli in the right middle and lower lobes. Subsegmental pulmonary emboli in the left upper lobe. No pulmonary infiltrates or pleural effusions. Stable elevation of the left hemidiaphragm. Free air noted in the upper abdomen which was not present on the prior chest CT. Correlation for a history of a recent surgical intervention is recommended. If there was no recent surgery, further evaluation with abdominal CT is recommended. Electronically Signed: Fredo Zo, at 19:09 EST Tel , Service support , ADDENDUM: 05/08/18 1936 IMPRESSION: Segmental and subsegmental pulmonary emboli in the right middle and lower lobes. Subsegmental pulmonary emboli in the left upper lobe. No pulmonary infiltrates or pleural effusions. Stable elevation of the left hemidiaphragm. Free air noted in the upper abdomen which was not present on the prior chest CT. Correlation for a history of a recent surgical intervention is recommended. If there was no recent surgery, further evaluation with abdominal CT is recommended. N.B. : The above information has been verbally conveyed by Fredo Pathak to Sedrick Schaefer MD, , on 05/08/2018 19:29:28 (ET). Electronically Signed: Fredo Pathak, at 19:09 EST Tel , Service support , ADDENDUM: 05/08/18 1958 IMPRESSION: Segmental and subsegmental pulmonary emboli in the right middle and lower lobes. Subsegmental pulmonary emboli in the left upper lobe. No pulmonary infiltrates or pleural effusions. Stable elevation of the left hemidiaphragm. Free air noted in the upper abdomen which was not present on the prior chest CT. Correlation for a history of a recent surgical intervention is recommended. If there was no recent surgery, further evaluation with abdominal CT is recommended. N.B. : The above information has been verbally conveyed by Fredo Pathak to Sedrick Shcaefer MD, MD, on 05/08/2018 19:29:28 (ET). Electronically Signed: Fredo Zo, at 19:09 EST Tel , Service support , Abdomen/Pelvis CT 05/08/18 19:22 IMPRESSION: Study limited without contrast. Redemonstration of a pancreatic mass with an associated air and fluid-filled lesion (necrotic mass versus pseudocyst). This appears grossly unchanged when compared with a contrast-enhanced CT dated 03/04/2018. Free retroperitoneal air adjacent to the left kidney and in the left perinephric space. This is likely due to extension of the air from the adjacent pancreatic cavitary lesion. No urinary contrast extravasation. 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 Moderate amount of ascites. Enlarged prostate. Electronically Signed: Fredo Pathak, at 20:42 EST Tel , Service support , ADDENDUM: 05/08/182102 IMPRESSION: Study limited without contrast. Redemonstration of a pancreatic mass with an associated air and fluid-filled lesion (necrotic mass versus pseudocyst). This appears grossly unchanged when compared with a contrast-enhanced CT dated 03/04/2018. Free retroperitoneal air adjacent to the left kidney and in the left perinephric space. This is likely due to extension of the air from the adjacent pancreatic cavitary lesion. No urinary contrast extravasation. 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 Moderate amount of ascites. Enlarged prostate. N.B. : The above information has been verbally conveyed by Fredo Pathak to Sedrick Schaefer MD, MD, on 05/08/2018 20:56:06 (ET). Electronically Signed: Fredo Pathak, at 20:42 EST Tel , Service support , Brain CT 05/09/18 02:51 IMPRESSION: There is NO evidence of acute ischemic event or hemorrhage. There are chronic involutional and ischemic changes as described. N.B. : The above information has been verbally conveyed by Zafar Freire MD to Dennis Ricks RN, on 05/09/2018 03:32:11 (ET). Electronically Signed: Zafar Freire MD at 3:33 EST , Service support , Head CTA 05/09/18 02:51 IMPRESSION: Normal bilateral cervical carotid and vertebral arteries. Electronically Signed: Zafar rFeire MD at 4:07 EST , Service support , Neck CTA 05/09/18 02:51 IMPRESSION: Normal bilateral cervical carotid and vertebral arteries. Electronically Signed: Zafar Freire MD at 4:07 EST , Service support , Assessment/Plan Active and Suspected Problems (Last Reviewed 05/09/18 @ 01:03 by Alfred Bailey MD) Educational circumstance (Acute) SOB (shortness of breath) (Acute) Ascites, malignant (Acute) Septic shock (Acute) DVT (deep venous thrombosis) (Acute) Pulmonary embolism (Acute) Diabetes (Acute) RECOMMENDATIONS: 1. Continue empiric antibiotics 2. Aggressive hydration 3. Heparin drip with no bolus 4. No aspirin given thrombocytopenia 5. Change CODE STATUS to DNR Comfort Care arrest without intubation IMPRESSIONS: 1. Probable septic shock in the setting of neutropenic fever secondary to chemotherapy Patient appears to be volume depleted at this time and has developed fever in the setting of neutropenia. Unclear source at this time. Patient is on broad-spectrum antibiotics. Patient may require central line and pressor therapy eventually, but will attempt treatment with fluid boluses for now. Cultures have been taken. We will continue to monitor in the intensive care unit 2. Possible CVA Patient does have some left-sided deficits. However, no obstruction can be seen on CT scan of the head. Clinical suspicion for CVA mimicker in the setting of severe sepsis. We will continue to support neurologically. Speech therapy will be consulted prior to any p.o. intake. No aspirin will be given secondary to thrombocytopenia. Will allow for permissive hypertension. 3. Metastatic pancreatic cancer on chemotherapy Patient last received chemotherapy on Friday. Oncology has been consulted. Long-term prognosis is poor. After discussion of patient's current situation, patient would like to be DNR Comfort Care arrest without intubation. Patient would like to continue with therapy otherwise. 4. Insulin-dependent diabetes mellitus Patient is not receiving steroids at this time, but may have an element of adrenal response secondary to severe illness. Continue to monitor blood sugar with sliding scale as indicated. Will hold off on basal insulin as long as patient is n.p.o. 5. Bilateral PE and DVT Patient increased risk for coagulation secondary to concurrent cancer. Patient will be placed on a heparin drip. No bolus will be given secondary to possible CVA. Oxygen status appears to be doing well at this time, but patient is significantly dehydrated. Would not be surprised if patient develops infiltrates after repeat hydration. Will obtain a chest x-ray tomorrow morning for evaluation. Code Visit Inpatient E&M: 33169 Init Hosp L3
--- NOTE | 2018-05-09 10:12 | CM.UR ---
RN CM Assessment Met face to face with patient for initial transition planning/care coordination assessment. Introduced myself and my role. Verb understanding and agreement for assessment. Presentation: Presented with progressively worsening sob. PCP: dr. Perez Specialists: Dr. Miller Preferred Pharmacy: [facility] Insurance: Gpatpa cerco Prescription Benefit: Yes, also using chemo assistance LNOK: Karli Haas Home: 1 story with 1 step to get in. Grab bar to assist with step. ADLs: Normally independent but last couple days has requiring increasing assistance. Transportation: mostly driving patient these days d/t wearing fentanyl patch. DME: walker, cane, bsc, show seat, Serta base with head and feet controls. SNF/HHC: None Passport/waiver nutritionist: NA Advance Directives: Recently made DNRRC-A. states she is DPOA for healthcare but no living will or poa on file. States they will try to bring copy in. DC PLAN: TBD. He would like to return home. Requesting wheelchair for dc. No preference for DME company. Tony Lang RN, CCM.
[2018-05-09] MEDS: Docusate Sodium 100 MG Capsule PO ×2 (12:46→21:26)
[2018-05-09] MEDS: Pantoprazole Sodium 40 MG Tablet PO (12:48)
[2018-05-09] MEDS: Vancomycin IV 1,000 MG/200 ML BAG 200 MG IV ×2 (12:51→23:41)
[2018-05-09 13:11] LABS: Bedside Glucose 123 mg/dL (70-110)
[2018-05-09 13:42] LABS: Partial Thromboplast Time 44.2 Seconds (24.1-36.2)
[2018-05-09 16:26] LABS: Bedside Glucose 153 mg/dL (70-110)
--- NOTE | 2018-05-09 16:27 | PCM.PROGNOTE ---
Patient Problems: Active and Suspected Problems (Last Reviewed 05/09/18 @ 01:03 by Alfred Bailey MD) Educational circumstance (Acute) SOB (shortness of breath) (Acute) Ascites, malignant (Acute) Septic shock (Acute) DVT (deep venous thrombosis) (Acute) Pulmonary embolism (Acute) Diabetes (Acute) Subjective: Patient was seen and examined today in the ICU, I discussed his care with neurology and pulmonary medicine today. Patient's blood pressures have been in the 90s systolic most of the day, he has had fluids administered. Patient's MRI showed multiple small acute infarcts of the bilateral centrum semi-ovale ovale. CTA of the head and neck were unremarkable. Patient's echocardiogram was also unremarkable. I explained all this to the patient today and his who is in the room. Preliminary blood culture grew out gram-negative rods-this is presumed secondary to biliary tract etiology in light of the fact the patient has metastatic pancreatic cancer. Patient is pancytopenic. - Physical Exam General: Alert, Oriented x3, Cooperative, No apparent distress, Well developed, Lethargic HEENT: Atraumatic, PERRLA, EOMI, Normocephalic Oral: Moist Mucosa Neck: Supple, No JVD, No Nuchal Rigidity, Trachea Midline, Thyroid Normal Size and Texture Lungs: Clear to auscultation, Normal air movement, No rhonchi, No wheeze, No rales Cardiovascular: Regular rate, Regular Rhythm, Normal S1, Normal S2, No murmurs, No Ectopic Activity Abdomen: Bowel Sounds Present, Soft, Non Tender, Non-Distended Extremities: No clubbing, No cyanosis, No edema, Capillary Refill Less than 3 Seconds Skin: No rashes, No breakdown Musculoskeletal: No Tenderness to Palpation of Joints or Extremities Neurological: Cranial nerves II-XII grossly intact, Neuro grossly intact, Sensory exam intact to light touch and pain Psych/Mental Status: Appropriate, Flat Affect Vital Signs Temp Pulse Resp BP Pulse Ox 99.4 F H 116 H 20 H 94/68 97 05/09/18 14:00 05/09/18 15:00 05/09/18 15:00 05/09/18 15:00 05/09/18 15:00 Oxygen Flow Rate (L/min) 2 Oxygen Delivery Method Room Air Weight: 81.5 kg Body Mass Index (BMI) 29.0 Finger Stick Blood Glucose 166 Intake and Output for Last 24 Hours 05/07/18 05/08/18 05/09/18 23:59 23:59 23:59 Intake Total 4188.2 / 4188.2 Output Total 480 / 480 Balance 3708.2 / 3708.2 Microbiology Past 72 Hours 05/08/18 16:10 Blood Culture - Preliminary Blood Culture (Wb) - Port 05/08/18 22:52 Influenza Types A,B Direct FA ([place]) - Final Mucosa - Nasopharyngeal Laboratory Tests Past 24 Hrs 05/08/18 05/08/18 05/08/18 16:10 16:10 16:10 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 WBC 1.1 L* RBC 3.08 L Hgb 9.4 L Hct 29.2 L MCV 94.8 H MCH 30.5 MCHC 32.2 RDW 19.2 H RDW Differential 65.5 H Plt Count 93 L MPV 11.9 Immature Gran % (Auto) Neut % (Auto) Not Reportable Lymph % (Auto) Levy % (Auto) Eos % (Auto) Baso % (Auto) Absolute Neuts (auto) 0.8 L Absolute Lymphs (auto) 0.14 L Total Counted 100 Neutrophils % (Manual) 45 L Band Neutrophils % 19 H Lymphocytes % (Manual) 13 L Monocytes % (Manual) 21 H Metamyelocytes % 2 H Nucleated RBC % 23.1 H Nucleated RBCs/100 WBC 9 H Differential Comment Diff Path Review May foll Platelet Estimate MOD DEC RBC Morphology N CHROM Hypochromasia Anisocytosis 2+ Macrocytosis Tear Drop Cells 1+ Absolute Retic 0.26 PT 13.2 INR 1.0 APTT 33.7 D-Dimer Quant (PE/DVT) 0.30 Sodium 135 L Potassium 3.7 Chloride 102 Carbon Dioxide 13.0 L Anion Gap 20 H BUN 26 H Creatinine 1.12 Estim Creat Clear Calc 59.34 Est GFR (MDRD) Af Amer 85 Est GFR (MDRD) Non-Af 70 BUN/Creatinine Ratio 23.2 H Glucose 236 H Lactic Acid Calcium 7.6 L Phosphorus Total Bilirubin 0.50 AST 18 ALT 27 Alkaline Phosphatase 76 Troponin I < 0.015 B-Natriuretic Peptide Total Protein 5.1 L Albumin 1.8 L Globulin 3.3 Albumin/Globulin Ratio 0.5 L Triglycerides Cholesterol LDL Cholesterol VLDL Cholesterol HDL Cholesterol Urine Color Urine Clarity Urine pH Ur Specific [place] Urine Protein Urine Glucose (UA) Urine Ketones Urine Occult Blood Urine Nitrite Urine Bilirubin Urine Urobilinogen Ur Leukocyte Esterase Urine RBC Urine WBC Ur Squamous Epith Cells Urine Bacteria Hyaline Casts Coarse Granular Casts Urine Mucus 05/08/18 05/08/18 05/08/18 16:10 18:40 22:30 WBC Corrected WBC RBC Hgb Hct MCV MCH MCHC RDW RDW Differential Plt Count MPV Immature Gran % (Auto) Neut % (Auto) Lymph % (Auto) Levy % (Auto) Eos % (Auto) Baso % (Auto) Absolute Neuts (auto) Absolute Lymphs (auto) Total Counted Neutrophils % (Manual) Band Neutrophils % Lymphocytes % (Manual) Monocytes % (Manual) Metamyelocytes % Nucleated RBC % Nucleated RBCs/100 WBC Differential Comment Diff Path Review Platelet Estimate RBC Morphology Hypochromasia Anisocytosis Macrocytosis Tear Drop Cells Absolute Retic PT INR APTT D-Dimer Quant (PE/DVT) Sodium Potassium Chloride Carbon Dioxide Anion Gap BUN Creatinine Estim Creat Clear Calc Est GFR (MDRD) Af Amer Est GFR (MDRD) Non-Af BUN/Creatinine Ratio Glucose Lactic Acid 8.8 H* 3.8 H Calcium Phosphorus Total Bilirubin AST ALT Alkaline Phosphatase Troponin I B-Natriuretic Peptide Total Protein Albumin Globulin Albumin/Globulin Ratio Triglycerides Cholesterol LDL Cholesterol VLDL Cholesterol HDL Cholesterol Urine Color Yellow Urine Clarity Clear Urine pH 5.0 Ur Specific [place] 1.020 Urine Protein 30 H Urine Glucose (UA) 1000 H Urine Ketones 50 H Urine Occult Blood 25 H Urine Nitrite Negative Urine Bilirubin Negative Urine Urobilinogen Normal Ur Leukocyte Esterase Negative Urine RBC 0 SEEN Urine WBC 0 SEEN Ur Squamous Epith Cells 0 SEEN Urine Bacteria 0 SEEN Hyaline Casts 0-5 SEEN Coarse Granular Casts 0-5 SEEN Urine Mucus RARE 05/08/18 05/08/18 05/09/18 22:30 22:30 03:30 WBC 0.9 L* Corrected WBC RBC 2.70 L Hgb 8.2 L Hct 25.2 L MCV 93.3 MCH 30.4 MCHC 32.5 RDW 19.2 H RDW Differential 65.1 H Plt Count 35 L* MPV 11.2 Immature Gran % (Auto) 0.000 Neut % (Auto) 37.7 L Lymph % (Auto) 23.5 Levy % (Auto) 37.6 H Eos % (Auto) 0.0 Baso % (Auto) 1.2 H Absolute Neuts (auto) 0.3 L Absolute Lymphs (auto) 0.20 L Total Counted Not Reportable Neutrophils % (Manual) Band Neutrophils % Lymphocytes % (Manual) Monocytes % (Manual) Metamyelocytes % Nucleated RBC % Nucleated RBCs/100 WBC Differential Comment SEE COMMENTS Diff Path Review May foll Platelet Estimate MKD DEC RBC Morphology Hypochromasia RARE Anisocytosis 1+ Macrocytosis 1+ Tear Drop Cells RARE Absolute Retic PT INR APTT D-Dimer Quant (PE/DVT) Sodium Potassium Chloride Carbon Dioxide Anion Gap BUN Creatinine Estim Creat Clear Calc Est GFR (MDRD) Af Amer Est GFR (MDRD) Non-Af BUN/Creatinine Ratio Glucose Lactic Acid Calcium Phosphorus 1.7 L Total Bilirubin AST ALT Alkaline Phosphatase Troponin I B-Natriuretic Peptide 357.8 H Total Protein Albumin Globulin Albumin/Globulin Ratio Triglycerides Cholesterol LDL Cholesterol VLDL Cholesterol HDL Cholesterol Urine Color Urine Clarity Urine pH Ur Specific [place] Urine Protein Urine Glucose (UA) Urine Ketones Urine Occult Blood Urine Nitrite Urine Bilirubin Urine Urobilinogen Ur Leukocyte Esterase Urine RBC Urine WBC Ur Squamous Epith Cells Urine Bacteria Hyaline Casts Coarse Granular Casts Urine Mucus 05/09/18 05/09/18 05/09/18 03:30 03:30 03:30 WBC Corrected WBC RBC Hgb Hct MCV MCH MCHC RDW RDW Differential Plt Count MPV Immature Gran % (Auto) Neut % (Auto) Lymph % (Auto) Levy % (Auto) Eos % (Auto) Baso % (Auto) Absolute Neuts (auto) Absolute Lymphs (auto) Total Counted Neutrophils % (Manual) Band Neutrophils % Lymphocytes % (Manual) Monocytes % (Manual) Metamyelocytes % Nucleated RBC % Nucleated RBCs/100 WBC Differential Comment Diff Path Review Platelet Estimate RBC Morphology Hypochromasia Anisocytosis Macrocytosis Tear Drop Cells Absolute Retic PT INR APTT 43.5 H D-Dimer Quant (PE/DVT) Sodium 136 Potassium 3.0 L Chloride 105 Carbon Dioxide 16.0 L Anion Gap 15 BUN 22 H Creatinine 0.90 Estim Creat Clear Calc 73.84 Est GFR (MDRD) Af Amer 109 Est GFR (MDRD) Non-Af 90 BUN/Creatinine Ratio 24.5 H Glucose 175 H Lactic Acid Calcium 6.6 L Phosphorus Total Bilirubin AST ALT Alkaline Phosphatase Troponin I < 0.015 B-Natriuretic Peptide Total Protein Albumin Globulin Albumin/Globulin Ratio Triglycerides Cholesterol LDL Cholesterol VLDL Cholesterol HDL Cholesterol Urine Color Urine Clarity Urine pH Ur Specific [place] Urine Protein Urine Glucose (UA) Urine Ketones Urine Occult Blood Urine Nitrite Urine Bilirubin Urine Urobilinogen Ur Leukocyte Esterase Urine RBC Urine WBC Ur Squamous Epith Cells Urine Bacteria Hyaline Casts Coarse Granular Casts Urine Mucus 05/09/18 05/09/18 03:30 13:10 WBC Corrected WBC RBC Hgb Hct MCV MCH MCHC RDW RDW Differential Plt Count MPV Immature Gran % (Auto) Neut % (Auto) Lymph % (Auto) Levy % (Auto) Eos % (Auto) Baso % (Auto) Absolute Neuts (auto) Absolute Lymphs (auto) Total Counted Neutrophils % (Manual) Band Neutrophils % Lymphocytes % (Manual) Monocytes % (Manual) Metamyelocytes % Nucleated RBC % Nucleated RBCs/100 WBC Differential Comment Diff Path Review Platelet Estimate RBC Morphology Hypochromasia Anisocytosis Macrocytosis Tear Drop Cells Absolute Retic PT INR APTT 44.2 H D-Dimer Quant (PE/DVT) Sodium Potassium Chloride Carbon Dioxide Anion Gap BUN Creatinine Estim Creat Clear Calc Est GFR (MDRD) Af Amer Est GFR (MDRD) Non-Af BUN/Creatinine Ratio Glucose Lactic Acid Calcium Phosphorus Total Bilirubin AST ALT Alkaline Phosphatase Troponin I B-Natriuretic Peptide Total Protein Albumin Globulin Albumin/Globulin Ratio Triglycerides 93 Cholesterol 63 LDL Cholesterol 22 VLDL Cholesterol 19 HDL Cholesterol 22 L Urine Color Urine Clarity Urine pH Ur Specific [place] Urine Protein Urine Glucose (UA) Urine Ketones Urine Occult Blood Urine Nitrite Urine Bilirubin Urine Urobilinogen Ur Leukocyte Esterase Urine RBC Urine WBC Ur Squamous Epith Cells Urine Bacteria Hyaline Casts Coarse Granular Casts Urine Mucus POC Glucose 05/09/18 05/09/18 05/09/18 15:46 12:59 06:24 POC Glucose 153 H 123 H 142 H 05/09/18 05/09/18 05/08/18 02:51 02:21 22:34 POC Glucose 166 H 173 H 153 H Medical Necessity - Tobacco Use Smoking Status: Former smoker Assessment/Plan All Active Problems (Last Reviewed 05/09/18 @ 01:03 by Alfred Bailey MD) Educational circumstance (Acute) SOB (shortness of breath) (Acute) Ascites, malignant (Acute) Septic shock (Acute) DVT (deep venous thrombosis) (Acute) Pulmonary embolism (Acute) Diabetes (Acute) Abdominal distension (gaseous) (Acute) Personal history of colonic polyps (Acute) #1 acute septic shock secondary to gram-negative infection, likely to be biliary in source-continue Zosyn and vancomycin, await cultures, continue IV fluid administration, patient is a DNR CC arrest. #2 acute DVT and PE-continue IV heparin #3 acute bilateral centrum semiovale ovale infarcts-this seems likely secondary to endocardial thrombus origin, patient's transthoracic echo however was unremarkable. Patient is currently on IV heparin, neurology will ultimately see the patient and recommend additional studies if needed #4 stage IV created cancer-overall poor prognosis, I talked with oncology by phone today and oncology stated that they would not be able to add any input into the patient's care at this time, they recommended consultation if needed concerning the patient's care. Patient did have Neulasta as an outpatient after his last chemotherapy which was last week. #5 hypokalemia-patient will be given oral potassium #6 type 2 diabetes #7 pancytopenia secondary to chemotherapy for pancreatic cancer-repeat labs tomorrow, oncology does not recommend giving a platelet infusion until the platelets get down to 20,000 unless the patient has a bleed. Again, Granix is not indicated as the patient had Neulasta last week Code Visit Inpatient E&M: 29626 Subs Hosp L2
[2018-05-09] MEDS: Insulin Lispro 100 UNIT/ML INSULN.PEN SC (17:44)
[2018-05-09 18:41] LABS: Partial Thromboplast Time 48.6 Seconds (24.1-36.2)
[2018-05-09] MEDS: Mirtazapine 15 MG Tablet PO (21:26)
[2018-05-09 21:30] LABS: Bedside Glucose 137 mg/dL (70-110)
[2018-05-10] VITALS (29 sets, daily range): BP systolic 81–113; BP diastolic 60–96; PULSE 108–129; RESP 27–33; TEMP 35.2–37.9; O2SAT 94–100
[2018-05-10 01:33] LABS: Partial Thromboplast Time 49.4 Seconds (24.1-36.2)
[2018-05-10 02:50] LABS: Bedside Glucose 166 mg/dL (70-110)
[2018-05-10] MEDS: Levothyroxine 125 MCG Tablet PO (05:23)
[2018-05-10] MEDS: HEPARIN/D5w 25,000 UNITS 25,000 UNITS/250 ML IV.SOLN. 8 UNITS IV (05:24)
[2018-05-10] MEDS: 0.9% Normal Saline 1,000 ML 100 ML IV ×2 (06:16→17:40)
[2018-05-10 06:30] LABS: Bedside Glucose 162 mg/dL (70-110)
[2018-05-10] MEDS: Lactated Ringers 1,000 ML 999 ML IV ×3 (07:13→19:05)
[2018-05-10 07:26] LABS: BUN 32 mg/dL (7-18); Creatinine, Serum 1.31 mg/dL (0.70-1.30); Estimated Creatinine Clearance 50.73 ml/min; Glucose 156 mg/dL (74-106)
[2018-05-10 07:27] LABS: Anion Gap 21 (5-15); BUN/Creat Ratio 24.4 RATIO (10-20); Calcium,Total 6.3 mg/dL (8.5-10.1); Chloride 108 mmol/L (98-107); EST Glomerular Filtration Rate 58 mL/min (>60); Est Glom Filt Rate - Afr Amer 71 mL/min (>60); Magnesium 1.8 mg/dL (1.6-2.6); Phosphorus 3.1 mg/dL (2.5-4.9); Potassium 3.6 mmol/L (3.5-5.1); Sodium Level 138 mmol/L (136-145)
[2018-05-10 07:28] LABS: Absolute Lymphocyte Count 0.38 X10^3/ul (0.83-4.51); Absolute Neutrophil Count 3.1 X10^3/uL (2.0-7.7); Basophil# 0.03 X10^3/uL; Basophil% 0.8 % (0-1); Hematocrit 29.9 % (40-54); Hemoglobin 9.8 g/dl (13.0-16.5); Lymphocyte # 0.38 X10^3/ul (4.0); Lymphocyte % 10.7 % (19-41); Mean Corp Hgb Conc 32.8 g/gl (32-36); Mean Corpuscular Hgb 30.2 pg (27.0-32.0); Monocyte# 0.06 X10^3/uL; Monocyte% 1.7 % (0-10); Neutrophil # 3.07 X10^3/uL (2.7-7.7); Neutrophil % 86.5 % (47-70); Platelet Count 24 K/mm3 (150-450); RBC Distribution Width CV 19.8 % (11.6-14.6); RBC Distribution Width SD 65.8 fl (35.1-43.9); Red Blood Count 3.25 M/mm3 (4.6-6.2); White Blood Count 3.6 K/mm3 (4.4-11.0)
[2018-05-10 07:46] LABS: Anisocytosis 2+; Differential Indicated SCAN CRITERIA MET; POSITIVE COUNT YES; POSITIVE DIFFERENTIAL YES; POSITIVE MORPHOLOGY YES
[2018-05-10 07:47] LABS: Crenated RBC 2+; Platelet Estimate MKD DEC (ADEQ)
--- NOTE | 2018-05-10 08:15 | PN_ITS ---
Subjective: Patient did okay overnight. Patient has been tachypneic throughout the evening. Patient does report some mild abdominal pain, but does not feel this is significantly different from previous. Patient continues to make concentrated urine. Patient's neurologic exam has continued to improve. Patient continues to have some mild dysarthria, but left-sided weakness has resolved. Objective: Echocardiogram completed yesterday showed an EF of 50% with no ASD by bubble study. Slightly elevated RVSP at 24 mmHg. Valves were not well visualized. MRI showed punctate infarcts of the bilateral centrum semi-ovale General: Alert, Cooperative, - - Tachypneic. Appears older than stated age. Slightly confused at times. HEENT: Atraumatic, PERRLA, EOMI, Normocephalic, - - Scleral injection without icterus Oral: No Gingival or Mucosal Lesions/ Ulcerations, Dry Mucosa Neck: Supple, No JVD, No Nodes, Trachea Midline Lungs: Normal air movement, No rhonchi, No wheeze, No rales, - - Symmetric expansion. No dullness to percussion. Cardiovascular: Normal S1, Normal S2, No murmurs, No rub noted, No Gallop, Tachycardic Abdomen: Bowel Sounds Present, Soft, Distended, Tender Extremities: No clubbing, No cyanosis, Edema Skin: - - Macular rash noted throughout the groin with some areas of excoriation on the left hip. Breakdown noted on the scrotum. Musculoskeletal: No Tenderness to Palpation of Joints or Extremities Lymphatic: No Cervical, Supraclavicular, or Inguinal Adenopathy Neurological: Cranial nerves II-XII grossly intact, Neuro grossly intact, Motor Exam 5/5 strength throughout Psych/Mental Status: Anxious, Restless Vital Signs Temp Pulse Resp BP Pulse Ox 37.8 C H 124 H 29 H 90/72 98 05/10/18 04:00 05/10/18 07:00 05/10/18 07:00 05/10/18 07:00 05/10/18 07:20 Oxygen Flow Rate (L/min) 2 Oxygen Delivery Method Nasal Cannula Weight: 85.2 kg Body Mass Index (BMI) 29.0 Finger Stick Blood Glucose 166 Intake and Output for Last 24 Hours 05/08/18 05/09/18 05/10/18 23:59 23:59 23:59 Intake Total 5687.2 / 5687.2 1250 / 1250 Output Total 830 / 830 200 / 200 Balance 4857.2 / 4857.2 1050 / 1050 Labs (Last 48 Hours) 05/08/18 05/08/18 05/08/18 16:10 16:10 16:10 WBC [employer]CH[employer] Corrected WBC 1.1 L* RBC 3.08 L Hgb 9.4 L Hct 29.2 L MCV 94.8 H MCH 30.5 MCHC 32.2 RDW 19.2 H RDW Differential 65.5 H Plt Count 93 L MPV 11.9 Immature Gran % (Auto) Neut % (Auto) Not Reportable Lymph % (Auto) Dickenson % (Auto) Eos % (Auto) Baso % (Auto) Absolute Neuts (auto) 0.8 L Absolute Lymphs (auto) 0.14 L Total Counted 100 Neutrophils % (Manual) 45 L Band Neutrophils % 19 H Lymphocytes % (Manual) 13 L Monocytes % (Manual) 21 H Metamyelocytes % 2 H Nucleated RBC % 23.1 H Nucleated RBCs/100 WBC 9 H Differential Comment Diff Path Review May foll Platelet Estimate MOD DEC RBC Morphology N CHROM Hypochromasia Anisocytosis 2+ Macrocytosis Tear Drop Cells 1+ Absolute Retic 0.26 PT 13.2 INR 1.0 APTT 33.7 D-Dimer Quant (PE/DVT) 0.30 Sodium 135 L Potassium 3.7 Chloride 102 Carbon Dioxide 13.0 L Anion Gap 20 H BUN 26 H Creatinine 1.12 Estim Creat Clear Calc 59.34 Est GFR (MDRD) Af Amer 85 Est GFR (MDRD) Non-Af 70 BUN/Creatinine Ratio 23.2 H Glucose 236 H Lactic Acid Calcium 7.6 L Phosphorus Magnesium Total Bilirubin 0.50 Direct Bilirubin AST 18 ALT 27 Alkaline Phosphatase 76 Troponin I < 0.015 B-Natriuretic Peptide Total Protein 5.1 L Albumin 1.8 L Globulin 3.3 Albumin/Globulin Ratio 0.5 L Triglycerides Cholesterol LDL Cholesterol VLDL Cholesterol HDL Cholesterol Lipase Urine Color Urine Clarity Urine pH Ur Specific [place] Urine Protein Urine Glucose (UA) Urine Ketones Urine Occult Blood Urine Nitrite Urine Bilirubin Urine Urobilinogen Ur Leukocyte Esterase Urine RBC Urine WBC Ur Squamous Epith Cells Urine Bacteria Hyaline Casts Coarse Granular Casts Urine Mucus POC Glucose 05/08/18 05/08/18 05/08/18 16:10 18:40 22:30 WBC Corrected WBC RBC Hgb Hct MCV MCH MCHC RDW RDW Differential Plt Count MPV Immature Gran % (Auto) Neut % (Auto) Lymph % (Auto) Dickenson % (Auto) Eos % (Auto) Baso % (Auto) Absolute Neuts (auto) Absolute Lymphs (auto) Total Counted Neutrophils % (Manual) Band Neutrophils % Lymphocytes % (Manual) Monocytes % (Manual) Metamyelocytes % Nucleated RBC % Nucleated RBCs/100 WBC Differential Comment Diff Path Review Platelet Estimate RBC Morphology Hypochromasia Anisocytosis Macrocytosis Tear Drop Cells Absolute Retic PT INR APTT D-Dimer Quant (PE/DVT) Sodium Potassium Chloride Carbon Dioxide Anion Gap BUN Creatinine Estim Creat Clear Calc Est GFR (MDRD) Af Amer Est GFR (MDRD) Non-Af BUN/Creatinine Ratio Glucose Lactic Acid 8.8 H* 3.8 H Calcium Phosphorus Magnesium Total Bilirubin Direct Bilirubin AST ALT Alkaline Phosphatase Troponin I B-Natriuretic Peptide Total Protein Albumin Globulin Albumin/Globulin Ratio Triglycerides Cholesterol LDL Cholesterol VLDL Cholesterol HDL Cholesterol Lipase Urine Color Yellow Urine Clarity Clear Urine pH 5.0 Ur Specific [place] 1.020 Urine Protein 30 H Urine Glucose (UA) 1000 H Urine Ketones 50 H Urine Occult Blood 25 H Urine Nitrite Negative Urine Bilirubin Negative Urine Urobilinogen Normal Ur Leukocyte Esterase Negative Urine RBC 0 SEEN Urine WBC 0 SEEN Ur Squamous Epith Cells 0 SEEN Urine Bacteria 0 SEEN Hyaline Casts 0-5 SEEN Coarse Granular Casts 0-5 SEEN Urine Mucus RARE POC Glucose 05/08/18 05/08/18 05/08/18 22:30 22:30 22:34 WBC Corrected WBC RBC Hgb Hct MCV MCH MCHC RDW RDW Differential Plt Count MPV Immature Gran % (Auto) Neut % (Auto) Lymph % (Auto) Dickenson % (Auto) Eos % (Auto) Baso % (Auto) Absolute Neuts (auto) Absolute Lymphs (auto) Total Counted Neutrophils % (Manual) Band Neutrophils % Lymphocytes % (Manual) Monocytes % (Manual) Metamyelocytes % Nucleated RBC % Nucleated RBCs/100 WBC Differential Comment Diff Path Review Platelet Estimate RBC Morphology Hypochromasia Anisocytosis Macrocytosis Tear Drop Cells Absolute Retic PT INR APTT D-Dimer Quant (PE/DVT) Sodium Potassium Chloride Carbon Dioxide Anion Gap BUN Creatinine Estim Creat Clear Calc Est GFR (MDRD) Af Amer Est GFR (MDRD) Non-Af BUN/Creatinine Ratio Glucose Lactic Acid Calcium Phosphorus 1.7 L Magnesium Total Bilirubin Direct Bilirubin AST ALT Alkaline Phosphatase Troponin I B-Natriuretic Peptide 357.8 H Total Protein Albumin Globulin Albumin/Globulin Ratio Triglycerides Cholesterol LDL Cholesterol VLDL Cholesterol HDL Cholesterol Lipase Urine Color Urine Clarity Urine pH Ur Specific [place] Urine Protein Urine Glucose (UA) Urine Ketones Urine Occult Blood Urine Nitrite Urine Bilirubin Urine Urobilinogen Ur Leukocyte Esterase Urine RBC Urine WBC Ur Squamous Epith Cells Urine Bacteria Hyaline Casts Coarse Granular Casts Urine Mucus POC Glucose 153 H 05/09/18 05/09/18 05/09/18 02:21 02:51 03:30 WBC 0.9 L* Corrected WBC RBC 2.70 L Hgb 8.2 L Hct 25.2 L MCV 93.3 MCH 30.4 MCHC 32.5 RDW 19.2 H RDW Differential 65.1 H Plt Count 35 L* MPV 11.2 Immature Gran % (Auto) 0.000 Neut % (Auto) 37.7 L Lymph % (Auto) 23.5 Dickenson % (Auto) 37.6 H Eos % (Auto) 0.0 Baso % (Auto) 1.2 H Absolute Neuts (auto) 0.3 L Absolute Lymphs (auto) 0.20 L Total Counted Not Reportable Neutrophils % (Manual) Band Neutrophils % Lymphocytes % (Manual) Monocytes % (Manual) Metamyelocytes % Nucleated RBC % Nucleated RBCs/100 WBC Differential Comment SEE COMMENTS Diff Path Review May foll Platelet Estimate MKD DEC RBC Morphology Hypochromasia RARE Anisocytosis 1+ Macrocytosis 1+ Tear Drop Cells RARE Absolute Retic PT INR APTT D-Dimer Quant (PE/DVT) Sodium Potassium Chloride Carbon Dioxide Anion Gap BUN Creatinine Estim Creat Clear Calc Est GFR (MDRD) Af Amer Est GFR (MDRD) Non-Af BUN/Creatinine Ratio Glucose Lactic Acid Calcium Phosphorus Magnesium Total Bilirubin Direct Bilirubin AST ALT Alkaline Phosphatase Troponin I B-Natriuretic Peptide Total Protein Albumin Globulin Albumin/Globulin Ratio Triglycerides Cholesterol LDL Cholesterol VLDL Cholesterol HDL Cholesterol Lipase Urine Color Urine Clarity Urine pH Ur Specific [place] Urine Protein Urine Glucose (UA) Urine Ketones Urine Occult Blood Urine Nitrite Urine Bilirubin Urine Urobilinogen Ur Leukocyte Esterase Urine RBC Urine WBC Ur Squamous Epith Cells Urine Bacteria Hyaline Casts Coarse Granular Casts Urine Mucus POC Glucose 173 H 166 H 05/09/18 05/09/18 05/09/18 03:30 03:30 03:30 WBC Corrected WBC RBC Hgb Hct MCV MCH MCHC RDW RDW Differential Plt Count MPV Immature Gran % (Auto) Neut % (Auto) Lymph % (Auto) Dickenson % (Auto) Eos % (Auto) Baso % (Auto) Absolute Neuts (auto) Absolute Lymphs (auto) Total Counted Neutrophils % (Manual) Band Neutrophils % Lymphocytes % (Manual) Monocytes % (Manual) Metamyelocytes % Nucleated RBC % Nucleated RBCs/100 WBC Differential Comment Diff Path Review Platelet Estimate RBC Morphology Hypochromasia Anisocytosis Macrocytosis Tear Drop Cells Absolute Retic PT INR APTT 43.5 H D-Dimer Quant (PE/DVT) Sodium 136 Potassium 3.0 L Chloride 105 Carbon Dioxide 16.0 L Anion Gap 15 BUN 22 H Creatinine 0.90 Estim Creat Clear Calc 73.84 Est GFR (MDRD) Af Amer 109 Est GFR (MDRD) Non-Af 90 BUN/Creatinine Ratio 24.5 H Glucose 175 H Lactic Acid Calcium 6.6 L Phosphorus Magnesium Total Bilirubin Direct Bilirubin AST ALT Alkaline Phosphatase Troponin I < 0.015 B-Natriuretic Peptide Total Protein Albumin Globulin Albumin/Globulin Ratio Triglycerides Cholesterol LDL Cholesterol VLDL Cholesterol HDL Cholesterol Lipase Urine Color Urine Clarity Urine pH Ur Specific [place] Urine Protein Urine Glucose (UA) Urine Ketones Urine Occult Blood Urine Nitrite Urine Bilirubin Urine Urobilinogen Ur Leukocyte Esterase Urine RBC Urine WBC Ur Squamous Epith Cells Urine Bacteria Hyaline Casts Coarse Granular Casts Urine Mucus POC Glucose 05/09/18 05/09/18 05/09/18 03:30 06:24 12:59 WBC Corrected WBC RBC Hgb Hct MCV MCH MCHC RDW RDW Differential Plt Count MPV Immature Gran % (Auto) Neut % (Auto) Lymph % (Auto) [place] % (Auto) Eos % (Auto) Baso % (Auto) Absolute Neuts (auto) Absolute Lymphs (auto) Total Counted Neutrophils % (Manual) Band Neutrophils % Lymphocytes % (Manual) Monocytes % (Manual) Metamyelocytes % Nucleated RBC % Nucleated RBCs/100 WBC Differential Comment Diff Path Review Platelet Estimate RBC Morphology Hypochromasia Anisocytosis Macrocytosis Tear Drop Cells Absolute Retic PT INR APTT D-Dimer Quant (PE/DVT) Sodium Potassium Chloride Carbon Dioxide Anion Gap BUN Creatinine Estim Creat Clear Calc Est GFR (MDRD) Af Amer Est GFR (MDRD) Non-Af BUN/Creatinine Ratio Glucose Lactic Acid Calcium Phosphorus Magnesium Total Bilirubin Direct Bilirubin AST ALT Alkaline Phosphatase Troponin I B-Natriuretic Peptide Total Protein Albumin Globulin Albumin/Globulin Ratio Triglycerides 93 Cholesterol 63 LDL Cholesterol 22 VLDL Cholesterol 19 HDL Cholesterol 22 L Lipase Urine Color Urine Clarity Urine pH Ur Specific [place] Urine Protein Urine Glucose (UA) Urine Ketones Urine Occult Blood Urine Nitrite Urine Bilirubin Urine Urobilinogen Ur Leukocyte Esterase Urine RBC Urine WBC Ur Squamous Epith Cells Urine Bacteria Hyaline Casts Coarse Granular Casts Urine Mucus POC Glucose 142 H 123 H 05/09/18 05/09/18 05/09/18 13:10 15:46 18:25 WBC Corrected WBC RBC Hgb Hct MCV MCH MCHC RDW RDW Differential Plt Count MPV Immature Gran % (Auto) Neut % (Auto) Lymph % (Auto) Dick[place] % (Auto) Eos % (Auto) Baso % (Auto) Absolute Neuts (auto) Absolute Lymphs (auto) Total Counted Neutrophils % (Manual) Band Neutrophils % Lymphocytes % (Manual) Monocytes % (Manual) Metamyelocytes % Nucleated RBC % Nucleated RBCs/100 WBC Differential Comment Diff Path Review Platelet Estimate RBC Morphology Hypochromasia Anisocytosis Macrocytosis Tear Drop Cells Absolute Retic PT INR APTT 44.2 H 48.6 H D-Dimer Quant (PE/DVT) Sodium Potassium Chloride Carbon Dioxide Anion Gap BUN Creatinine Estim Creat Clear Calc Est GFR (MDRD) Af Amer Est GFR (MDRD) Non-Af BUN/Creatinine Ratio Glucose Lactic Acid Calcium Phosphorus Magnesium Total Bilirubin Direct Bilirubin AST ALT Alkaline Phosphatase Troponin I B-Natriuretic Peptide Total Protein Albumin Globulin Albumin/Globulin Ratio Triglycerides Cholesterol LDL Cholesterol VLDL Cholesterol HDL Cholesterol Lipase Urine Color Urine Clarity Urine pH Ur Specific [place] Urine Protein Urine Glucose (UA) Urine Ketones Urine Occult Blood Urine Nitrite Urine Bilirubin Urine Urobilinogen Ur Leukocyte Esterase Urine RBC Urine WBC Ur Squamous Epith Cells Urine Bacteria Hyaline Casts Coarse Granular Casts Urine Mucus POC Glucose 153 H 05/09/18 05/10/18 05/10/18 21:22 01:02 02:47 WBC Corrected WBC RBC Hgb Hct MCV MCH MCHC RDW RDW Differential Plt Count MPV Immature Gran % (Auto) Neut % (Auto) Lymph % (Auto) [place] % (Auto) Eos % (Auto) Baso % (Auto) Absolute Neuts (auto) Absolute Lymphs (auto) Total Counted Neutrophils % (Manual) Band Neutrophils % Lymphocytes % (Manual) Monocytes % (Manual) Metamyelocytes % Nucleated RBC % Nucleated RBCs/100 WBC Differential Comment Diff Path Review Platelet Estimate RBC Morphology Hypochromasia Anisocytosis Macrocytosis Tear Drop Cells Absolute Retic PT INR APTT 49.4 H D-Dimer Quant (PE/DVT) Sodium Potassium Chloride Carbon Dioxide Anion Gap BUN Creatinine Estim Creat Clear Calc Est GFR (MDRD) Af Amer Est GFR (MDRD) Non-Af BUN/Creatinine Ratio Glucose Lactic Acid Calcium Phosphorus Magnesium Total Bilirubin Direct Bilirubin AST ALT Alkaline Phosphatase Troponin I B-Natriuretic Peptide Total Protein Albumin Globulin Albumin/Globulin Ratio Triglycerides Cholesterol LDL Cholesterol VLDL Cholesterol HDL Cholesterol Lipase Urine Color Urine Clarity Urine pH Ur Specific [place] Urine Protein Urine Glucose (UA) Urine Ketones Urine Occult Blood Urine Nitrite Urine Bilirubin Urine Urobilinogen Ur Leukocyte Esterase Urine RBC Urine WBC Ur Squamous Epith Cells Urine Bacteria Hyaline Casts Coarse Granular Casts Urine Mucus POC Glucose 137 H 166 H 05/10/18 05/10/18 05/10/18 04:30 06:12 06:44 WBC 3.6 L Corrected WBC RBC 3.25 L Hgb 9.8 L Hct 29.9 L MCV 92.0 MCH 30.2 MCHC 32.8 RDW 19.8 H RDW Differential 65.8 H Plt Count 24 L* MPV Immature Gran % (Auto) 0.300 Neut % (Auto) 86.5 H Lymph % (Auto) 10.7 L Dick[place] % (Auto) 1.7 Eos % (Auto) 0.0 Baso % (Auto) 0.8 Absolute Neuts (auto) 3.1 Absolute Lymphs (auto) 0.38 L Total Counted Not Reportable Neutrophils % (Manual) Band Neutrophils % Lymphocytes % (Manual) Monocytes % (Manual) Metamyelocytes % Nucleated RBC % Nucleated RBCs/100 WBC Differential Comment Diff Path Review May foll Platelet Estimate MKD DEC RBC Morphology 2+ Hypochromasia Anisocytosis 2+ Macrocytosis Tear Drop Cells Absolute Retic PT INR APTT D-Dimer Quant (PE/DVT) Sodium 138 Potassium 3.6 Chloride 108 H Carbon Dioxide 9.0 L* Anion Gap 21 H BUN 32 H Creatinine 1.31 H Estim Creat Clear Calc 50.73 Est GFR (MDRD) Af Amer 71 Est GFR (MDRD) Non-Af 58 L BUN/Creatinine Ratio 24.4 H Glucose 156 H Lactic Acid Calcium 6.3 L* Phosphorus 3.1 Magnesium 1.8 Total Bilirubin Direct Bilirubin AST ALT Alkaline Phosphatase Troponin I B-Natriuretic Peptide Total Protein Albumin Globulin Albumin/Globulin Ratio Triglycerides Cholesterol LDL Cholesterol VLDL Cholesterol HDL Cholesterol Lipase Urine Color Urine Clarity Urine pH Ur Specific [place] Urine Protein Urine Glucose (UA) Urine Ketones Urine Occult Blood Urine Nitrite Urine Bilirubin Urine Urobilinogen Ur Leukocyte Esterase Urine RBC Urine WBC Ur Squamous Epith Cells Urine Bacteria Hyaline Casts Coarse Granular Casts Urine Mucus POC Glucose 162 H 05/10/18 05/10/18 05/10/18 07:59 07:59 07:59 WBC Corrected WBC RBC Hgb Hct MCV MCH MCHC RDW RDW Differential Plt Count MPV Immature Gran % (Auto) Neut % (Auto) Lymph % (Auto) [place] % (Auto) Eos % (Auto) Baso % (Auto) Absolute Neuts (auto) Absolute Lymphs (auto) Total Counted Neutrophils % (Manual) Band Neutrophils % Lymphocytes % (Manual) Monocytes % (Manual) Metamyelocytes % Nucleated RBC % Nucleated RBCs/100 WBC Differential Comment Diff Path Review Platelet Estimate RBC Morphology Hypochromasia Anisocytosis Macrocytosis Tear Drop Cells Absolute Retic PT INR APTT Pending D-Dimer Quant (PE/DVT) Sodium Potassium Chloride Carbon Dioxide Anion Gap BUN Creatinine Estim Creat Clear Calc Est GFR (MDRD) Af Amer Est GFR (MDRD) Non-Af BUN/Creatinine Ratio Glucose Lactic Acid Pending Calcium Phosphorus Magnesium Total Bilirubin Pending Direct Bilirubin Pending AST Pending ALT Pending Alkaline Phosphatase Pending Troponin I B-Natriuretic Peptide Total Protein Pending Albumin Pending Globulin Albumin/Globulin Ratio Triglycerides Cholesterol LDL Cholesterol VLDL Cholesterol HDL Cholesterol Lipase Pending Urine Color Urine Clarity Urine pH Ur Specific [place] Urine Protein Urine Glucose (UA) Urine Ketones Urine Occult Blood Urine Nitrite Urine Bilirubin Urine Urobilinogen Ur Leukocyte Esterase Urine RBC Urine WBC Ur Squamous Epith Cells Urine Bacteria Hyaline Casts Coarse Granular Casts Urine Mucus POC Glucose Microbiology 05/08/18 16:10 Blood Culture (Wb) - Port Blood Culture - Preliminary 05/08/18 17:10 Blood Culture (Wb) - Left Hand Blood Culture - Preliminary 05/08/18 22:52 Mucosa - Nasopharyngeal Influenza Types A,B Direct FA ([place]) - Final Clinical Impression(s) from Imaging Studies Brain MRI 05/09/18 03:43 IMPRESSION: 1. 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 Senescent changes as above. Electronically Signed: Tone Amaya at 10:50 EST , Service support , Medical Necessity - Tobacco Use Smoking Status: Former smoker Assessment/Plan All Active Problems (Last Reviewed 05/09/18 @ 01:03 by Alfred Bailey MD) Educational circumstance (Acute) SOB (shortness of breath) (Acute) Ascites, malignant (Acute) Septic shock (Acute) DVT (deep venous thrombosis) (Acute) Pulmonary embolism (Acute) Diabetes (Acute) Abdominal distension (gaseous) (Acute) Personal history of colonic polyps (Acute) RECOMMENDATIONS: 1. Continue empiric antibiotics 2. Aggressive hydration 3. Heparin drip with no bolus 4. No aspirin given thrombocytopenia 5. Continue CODE STATUS to DNR Comfort Care arrest without intubation IMPRESSIONS: 1. Gram-negative septic shock in the setting of neutropenic fever secondary to chemotherapy Patient appears to be volume depleted at this time and has developed fever in the setting of neutropenia. Unclear source at this time, but gram-negative's are now growing in the blood. Patient is on broad-spectrum antibiotics. Patient may require central line and pressor therapy eventually, but will attempt treatment with fluid boluses for now. We will continue to monitor in the intensive care unit. Patient has significant tachypnea despite clear breath sounds indicating probable compensation for metabolic acidosis. 2. Acute CVA Patient's neurologic exam has improved significantly following initiation of heparin drip. Patient does have a punctate lesion noted on MRI, but clinical significance is unclear. Patient's left side is moving better. Patient will not be given aspirin secondary to thrombocytopenia. 3. Metastatic pancreatic cancer on chemotherapy Patient last received chemotherapy on Friday. Oncology has been consulted. Long-term prognosis is poor. After discussion of patient's current situation, patient would like to be DNR Comfort Care arrest without intubation. Patient would like to continue with therapy otherwise. 4. Insulin-dependent diabetes mellitus Patient is not receiving steroids at this time, but may have an element of adrenal response secondary to severe illness. Continue to monitor blood sugar with sliding scale as indicated. Will hold off on basal insulin as long as patient is n.p.o. blood sugars are well controlled at this time. 5. Bilateral PE and DVT Patient increased risk for coagulation secondary to concurrent cancer. Patient will be placed on a heparin drip. No bolus will be given secondary to possible CVA. Oxygen status appears to be doing well at this time, but patient is significantly dehydrated. Would not be surprised if patient develops infiltrates after repeat hydration. Will obtain a chest x-ray tomorrow morning for evaluation. TIME: 33 minutes critical care time spent addressing patient's gram-negative septic shock, acute CVA, diabetes mellitus, bilateral PE, review of all data and collaboration with care team (7:15AM to 8:15 AM) Code Visit [id number]: [id number] Critical care first hour
--- NOTE | 2018-05-10 08:17 | RAD_ITS ---
STUDY: X-RAY CHEST REASON FOR EXAM: Male, 67 years old. Shortness of breath, dyspnea TECHNIQUE: AP COMPARISON: 05/08/2018 FINDINGS: Right chest port is grossly similar. Persistent elevation of left hemidiaphragm with air distention of the stomach. No airspace consolidation. There is no demonstrated pleural abnormality. Normal size heart. Normal mediastinum and andreas. Normal visualized pulmonary arteries. Normal visualized aortic arch and descending thoracic aorta. Normal visualized thoracic spine. There is degenerative osteoarthritis of the bilateral shoulders. There is no demonstrated abnormality of the visualized soft tissue structures of the upper abdomen. RAD/Chest 1 View (Portable) IMPRESSION: Stable, nonacute portable x-ray examination of the chest. Electronically Signed: Lui Thompson MD at 12:42 EST , Service support ,
[2018-05-10] MEDS: Pantoprazole Sodium 40 MG Tablet PO (08:23)
[2018-05-10 08:36] LABS: Bedside Glucose 144 mg/dL (70-110)
[2018-05-10 08:38] LABS: AST(SGOT) 49 U/L (15-37); Alanine Aminotransfer ALT/SGPT 31 U/L (16-61); Alkaline Phosphatase 52 U/L (45-117); Bilirubin, Direct 0.59 mg/dL (0.00-0.30); Globulin 3.2 g/dL (2.2-4.2); Lipase 20 U/L (73-393); Protein, Total 4.2 g/dL (6.4-8.2)
[2018-05-10] MEDS: Acetaminophen 325 MG Tablet 650 MG PO (09:42)
[2018-05-10] MEDS: Loperamide 2 MG Capsule PO (09:43)
[2018-05-10] MEDS: CHLORHEXIDINE GLUC 2% CLOTH 1 EACH TOWELETTE TOPICAL (09:48)
[2018-05-10] MEDS: Menthol/Lanolin/Calamine/Znox 113 GM Tube 1 APPLIC TOPICAL ×2 (10:17→22:34)
--- NOTE | 2018-05-10 10:56 | PCM.CONS.GEN ---
Reason for Consult Date of Consultation: 05/10/18 Reason for Consultation: acute stroke History of Present Illness: The patient is a 67 year old M admitted with shortness of breath several days ago. 2 nights ago nursing staff noted right-sided weakness and a stroke team was called. Dr. Villa was paged and responded. He has been pancytopenic presumably due to chemotherapy for recently diagnosed pancreatic cancer. He received chemotherapy about a week ago. He is also lactic acidotic hypotensive. He also has been recently diagnosed with DVTs and has been on IV heparin. Per admit note: The patient is a 67 year old M with a significant history of hypertension; hypothyroidism; pancreatic cancer with metastases and on chemotherapy; recently diagnosed diabetes mellitus who presented to the emergency department with progressively worsening shortness of breath that started 5 to 6 hours prior to presentation. Her family report that for some time patient had shortness of breath but in the last few hours it progressively worsened as above. Associated with his symptoms is weakness to the point that he is unable to walk. Patient follows up with the [facility] cancer [facility] at [facility]. He had IV fluid infusion at the [facility] today (same day of admission). Because patient had elevated heart rate whiles at the infusion center, he was going to be sent to the hospital. However because patient had an appointment with PCP he was released to go to see his PCP. At the PCPs office, because of his tachycardia, he was instructed to come to the emergency department. At the emergency department because patient complained of right leg pain a bilateral extremity Doppler was done that rather showed a clot in his left leg. A follow-up CTPA showed bilateral clots in his lungs. Also the patient was found to have lactic acidosis with lactic acid of 8.8. His white count was at 1.1. His hemoglobin was 9.4 and his platelet count was 93. Urine cultures and blood cultures x2 was taken at the emergency department. Blood culture was taken peripherally and from his port. Patient was given IV fluids bolus per septic shock protocol and broad-spectrum antibiotics of vancomycin and Zosyn was started. Of note patient had paracentesis for ascites about a week ago. Ascites was attributed to pancreatic cancer. Past Medical History Past Medical History (Chronic Problems): Chronic Problems (Last Reviewed 05/09/18 @ 01:03 by Alfred Bailey MD) Pancreatic cancer (Chronic) Abdominal pain (Chronic) Medical History: Medical History (Last Reviewed 05/10/18 @ 10:59 by Shyam Baker MD) Abdominal distension (gaseous) (Acute) R14.0 Personal history of colonic polyps (Acute) Z86.010 Nausea and vomiting (Inactive) R11.2 Bloating R14.0 Diabetes E11.9 GERD (gastroesophageal reflux disease) K21.9 Hemorrhoids K64.9 Hypothyroidism E03.9 robotic gastrojejunostomy 03/06/18 DR. KEMAR IGNACIO HTN (hypertension) I10 Allergies oxycodone HCl [From Percocet] Adverse Reaction (Severe, Verified 05/08/18 16:49) nightmares nightmares Tetracyclines Adverse Reaction (Severe, Verified 05/08/18 15:54) Upset Stomach Home Medications: Ambulatory Orders Medication Instructions Recorded Pantoprazole Sodium [Protonix] 40 mg PO DAILY 09/19/16 Docusate Sodium [Colace] 100 mg PO BID 03/16/18 Lidocaine/Prilocaine 1 applicatio TP DAILY PRN PRN 30 03/26/18 [Lidocaine-Prilocaine Cream] Days #1 tube Dexamethasone [Decadron] 8 mg PO DAILY@0800 PRN #30 tablet 04/03/18 Olanzapine [Zyprexa] 10 mg PO DAILY #30 tablet 04/03/18 proCHLORPERazine suppository 25 mg RECTAL BID PRN PRN #14 04/03/18 [Compazine suppository] suppos. Guaifen/Dextromethorphan/PE 10 ml PO PRN PRN 05/08/18 [Tussin Cf Cough-Cold Liquid] Insulin Glargine,Hum.rec.anlog 15 unit SQ DAILY 05/08/18 [Basaglar Kwikpen U-100] Levothyroxine [Synthroid] 125 mcg PO DAILY 05/08/18 Mirtazapine [Remeron] 15 mg PO QHS 05/08/18 Ondansetron HCl 8 mg PO PRN PRN 05/08/18 Spironolactone 50 mg PO BID 05/08/18 fentaNYL patch [Duragesic Patch] 12 mcg TRANSDERM. Q3D 05/08/18 Surgical History: Surgical History (Last Reviewed 05/09/18 @ 01:03 by Alfred Bailey MD) History of colonoscopy Onset Date: ~2014 Z98.890 History of esophagogastroduodenoscopy (EGD) Onset Date: History of right inguinal hernia repair Z98., Z87.19 History of rotator cuff surgery Z. History of thyroidectomy Z. Lives: Spouse/ Significant Other Smoking Status: Former smoker Alcohol: None - *Family History Maternal Family History: Family History (Last Reviewed 05/10/18 @ 10:59 by Shyam Baker MD) Father Colon cancer Heart disease Hypertension Myocardial infarction Review of Systems Respiratory: Reports: Shortness of Breath, Shortness of breath at rest Patient Problems: Active and Suspected Problems (Last Reviewed 05/09/18 @ 01:03 by Alfred Bailey MD) Educational circumstance (Acute) SOB (shortness of breath) (Acute) Ascites, malignant (Acute) Septic shock (Acute) DVT (deep venous thrombosis) (Acute) Pulmonary embolism (Acute) Diabetes (Acute) - Physical Exam General: Alert, Cooperative HEENT: PERRLA, EOMI Neurological: Cranial nerves II-XII grossly intact, Neuro grossly intact, Motor Exam 5/5 strength throughout Psych/Mental Status: Normal Affect Vital Signs Temp Pulse Resp BP Pulse Ox 37.3 C 119 H 28 H 113/81 H 100 05/10/18 08:00 05/10/18 10:00 05/10/18 10:00 05/10/18 10:00 05/10/18 10:00 Oxygen Flow Rate (L/min) 2 Oxygen Delivery Method Room Air Weight: 85.2 kg Body Mass Index (BMI) 29.0 Finger Stick Blood Glucose 166 Intake and Output for Last 24 Hours 05/08/18 05/09/18 05/10/18 23:59 23:59 23:59 Intake Total 5687.2 / 5687.2 1250 / 1250 Output Total 830 / 830 200 / 200 Balance 4857.2 / 4857.2 1050 / 1050 Microbiology Past 72 Hours 05/08/18 18:40 Urine Culture - Final Urine, Clean Catch Mixed Gram Pos & Gram Neg Org 05/08/18 16:10 Blood Culture - Preliminary Blood Culture (Wb) - Port 05/08/18 17:10 Blood Culture - Preliminary Blood Culture (Wb) - Left Hand 05/08/18 22:52 Influenza Types A,B Direct FA ([place]) - Final Mucosa - Nasopharyngeal Laboratory Tests Past 24 Hrs 05/09/18 05/09/18 05/10/18 13:10 18:25 01:02 WBC RBC Hgb Hct MCV MCH MCHC RDW RDW Differential Plt Count Immature Gran % (Auto) Neut % (Auto) Lymph % (Auto) [place] % (Auto) Eos % (Auto) Baso % (Auto) Absolute Neuts (auto) Absolute Lymphs (auto) Total Counted Diff Path Review Platelet Estimate RBC Morphology Anisocytosis APTT 44.2 H 48.6 H 49.4 H Sodium Potassium Chloride Carbon Dioxide Anion Gap BUN Creatinine Estim Creat Clear Calc Est GFR (MDRD) Af Amer Est GFR (MDRD) Non-Af BUN/Creatinine Ratio Glucose Lactic Acid Calcium Phosphorus Magnesium Total Bilirubin Direct Bilirubin AST ALT Alkaline Phosphatase Total Protein Albumin Globulin Lipase 05/10/18 05/10/18 05/10/18 04:30 06:44 07:59 WBC 3.6 L RBC 3.25 L Hgb 9.8 L Hct 29.9 L MCV 92.0 MCH 30.2 MCHC 32.8 RDW 19.8 H RDW Differential 65.8 H Plt Count 24 L* Immature Gran % (Auto) 0.300 Neut % (Auto) 86.5 H Lymph % (Auto) 10.7 L [place] % (Auto) 1.7 Eos % (Auto) 0.0 Baso % (Auto) 0.8 Absolute Neuts (auto) 3.1 Absolute Lymphs (auto) 0.38 L Total Counted Not Reportable Diff Path Review May foll Platelet Estimate MKD DEC RBC Morphology 2+ Anisocytosis 2+ APTT 51.0 H Sodium 138 Potassium 3.6 Chloride 108 H Carbon Dioxide 9.0 L* Anion Gap 21 H BUN 32 H Creatinine 1.31 H Estim Creat Clear Calc 50.73 Est GFR (MDRD) Af Amer 71 Est GFR (MDRD) Non-Af 58 L BUN/Creatinine Ratio 24.4 H Glucose 156 H Lactic Acid Calcium 6.3 L* Phosphorus 3.1 Magnesium 1.8 Total Bilirubin Direct Bilirubin AST ALT Alkaline Phosphatase Total Protein Albumin Globulin Lipase 05/10/18 05/10/18 07:59 07:59 WBC RBC Hgb Hct MCV MCH MCHC RDW RDW Differential Plt Count Immature Gran % (Auto) Neut % (Auto) Lymph % (Auto) [place] % (Auto) Eos % (Auto) Baso % (Auto) Absolute Neuts (auto) Absolute Lymphs (auto) Total Counted Diff Path Review Platelet Estimate RBC Morphology Anisocytosis APTT Sodium Potassium Chloride Carbon Dioxide Anion Gap BUN Creatinine Estim Creat Clear Calc Est GFR (MDRD) Af Amer Est GFR (MDRD) Non-Af BUN/Creatinine Ratio Glucose Lactic Acid 9.0 H* Calcium Phosphorus Magnesium Total Bilirubin 1.00 Direct Bilirubin 0.59 H AST 49 H ALT 31 Alkaline Phosphatase 52 Total Protein 4.2 L Albumin 1.0 L Globulin 3.2 Lipase 20 L POC Glucose 05/10/18 05/10/18 05/10/18 08:21 06:12 02:47 POC Glucose 144 H 162 H 166 H 05/09/18 05/09/18 05/09/18 21:22 15:46 12:59 POC Glucose 137 H 153 H 123 H Current Home Med List Medication Instructions Recorded Confirmed Type Pantoprazole Sodium [Protonix] 40 mg PO DAILY 09/19/16 05/08/18 History Docusate Sodium [Colace] 100 mg PO BID 03/16/18 05/08/18 History Lidocaine/Prilocaine 1 applicatio TP DAILY PRN PRN 30 03/26/18 05/08/18 Rx [Lidocaine-Prilocaine Cream] Days #1 tube Dexamethasone [Decadron] 8 mg PO DAILY@0800 PRN #30 tablet 04/03/18 05/08/18 Rx Olanzapine [Zyprexa] 10 mg PO DAILY #30 tablet 04/03/18 05/08/18 Rx proCHLORPERazine suppository 25 mg RECTAL BID PRN PRN #14 04/03/18 05/08/18 Rx [Compazine suppository] suppos. Guaifen/Dextromethorphan/PE 10 ml PO PRN PRN 05/08/18 05/08/18 History [Tussin Cf Cough-Cold Liquid] Insulin Glargine,Hum.rec.anlog 15 unit SQ DAILY 05/08/18 05/08/18 History [Basaglar Kwikpen U-100] Levothyroxine [Synthroid] 125 mcg PO DAILY 05/08/18 05/08/18 History Mirtazapine [Remeron] 15 mg PO QHS 05/08/18 05/08/18 History Ondansetron HCl 8 mg PO PRN PRN 05/08/18 05/08/18 History Spironolactone 50 mg PO BID 05/08/18 05/08/18 History fentaNYL patch [Duragesic Patch] 12 mcg TRANSDERM. Q3D 05/08/18 05/08/18 History MRI reviewed, he has a very small but acute left subcortical infarct in his high frontal lobe and in MCA distribution. By report there is also an acute infarct on the right side, which if present is very small by my review. Echo unremarkable Assessment/Plan All Active Problems (Last Reviewed 05/09/18 @ 01:03 by Alfred Bailey MD) Educational circumstance (Acute) SOB (shortness of breath) (Acute) Ascites, malignant (Acute) Septic shock (Acute) DVT (deep venous thrombosis) (Acute) Pulmonary embolism (Acute) Diabetes (Acute) Abdominal distension (gaseous) (Acute) Personal history of colonic polyps (Acute) Acute cardioembolic stroke likely due to hypercoagulable state due to malignancy complicated by sepsis and thrombocytopenia. His recent stroke is very small and not likely to be clinically significant however his overall prognosis is very poor. I would recommend continuing full anticoagulation as feasible. Other antiplatelet agents and other therapies are not likely to be of benefit and will increase the risk of bleeding.
[2018-05-10 12:08] LABS: Reflex Lactate? Y
[2018-05-10] MEDS: Insulin Lispro 100 UNIT/ML INSULN.PEN SC ×3 (12:14→22:32)
[2018-05-10 12:15] LABS: Bedside Glucose 195 mg/dL (70-110)
[2018-05-10] MEDS: Vancomycin IV 1,000 MG/200 ML BAG 200 MG IV (12:20)
[2018-05-10 13:30] LABS: Lactic Acid 13.6 mmol/L (0.4-2.0)
[2018-05-10 13:40] LABS: Vancomycin, Trough Level 8.9 ug/mL (5.0-15.0)
--- NOTE | 2018-05-10 15:26 | PN_ITS ---
Patient Problems: Active and Suspected Problems (Last Reviewed 05/10/18 @ 10:59 by Shyam Baker MD) Educational circumstance (Acute) SOB (shortness of breath) (Acute) Ascites, malignant (Acute) Septic shock (Acute) DVT (deep venous thrombosis) (Acute) Pulmonary embolism (Acute) Diabetes (Acute) Subjective: Patient was seen and examined today, systolic blood pressure is been in the 80s and 90s today, he has received fluid boluses. Platelet count this morning is 24,000, hemoglobin is 9.8 absolute neutrophil count was 3100. Patient's lactic acid has been highly elevated. - Physical Exam General: Alert, Cooperative, No apparent distress, Well developed, Lethargic HEENT: Atraumatic, PERRLA, EOMI, Normocephalic Oral: Moist Mucosa Neck: Supple, No JVD, No Nuchal Rigidity, Trachea Midline, Thyroid Normal Size and Texture Lungs: Clear to auscultation, Normal air movement, No rhonchi, No wheeze, No rales Cardiovascular: Regular rate, Regular Rhythm, Normal S1, Normal S2, No murmurs, No Ectopic Activity, PMI Normal, No rub noted, No Gallop Abdomen: Bowel Sounds Present, Soft, Non Tender, Non-Distended, No hernias noted Extremities: No clubbing, No cyanosis, No edema, Capillary Refill Less than 3 Seconds Skin: No rashes, No breakdown Musculoskeletal: No Tenderness to Palpation of Joints or Extremities Neurological: Cranial nerves II-XII grossly intact, Neuro grossly intact, Sensory exam intact to light touch and pain, Coordination normal Psych/Mental Status: Appropriate, Flat Affect, - - Patient appears lethargic but responds appropriately to questions Vital Signs Temp Pulse Resp BP Pulse Ox 99.2 F H 113 H 32 H 95/60 94 05/10/18 12:00 05/10/18 15:00 05/10/18 15:00 05/10/18 15:00 05/10/18 15:00 Oxygen Flow Rate (L/min) 2 Oxygen Delivery Method Room Air Weight: 85.2 kg Body Mass Index (BMI) 29.0 Finger Stick Blood Glucose 166 Intake and Output for Last 24 Hours 05/08/18 05/09/18 05/10/18 23:59 23:59 23:59 Intake Total 5687.2 / 5687.2 4110 / 4110 Output Total 830 / 830 400 / 400 Balance 4857.2 / 4857.2 3710 / 3710 Microbiology Past 72 Hours 05/08/18 17:10 Blood Culture - Preliminary Blood Culture (Wb) - Left Hand 05/08/18 18:40 Urine Culture - Final Urine, Clean Catch Mixed Gram Pos & Gram Neg Org 05/08/18 16:10 Blood Culture - Preliminary Blood Culture (Wb) - Port 05/08/18 22:52 Influenza Types A,B Direct FA ([place]) - Final Mucosa - Nasopharyngeal Laboratory Tests Past 24 Hrs 05/09/18 05/10/18 05/10/18 18:25 01:02 04:30 WBC 3.6 L RBC 3.25 L Hgb 9.8 L Hct 29.9 L MCV 92.0 MCH 30.2 MCHC 32.8 RDW 19.8 H RDW Differential 65.8 H Plt Count 24 L* Immature Gran % (Auto) 0.300 Neut % (Auto) 86.5 H Lymph % (Auto) 10.7 L [place] % (Auto) 1.7 Eos % (Auto) 0.0 Baso % (Auto) 0.8 Absolute Neuts (auto) 3.1 Absolute Lymphs (auto) 0.38 L Total Counted Not Reportable Diff Path Review May foll Platelet Estimate MKD DEC RBC Morphology 2+ Anisocytosis 2+ APTT 48.6 H 49.4 H Sodium Potassium Chloride Carbon Dioxide Anion Gap BUN Creatinine Estim Creat Clear Calc Est GFR (MDRD) Af Amer Est GFR (MDRD) Non-Af BUN/Creatinine Ratio Glucose Lactic Acid Calcium Phosphorus Magnesium Total Bilirubin Direct Bilirubin AST ALT Alkaline Phosphatase Total Protein Albumin Globulin Lipase Vancomycin Trough 05/10/18 05/10/18 05/10/18 06:44 07:59 07:59 WBC RBC Hgb Hct MCV MCH MCHC RDW RDW Differential Plt Count Immature Gran % (Auto) Neut % (Auto) Lymph % (Auto) [place] % (Auto) Eos % (Auto) Baso % (Auto) Absolute Neuts (auto) Absolute Lymphs (auto) Total Counted Diff Path Review Platelet Estimate RBC Morphology Anisocytosis APTT 51.0 H Sodium 138 Potassium 3.6 Chloride 108 H Carbon Dioxide 9.0 L* Anion Gap 21 H BUN 32 H Creatinine 1.31 H Estim Creat Clear Calc 50.73 Est GFR (MDRD) Af Amer 71 Est GFR (MDRD) Non-Af 58 L BUN/Creatinine Ratio 24.4 H Glucose 156 H Lactic Acid Calcium 6.3 L* Phosphorus 3.1 Magnesium 1.8 Total Bilirubin 1.00 Direct Bilirubin 0.59 H AST 49 H ALT 31 Alkaline Phosphatase 52 Total Protein 4.2 L Albumin 1.0 L Globulin 3.2 Lipase 20 L Vancomycin Trough 05/10/18 05/10/18 05/10/18 07:59 12:15 12:15 WBC RBC Hgb Hct MCV MCH MCHC RDW RDW Differential Plt Count Immature Gran % (Auto) Neut % (Auto) Lymph % (Auto) [place] % (Auto) Eos % (Auto) Baso % (Auto) Absolute Neuts (auto) Absolute Lymphs (auto) Total Counted Diff Path Review Platelet Estimate RBC Morphology Anisocytosis APTT Sodium Potassium Chloride Carbon Dioxide Anion Gap BUN Creatinine Estim Creat Clear Calc Est GFR (MDRD) Af Amer Est GFR (MDRD) Non-Af BUN/Creatinine Ratio Glucose Lactic Acid 9.0 H* 13.6 H* Calcium Phosphorus Magnesium Total Bilirubin Direct Bilirubin AST ALT Alkaline Phosphatase Total Protein Albumin Globulin Lipase Vancomycin Trough 8.9 05/10/18 15:00 WBC RBC Hgb Hct MCV MCH MCHC RDW RDW Differential Plt Count Immature Gran % (Auto) Neut % (Auto) Lymph % (Auto) [place] % (Auto) Eos % (Auto) Baso % (Auto) Absolute Neuts (auto) Absolute Lymphs (auto) Total Counted Diff Path Review Platelet Estimate RBC Morphology Anisocytosis APTT Pending Sodium Potassium Chloride Carbon Dioxide Anion Gap BUN Creatinine Estim Creat Clear Calc Est GFR (MDRD) Af Amer Est GFR (MDRD) Non-Af BUN/Creatinine Ratio Glucose Lactic Acid Calcium Phosphorus Magnesium Total Bilirubin Direct Bilirubin AST ALT Alkaline Phosphatase Total Protein Albumin Globulin Lipase Vancomycin Trough POC Glucose 05/10/18 05/10/18 05/10/18 12:11 08:21 06:12 POC Glucose 195 H 144 H 162 H 05/10/18 05/09/18 05/09/18 02:47 21:22 15:46 POC Glucose 166 H 137 H 153 H Medical Necessity - Tobacco Use Smoking Status: Former smoker Assessment/Plan All Active Problems (Last Reviewed 05/10/18 @ 10:59 by Shyam Baker MD) Educational circumstance (Acute) SOB (shortness of breath) (Acute) Ascites, malignant (Acute) Septic shock (Acute) DVT (deep venous thrombosis) (Acute) Pulmonary embolism (Acute) Diabetes (Acute) Abdominal distension (gaseous) (Acute) Personal history of colonic polyps (Acute) #1 acute septic shock secondary to gram-negative infection, likely to be biliary in source-continue Zosyn and vancomycin, await cultures, continue IV fluid administration, patient is a DNR CC arrest. #2 acute DVT and PE-continue IV heparin #3 acute bilateral centrum semiovale ovale infarcts-patient was seen by neurology today, they recommended continuing the heparin drip #4 stage IV pancreatic cancer-overall poor prognosis #5 hypokalemia-corrected #6 type 2 diabetes-sliding scale insulin will be administered #7 Thrombocytopenia, anemia, leukopenia-taken her to chemotherapy-continue to monitor CBC Code Visit Inpatient E&M: [id number] Subs Hosp L2
[2018-05-10 15:28] LABS: Partial Thromboplast Time 45.3 Seconds (24.1-36.2)
[2018-05-10 16:35] LABS: Bedside Glucose 247 mg/dL (70-110)
--- NOTE | 2018-05-10 17:09 | PCM.RX.CS ---
Consult Pharmacy has been consulted to manage selected antiobiotic: Vancomycin Type of Consult: Follow-up Suspected Infection: Sepsis Prior Doses of Antibiotics Received/Current Regimen: Patient on 1gm iv q12h. Labs: Sodium 138 mmol/L (136-145) 05/10/18 06:44 Potassium 3.6 mmol/L (3.5-5.1) 05/10/18 06:44 Chloride 108 mmol/L (98-107) H 05/10/18 06:44 Carbon Dioxide 9.0 mmol/L (21.0-32.0) L* 05/10/18 06:44 Anion Gap 21 (5-15) H 05/10/18 06:44 BUN 32 mg/dL (7-18) H 05/10/18 06:44 Creatinine 1.31 mg/dL (0.70-1.30) H 05/10/18 06:44 Est GFR (MDRD) Af Amer 71 mL/min (>60) 05/10/18 06:44 Est GFR (MDRD) Non-Af 58 mL/min (>60) L 05/10/18 06:44 BUN/Creatinine Ratio 24.4 RATIO (10-20) H 05/10/18 06:44 Glucose 156 mg/dL (74-106) H 05/10/18 06:44 Vancomycin Trough 8.9 ug/mL (5.0-15.0) 05/10/18 12:15 Microbiology: Microbiology 05/08/18 17:10 Blood Culture (Wb) - Left Hand Blood Culture - Preliminary 05/08/18 18:40 Urine, Clean Catch Urine Culture - Final Mixed Gram Pos & Gram Neg Org 05/08/18 16:10 Blood Culture (Wb) - Port Blood Culture - Preliminary 05/08/18 22:52 Mucosa - Nasopharyngeal Influenza Types A,B Direct FA ([place]) - Final Weight used for dosin.2 kg Estimated Creatinine Clearance: ~51 ml/min Goal Trough: 15-20 mcg/mL Pharmacy Plan for Drug Dosing: Trough 05.10.18 was 8.9. Will continue 1gm iv q12h for another day and get repeat level in AM 05.11.18. Will adjust dose if level has not approached 15-20 mcg/ml. Pharmacy Service will continue to monitor and adjust dosing as required. Follow-Up Labs: Trough Vancomycin - 05.11.18 @1130 before 1200 dose
[2018-05-10] MEDS: 0.9% NaCl Peripheral Flush Adult/Peds IV ×2 (22:00→22:32)
[2018-05-10 22:27] LABS: Partial Thromboplast Time 46.2 Seconds (24.1-36.2)
[2018-05-10 22:30] LABS: Bedside Glucose 226 mg/dL (70-110)
[2018-05-10] MEDS: Mirtazapine 15 MG Tablet PO (22:31)
[2018-05-11] VITALS (29 sets, daily range): BP systolic 80–93; BP diastolic 57–68; PULSE 101–110; RESP 29–33; TEMP 36.1–37.4; O2SAT 96–99
[2018-05-11] MEDS: HEPARIN/D5w 25,000 UNITS 25,000 UNITS/250 ML IV.SOLN. 8 UNITS IV (01:07)
[2018-05-11] MEDS: Vancomycin IV 1,000 MG/200 ML BAG 200 MG IV ×2 (01:16→12:57)
[2018-05-11] MEDS: Lactated Ringers 1,000 ML 999 ML IV (02:40)
--- NOTE | 2018-05-11 02:43 | NURSING ---
LR bolus started per Dr Diego coronado
[2018-05-11] MEDS: 0.9% Normal Saline 1,000 ML 100 ML IV (04:46)
[2018-05-11] MEDS: 0.9% NaCl VAD Flush 10 ML IV (04:47)
[2018-05-11] MEDS: 0.9% NaCl Peripheral Flush Adult/Peds IV (04:47)
[2018-05-11] MEDS: 0.9% NaCl IVPB Med Flush (250 mL) 15 ML IV ×2 (04:48→13:01)
[2018-05-11 05:28] LABS: Partial Thromboplast Time 46.1 Seconds (24.1-36.2)
[2018-05-11] MEDS: Insulin Lispro 100 UNIT/ML INSULN.PEN SC ×4 (06:09→22:32)
[2018-05-11] MEDS: Levothyroxine 125 MCG Tablet PO (06:12)
[2018-05-11 06:15] LABS: Absolute Lymphocyte Count 0.76 X10^3/ul (0.83-4.51); Basophil# 0.03 X10^3/uL; Basophil% 0.4 % (0-1); Eosinophil# 0.03 X10^3/uL; Eosinophils% 0.4 % (0-5); Hematocrit 28.3 % (40-54); Hemoglobin 9.1 g/dl (13.0-16.5); Lymphocyte # 0.76 X10^3/ul (4.0); Lymphocyte % 9.3 % (19-41); Mean Corp Hgb Conc 32.2 g/gl (32-36); Mean Corpuscular Volume 93.4 fL (80-94); Monocyte# 0.15 X10^3/uL; Monocyte% 1.8 % (0-10); Neutrophil % 85.9 % (47-70); RBC Distribution Width CV 20.4 % (11.6-14.6); RBC Distribution Width SD 69.3 fl (35.1-43.9); Red Blood Count 3.03 M/mm3 (4.6-6.2); White Blood Count 8.2 K/mm3 (4.4-11.0)
[2018-05-11 06:17] LABS: Differential Indicated SCAN CRITERIA MET; POSITIVE COUNT YES; POSITIVE DIFFERENTIAL NO; POSITIVE MORPHOLOGY YES; Platelet Count 17 K/mm3 (150-450)
[2018-05-11 06:21] LABS: Bedside Glucose 210 mg/dL (70-110)
[2018-05-11 06:56] LABS: Anisocytosis 2+; Differential Comment SCAN; Hypochromasia 1+; Microcytosis 1+; Platelet Estimate MKD DEC (ADEQ); Platelet Morphology LARGE; Polychromasia 1+
--- NOTE | 2018-05-11 07:36 | PCM.PN.INT ---
Subjective: The patient was seen and examined at the bedside this morning. Events from the last 24 hours have been reviewed. The patient is currently afebrile and hemodynamically stable, at the present time. He is maintaining appropriate oxygen saturations on room air. The patient is currently documented to be overall net +12.8 L for the admission. CBC with differential this morning revealed worsening thrombocytopenia with a platelet count of 17,000. Objective: The patient's most recent lab work, culture data and imaging studies have all been personally reviewed. Rapid influenza screen was noted to be negative. Blood cultures dated May 08 were positive for the presence of gram-negative rods. Lower extremity Doppler study dated May 08 was positive for the presence of acute DVT. CTA chest revealed segmental and subsegmental pulmonary emboli bilaterally. Surface echocardiogram dated May 09 revealed mild segmental systolic dysfunction with an ejection fraction of 50%. Right ventricular systolic pressure was estimated to be 24 mmHg. General: Alert, Cooperative, - - Ill and fatigued in appearance. HEENT: Atraumatic, PERRLA, Normocephalic Oral: Dry Mucosa Neck: Supple, No Nodes, Trachea Midline Lungs: No rhonchi, No wheeze, No rales, Diminished, Short of Breath, Tachypneic Cardiovascular: Normal S1, Normal S2, No murmurs, Tachycardic Abdomen: Bowel Sounds Present, Soft, Distended, - - Mild tenderness to palpation without rebound, guarding or rigidity. Extremities: No clubbing, No cyanosis, Edema Skin: - - Grossly unchanged from previous. Musculoskeletal: No Tenderness to Palpation of Joints or Extremities Lymphatic: No Cervical, Supraclavicular, or Inguinal Adenopathy Neurological: - - Residual left-sided weakness and facial droop. Psych/Mental Status: Flat Affect Vital Signs Temp Pulse Resp BP Pulse Ox 37.0 C 108 H 33 H 84/63 L 98 05/11/18 06:00 05/11/18 06:00 05/11/18 06:00 05/11/18 06:00 05/11/18 06:30 Oxygen Flow Rate (L/min) 2 Oxygen Delivery Method Room Air Weight: 198 lb 13.711 oz Body Mass Index (BMI) 29.0 Finger Stick Blood Glucose 166 Intake and Output for Last 24 Hours 05/09/18 05/10/18 05/11/18 23:59 23:59 23:59 Intake Total 5687.2 / 5687.2 4778 / 4778 4407.4 / 4407.4 Output Total 830 / 830 675 / 675 500 / 500 Balance 4857.2 / 4857.2 4103 / 4103 3907.4 / 3907.4 Labs (Last 48 Hours) 05/09/18 05/09/18 05/09/18 12:59 13:10 15:46 WBC RBC Hgb Hct MCV MCH MCHC RDW RDW Differential Plt Count Immature Gran % (Auto) Neut % (Auto) Lymph % (Auto) Motley % (Auto) Eos % (Auto) Baso % (Auto) Absolute Neuts (auto) Absolute Lymphs (auto) Total Counted Differential Comment Diff Path Review Platelet Estimate Plt Morphology Comment RBC Morphology Polychromasia Hypochromasia Anisocytosis Microcytosis APTT 44.2 H Sodium Potassium Chloride Carbon Dioxide Anion Gap BUN Creatinine Estim Creat Clear Calc Est GFR (MDRD) Af Amer Est GFR (MDRD) Non-Af BUN/Creatinine Ratio Glucose Lactic Acid Calcium Phosphorus Magnesium Total Bilirubin Direct Bilirubin AST ALT Alkaline Phosphatase Total Protein Albumin Globulin Lipase Vancomycin Trough POC Glucose 123 H 153 H 05/09/18 05/09/18 05/10/18 18:25 21:22 01:02 WBC RBC Hgb Hct MCV MCH MCHC RDW RDW Differential Plt Count Immature Gran % (Auto) Neut % (Auto) Lymph % (Auto) Motley % (Auto) Eos % (Auto) Baso % (Auto) Absolute Neuts (auto) Absolute Lymphs (auto) Total Counted Differential Comment Diff Path Review Platelet Estimate Plt Morphology Comment RBC Morphology Polychromasia Hypochromasia Anisocytosis Microcytosis APTT 48.6 H 49.4 H Sodium Potassium Chloride Carbon Dioxide Anion Gap BUN Creatinine Estim Creat Clear Calc Est GFR (MDRD) Af Amer Est GFR (MDRD) Non-Af BUN/Creatinine Ratio Glucose Lactic Acid Calcium Phosphorus Magnesium Total Bilirubin Direct Bilirubin AST ALT Alkaline Phosphatase Total Protein Albumin Globulin Lipase Vancomycin Trough POC Glucose 137 H 05/10/18 05/10/18 05/10/18 02:47 04:30 06:12 WBC 3.6 L RBC 3.25 L Hgb 9.8 L Hct 29.9 L MCV 92.0 MCH 30.2 MCHC 32.8 RDW 19.8 H RDW Differential 65.8 H Plt Count 24 L* Immature Gran % (Auto) 0.300 Neut % (Auto) 86.5 H Lymph % (Auto) 10.7 L Motley % (Auto) 1.7 Eos % (Auto) 0.0 Baso % (Auto) 0.8 Absolute Neuts (auto) 3.1 Absolute Lymphs (auto) 0.38 L Total Counted Not Reportable Differential Comment Diff Path Review May foll Platelet Estimate MKD DEC Plt Morphology Comment RBC Morphology 2+ Polychromasia Hypochromasia Anisocytosis 2+ Microcytosis APTT Sodium Potassium Chloride Carbon Dioxide Anion Gap BUN Creatinine Estim Creat Clear Calc Est GFR (MDRD) Af Amer Est GFR (MDRD) Non-Af BUN/Creatinine Ratio Glucose Lactic Acid Calcium Phosphorus Magnesium Total Bilirubin Direct Bilirubin AST ALT Alkaline Phosphatase Total Protein Albumin Globulin Lipase Vancomycin Trough POC Glucose 166 H 162 H 05/10/18 05/10/18 05/10/18 06:44 07:59 07:59 WBC RBC Hgb Hct MCV MCH MCHC RDW RDW Differential Plt Count Immature Gran % (Auto) Neut % (Auto) Lymph % (Auto) Motley % (Auto) Eos % (Auto) Baso % (Auto) Absolute Neuts (auto) Absolute Lymphs (auto) Total Counted Differential Comment Diff Path Review Platelet Estimate Plt Morphology Comment RBC Morphology Polychromasia Hypochromasia Anisocytosis Microcytosis APTT 51.0 H Sodium 138 Potassium 3.6 Chloride 108 H Carbon Dioxide 9.0 L* Anion Gap 21 H BUN 32 H Creatinine 1.31 H Estim Creat Clear Calc 50.73 Est GFR (MDRD) Af Amer 71 Est GFR (MDRD) Non-Af 58 L BUN/Creatinine Ratio 24.4 H Glucose 156 H Lactic Acid Calcium 6.3 L* Phosphorus 3.1 Magnesium 1.8 Total Bilirubin 1.00 Direct Bilirubin 0.59 H AST 49 H ALT 31 Alkaline Phosphatase 52 Total Protein 4.2 L Albumin 1.0 L Globulin 3.2 Lipase 20 L Vancomycin Trough POC Glucose 05/10/18 05/10/18 05/10/18 07:59 08:21 12:11 WBC RBC Hgb Hct MCV MCH MCHC RDW RDW Differential Plt Count Immature Gran % (Auto) Neut % (Auto) Lymph % (Auto) Motley % (Auto) Eos % (Auto) Baso % (Auto) Absolute Neuts (auto) Absolute Lymphs (auto) Total Counted Differential Comment Diff Path Review Platelet Estimate Plt Morphology Comment RBC Morphology Polychromasia Hypochromasia Anisocytosis Microcytosis APTT Sodium Potassium Chloride Carbon Dioxide Anion Gap BUN Creatinine Estim Creat Clear Calc Est GFR (MDRD) Af Amer Est GFR (MDRD) Non-Af BUN/Creatinine Ratio Glucose Lactic Acid 9.0 H* Calcium Phosphorus Magnesium Total Bilirubin Direct Bilirubin AST ALT Alkaline Phosphatase Total Protein Albumin Globulin Lipase Vancomycin Trough POC Glucose 144 H 195 H 05/10/18 05/10/18 05/10/18 12:15 12:15 15:00 WBC RBC Hgb Hct MCV MCH MCHC RDW RDW Differential Plt Count Immature Gran % (Auto) Neut % (Auto) Lymph % (Auto) Motley % (Auto) Eos % (Auto) Baso % (Auto) Absolute Neuts (auto) Absolute Lymphs (auto) Total Counted Differential Comment Diff Path Review Platelet Estimate Plt Morphology Comment RBC Morphology Polychromasia Hypochromasia Anisocytosis Microcytosis APTT 45.3 H Sodium Potassium Chloride Carbon Dioxide Anion Gap BUN Creatinine Estim Creat Clear Calc Est GFR (MDRD) Af Amer Est GFR (MDRD) Non-Af BUN/Creatinine Ratio Glucose Lactic Acid 13.6 H* Calcium Phosphorus Magnesium Total Bilirubin Direct Bilirubin AST ALT Alkaline Phosphatase Total Protein Albumin Globulin Lipase Vancomycin Trough 8.9 POC Glucose 05/10/18 05/10/18 05/10/18 16:22 22:00 22:26 WBC RBC Hgb Hct MCV MCH MCHC RDW RDW Differential Plt Count Immature Gran % (Auto) Neut % (Auto) Lymph % (Auto) Motley % (Auto) Eos % (Auto) Baso % (Auto) Absolute Neuts (auto) Absolute Lymphs (auto) Total Counted Differential Comment Diff Path Review Platelet Estimate Plt Morphology Comment RBC Morphology Polychromasia Hypochromasia Anisocytosis Microcytosis APTT 46.2 H Sodium Potassium Chloride Carbon Dioxide Anion Gap BUN Creatinine Estim Creat Clear Calc Est GFR (MDRD) Af Amer Est GFR (MDRD) Non-Af BUN/Creatinine Ratio Glucose Lactic Acid Calcium Phosphorus Magnesium Total Bilirubin Direct Bilirubin AST ALT Alkaline Phosphatase Total Protein Albumin Globulin Lipase Vancomycin Trough POC Glucose 247 H 226 H 05/11/18 05/11/18 05/11/18 04:45 04:45 06:05 WBC 8.2 RBC 3.03 L Hgb 9.1 L Hct 28.3 L MCV 93.4 MCH 30.0 MCHC 32.2 RDW 20.4 H RDW Differential 69.3 H Plt Count 17 L* Immature Gran % (Auto) 2.200 H Neut % (Auto) 85.9 H Lymph % (Auto) 9.3 L Motley % (Auto) 1.8 Eos % (Auto) 0.4 Baso % (Auto) 0.4 Absolute Neuts (auto) 7.0 Absolute Lymphs (auto) 0.76 L Total Counted Not Reportable Differential Comment SCAN Diff Path Review May foll Platelet Estimate MKD DEC Plt Morphology Comment LARGE RBC Morphology Polychromasia 1+ Hypochromasia 1+ Anisocytosis 2+ Microcytosis 1+ APTT 46.1 H Sodium Potassium Chloride Carbon Dioxide Anion Gap BUN Creatinine Estim Creat Clear Calc Est GFR (MDRD) Af Amer Est GFR (MDRD) Non-Af BUN/Creatinine Ratio Glucose Lactic Acid Calcium Phosphorus Magnesium Total Bilirubin Direct Bilirubin AST ALT Alkaline Phosphatase Total Protein Albumin Globulin Lipase Vancomycin Trough POC Glucose 210 H Microbiology 05/08/18 17:10 Blood Culture (Wb) - Left Hand Blood Culture - Preliminary 05/08/18 18:40 Urine, Clean Catch Urine Culture - Final Mixed Gram Pos & Gram Neg Org 05/08/18 16:10 Blood Culture (Wb) - Port Blood Culture - Preliminary 05/08/18 22:52 Mucosa - Nasopharyngeal Influenza Types A,B Direct FA ([place]) - Final Clinical Impression(s) from Imaging Studies Chest X-Ray 05/08/18 16:55 IMPRESSION: No acute thoracic pathology. Electronically Signed: Fredo Pathak, at 17:26 EST Tel , Service support , Chest CTA 05/08/18 17:49 IMPRESSION: Segmental and subsegmental pulmonary emboli in the right middle and lower lobes. Subsegmental pulmonary emboli in the left upper lobe. No pulmonary infiltrates or pleural effusions. Stable elevation of the left hemidiaphragm. Free air noted in the upper abdomen which was not present on the prior chest CT. Correlation for a history of a recent surgical intervention is recommended. If there was no recent surgery, further evaluation with abdominal CT is recommended. Electronically Signed: Fredo Pathak, at 19:09 EST Tel , Service support , ADDENDUM: 05/08/18 1936 IMPRESSION: Segmental and subsegmental pulmonary emboli in the right middle and lower lobes. Subsegmental pulmonary emboli in the left upper lobe. No pulmonary infiltrates or pleural effusions. Stable elevation of the left hemidiaphragm. Free air noted in the upper abdomen which was not present on the prior chest CT. Correlation for a history of a recent surgical intervention is recommended. If there was no recent surgery, further evaluation with abdominal CT is recommended. N.B. : The above information has been verbally conveyed by Fredo Pathak to Sedrick Schaefer MD, , on 05/08/2018 19:29:28 (ET). Electronically Signed: Fredo Pathak, at 19:09 EST Tel , Service support , ADDENDUM: 05/08/18 1958 IMPRESSION: Segmental and subsegmental pulmonary emboli in the right middle and lower lobes. Subsegmental pulmonary emboli in the left upper lobe. No pulmonary infiltrates or pleural effusions. Stable elevation of the left hemidiaphragm. Free air noted in the upper abdomen which was not present on the prior chest CT. Correlation for a history of a recent surgical intervention is recommended. If there was no recent surgery, further evaluation with abdominal CT is recommended. N.B. : The above information has been verbally conveyed by Fredo Pathak to Sedrick Schaefer MD, , on 05/08/2018 19:29:28 (ET). Electronically Signed: Fredo Pathak, at 19:09 EST Tel , Service support , Abdomen/Pelvis CT 05/08/18 19:22 IMPRESSION: Study limited without contrast. Redemonstration of a pancreatic mass with an associated air and fluid-filled lesion (necrotic mass versus pseudocyst). This appears grossly unchanged when compared with a contrast-enhanced CT dated 03/04/2018. Free retroperitoneal air adjacent to the left kidney and in the left perinephric space. This is likely due to extension of the air from the adjacent pancreatic cavitary lesion. No urinary contrast extravasation. 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 Moderate amount of ascites. Enlarged prostate. Electronically Signed: Fredo Zo, at 20:42 EST Tel , Service support , ADDENDUM: 05/08/182102 IMPRESSION: Study limited without contrast. Redemonstration of a pancreatic mass with an associated air and fluid-filled lesion (necrotic mass versus pseudocyst). This appears grossly unchanged when compared with a contrast-enhanced CT dated 03/04/2018. Free retroperitoneal air adjacent to the left kidney and in the left perinephric space. This is likely due to extension of the air from the adjacent pancreatic cavitary lesion. No urinary contrast extravasation. 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 Moderate amount of ascites. Enlarged prostate. N.B. : The above information has been verbally conveyed by Fredo Pathak to Sedrick Schaefer MD, , on 05/08/2018 20:56:06 (ET). Electronically Signed: Fredo Pathak, at 20:42 EST Tel , Service support , Brain CT 05/09/18 02:51 IMPRESSION: There is NO evidence of acute ischemic event or hemorrhage. There are chronic involutional and ischemic changes as described. N.B. : The above information has been verbally conveyed by Zafar Freire MD to Dennis Ricks RN, on 05/09/2018 03:32:11 (ET). Electronically Signed: Zafar Freire MD at 3:33 EST , Service support , Head CTA 05/09/18 02:51 IMPRESSION: Normal bilateral cervical carotid and vertebral arteries. Electronically Signed: Zafar Freire MD at 4:07 EST , Service support , Neck CTA 05/09/18 02:51 IMPRESSION: Normal bilateral cervical carotid and vertebral arteries. Electronically Signed: Zafar Freire MD at 4:07 EST , Service support , Brain MRI 05/09/18 03:43 IMPRESSION: 1. 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 Senescent changes as above. Electronically Signed: Tone Amaya DO at 10:50 EST , Service support , Chest X-Ray 05/10/18 08:17 IMPRESSION: Stable, nonacute portable x-ray examination of the chest. Electronically Signed: Lui Thompson MD at 12:42 EST , Service support , Medical Necessity - Tobacco Use Smoking Status: Former smoker Assessment/Plan All Active Problems (Last Reviewed 05/10/18 @ 10:59 by Shyam Baker MD) Educational circumstance (Acute) SOB (shortness of breath) (Acute) Ascites, malignant (Acute) Septic shock (Acute) DVT (deep venous thrombosis) (Acute) Pulmonary embolism (Acute) Diabetes (Acute) KAELYN (acute kidney injury) (Acute) Abdominal distension (gaseous) (Acute) Personal history of colonic polyps (Acute) RECOMMENDATIONS: 1. Infectious diseases consultation, given Bacteroides bacteremia 2. Oncology evaluation to assist with overall prognostication 3. Stop heparin and transition to bivalirudin 4. Continue antibiotics as ordered IMPRESSIONS: 1. Gram-negative septic shock in the setting of neutropenic fever secondary to chemotherapy The patient's blood cultures dated May 08 were positive for Bacteroides fragilis. Antibiotic will be continued accordingly. Repeat blood cultures are currently pending. Infectious diseases has been consulted to evaluate patient. 2. Acute CVA Neurology is currently following. Continue current medical management. 3. Metastatic pancreatic cancer on chemotherapy The patient is currently under the care of Dr. Estrella of oncology and just recently received chemotherapy. I will place a consultation to oncology to assist with overall care and prognostication. From my perspective, given the patient's underlying malignancy and significant comorbidities, including his newly identified bacteremia, his prognosis is quite poor overall. 4. Acute venous thromboembolic disease Although the patient was previously being treated with a continuous heparin infusion, his platelet count has continued to fall. Therefore, heparin has been discontinued, and the patient has been transition to bivalirudin. 5. Worsening thrombocytopenia Although the patient's fall and platelet count may certainly be related to chemotherapy received 1 week ago, he was also on a heparin infusion. Therefore, all heparin containing products have been discontinued. The patient has been transition to bivalirudin. PF 4 antibody will be sent. Continue to monitor platelet count daily. No current indication for transfusion. 6. Acute kidney injury/anion gap metabolic acidosis The patient developed acute kidney injury over the last 48 hours. Although his urine output is good, his serum bicarbonate is on the low side. The patient is overall net positive for the admission, however, his tenuous hemodynamics would preclude the use of diuretics. In addition, the patient has known intra-abdominal ascites, which is likely worsening. Although performing a paracentesis is a consideration, this would be exceedingly high risk given the patient's significant thrombocytopenia. TIME: 40 minutes of critical care time, independent of procedures, was spent addressing the patient's septic shock, Bacteroides bacteremia, neutropenic fever, acute CVA, metastatic pancreatic cancer, acute venous thromboembolic disease, thrombocytopenia, review of all data and collaboration with the care team. ([id number]) Code Visit [id number]: [id number] Critical care first hour
--- NOTE | 2018-05-11 07:40 | PN_ITS ---
Subjective: The patient was seen and examined at the bedside this morning. Events from the last 24 hours have been reviewed. The patient is currently afebrile and hemodynamically stable, at the present time. He is maintaining appropriate oxygen saturations on room air. The patient is currently documented to be overall net +12.8 L for the admission. CBC with differential this morning revealed worsening thrombocytopenia with a platelet count of 17,000. Objective: The patient's most recent lab work, culture data and imaging studies have all been personally reviewed. Rapid influenza screen was noted to be negative. Blood cultures dated May 08 were positive for the presence of gram-negative rods. Lower extremity Doppler study dated May 08 was positive for the presence of acute DVT. CTA chest revealed segmental and subsegmental pulmonary emboli bilaterally. Surface echocardiogram dated May 09 revealed mild segmental systolic dysfunction with an ejection fraction of 50%. Right ventricular systolic pressure was estimated to be 24 mmHg. General: Alert, Cooperative, - - Ill and fatigued in appearance. HEENT: Atraumatic, PERRLA, Normocephalic Oral: Dry Mucosa Neck: Supple, No Nodes, Trachea Midline Lungs: No rhonchi, No wheeze, No rales, Diminished, Short of Breath, Tachypneic Cardiovascular: Normal S1, Normal S2, No murmurs, Tachycardic Abdomen: Bowel Sounds Present, Soft, Distended, - - Mild tenderness to palpation without rebound, guarding or rigidity. Extremities: No clubbing, No cyanosis, Edema Skin: - - Grossly unchanged from previous. Musculoskeletal: No Tenderness to Palpation of Joints or Extremities Lymphatic: No Cervical, Supraclavicular, or Inguinal Adenopathy Neurological: - - Residual left-sided weakness and facial droop. Psych/Mental Status: Flat Affect Vital Signs Temp Pulse Resp BP Pulse Ox 37.0 C 108 H 33 H 84/63 L 98 05/11/18 06:00 05/11/18 06:00 05/11/18 06:00 05/11/18 06:00 05/11/18 06:30 Oxygen Flow Rate (L/min) 2 Oxygen Delivery Method Room Air Weight: 198 lb 13.711 oz Body Mass Index (BMI) 29.0 Finger Stick Blood Glucose 166 Intake and Output for Last 24 Hours 05/09/18 05/10/18 05/11/18 23:59 23:59 23:59 Intake Total 5687.2 / 5687.2 4778 / 4778 4407.4 / 4407.4 Output Total 830 / 830 675 / 675 500 / 500 Balance 4857.2 / 4857.2 4103 / 4103 3907.4 / 3907.4 Labs (Last 48 Hours) 05/09/18 05/09/18 05/09/18 12:59 13:10 15:46 WBC RBC Hgb Hct MCV MCH MCHC RDW RDW Differential Plt Count Immature Gran % (Auto) Neut % (Auto) Lymph % (Auto) [place] % (Auto) Eos % (Auto) Baso % (Auto) Absolute Neuts (auto) Absolute Lymphs (auto) Total Counted Differential Comment Diff Path Review Platelet Estimate Plt Morphology Comment RBC Morphology Polychromasia Hypochromasia Anisocytosis Microcytosis APTT 44.2 H Sodium Potassium Chloride Carbon Dioxide Anion Gap BUN Creatinine Estim Creat Clear Calc Est GFR (MDRD) Af Amer Est GFR (MDRD) Non-Af BUN/Creatinine Ratio Glucose Lactic Acid Calcium Phosphorus Magnesium Total Bilirubin Direct Bilirubin AST ALT Alkaline Phosphatase Total Protein Albumin Globulin Lipase Vancomycin Trough POC Glucose 123 H 153 H 05/09/18 05/09/18 05/10/18 18:25 21:22 01:02 WBC RBC Hgb Hct MCV MCH MCHC RDW RDW Differential Plt Count Immature Gran % (Auto) Neut % (Auto) Lymph % (Auto) [place] % (Auto) Eos % (Auto) Baso % (Auto) Absolute Neuts (auto) Absolute Lymphs (auto) Total Counted Differential Comment Diff Path Review Platelet Estimate Plt Morphology Comment RBC Morphology Polychromasia Hypochromasia Anisocytosis Microcytosis APTT 48.6 H 49.4 H Sodium Potassium Chloride Carbon Dioxide Anion Gap BUN Creatinine Estim Creat Clear Calc Est GFR (MDRD) Af Amer Est GFR (MDRD) Non-Af BUN/Creatinine Ratio Glucose Lactic Acid Calcium Phosphorus Magnesium Total Bilirubin Direct Bilirubin AST ALT Alkaline Phosphatase Total Protein Albumin Globulin Lipase Vancomycin Trough POC Glucose 137 H 05/10/18 05/10/18 05/10/18 02:47 04:30 06:12 WBC 3.6 L RBC 3.25 L Hgb 9.8 L Hct 29.9 L MCV 92.0 MCH 30.2 MCHC 32.8 RDW 19.8 H RDW Differential 65.8 H Plt Count 24 L* Immature Gran % (Auto) 0.300 Neut % (Auto) 86.5 H Lymph % (Auto) 10.7 L [place] % (Auto) 1.7 Eos % (Auto) 0.0 Baso % (Auto) 0.8 Absolute Neuts (auto) 3.1 Absolute Lymphs (auto) 0.38 L Total Counted Not Reportable Differential Comment Diff Path Review May foll Platelet Estimate MKD DEC Plt Morphology Comment RBC Morphology 2+ Polychromasia Hypochromasia Anisocytosis 2+ Microcytosis APTT Sodium Potassium Chloride Carbon Dioxide Anion Gap BUN Creatinine Estim Creat Clear Calc Est GFR (MDRD) Af Amer Est GFR (MDRD) Non-Af BUN/Creatinine Ratio Glucose Lactic Acid Calcium Phosphorus Magnesium Total Bilirubin Direct Bilirubin AST ALT Alkaline Phosphatase Total Protein Albumin Globulin Lipase Vancomycin Trough POC Glucose 166 H 162 H 05/10/18 05/10/18 05/10/18 06:44 07:59 07:59 WBC RBC Hgb Hct MCV MCH MCHC RDW RDW Differential Plt Count Immature Gran % (Auto) Neut % (Auto) Lymph % (Auto) [place] % (Auto) Eos % (Auto) Baso % (Auto) Absolute Neuts (auto) Absolute Lymphs (auto) Total Counted Differential Comment Diff Path Review Platelet Estimate Plt Morphology Comment RBC Morphology Polychromasia Hypochromasia Anisocytosis Microcytosis APTT 51.0 H Sodium 138 Potassium 3.6 Chloride 108 H Carbon Dioxide 9.0 L* Anion Gap 21 H BUN 32 H Creatinine 1.31 H Estim Creat Clear Calc 50.73 Est GFR (MDRD) Af Amer 71 Est GFR (MDRD) Non-Af 58 L BUN/Creatinine Ratio 24.4 H Glucose 156 H Lactic Acid Calcium 6.3 L* Phosphorus 3.1 Magnesium 1.8 Total Bilirubin 1.00 Direct Bilirubin 0.59 H AST 49 H ALT 31 Alkaline Phosphatase 52 Total Protein 4.2 L Albumin 1.0 L Globulin 3.2 Lipase 20 L Vancomycin Trough POC Glucose 05/10/18 05/10/18 05/10/18 07:59 08:21 12:11 WBC RBC Hgb Hct MCV MCH MCHC RDW RDW Differential Plt Count Immature Gran % (Auto) Neut % (Auto) Lymph % (Auto) [place] % (Auto) Eos % (Auto) Baso % (Auto) Absolute Neuts (auto) Absolute Lymphs (auto) Total Counted Differential Comment Diff Path Review Platelet Estimate Plt Morphology Comment RBC Morphology Polychromasia Hypochromasia Anisocytosis Microcytosis APTT Sodium Potassium Chloride Carbon Dioxide Anion Gap BUN Creatinine Estim Creat Clear Calc Est GFR (MDRD) Af Amer Est GFR (MDRD) Non-Af BUN/Creatinine Ratio Glucose Lactic Acid 9.0 H* Calcium Phosphorus Magnesium Total Bilirubin Direct Bilirubin AST ALT Alkaline Phosphatase Total Protein Albumin Globulin Lipase Vancomycin Trough POC Glucose 144 H 195 H 05/10/18 05/10/18 05/10/18 12:15 12:15 15:00 WBC RBC Hgb Hct MCV MCH MCHC RDW RDW Differential Plt Count Immature Gran % (Auto) Neut % (Auto) Lymph % (Auto) [place] % (Auto) Eos % (Auto) Baso % (Auto) Absolute Neuts (auto) Absolute Lymphs (auto) Total Counted Differential Comment Diff Path Review Platelet Estimate Plt Morphology Comment RBC Morphology Polychromasia Hypochromasia Anisocytosis Microcytosis APTT 45.3 H Sodium Potassium Chloride Carbon Dioxide Anion Gap BUN Creatinine Estim Creat Clear Calc Est GFR (MDRD) Af Amer Est GFR (MDRD) Non-Af BUN/Creatinine Ratio Glucose Lactic Acid 13.6 H* Calcium Phosphorus Magnesium Total Bilirubin Direct Bilirubin AST ALT Alkaline Phosphatase Total Protein Albumin Globulin Lipase Vancomycin Trough 8.9 POC Glucose 05/10/18 05/10/18 05/10/18 16:22 22:00 22:26 WBC RBC Hgb Hct MCV MCH MCHC RDW RDW Differential Plt Count Immature Gran % (Auto) Neut % (Auto) Lymph % (Auto) [place] % (Auto) Eos % (Auto) Baso % (Auto) Absolute Neuts (auto) Absolute Lymphs (auto) Total Counted Differential Comment Diff Path Review Platelet Estimate Plt Morphology Comment RBC Morphology Polychromasia Hypochromasia Anisocytosis Microcytosis APTT 46.2 H Sodium Potassium Chloride Carbon Dioxide Anion Gap BUN Creatinine Estim Creat Clear Calc Est GFR (MDRD) Af Amer Est GFR (MDRD) Non-Af BUN/Creatinine Ratio Glucose Lactic Acid Calcium Phosphorus Magnesium Total Bilirubin Direct Bilirubin AST ALT Alkaline Phosphatase Total Protein Albumin Globulin Lipase Vancomycin Trough POC Glucose 247 H 226 H 05/11/18 05/11/18 05/11/18 04:45 04:45 06:05 WBC 8.2 RBC 3.03 L Hgb 9.1 L Hct 28.3 L MCV 93.4 MCH 30.0 MCHC 32.2 RDW 20.4 H RDW Differential 69.3 H Plt Count 17 L* Immature Gran % (Auto) 2.200 H Neut % (Auto) 85.9 H Lymph % (Auto) 9.3 L [place] % (Auto) 1.8 Eos % (Auto) 0.4 Baso % (Auto) 0.4 Absolute Neuts (auto) 7.0 Absolute Lymphs (auto) 0.76 L Total Counted Not Reportable Differential Comment SCAN Diff Path Review May foll Platelet Estimate MKD DEC Plt Morphology Comment LARGE RBC Morphology Polychromasia 1+ Hypochromasia 1+ Anisocytosis 2+ Microcytosis 1+ APTT 46.1 H Sodium Potassium Chloride Carbon Dioxide Anion Gap BUN Creatinine Estim Creat Clear Calc Est GFR (MDRD) Af Amer Est GFR (MDRD) Non-Af BUN/Creatinine Ratio Glucose Lactic Acid Calcium Phosphorus Magnesium Total Bilirubin Direct Bilirubin AST ALT Alkaline Phosphatase Total Protein Albumin Globulin Lipase Vancomycin Trough POC Glucose 210 H Microbiology 05/08/18 17:10 Blood Culture (Wb) - Left Hand Blood Culture - Preliminary 05/08/18 18:40 Urine, Clean Catch Urine Culture - Final Mixed Gram Pos & Gram Neg Org 05/08/18 16:10 Blood Culture (Wb) - Port Blood Culture - Preliminary 05/08/18 22:52 Mucosa - Nasopharyngeal Influenza Types A,B Direct FA ([place]) - Final Clinical Impression(s) from Imaging Studies Chest X-Ray 05/08/18 16:55 IMPRESSION: No acute thoracic pathology. Electronically Signed: Fredo Pathak, at 17:26 EST Tel , Service support , Chest CTA 05/08/18 17:49 IMPRESSION: Segmental and subsegmental pulmonary emboli in the right middle and lower lobes. Subsegmental pulmonary emboli in the left upper lobe. No pulmonary infiltrates or pleural effusions. Stable elevation of the left hemidiaphragm. Free air noted in the upper abdomen which was not present on the prior chest CT. Correlation for a history of a recent surgical intervention is recommended. If there was no recent surgery, further evaluation with abdominal CT is recommended. Electronically Signed: Fredo Pathak, at 19:09 EST Tel , Service support , ADDENDUM: 05/08/18 1936 IMPRESSION: Segmental and subsegmental pulmonary emboli in the right middle and lower lobes. Subsegmental pulmonary emboli in the left upper lobe. No pulmonary infiltrates or pleural effusions. Stable elevation of the left hemidiaphragm. Free air noted in the upper abdomen which was not present on the prior chest CT. Correlation for a history of a recent surgical intervention is recommended. If there was no recent surgery, further evaluation with abdominal CT is recommended. N.B. : The above information has been verbally conveyed by Fredo Pathak to Sedrick Schaefer MD, , on 05/08/2018 19:29:28 (ET). Electronically Signed: Fredo Pathak, at 19:09 EST Tel , Service support , ADDENDUM: 05/08/18 1958 IMPRESSION: Segmental and subsegmental pulmonary emboli in the right middle and lower lobes. Subsegmental pulmonary emboli in the left upper lobe. No pulmonary infiltrates or pleural effusions. Stable elevation of the left hemidiaphragm. Free air noted in the upper abdomen which was not present on the prior chest CT. Correlation for a history of a recent surgical intervention is recommended. If there was no recent surgery, further evaluation with abdominal CT is recommended. N.B. : The above information has been verbally conveyed by Fredo Pathak to Sedrick Schaefer MD, , on 05/08/2018 19:29:28 (ET). Electronically Signed: Fredo Pathak, at 19:09 EST Tel , Service support , Abdomen/Pelvis CT 05/08/18 19:22 IMPRESSION: Study limited without contrast. Redemonstration of a pancreatic mass with an associated air and fluid-filled lesion (necrotic mass versus pseudocyst). This appears grossly unchanged when compared with a contrast-enhanced CT dated 03/04/2018. Free retroperitoneal air adjacent to the left kidney and in the left perinephric space. This is likely due to extension of the air from the adjacent pancreatic cavitary lesion. No urinary contrast extravasation. 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 Moderate amount of ascites. Enlarged prostate. Electronically Signed: Fredo Zo, at 20:42 EST Tel , Service support , ADDENDUM: 05/08/182102 IMPRESSION: Study limited without contrast. Redemonstration of a pancreatic mass with an associated air and fluid-filled lesion (necrotic mass versus pseudocyst). This appears grossly unchanged when compared with a contrast-enhanced CT dated 03/04/2018. Free retroperitoneal air adjacent to the left kidney and in the left perinephric space. This is likely due to extension of the air from the adjacent pancreatic cavitary lesion. No urinary contrast extravasation. 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 Moderate amount of ascites. Enlarged prostate. N.B. : The above information has been verbally conveyed by Fredo Pathak to Sedrick Schaefer MD, , on 05/08/2018 20:56:06 (ET). Electronically Signed: Fredo Pathak, at 20:42 EST Tel , Service support , Brain CT 05/09/18 02:51 IMPRESSION: There is NO evidence of acute ischemic event or hemorrhage. There are chronic involutional and ischemic changes as described. N.B. : The above information has been verbally conveyed by Zafar Freire MD to Dennis Ricks RN, on 05/09/2018 03:32:11 (ET). Electronically Signed: Zafar Freire MD at 3:33 EST , Service support , Head CTA 05/09/18 02:51 IMPRESSION: Normal bilateral cervical carotid and vertebral arteries. Electronically Signed: Zafar Freire MD at 4:07 EST , Service support , Neck CTA 05/09/18 02:51 IMPRESSION: Normal bilateral cervical carotid and vertebral arteries. Electronically Signed: Zafar Freire MD at 4:07 EST , Service support , Brain MRI 05/09/18 03:43 IMPRESSION: 1. 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 Senescent changes as above. Electronically Signed: Tone Amaya DO at 10:50 EST , Service support , Chest X-Ray 05/10/18 08:17 IMPRESSION: Stable, nonacute portable x-ray examination of the chest. Electronically Signed: Lui Thompson MD at 12:42 EST , Service support , Medical Necessity - Tobacco Use Smoking Status: Former smoker Assessment/Plan All Active Problems (Last Reviewed 05/10/18 @ 10:59 by Shyam Baker MD) Educational circumstance (Acute) SOB (shortness of breath) (Acute) Ascites, malignant (Acute) Septic shock (Acute) DVT (deep venous thrombosis) (Acute) Pulmonary embolism (Acute) Diabetes (Acute) KAELYN (acute kidney injury) (Acute) Abdominal distension (gaseous) (Acute) Personal history of colonic polyps (Acute) RECOMMENDATIONS: 1. Infectious diseases consultation, given Bacteroides bacteremia 2. Oncology evaluation to assist with overall prognostication 3. Stop heparin and transition to bivalirudin 4. Continue antibiotics as ordered IMPRESSIONS: 1. Gram-negative septic shock in the setting of neutropenic fever secondary to chemotherapy The patient's blood cultures dated May 08 were positive for Bacteroides fragilis. Antibiotic will be continued accordingly. Repeat blood cultures are currently pending. Infectious diseases has been consulted to evaluate patient. 2. Acute CVA Neurology is currently following. Continue current medical management. 3. Metastatic pancreatic cancer on chemotherapy The patient is currently under the care of Dr. Estrella of oncology and just recently received chemotherapy. I will place a consultation to oncology to assist with overall care and prognostication. From my perspective, given the patient's underlying malignancy and significant comorbidities, including his newly identified bacteremia, his prognosis is quite poor overall. 4. Acute venous thromboembolic disease Although the patient was previously being treated with a continuous heparin infusion, his platelet count has continued to fall. Therefore, heparin has been discontinued, and the patient has been transition to bivalirudin. 5. Worsening thrombocytopenia Although the patient's fall and platelet count may certainly be related to chemotherapy received 1 week ago, he was also on a heparin infusion. Therefore, all heparin containing products have been discontinued. The patient has been transition to bivalirudin. PF 4 antibody will be sent. Continue to monitor platelet count daily. No current indication for transfusion. 6. Acute kidney injury/anion gap metabolic acidosis The patient developed acute kidney injury over the last 48 hours. Although his urine output is good, his serum bicarbonate is on the low side. The patient is overall net positive for the admission, however, his tenuous hemodynamics would preclude the use of diuretics. In addition, the patient has known intra- abdominal ascites, which is likely worsening. Although performing a paracentesis is a consideration, this would be exceedingly high risk given the patient's significant thrombocytopenia. TIME: 40 minutes of critical care time, independent of procedures, was spent addressing the patient's septic shock, Bacteroides bacteremia, neutropenic fever, acute CVA, metastatic pancreatic cancer, acute venous thromboembolic disease, thrombocytopenia, review of all data and collaboration with the care team. ([id number]) Code Visit [id number]: [id number] Critical care first hour
--- NOTE | 2018-05-11 07:49 | PN_ITS ---
Patient Problems: Active and Suspected Problems (Last Reviewed 05/10/18 @ 10:59 by Shyam Baker MD) Educational circumstance (Acute) SOB (shortness of breath) (Acute) Ascites, malignant (Acute) Septic shock (Acute) DVT (deep venous thrombosis) (Acute) Pulmonary embolism (Acute) Diabetes (Acute) Subjective: 67-year-old gentleman with history of stage IV pancreatic CA sent to the ED by the primary care physician on account of progressive generalized weakness and shortness of breath. An assessment of septic shock secondary to gram-negative sepsis was made on admission. Patient subsequent imaging studies on admission also demonstrated Segmental and subsegmental pulmonary emboli in the right middle and lower lobes. Subsegmental pulmonary emboli in the left upper lobe. Found to have DVT involving lower extremities. Patient was started on broad- spectrum antibiotics with Zosyn and vancomycin as well as heparin and admitted to the intensive care unit Seen remains frail has precipitous drop in his platelet counts Objective: GENERAL: frail HEENT: Atraumatic; EYES; Anicteric, NECK; supple, normal thyroid, RESPIRATORY: Diminished to auscultation bilaterally, CARDIOVASCULAR: Regular S1 S2, GI: soft, non-tender, normoactive bowel sounds, : No Renal angle tenderness; EXTREMITIES: kwab[place] edema, no clubbing, no cyanosis. MUSCULOSKELETAL: No Joint Tenderness; NEURO: Awake; no lateralizing signs. SKIN: No Rash PSYCH; falt affect Vitals/I&O's: Vital Signs Temp Pulse Resp BP Pulse Ox 98.6 F 108 H 33 H 84/63 L 98 05/11/18 06:00 05/11/18 06:00 05/11/18 06:00 05/11/18 06:00 05/11/18 06:30 Oxygen Flow Rate (L/min) 2 Oxygen Delivery Method Room Air Weight: 90.2 kg Body Mass Index (BMI) 29.0 Finger Stick Blood Glucose 166 Intake and Output for Last 24 Hours 05/09/18 05/10/18 05/11/18 23:59 23:59 23:59 Intake Total 5687.2 / 5687.2 4778 / 4778 4407.4 / 4407.4 Output Total 830 / 830 675 / 675 500 / 500 Balance 4857.2 / 4857.2 4103 / 4103 3907.4 / 3907.4 Microbiology Past 72 Hours 05/08/18 17:10 Blood Culture (Wb) - Left Hand Blood Culture - Preliminary 05/08/18 18:40 Urine, Clean Catch Urine Culture - Final Mixed Gram Pos & Gram Neg Org 05/08/18 16:10 Blood Culture (Wb) - Port Blood Culture - Preliminary 05/08/18 22:52 Mucosa - Nasopharyngeal Influenza Types A,B Direct FA ([place]) - Final Laboratory Results 05/10/18 04:30: Total Counted Not Reportable, Diff Path Review July foll 05/10/18 07:59: APTT 51.0 H 05/10/18 07:59: Total Bilirubin 1.00, Direct Bilirubin 0.59 H, AST 49 H, ALT 31, Alkaline Phosphatase 52, Total Protein 4.2 L, Albumin 1.0 L, Globulin 3.2, Lipase 20 L 05/10/18 07:59: Lactic Acid 9.0 H* 05/10/18 08:21: POC Glucose 144 H 05/10/18 12:11: POC Glucose 195 H 05/10/18 12:15: Vancomycin Trough 8.9 05/10/18 12:15: Lactic Acid 13.6 H* 05/10/18 15:00: APTT 45.3 H 05/10/18 16:22: POC Glucose 247 H 05/10/18 22:00: APTT 46.2 H 05/10/18 22:26: POC Glucose 226 H 05/11/18 04:45: WBC 8.2, RBC 3.03 L, Hgb 9.1 L, Hct 28.3 L, MCV 93.4, MCH 30.0, MCHC 32.2, RDW 20.4 H, RDW Differential 69.3 H, Plt Count 17 L*, Immature Gran % (Auto) 2.200 H, Neut % (Auto) 85.9 H, Lymph % (Auto) 9.3 L, [place] % (Auto) 1.8, Eos % (Auto) 0.4, Baso % (Auto) 0.4, Absolute Neuts (auto) 7.0, Absolute Lymphs (auto) 0.76 L, Total Counted Not Reportable, Differential Comment SCAN, Diff Path Review July, Platelet Estimate MKD DEC, Plt Morphology Comment LARGE, Polychromasia 1+, Hypochromasia 1+, Anisocytosis 2+, Microcytosis 1+ 05/11/18 04:45: APTT 46.1 H 05/11/18 04:45: Sodium Pending, Potassium Pending, Chloride Pending, Carbon Dioxide Pending, Anion Gap Pending, BUN Pending, Creatinine Pending, Est GFR (MDRD) Af Amer Pending, Est GFR (MDRD) Non-Af Pending, BUN/Creatinine Ratio Pending, Glucose Pending, Calcium Pending, Total Bilirubin Pending, AST Pending, ALT Pending, Alkaline Phosphatase Pending, Total Protein Pending, Albumin Pending 05/11/18 06:05: POC Glucose 210 H Current Medications Acetaminophen (Tylenol) 650 mg PO Q6H PRN PRN PRN Reason: Mild Pain (scale 0-3)/T>100.7 Last Admin: 05/10/18 09:42 Dose: 650 mg Acetaminophen (Tylenol) 650 mg RECTAL Q6H PRN PRN PRN Reason: fever > 100.4 Last Admin: 05/09/18 04:36 Dose: 650 mg Calamine/Phenol (Calmoseptine Ointment) 1 applic TOPICAL BID [facility]; Protocol Last Admin: 05/10/18 22:34 Dose: 1 applic Chlorhexidine Gluconate () 1 each TOPICAL DAILY [facility] Last Admin: 05/10/18 09:48 Dose: 1 each Dextrose (D50w Syringe) 0 gm IV X1 PRN; Protocol PRN Reason: Hypoglycemia Docusate Sodium (Colace) 100 mg PO BID [facility] Last Admin: 05/10/18 22:33 Dose: Not Given Fentanyl (Duragesic Patch) 12 mcg TRANSDERM. Q3D [facility] Glucagon () 1 mg IM .X1 PRN PRN Reason: Hypoglycemia Guaifenesin/Phenyleph/Dextrometh (Robitussin Cf) 10 ml PO Q6H PRN PRN PRN Reason: COUGH Haloperidol Lactate (Haldol) 3 mg IV Q6H PRN PRN PRN Reason: ANXIETY/AGITATION Heparin Sodium (Porcine) (Heparin Na) 0 unit IV UD PRN; Protocol Piperacillin Sod/Tazobactam (Sod 3.375 gm/ Sodium Chloride) 50 mls @ 12.5 mls/hr IV Q8 [facility] Last Admin: 05/11/18 06:11 Dose: 12.5 mls/hr Vancomycin IV Pharmacy to Dose (1,250 ea/ Sodium Chloride) 500 mls @ 250 mls/hr IV PRN PRN; Protocol Sodium Chloride () 250 mls @ 15 mls/hr IV .[id number] PRN PRN Reason: SALINE FLUSH Last Admin: 05/11/18 04:48 Dose: 15 mls/hr Vancomycin HCl (Vancomycin) 1,000 mg in 200 mls @ 200 mls/hr IV Q12H [facility] Last Admin: 05/11/18 01:16 Dose: 200 mls/hr Sodium Chloride () 1,000 mls @ 100 mls/hr IV .Q10H [facility] Last Admin: 05/11/18 04:46 Dose: 100 mls/hr Heparin Sodium/Dextrose () 25,000 units in 250 mls @ 8 mls/hr IV .[id number] [facility]; Protocol Last Admin: 05/11/18 01:07 Dose: 8 mls/hr Insulin Human Lispro (Humalog Kwikpen (Bkc)) 0 unit SC ACHS [facility]; Protocol Last Admin: 05/11/18 06:09 Dose: 4 u Levothyroxine Sodium (Synthroid) 125 mcg PO DAILY@0600 [facility] Last Admin: 05/11/18 06:12 Dose: 125 mcg Lidocaine/Prilocaine (Emla Cream W/Tegaderm) 0 gm TOPICAL DAILY PRN PRN; Protocol Loperamide HCl (Imodium) 2 mg PO BID PRN PRN PRN Reason: Diarrhea Last Admin: 05/10/18 09:43 Dose: 2 mg Mirtazapine (Remeron) 15 mg PO QHS [facility] Last Admin: 05/10/18 22:31 Dose: 15 mg Morphine Sulfate () 2 mg IV Q3H PRN PRN PRN Reason: SEVERE PAIN (6-10/10) Ondansetron HCl (Zofran) 4 mg IV Q8H PRN PRN PRN Reason: Nausea Pantoprazole Sodium (Protonix) 40 mg PO DAILY [facility] Last Admin: 05/10/18 08:23 Dose: 40 mg Prochlorperazine Maleate (Compazine Suppository) 25 mg RECTAL BID PRN PRN PRN Reason: NAUSEA/VOMITING Sodium Chloride () 5 - 15 ml IV UD PRN PRN Reason: SALINE FLUSH Last Admin: 05/11/18 04:47 Dose: 10 ml Sodium Chloride () 10 ml IV UD PRN PRN Reason: VAD FLUSH Last Admin: 05/11/18 04:47 Dose: 10 ml Medical Necessity - Tobacco Use Smoking Status: Former smoker Assessment/Plan All Active Problems (Last Reviewed 05/10/18 @ 10:59 by Shyam Baker MD) Educational circumstance (Acute) SOB (shortness of breath) (Acute) Ascites, malignant (Acute) Septic shock (Acute) DVT (deep venous thrombosis) (Acute) Pulmonary embolism (Acute) Diabetes (Acute) Abdominal distension (gaseous) (Acute) Personal history of colonic polyps (Acute) 67-year-old gentleman with history of stage IV pancreatic CA sent to the ED by the primary care physician on account of progressive generalized weakness and shortness of breath. An assessment of septic shock secondary to gram-negative sepsis was made on admission. Patient subsequent imaging studies on admission also demonstrated Segmental and subsegmental pulmonary emboli in the right middle and lower lobes. Subsegmental pulmonary emboli in the left upper lobe. Found to have DVT involving lower extremities. Patient was started on broad- spectrum antibiotics with Zosyn and vancomycin as well as heparin and admitted to the intensive care unit 1. Septic shock secondary to acute cystitis with subsequent gram-negative bacteremia. Patient managed on Zosyn Comycin. Cultures so far positive for gram-negative rods in the blood final identification and sensitivities pending 2. 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 Acute venous embolism. Patient was found to have bilateral PE as well as DVT. Patient prior to today had been managed with heparin however as stated above heparin was discontinued patient started on Bivalirudin 4. Stage IV pancreatic CA 5. Diabetes mellitus type 2 6. 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 Heparin was subsequently discontinued patient started on Bivalirudin 7. Hypokalemia corrected per protocol 8. Hypocalcemia corrected per protocol 9. 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 monitoring H&H with plans to transfuse if hemoglobin falls below 7 or patient becomes symptomatic Microbiology 05/08/18 17:10 Blood Culture (Wb) - Left Hand Blood Culture - Preliminary 05/08/18 18:40 Urine, Clean Catch Urine Culture - Final Mixed Gram Pos & Gram Neg Org 05/08/18 16:10 Blood Culture (Wb) - Port Blood Culture - Preliminary Active Medications Acetaminophen (Tylenol) 650 mg PO Q6H PRN PRN PRN Reason: Mild Pain (scale 0-3)/T>100.7 Last Admin: 05/10/18 09:42 Dose: 650 mg Acetaminophen (Tylenol) 650 mg RECTAL Q6H PRN PRN PRN Reason: fever > 100.4 Last Admin: 05/09/18 04:36 Dose: 650 mg Calamine/Phenol (Calmoseptine Ointment) 1 applic TOPICAL BID [facility]; Protocol Last Admin: 05/10/18 22:34 Dose: 1 applic Chlorhexidine Gluconate () 1 each TOPICAL DAILY [facility] Last Admin: 05/10/18 09:48 Dose: 1 each Dextrose (D50w Syringe) 0 gm IV X1 PRN; Protocol PRN Reason: Hypoglycemia Docusate Sodium (Colace) 100 mg PO BID [facility] Last Admin: 05/10/18 22:33 Dose: Not Given Fentanyl (Duragesic Patch) 12 mcg TRANSDERM. Q3D [facility] Glucagon () 1 mg IM .X1 PRN PRN Reason: Hypoglycemia Guaifenesin/Phenyleph/Dextrometh (Robitussin Cf) 10 ml PO Q6H PRN PRN PRN Reason: COUGH Haloperidol Lactate (Haldol) 3 mg IV Q6H PRN PRN PRN Reason: ANXIETY/AGITATION Piperacillin Sod/Tazobactam (Sod 3.375 gm/ Sodium Chloride) 50 mls @ 12.5 mls/hr IV Q8 [facility] Last Admin: 05/11/18 06:11 Dose: 12.5 mls/hr Vancomycin IV Pharmacy to Dose (1,250 ea/ Sodium Chloride) 500 mls @ 250 mls/hr IV PRN PRN; Protocol Sodium Chloride () 250 mls @ 15 mls/hr IV .[id number] PRN PRN Reason: SALINE FLUSH Last Admin: 05/11/18 04:48 Dose: 15 mls/hr Vancomycin HCl (Vancomycin) 1,000 mg in 200 mls @ 200 mls/hr IV Q12H [facility] Last Admin: 05/11/18 01:16 Dose: 200 mls/hr Sodium Chloride () 1,000 mls @ 100 mls/hr IV .Q10H [facility] Last Admin: 05/11/18 04:46 Dose: 100 mls/hr Bivalirudin 250 mg/ Sodium (Chloride) 50 mls @ 1.44 mls/hr IV .[id number] [facility]; Protocol Insulin Human Lispro (Humalog Kwikpen (Bkc)) 0 unit SC ACHS [facility]; Protocol Last Admin: 05/11/18 06:09 Dose: 4 u Levothyroxine Sodium (Synthroid) 125 mcg PO DAILY@0600 [facility] Last Admin: 05/11/18 06:12 Dose: 125 mcg Lidocaine/Prilocaine (Emla Cream W/Tegaderm) 0 gm TOPICAL DAILY PRN PRN; Protocol Loperamide HCl (Imodium) 2 mg PO BID PRN PRN PRN Reason: Diarrhea Last Admin: 05/10/18 09:43 Dose: 2 mg Mirtazapine (Remeron) 15 mg PO QHS [facility] Last Admin: 05/10/18 22:31 Dose: 15 mg Morphine Sulfate () 2 mg IV Q3H PRN PRN PRN Reason: SEVERE PAIN (6-10/10) Ondansetron HCl (Zofran) 4 mg IV Q8H PRN PRN PRN Reason: Nausea Pantoprazole Sodium (Protonix) 40 mg PO DAILY [facility] Last Admin: 05/10/18 08:23 Dose: 40 mg Prochlorperazine Maleate (Compazine Suppository) 25 mg RECTAL BID PRN PRN PRN Reason: NAUSEA/VOMITING Sodium Chloride () 5 - 15 ml IV UD PRN PRN Reason: SALINE FLUSH Last Admin: 05/11/18 04:47 Dose: 10 ml Sodium Chloride () 10 ml IV UD PRN PRN Reason: VAD FLUSH Last Admin: 05/11/18 04:47 Dose: 10 ml Clinical Impression(s) from Imaging Studies Chest X-Ray 05/08/18 16:55 IMPRESSION: No acute thoracic pathology. Electronically Signed: Fredo Pathak, at 17:26 EST Tel , Service support , Chest CTA 05/08/18 17:49 IMPRESSION: Segmental and subsegmental pulmonary emboli in the right middle and lower lobes. Subsegmental pulmonary emboli in the left upper lobe. No pulmonary infiltrates or pleural effusions. Stable elevation of the left hemidiaphragm. Free air noted in the upper abdomen which was not present on the prior chest CT. Correlation for a history of a recent surgical intervention is recommended. If there was no recent surgery, further evaluation with abdominal CT is recommended. Electronically Signed: Fredo Pathak, at 19:09 EST Tel , Service support , ADDENDUM: 05/08/18 193 IMPRESSION: Segmental and subsegmental pulmonary emboli in the right middle and lower lobes. Subsegmental pulmonary emboli in the left upper lobe. No pulmonary infiltrates or pleural effusions. Stable elevation of the left hemidiaphragm. Free air noted in the upper abdomen which was not present on the prior chest CT. Correlation for a history of a recent surgical intervention is recommended. If there was no recent surgery, further evaluation with abdominal CT is recommended. N.B. : The above information has been verbally conveyed by Fredo Pathak to Sedrick Schaefer MD, MD, on 05/08/2018 19:29:28 (ET). Electronically Signed: Fredo Pathak, at 19:09 EST Tel , Service support , ADDENDUM: 05/08/18 1958 IMPRESSION: Segmental and subsegmental pulmonary emboli in the right middle and lower lobes. Subsegmental pulmonary emboli in the left upper lobe. No pulmonary infiltrates or pleural effusions. Stable elevation of the left hemidiaphragm. Free air noted in the upper abdomen which was not present on the prior chest CT. Correlation for a history of a recent surgical intervention is recommended. If there was no recent surgery, further evaluation with abdominal CT is recommended. N.B. : The above information has been verbally conveyed by Fredo Pathak to Sedrick Schaefer MD, MD, on 05/08/2018 19:29:28 (ET). Electronically Signed: Fredo Pathak, at 19:09 EST Tel , Service support , Abdomen/Pelvis CT 05/08/18 19:22 IMPRESSION: Study limited without contrast. Redemonstration of a pancreatic mass with an associated air and fluid-filled lesion (necrotic mass versus pseudocyst). This appears grossly unchanged when compared with a contrast-enhanced CT dated 03/04/2018. Free retroperitoneal air adjacent to the left kidney and in the left perinephric space. This is likely due to extension of the air from the adjacent pancreatic cavitary lesion. No urinary contrast extravasation. 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 Moderate amount of ascites. Enlarged prostate. Electronically Signed: Fredo Pathak, at 20:42 EST Tel , Service support , ADDENDUM: 05/08/182102 IMPRESSION: Study limited without contrast. Redemonstration of a pancreatic mass with an associated air and fluid-filled lesion (necrotic mass versus pseudocyst). This appears grossly unchanged when compared with a contrast-enhanced CT dated 03/04/2018. Free retroperitoneal air adjacent to the left kidney and in the left perinephric space. This is likely due to extension of the air from the adjacent pancreatic cavitary lesion. No urinary contrast extravasation. 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 Moderate amount of ascites. Enlarged prostate. N.B. : The above information has been verbally conveyed by Fredo Pathak to Sedrick Schaefer MD, MD, on 05/08/2018 20:56:06 (ET). Electronically Signed: Fredo Pathak, at 20:42 EST Tel , Service support , Brain CT 05/09/18 02:51 IMPRESSION: There is NO evidence of acute ischemic event or hemorrhage. There are chronic involutional and ischemic changes as described. N.B. : The above information has been verbally conveyed by Zafar Freire MD to Dennis Ricks RN, on 05/09/2018 03:32:11 (ET). Electronically Signed: Zafar Freire MD at 3:33 EST , Service support , Head CTA 05/09/18 02:51 IMPRESSION: Normal bilateral cervical carotid and vertebral arteries. Electronically Signed: Zafar Freire MD at 4:07 EST , Service support , Neck CTA 05/09/18 02:51 IMPRESSION: Normal bilateral cervical carotid and vertebral arteries. Electronically Signed: Zafar Freire MD at 4:07 EST , Service support , Brain MRI 05/09/18 03:43 IMPRESSION: 1. 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 Senescent changes as above. Electronically Signed: Tone Amaya DO at 10:50 EST , Service support , Chest X-Ray 05/10/18 08:17 IMPRESSION: Stable, nonacute portable x-ray examination of the chest. Electronically Signed: Lui Thompson MD at 12:42 EST , Service support , Code Visit Inpatient E&M: 08258 Subs Hosp L3
[2018-05-11 08:17] LABS: ALB/GLOB Ratio 0.3 RATIO (0.9-2.4); AST(SGOT) 41 U/L (15-37); Alanine Aminotransfer ALT/SGPT 30 U/L (16-61); Albumin, Serum 0.9 g/dL (3.2-5.0); Alkaline Phosphatase 52 U/L (45-117); Anion Gap 19 (5-15); BUN 37 mg/dL (7-18); BUN/Creat Ratio 27.2 RATIO (10-20); Chloride 110 mmol/L (98-107); Creatinine, Serum 1.36 mg/dL (0.70-1.30); EST Glomerular Filtration Rate 56 mL/min (>60); Est Glom Filt Rate - Afr Amer 68 mL/min (>60); Estimated Creatinine Clearance 48.87 ml/min; Globulin 2.8 g/dL (2.2-4.2); Glucose 196 mg/dL (74-106); Potassium 3.3 mmol/L (3.5-5.1); Protein, Total 3.7 g/dL (6.4-8.2); Sodium Level 140 mmol/L (136-145)
[2018-05-11 08:37] LABS: Lactic Acid 8.8 mmol/L (0.4-2.0)
[2018-05-11 09:22] LABS: BNP,B-Type NATRIURETIC PEPTIDE 74.2 pg/mL (0-100)
[2018-05-11] MEDS: Pantoprazole Sodium 40 MG Tablet PO (09:42)
[2018-05-11] MEDS: Potassium Chloride 10mEq/100mL 10 MEQ/100 ML IV.SOLN. 100 MEQ IV BOLUS ×4 (10:32→14:12)
[2018-05-11] MEDS: Menthol/Lanolin/Calamine/Znox 113 GM Tube 1 APPLIC TOPICAL ×2 (10:37→21:42)
[2018-05-11] MEDS: Glycerin/Hypromellose/PEG400 15 ml Bottle 2 DRP EACH EYE ×2 (11:30→21:43)
[2018-05-11 11:31] LABS: Bedside Glucose 153 mg/dL (70-110)
[2018-05-11 11:59] LABS: Partial Thromboplast Time 48.1 Seconds (24.1-36.2)
[2018-05-11 12:01] LABS: Pathologist Review Reviewed
[2018-05-11 12:04] LABS: Reflex Lactate? Y
[2018-05-11 12:09] LABS: Pathologist Review Reviewed
[2018-05-11 12:16] LABS: Pathologist Review Reviewed
[2018-05-11 12:21] LABS: Pathologist Review Reviewed
[2018-05-11 12:51] LABS: Vancomycin, Trough Level 17.3 ug/mL (5.0-15.0)
--- NOTE | 2018-05-11 12:51 | CON.PCM_ITS ---
Problem List (1) Septic shock Status: Acute Reason for Consult: bacteremia Consulted by: Dr. Murrieta History of Present Illness: The patient is a 67 year old M with pancreatic cancer, port in place, last chemo was last week, presented with fever, neutropenia, not feeling well. Had acute onset of SOB prior to coming in. Had some RLE pain. Found to have PE, DVT, stroke, and septic shock. Started on vanc/zosyn. Remains in icu, Bcx now with GNR and bacteroides. Denies abd pain. Still with SOB. Full ROS performed and neg except as noted above. No sputum. Mild nausea. No muscle aches. No problems with port. - Medical History Past Medical History (Chronic Problems): Chronic Problems (Last Reviewed 05/10/18 @ 10:59 by Shyam Baker MD) Pancreatic cancer (Chronic) Abdominal pain (Chronic) Allergies/Adverse Reactions: Allergies oxycodone HCl [From Percocet] Adverse Reaction (Severe, Verified 05/08/18 16:49) nightmares nightmares Tetracyclines Adverse Reaction (Severe, Verified 05/08/18 15:54) Upset Stomach Home Medications: Ambulatory Orders Medication Instructions Recorded Pantoprazole Sodium [Protonix] 40 mg PO DAILY 09/19/16 Docusate Sodium [Colace] 100 mg PO BID 03/16/18 Lidocaine/Prilocaine 1 applicatio TP DAILY PRN PRN 30 03/26/18 [Lidocaine-Prilocaine Cream] Days #1 tube Dexamethasone [Decadron] 8 mg PO DAILY@0800 PRN #30 tablet 04/03/18 Olanzapine [Zyprexa] 10 mg PO DAILY #30 tablet 04/03/18 proCHLORPERazine suppository 25 mg RECTAL BID PRN PRN #14 04/03/18 [Compazine suppository] suppos. Guaifen/Dextromethorphan/PE 10 ml PO PRN PRN 05/08/18 [Tussin Cf Cough-Cold Liquid] Insulin Glargine,Hum.rec.anlog 15 unit SQ DAILY 05/08/18 [Basaglar Kwikpen U-100] Levothyroxine [Synthroid] 125 mcg PO DAILY 05/08/18 Mirtazapine [Remeron] 15 mg PO QHS 05/08/18 Ondansetron HCl 8 mg PO PRN PRN 05/08/18 Spironolactone 50 mg PO BID 05/08/18 fentaNYL patch [Duragesic Patch] 12 mcg TRANSDERM. Q3D 05/08/18 - Social History SMOKING STATUS:: Former smoker Vital Signs Temp Pulse Resp BP Pulse Ox 98.6 F 107 H 32 H 88/63 L 98 05/11/18 08:00 05/11/18 12:00 05/11/18 11:00 05/11/18 11:00 05/11/18 11:00 Oxygen Flow Rate (L/min) 2 Oxygen Delivery Method Room Air Weight: 90.2 kg Body Mass Index (BMI) 29.0 Finger Stick Blood Glucose 166 Microbiology Past 72 Hours 05/08/18 17:10 Blood Culture - Preliminary Blood Culture (Wb) - Left Hand Gram negative allyson 05/08/18 16:10 Blood Culture - Preliminary Blood Culture (Wb) - Port Bacteroides fragilis 05/08/18 18:40 Urine Culture - Final Urine, Clean Catch Mixed Gram Pos & Gram Neg Org 05/08/18 22:52 Influenza Types A,B Direct FA ([place]) - Final Mucosa - Nasopharyngeal Laboratory Tests Past 24 Hrs 05/08/18 05/09/18 05/10/18 16:10 03:30 04:30 WBC RBC Hgb Hct MCV MCH MCHC RDW RDW Differential Plt Count Immature Gran % (Auto) Neut % (Auto) Lymph % (Auto) [place] % (Auto) Eos % (Auto) Baso % (Auto) Absolute Neuts (auto) Absolute Lymphs (auto) Total Counted Differential Comment Diff Path Review Reviewed Reviewed Reviewed Platelet Estimate Plt Morphology Comment Polychromasia Hypochromasia Anisocytosis Microcytosis APTT Sodium Potassium Chloride Carbon Dioxide Anion Gap BUN Creatinine Estim Creat Clear Calc Est GFR (MDRD) Af Amer Est GFR (MDRD) Non-Af BUN/Creatinine Ratio Glucose Lactic Acid Calcium Total Bilirubin AST ALT Alkaline Phosphatase B-Natriuretic Peptide Total Protein Albumin Globulin Albumin/Globulin Ratio Vancomycin Trough Heparin-induced Plt Ab 05/10/18 05/10/18 05/10/18 12:15 12:15 15:00 WBC RBC Hgb Hct MCV MCH MCHC RDW RDW Differential Plt Count Immature Gran % (Auto) Neut % (Auto) Lymph % (Auto) [place] % (Auto) Eos % (Auto) Baso % (Auto) Absolute Neuts (auto) Absolute Lymphs (auto) Total Counted Differential Comment Diff Path Review Platelet Estimate Plt Morphology Comment Polychromasia Hypochromasia Anisocytosis Microcytosis APTT 45.3 H Sodium Potassium Chloride Carbon Dioxide Anion Gap BUN Creatinine Estim Creat Clear Calc Est GFR (MDRD) Af Amer Est GFR (MDRD) Non-Af BUN/Creatinine Ratio Glucose Lactic Acid 13.6 H* Calcium Total Bilirubin AST ALT Alkaline Phosphatase B-Natriuretic Peptide Total Protein Albumin Globulin Albumin/Globulin Ratio Vancomycin Trough 8.9 Heparin-induced Plt Ab 05/10/18 05/11/18 05/11/18 22:00 04:45 04:45 WBC 8.2 RBC 3.03 L Hgb 9.1 L Hct 28.3 L MCV 93.4 MCH 30.0 MCHC 32.2 RDW 20.4 H RDW Differential 69.3 H Plt Count 17 L* Immature Gran % (Auto) 2.200 H Neut % (Auto) 85.9 H Lymph % (Auto) 9.3 L [place] % (Auto) 1.8 Eos % (Auto) 0.4 Baso % (Auto) 0.4 Absolute Neuts (auto) 7.0 Absolute Lymphs (auto) 0.76 L Total Counted Not Reportable Differential Comment SCAN Diff Path Review Reviewed Platelet Estimate MKD DEC Plt Morphology Comment LARGE Polychromasia 1+ Hypochromasia 1+ Anisocytosis 2+ Microcytosis 1+ APTT 46.2 H 46.1 H Sodium Potassium Chloride Carbon Dioxide Anion Gap BUN Creatinine Estim Creat Clear Calc Est GFR (MDRD) Af Amer Est GFR (MDRD) Non-Af BUN/Creatinine Ratio Glucose Lactic Acid Calcium Total Bilirubin AST ALT Alkaline Phosphatase B-Natriuretic Peptide Total Protein Albumin Globulin Albumin/Globulin Ratio Vancomycin Trough Heparin-induced Plt Ab 05/11/18 05/11/18 05/11/18 04:45 04:45 08:00 WBC RBC Hgb Hct MCV MCH MCHC RDW RDW Differential Plt Count Immature Gran % (Auto) Neut % (Auto) Lymph % (Auto) [place] % (Auto) Eos % (Auto) Baso % (Auto) Absolute Neuts (auto) Absolute Lymphs (auto) Total Counted Differential Comment Diff Path Review Platelet Estimate Plt Morphology Comment Polychromasia Hypochromasia Anisocytosis Microcytosis APTT Sodium 140 Potassium 3.3 L Chloride 110 H Carbon Dioxide 11.0 L Anion Gap 19 H BUN 37 H Creatinine 1.36 H Estim Creat Clear Calc 48.87 Est GFR (MDRD) Af Amer 68 Est GFR (MDRD) Non-Af 56 L BUN/Creatinine Ratio 27.2 H Glucose 196 H Lactic Acid 8.8 H* Calcium 6.0 L* Total Bilirubin 0.60 AST 41 H ALT 30 Alkaline Phosphatase 52 B-Natriuretic Peptide 74.2 Total Protein 3.7 L Albumin 0.9 L Globulin 2.8 Albumin/Globulin Ratio 0.3 L Vancomycin Trough Heparin-induced Plt Ab 05/11/18 05/11/18 05/11/18 09:00 11:30 11:30 WBC RBC Hgb Hct MCV MCH MCHC RDW RDW Differential Plt Count Immature Gran % (Auto) Neut % (Auto) Lymph % (Auto) [place] % (Auto) Eos % (Auto) Baso % (Auto) Absolute Neuts (auto) Absolute Lymphs (auto) Total Counted Differential Comment Diff Path Review Platelet Estimate Plt Morphology Comment Polychromasia Hypochromasia Anisocytosis Microcytosis APTT 48.1 H Sodium Potassium Chloride Carbon Dioxide Anion Gap BUN Creatinine Estim Creat Clear Calc Est GFR (MDRD) Af Amer Est GFR (MDRD) Non-Af BUN/Creatinine Ratio Glucose Lactic Acid Calcium Total Bilirubin AST ALT Alkaline Phosphatase B-Natriuretic Peptide Total Protein Albumin Globulin Albumin/Globulin Ratio Vancomycin Trough Pending Heparin-induced Plt Ab Pending - Other Studies Radiology: [] reviewed Other Studies: [] Route of nutrition/ use of supplements: [] Nutritional Intake: [] IV Site: [] Girard Catheter: [] - Physical Exam General: Alert, Cooperative, - - ill appearing HEENT: Atraumatic, PERRLA, EOMI Neck: Supple, No Nodes Lungs: Diminished, Rhonchi Cardiovascular: Tachycardic Abdomen: Soft, Non Tender, Non-Distended Extremities: Edema Skin: No rashes IV Site: Central Line, without redness - R chest pport Musculoskeletal: No Tenderness to Palpation of Joints or Extremities - Assessment/Plan Antibiotics: [] Assessment/Plan: [] Active and Suspected Problems (Last Reviewed 05/10/18 @ 10:59 by Shyam Baker MD) Septic shock (Acute) DVT (deep venous thrombosis) (Acute) Pulmonary embolism (Acute) Diabetes (Acute) septic shock due to GNR and bacteroides bacteremia likely from GI source given pancreatic cancer and free air seen on Abd CT. Port is also risk factor. Recent chemo. Neutropenic fever has resolved. Continue vanc/zosyn for now. Overall poor prognosis. D/w Dr. Murrieta and nursing, will follow, thank you.
--- NOTE | 2018-05-11 13:38 | PCM.CONS.R ---
Problem List (1) KAELYN (acute kidney injury) Status: Acute Consultation - Renal 05/11/18 PCP/ Referring MD: Requesting physician: Dr Jesus Murrieta Primary care physician: Dashawn Perez MD Reason for Consultation:: KAELYN - History of Present Illness History of Present Illness: The patient is a 67 year old M with known history of pancreatic carcinoma, poorly differentiated, stage 4. presented with dyspnea, found to have severe PE. 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 serum lactate consistently above 6. currently poorly responsive since admission WBC is better but he has a significant drop in platelet count hence he is on arixtra IV. HIT antibodies pending - Allergies Allergies: Allergies oxycodone HCl [From Percocet] Adverse Reaction (Severe, Verified 05/08/18 16:49) nightmares nightmares Tetracyclines Adverse Reaction (Severe, Verified 05/08/18 15:54) Upset Stomach - Current Medications Current Medications: Current Medications Acetaminophen (Tylenol) 650 mg PO Q6H PRN PRN PRN Reason: Mild Pain (scale 0-3)/T>100.7 Last Admin: 05/10/18 09:42 Dose: 650 mg Acetaminophen (Tylenol) 650 mg RECTAL Q6H PRN PRN PRN Reason: fever > 100.4 Last Admin: 05/09/18 04:36 Dose: 650 mg Calamine/Phenol (Calmoseptine Ointment) 1 applic TOPICAL BID [facility]; Protocol Last Admin: 05/11/18 10:37 Dose: 1 applic Chlorhexidine Gluconate () 1 each TOPICAL DAILY [facility] Last Admin: 05/10/18 09:48 Dose: 1 each Dextrose (D50w Syringe) 0 gm IV X1 PRN; Protocol PRN Reason: Hypoglycemia Docusate Sodium (Colace) 100 mg PO BID [facility] Last Admin: 05/11/18 09:41 Dose: Not Given Fentanyl (Duragesic Patch) 12 mcg TRANSDERM. Q3D [facility] Last Admin: 05/11/18 10:42 Dose: 12 mcg Glucagon () 1 mg IM .X1 PRN PRN Reason: Hypoglycemia Guaifenesin/Phenyleph/Dextrometh (Robitussin Cf) 10 ml PO Q6H PRN PRN PRN Reason: COUGH Haloperidol Lactate (Haldol) 3 mg IV Q6H PRN PRN PRN Reason: ANXIETY/AGITATION Piperacillin Sod/Tazobactam (Sod 3.375 gm/ Sodium Chloride) 50 mls @ 12.5 mls/hr IV Q8 [facility] Last Admin: 05/11/18 06:11 Dose: 12.5 mls/hr Vancomycin IV Pharmacy to Dose (1,250 ea/ Sodium Chloride) 500 mls @ 250 mls/hr IV PRN PRN; Protocol Sodium Chloride () 250 mls @ 15 mls/hr IV .[id number] PRN PRN Reason: SALINE FLUSH Last Admin: 05/11/18 13:01 Dose: 15 mls/hr Vancomycin HCl (Vancomycin) 1,000 mg in 200 mls @ 200 mls/hr IV Q12H [facility] Last Admin: 05/11/18 12:57 Dose: 200 mls/hr Bivalirudin 250 mg/ Sodium (Chloride) 50 mls @ 1.44 mls/hr IV .[id number] [facility]; Protocol Last Admin: 05/11/18 09:32 Dose: 1.44 mls/hr Potassium Chloride () 10 meq in 100 mls @ 100 mls/hr IV BOLUS Q1H [facility] Stop: 05/11/18 13:59 Last Admin: 05/11/18 12:53 Dose: 100 mls/hr Insulin Human Lispro (Humalog Kwikpen (Bkc)) 0 unit SC ACHS [facility]; Protocol Last Admin: 05/11/18 11:29 Dose: 2 u Levothyroxine Sodium (Synthroid) 125 mcg PO DAILY@0600 [facility] Last Admin: 05/11/18 06:12 Dose: 125 mcg Lidocaine/Prilocaine (Emla Cream W/Tegaderm) 0 gm TOPICAL DAILY PRN PRN; Protocol Loperamide HCl (Imodium) 2 mg PO BID PRN PRN PRN Reason: Diarrhea Last Admin: 05/10/18 09:43 Dose: 2 mg Mirtazapine (Remeron) 15 mg PO QHS [facility] Last Admin: 05/10/18 22:31 Dose: 15 mg Morphine Sulfate () 2 mg IV Q3H PRN PRN PRN Reason: SEVERE PAIN (6-10/10) Ondansetron HCl (Zofran) 4 mg IV Q8H PRN PRN PRN Reason: Nausea Pantoprazole Sodium (Protonix) 40 mg PO DAILY [facility] Last Admin: 05/11/18 09:42 Dose: 40 mg Prochlorperazine Maleate (Compazine Suppository) 25 mg RECTAL BID PRN PRN PRN Reason: NAUSEA/VOMITING Sodium Chloride () 5 - 15 ml IV UD PRN PRN Reason: SALINE FLUSH Last Admin: 05/11/18 04:47 Dose: 10 ml Sodium Chloride () 10 ml IV UD PRN PRN Reason: VAD FLUSH Last Admin: 05/11/18 04:47 Dose: 10 ml - Past Medical History Past Medical History (Chronic Problems): Chronic Problems (Last Reviewed 05/10/18 @ 10:59 by Shyam Baker MD) Pancreatic cancer (Chronic) Abdominal pain (Chronic) - Social History Smoking Status: Former smoker Alcohol: None - Family History Maternal Family History: Family History (Last Reviewed 05/10/18 @ 10:59 by Shyam Baker MD) Father Colon cancer Heart disease Hypertension Myocardial infarction Review of Systems Unable to obtain accurate/complete ROS d/t: unable to obtain Patient Problems: Active and Suspected Problems (Last Reviewed 05/10/18 @ 10:59 by Shyam Baker MD) Septic shock (Acute) DVT (deep venous thrombosis) (Acute) Pulmonary embolism (Acute) Diabetes (Acute) KAELYN (acute kidney injury) (Acute) - Physical Exam HEENT: PERRLA, EOMI, Normocephalic Neck: Supple, No JVD, Negative Carotid Bruits Lungs: Clear to auscultation, Normal air movement Cardiovascular: Regular rate, No murmurs Abdomen: Bowel Sounds Present Extremities: No edema, Capillary Refill Less than 3 Seconds Skin: No rashes Vital Signs Temp Pulse Resp BP Pulse Ox 98.4 F 107 H 31 H 85/60 L 98 05/11/18 12:00 05/11/18 13:00 05/11/18 13:00 05/11/18 13:00 05/11/18 13:00 Oxygen Flow Rate (L/min) 2 Oxygen Delivery Method Room Air Weight: 90.2 kg Body Mass Index (BMI) 29.0 Finger Stick Blood Glucose 166 Intake and Output for Last 24 Hours 05/09/18 05/10/18 05/11/18 23:59 23:59 23:59 Intake Total 5687.2 / 5687.2 4778 / 4778 4941.4 / 4941.4 Output Total 830 / 830 675 / 675 500 / 500 Balance 4857.2 / 4857.2 4103 / 4103 4441.4 / 4441.4 Microbiology Past 72 Hours 05/08/18 17:10 Blood Culture - Preliminary Blood Culture (Wb) - Left Hand Gram negative allyson 05/08/18 16:10 Blood Culture - Preliminary Blood Culture (Wb) - Port Bacteroides fragilis 05/08/18 18:40 Urine Culture - Final Urine, Clean Catch Mixed Gram Pos & Gram Neg Org 05/08/18 22:52 Influenza Types A,B Direct FA ([place]) - Final Mucosa - Nasopharyngeal Laboratory Tests Past 24 Hrs 05/08/18 05/09/18 05/10/18 16:10 03:30 04:30 WBC RBC Hgb Hct MCV MCH MCHC RDW RDW Differential Plt Count Immature Gran % (Auto) Neut % (Auto) Lymph % (Auto) [place] % (Auto) Eos % (Auto) Baso % (Auto) Absolute Neuts (auto) Absolute Lymphs (auto) Total Counted Differential Comment Diff Path Review Reviewed Reviewed Reviewed Platelet Estimate Plt Morphology Comment Polychromasia Hypochromasia Anisocytosis Microcytosis APTT Sodium Potassium Chloride Carbon Dioxide Anion Gap BUN Creatinine Estim Creat Clear Calc Est GFR (MDRD) Af Amer Est GFR (MDRD) Non-Af BUN/Creatinine Ratio Glucose Lactic Acid Calcium Total Bilirubin AST ALT Alkaline Phosphatase B-Natriuretic Peptide Total Protein Albumin Globulin Albumin/Globulin Ratio Vancomycin Trough Heparin-induced Plt Ab 05/10/18 05/10/18 05/10/18 12:15 15:00 22:00 WBC RBC Hgb Hct MCV MCH MCHC RDW RDW Differential Plt Count Immature Gran % (Auto) Neut % (Auto) Lymph % (Auto) [place] % (Auto) Eos % (Auto) Baso % (Auto) Absolute Neuts (auto) Absolute Lymphs (auto) Total Counted Differential Comment Diff Path Review Platelet Estimate Plt Morphology Comment Polychromasia Hypochromasia Anisocytosis Microcytosis APTT 45.3 H 46.2 H Sodium Potassium Chloride Carbon Dioxide Anion Gap BUN Creatinine Estim Creat Clear Calc Est GFR (MDRD) Af Amer Est GFR (MDRD) Non-Af BUN/Creatinine Ratio Glucose Lactic Acid Calcium Total Bilirubin AST ALT Alkaline Phosphatase B-Natriuretic Peptide Total Protein Albumin Globulin Albumin/Globulin Ratio Vancomycin Trough 8.9 Heparin-induced Plt Ab 05/11/18 05/11/18 05/11/18 04:45 04:45 04:45 WBC 8.2 RBC 3.03 L Hgb 9.1 L Hct 28.3 L MCV 93.4 MCH 30.0 MCHC 32.2 RDW 20.4 H RDW Differential 69.3 H Plt Count 17 L* Immature Gran % (Auto) 2.200 H Neut % (Auto) 85.9 H Lymph % (Auto) 9.3 L [place] % (Auto) 1.8 Eos % (Auto) 0.4 Baso % (Auto) 0.4 Absolute Neuts (auto) 7.0 Absolute Lymphs (auto) 0.76 L Total Counted Not Reportable Differential Comment SCAN Diff Path Review Reviewed Platelet Estimate MKD DEC Plt Morphology Comment LARGE Polychromasia 1+ Hypochromasia 1+ Anisocytosis 2+ Microcytosis 1+ APTT 46.1 H Sodium 140 Potassium 3.3 L Chloride 110 H Carbon Dioxide 11.0 L Anion Gap 19 H BUN 37 H Creatinine 1.36 H Estim Creat Clear Calc 48.87 Est GFR (MDRD) Af Amer 68 Est GFR (MDRD) Non-Af 56 L BUN/Creatinine Ratio 27.2 H Glucose 196 H Lactic Acid Calcium 6.0 L* Total Bilirubin 0.60 AST 41 H ALT 30 Alkaline Phosphatase 52 B-Natriuretic Peptide Total Protein 3.7 L Albumin 0.9 L Globulin 2.8 Albumin/Globulin Ratio 0.3 L Vancomycin Trough Heparin-induced Plt Ab 05/11/18 05/11/18 05/11/18 04:45 08:00 09:00 WBC RBC Hgb Hct MCV MCH MCHC RDW RDW Differential Plt Count Immature Gran % (Auto) Neut % (Auto) Lymph % (Auto) [place] % (Auto) Eos % (Auto) Baso % (Auto) Absolute Neuts (auto) Absolute Lymphs (auto) Total Counted Differential Comment Diff Path Review Platelet Estimate Plt Morphology Comment Polychromasia Hypochromasia Anisocytosis Microcytosis APTT Sodium Potassium Chloride Carbon Dioxide Anion Gap BUN Creatinine Estim Creat Clear Calc Est GFR (MDRD) Af Amer Est GFR (MDRD) Non-Af BUN/Creatinine Ratio Glucose Lactic Acid 8.8 H* Calcium Total Bilirubin AST ALT Alkaline Phosphatase B-Natriuretic Peptide 74.2 Total Protein Albumin Globulin Albumin/Globulin Ratio Vancomycin Trough Heparin-induced Plt Ab Pending 05/11/18 05/11/18 11:30 11:30 WBC RBC Hgb Hct MCV MCH MCHC RDW RDW Differential Plt Count Immature Gran % (Auto) Neut % (Auto) Lymph % (Auto) [place] % (Auto) Eos % (Auto) Baso % (Auto) Absolute Neuts (auto) Absolute Lymphs (auto) Total Counted Differential Comment Diff Path Review Platelet Estimate Plt Morphology Comment Polychromasia Hypochromasia Anisocytosis Microcytosis APTT 48.1 H Sodium Potassium Chloride Carbon Dioxide Anion Gap BUN Creatinine Estim Creat Clear Calc Est GFR (MDRD) Af Amer Est GFR (MDRD) Non-Af BUN/Creatinine Ratio Glucose Lactic Acid Calcium Total Bilirubin AST ALT Alkaline Phosphatase B-Natriuretic Peptide Total Protein Albumin Globulin Albumin/Globulin Ratio Vancomycin Trough 17.3 H Heparin-induced Plt Ab POC Glucose 05/11/18 05/11/18 05/10/18 11:24 06:05 22:26 POC Glucose 153 H 210 H 226 H 05/10/18 16:22 POC Glucose 247 H Assessment/Plan All Active Problems (Last Reviewed 05/10/18 @ 10:59 by Shyam Baker MD) Educational circumstance (Acute) SOB (shortness of breath) (Acute) Ascites, malignant (Acute) Septic shock (Acute) DVT (deep venous thrombosis) (Acute) Pulmonary embolism (Acute) Diabetes (Acute) KAELYN (acute kidney injury) (Acute) Abdominal distension (gaseous) (Acute) Personal history of colonic polyps (Acute) KAELYN. likely part of Multi organ dysfunction syndrome from severe sepsis. patient has also received some contrast for vascular evaluation. urine output is on lower side. currently has severe acidosis from elevated lactate lactic acidosis bacteremia stage 4 pancreatic malignancy Plan ICU ID noted reviewed overall life expectancy is not great not a candidate for any interventions at this point d/w Dr Murrieta. further discussions about ongoing goals of care going on
--- NOTE | 2018-05-11 13:43 | CON.PCM_ITS ---
Problem List (1) KAELYN (acute kidney injury) Status: Acute Consultation - Renal 05/11/18 PCP/ Referring MD: Requesting physician: Dr Jesus Murrieta Primary care physician: Dashawn Perez MD Reason for Consultation:: KAELYN - History of Present Illness History of Present Illness: The patient is a 67 year old M with known history of pancreatic carcinoma, poorly differentiated, stage 4. presented with dyspnea, found to have severe PE. 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 serum lactate consistently above 6. currently poorly responsive since admission WBC is better but he has a significant drop in platelet count hence he is on arixtra IV. HIT antibodies pending - Allergies Allergies: Allergies oxycodone HCl [From Percocet] Adverse Reaction (Severe, Verified 05/08/18 16:49) nightmares nightmares Tetracyclines Adverse Reaction (Severe, Verified 05/08/18 15:54) Upset Stomach - Current Medications Current Medications: Current Medications Acetaminophen (Tylenol) 650 mg PO Q6H PRN PRN PRN Reason: Mild Pain (scale 0-3)/T>100.7 Last Admin: 05/10/18 09:42 Dose: 650 mg Acetaminophen (Tylenol) 650 mg RECTAL Q6H PRN PRN PRN Reason: fever > 100.4 Last Admin: 05/09/18 04:36 Dose: 650 mg Calamine/Phenol (Calmoseptine Ointment) 1 applic TOPICAL BID [facility]; Protocol Last Admin: 05/11/18 10:37 Dose: 1 applic Chlorhexidine Gluconate () 1 each TOPICAL DAILY [facility] Last Admin: 05/10/18 09:48 Dose: 1 each Dextrose (D50w Syringe) 0 gm IV X1 PRN; Protocol PRN Reason: Hypoglycemia Docusate Sodium (Colace) 100 mg PO BID [facility] Last Admin: 05/11/18 09:41 Dose: Not Given Fentanyl (Duragesic Patch) 12 mcg TRANSDERM. Q3D [facility] Last Admin: 05/11/18 10:42 Dose: 12 mcg Glucagon () 1 mg IM .X1 PRN PRN Reason: Hypoglycemia Guaifenesin/Phenyleph/Dextrometh (Robitussin Cf) 10 ml PO Q6H PRN PRN PRN Reason: COUGH Haloperidol Lactate (Haldol) 3 mg IV Q6H PRN PRN PRN Reason: ANXIETY/AGITATION Piperacillin Sod/Tazobactam (Sod 3.375 gm/ Sodium Chloride) 50 mls @ 12.5 mls/hr IV Q8 [facility] Last Admin: 05/11/18 06:11 Dose: 12.5 mls/hr Vancomycin IV Pharmacy to Dose (1,250 ea/ Sodium Chloride) 500 mls @ 250 mls/hr IV PRN PRN; Protocol Sodium Chloride () 250 mls @ 15 mls/hr IV .[id number] PRN PRN Reason: SALINE FLUSH Last Admin: 05/11/18 13:01 Dose: 15 mls/hr Vancomycin HCl (Vancomycin) 1,000 mg in 200 mls @ 200 mls/hr IV Q12H [facility] Last Admin: 05/11/18 12:57 Dose: 200 mls/hr Bivalirudin 250 mg/ Sodium (Chloride) 50 mls @ 1.44 mls/hr IV .[id number] [facility]; Protocol Last Admin: 05/11/18 09:32 Dose: 1.44 mls/hr Potassium Chloride () 10 meq in 100 mls @ 100 mls/hr IV BOLUS Q1H [facility] Stop: 05/11/18 13:59 Last Admin: 05/11/18 12:53 Dose: 100 mls/hr Insulin Human Lispro (Humalog Kwikpen (Bkc)) 0 unit SC ACHS [facility]; Protocol Last Admin: 05/11/18 11:29 Dose: 2 u Levothyroxine Sodium (Synthroid) 125 mcg PO DAILY@0600 [facility] Last Admin: 05/11/18 06:12 Dose: 125 mcg Lidocaine/Prilocaine (Emla Cream W/Tegaderm) 0 gm TOPICAL DAILY PRN PRN; Protocol Loperamide HCl (Imodium) 2 mg PO BID PRN PRN PRN Reason: Diarrhea Last Admin: 05/10/18 09:43 Dose: 2 mg Mirtazapine (Remeron) 15 mg PO QHS [facility] Last Admin: 05/10/18 22:31 Dose: 15 mg Morphine Sulfate () 2 mg IV Q3H PRN PRN PRN Reason: SEVERE PAIN (6-10/10) Ondansetron HCl (Zofran) 4 mg IV Q8H PRN PRN PRN Reason: Nausea Pantoprazole Sodium (Protonix) 40 mg PO DAILY [facility] Last Admin: 05/11/18 09:42 Dose: 40 mg Prochlorperazine Maleate (Compazine Suppository) 25 mg RECTAL BID PRN PRN PRN Reason: NAUSEA/VOMITING Sodium Chloride () 5 - 15 ml IV UD PRN PRN Reason: SALINE FLUSH Last Admin: 05/11/18 04:47 Dose: 10 ml Sodium Chloride () 10 ml IV UD PRN PRN Reason: VAD FLUSH Last Admin: 05/11/18 04:47 Dose: 10 ml - Past Medical History Past Medical History (Chronic Problems): Chronic Problems (Last Reviewed 05/10/18 @ 10:59 by Shyam Baker MD) Pancreatic cancer (Chronic) Abdominal pain (Chronic) - Social History Smoking Status: Former smoker Alcohol: None - Family History Maternal Family History: Family History (Last Reviewed 05/10/18 @ 10:59 by Shyam Baker MD) Father Colon cancer Heart disease Hypertension Myocardial infarction Review of Systems Unable to obtain accurate/complete ROS d/t: unable to obtain Patient Problems: Active and Suspected Problems (Last Reviewed 05/10/18 @ 10:59 by Shyam Baker MD) Septic shock (Acute) DVT (deep venous thrombosis) (Acute) Pulmonary embolism (Acute) Diabetes (Acute) KAELYN (acute kidney injury) (Acute) - Physical Exam HEENT: PERRLA, EOMI, Normocephalic Neck: Supple, No JVD, Negative Carotid Bruits Lungs: Clear to auscultation, Normal air movement Cardiovascular: Regular rate, No murmurs Abdomen: Bowel Sounds Present Extremities: No edema, Capillary Refill Less than 3 Seconds Skin: No rashes Vital Signs Temp Pulse Resp BP Pulse Ox 98.4 F 107 H 31 H 85/60 L 98 05/11/18 12:00 05/11/18 13:00 05/11/18 13:00 05/11/18 13:00 05/11/18 13:00 Oxygen Flow Rate (L/min) 2 Oxygen Delivery Method Room Air Weight: 90.2 kg Body Mass Index (BMI) 29.0 Finger Stick Blood Glucose 166 Intake and Output for Last 24 Hours 05/09/18 05/10/18 05/11/18 23:59 23:59 23:59 Intake Total 5687.2 / 5687.2 4778 / 4778 4941.4 / 4941.4 Output Total 830 / 830 675 / 675 500 / 500 Balance 4857.2 / 4857.2 4103 / 4103 4441.4 / 4441.4 Microbiology Past 72 Hours 05/08/18 17:10 Blood Culture - Preliminary Blood Culture (Wb) - Left Hand Gram negative allyson 05/08/18 16:10 Blood Culture - Preliminary Blood Culture (Wb) - Port Bacteroides fragilis 05/08/18 18:40 Urine Culture - Final Urine, Clean Catch Mixed Gram Pos & Gram Neg Org 05/08/18 22:52 Influenza Types A,B Direct FA ([place]) - Final Mucosa - Nasopharyngeal Laboratory Tests Past 24 Hrs 05/08/18 05/09/18 05/10/18 16:10 03:30 04:30 WBC RBC Hgb Hct MCV MCH MCHC RDW RDW Differential Plt Count Immature Gran % (Auto) Neut % (Auto) Lymph % (Auto) Braxton % (Auto) Eos % (Auto) Baso % (Auto) Absolute Neuts (auto) Absolute Lymphs (auto) Total Counted Differential Comment Diff Path Review Reviewed Reviewed Reviewed Platelet Estimate Plt Morphology Comment Polychromasia Hypochromasia Anisocytosis Microcytosis APTT Sodium Potassium Chloride Carbon Dioxide Anion Gap BUN Creatinine Estim Creat Clear Calc Est GFR (MDRD) Af Amer Est GFR (MDRD) Non-Af BUN/Creatinine Ratio Glucose Lactic Acid Calcium Total Bilirubin AST ALT Alkaline Phosphatase B-Natriuretic Peptide Total Protein Albumin Globulin Albumin/Globulin Ratio Vancomycin Trough Heparin-induced Plt Ab 05/10/18 05/10/18 05/10/18 12:15 15:00 22:00 WBC RBC Hgb Hct MCV MCH MCHC RDW RDW Differential Plt Count Immature Gran % (Auto) Neut % (Auto) Lymph % (Auto) Braxton % (Auto) Eos % (Auto) Baso % (Auto) Absolute Neuts (auto) Absolute Lymphs (auto) Total Counted Differential Comment Diff Path Review Platelet Estimate Plt Morphology Comment Polychromasia Hypochromasia Anisocytosis Microcytosis APTT 45.3 H 46.2 H Sodium Potassium Chloride Carbon Dioxide Anion Gap BUN Creatinine Estim Creat Clear Calc Est GFR (MDRD) Af Amer Est GFR (MDRD) Non-Af BUN/Creatinine Ratio Glucose Lactic Acid Calcium Total Bilirubin AST ALT Alkaline Phosphatase B-Natriuretic Peptide Total Protein Albumin Globulin Albumin/Globulin Ratio Vancomycin Trough 8.9 Heparin-induced Plt Ab 05/11/18 05/11/18 05/11/18 04:45 04:45 04:45 WBC 8.2 RBC 3.03 L Hgb 9.1 L Hct 28.3 L MCV 93.4 MCH 30.0 MCHC 32.2 RDW 20.4 H RDW Differential 69.3 H Plt Count 17 L* Immature Gran % (Auto) 2.200 H Neut % (Auto) 85.9 H Lymph % (Auto) 9.3 L Braxton % (Auto) 1.8 Eos % (Auto) 0.4 Baso % (Auto) 0.4 Absolute Neuts (auto) 7.0 Absolute Lymphs (auto) 0.76 L Total Counted Not Reportable Differential Comment SCAN Diff Path Review Reviewed Platelet Estimate MKD DEC Plt Morphology Comment LARGE Polychromasia 1+ Hypochromasia 1+ Anisocytosis 2+ Microcytosis 1+ APTT 46.1 H Sodium 140 Potassium 3.3 L Chloride 110 H Carbon Dioxide 11.0 L Anion Gap 19 H BUN 37 H Creatinine 1.36 H Estim Creat Clear Calc 48.87 Est GFR (MDRD) Af Amer 68 Est GFR (MDRD) Non-Af 56 L BUN/Creatinine Ratio 27.2 H Glucose 196 H Lactic Acid Calcium 6.0 L* Total Bilirubin 0.60 AST 41 H ALT 30 Alkaline Phosphatase 52 B-Natriuretic Peptide Total Protein 3.7 L Albumin 0.9 L Globulin 2.8 Albumin/Globulin Ratio 0.3 L Vancomycin Trough Heparin-induced Plt Ab 05/11/18 05/11/18 05/11/18 04:45 08:00 09:00 WBC RBC Hgb Hct MCV MCH MCHC RDW RDW Differential Plt Count Immature Gran % (Auto) Neut % (Auto) Lymph % (Auto) Braxton % (Auto) Eos % (Auto) Baso % (Auto) Absolute Neuts (auto) Absolute Lymphs (auto) Total Counted Differential Comment Diff Path Review Platelet Estimate Plt Morphology Comment Polychromasia Hypochromasia Anisocytosis Microcytosis APTT Sodium Potassium Chloride Carbon Dioxide Anion Gap BUN Creatinine Estim Creat Clear Calc Est GFR (MDRD) Af Amer Est GFR (MDRD) Non-Af BUN/Creatinine Ratio Glucose Lactic Acid 8.8 H* Calcium Total Bilirubin AST ALT Alkaline Phosphatase B-Natriuretic Peptide 74.2 Total Protein Albumin Globulin Albumin/Globulin Ratio Vancomycin Trough Heparin-induced Plt Ab Pending 05/11/18 05/11/18 11:30 11:30 WBC RBC Hgb Hct MCV MCH MCHC RDW RDW Differential Plt Count Immature Gran % (Auto) Neut % (Auto) Lymph % (Auto) Braxton % (Auto) Eos % (Auto) Baso % (Auto) Absolute Neuts (auto) Absolute Lymphs (auto) Total Counted Differential Comment Diff Path Review Platelet Estimate Plt Morphology Comment Polychromasia Hypochromasia Anisocytosis Microcytosis APTT 48.1 H Sodium Potassium Chloride Carbon Dioxide Anion Gap BUN Creatinine Estim Creat Clear Calc Est GFR (MDRD) Af Amer Est GFR (MDRD) Non-Af BUN/Creatinine Ratio Glucose Lactic Acid Calcium Total Bilirubin AST ALT Alkaline Phosphatase B-Natriuretic Peptide Total Protein Albumin Globulin Albumin/Globulin Ratio Vancomycin Trough 17.3 H Heparin-induced Plt Ab POC Glucose 05/11/18 05/11/18 05/10/18 11:24 06:05 22:26 POC Glucose 153 H 210 H 226 H 05/10/18 16:22 POC Glucose 247 H Assessment/Plan All Active Problems (Last Reviewed 05/10/18 @ 10:59 by Shyam Baker MD) Educational circumstance (Acute) SOB (shortness of breath) (Acute) Ascites, malignant (Acute) Septic shock (Acute) DVT (deep venous thrombosis) (Acute) Pulmonary embolism (Acute) Diabetes (Acute) KAELYN (acute kidney injury) (Acute) Abdominal distension (gaseous) (Acute) Personal history of colonic polyps (Acute) KAELYN. likely part of Multi organ dysfunction syndrome from severe sepsis. patient has also received some contrast for vascular evaluation. urine output is on lower side. currently has severe acidosis from elevated lactate lactic acidosis bacteremia stage 4 pancreatic malignancy Plan ICU ID noted reviewed overall life expectancy is not great not a candidate for any interventions at this point d/w Dr Murrieta. further discussions about ongoing goals of care going on
--- NOTE | 2018-05-11 14:16 | PCM.RX.CS ---
Consult Pharmacy has been consulted to manage selected antiobiotic: Vancomycin Type of Consult: Follow-up Suspected Infection: Sepsis Prior Doses of Antibiotics Received/Current Regimen: Currently on 1gm iv q12h. Labs: Sodium 140 mmol/L (136-145) 05/11/18 04:45 Potassium 3.3 mmol/L (3.5-5.1) L 05/11/18 04:45 Chloride 110 mmol/L (98-107) H 05/11/18 04:45 Carbon Dioxide 11.0 mmol/L (21.0-32.0) L 05/11/18 04:45 Anion Gap 19 (5-15) H 05/11/18 04:45 BUN 37 mg/dL (7-18) H 05/11/18 04:45 Creatinine 1.36 mg/dL (0.70-1.30) H 05/11/18 04:45 Est GFR (MDRD) Af Amer 68 mL/min (>60) 05/11/18 04:45 Est GFR (MDRD) Non-Af 56 mL/min (>60) L 05/11/18 04:45 BUN/Creatinine Ratio 27.2 RATIO (10-20) H 05/11/18 04:45 Glucose 196 mg/dL (74-106) H 05/11/18 04:45 Vancomycin Trough 17.3 ug/mL (5.0-15.0) H 05/11/18 11:30 Microbiology: Microbiology 05/11/18 10:55 Mucosa - Nose Respiratory Panel (PCR) - Final 05/08/18 17:10 Blood Culture (Wb) - Left Hand Blood Culture - Preliminary Gram negative allyson 05/08/18 16:10 Blood Culture (Wb) - Port Blood Culture - Preliminary Bacteroides fragilis 05/08/18 18:40 Urine, Clean Catch Urine Culture - Final Mixed Gram Pos & Gram Neg Org 05/08/18 22:52 Mucosa - Nasopharyngeal Influenza Types A,B Direct FA ([place]) - Final Weight used for dosin.2 kg Estimated Creatinine Clearance: ~49 ml/min Goal Trough: 15-20 mcg/mL Pharmacy Plan for Drug Dosing: Trough level 17.3 (goal 15-20 mcg/ml) on 05.11.18. Renal Cr 1.36 with CrCl ~49 ml/min. Will continue same dosing of 1gm iv q12h and get repeat trough level before next 4th dose on 05.12.18. Pharmacy Service will continue to monitor and adjust dosing as required. Follow-Up Labs: Trough Vancomycin - 05.12.18 @2330 before 0000 dose.
--- NOTE | 2018-05-11 16:03 | NURSING ---
titrating angiomax per pharmacist Jovani calling with PTT results for further instruction
[2018-05-11 16:24] LABS: Partial Thromboplast Time 69.5 Seconds (24.1-36.2)
[2018-05-11 17:10] LABS: Bedside Glucose 191 mg/dL (70-110)
--- NOTE | 2018-05-11 17:47 | ONC.CONS.INP ---
Subjective Date of Service:: 05/11/18 Chief Complaint: Stage IV adenocarcinoma of the pancreas History of Present Illness: Mr. Jeronimo Frye is a very pleasant 67-year-old man found to have a duodenal obstruction secondary to a mass in the body of the pancreas. CA-[id number] elevated at 2139. Subsequently he underwent laparotomy at [facility], found to have multiple peritoneal nodules and gastro jejunostomy for duodenal obstruction and biopsy of peritoneal nodes on 03/06/2018. Pathology returned positive for poorly differentiated adenocarcinoma. PET/CT on 03/23/2018 revealed hypermetabolic mass in the pancreatic body/tail, throughout the abdominal, pelvic mesentery retroperitoneal nodes and bilateral supraclavicular areas. Commenced with cycle 1 FOLFIRINOX on 04/01/2018. Last dose of FOLFIRINOX administered on 04/29/2018 (cycle 3) supported with Neulasta 05/01/2018. In the last several weeks patient has noted more uncontrolled blood sugars and increase in amount of ascites. As a result underwent therapeutic paracentesis on 04/30/2018. Mr. Frye presented to [facility] emergency department on 03/07/2019 with complaints of progressively worsening shortness of breath and generalized weakness to the extent ambulation was difficult. Found to be tachycardic. Workup revealed bilateral pulmonary emboli, LLE DVT, cardioembolic stroke and neutropenic fever accompanied by elevated lactic acid indicating septic shock. Given broad spectrum atb, fluid recitation and started on heparin gtt. Upon admission, platelets 93,000. Subsequent to < 24 hrs of heparin administration, platelets noted to be 35,000. HIT suspected, antibodies pending. Heparin discontinued. Patient now maintained on Angiomax. Upon entering the room, patient with many visitors including spouse and son. Patient's breathing labored. Responsive to his name. Denies the presence of pain or discomfort associated with SOB. Per family observations, he is declining in terms of his responsiveness and less engaging. Speech increasingly slurred and today is unable to take PO fluids via straw or otherwise. Past Medical History: Chronic Problems (Last Reviewed 05/10/18 @ 10:59 by Shyam Baker MD) Pancreatic cancer (Chronic) Abdominal pain (Chronic) Past Medical/Surgical History: Past Medical History - Most Recent Inpatient Visit Past Medical History Start: 05/08/18 22:11 Text: Status: Complete Freq: ONCE Protocol: Document 05/08/18 22:11 (Rec: 05/08/18 22:26 [id number]) BMI Required to complete PMH What is Patient's BMI 29.0 Past Medical History Unable History Recalled Yes Query Text:Pt Unable/Family Not Present Neurologic Medical History Hx Stroke/TIA No Hx Dementia/Alzheimer's No Hx Parkinson's Disease No Hx Seizures No Hx Multiple Sclerosis No Hx Migraines Yes Cardiac Medical History VTE Present on Admission Yes: Heparin gtt Hx of Deep Vein Thrombosis/VTE/PE No Hx Hypertension Yes: ON MEDS Hx Chest Pain/Angina No Hx Heart Attack No Hx Cardiac Surgery/Stents/Etc. No Hx Heart Failure No Hx Pacemaker/AICD No Hx Irregular Heartbeat and/or Afib No Hx Anticoagulant Therapy Yes: ASPIRIN Query Text:(Coumadin, Aspirin, Plavix, Xarelto, etc.) Hx Pain in Legs when Walking/Leg Cramps Yes Respiratory Medical History Hx COPD No Hx Emphysema No Hx Smoking Yes: QUIT 1976 Smoking Status Former smoker Hx Tobacco Use in last 12 months No Hx of Pipe Smoking No Hx Sleep Apnea No CPAP Yes BIPAP No Do you snore loudly (louder than talking Yes or can be heard through closed doors)? Do you often feel tired/ fatigued/ No sleepy during daytime? Has anyone observed you stop breathing Yes during sleep? STOP Results Positive Comments on CPAP GI Medical History Hx Ulcer No Hx Hepatitis No Hx Cirrhosis No Hx GI Bleed No Hx Unplanned Weight Loss No Genitourinary Medical History Indwelling Catheter in Place on Arrival/ No Admission Hx Renal Disease No Hx Dialysis No Musculoskeletal History Hx Arthritis Yes: SHOULDER Hx Rheumatoid Arthritis No Endocrine Medical History Hx Diabetes No Hx Thyroid Disease Yes Hematologic Medical History Hx of Blood Transfusion No Hx of Transfusion in last 3 Months No Ever experience any problems with No transfusion(s)? Hx of Preganancy in last 3 Months N/A Nurse Filling Out Transfusion & [facility] Questions: Date: 05/08/18 Time: 22:26 Psycho/Social Medical History Hx Depression No Hx Anxiety Yes Hx Behavior Disorder No Hx Alcohol Use No Hx Substance Use No Other Medical History Hx Blood Disorders No Hx Anemia No Hx Cancer Yes: SKIN CA, PANCREATIC CA Hx Drug Resistant Organism No Wound/Pressure Injury Present on Arrival No /Admission Query Text:If yes, chart assessment in Shift/Clinical Findings Central Line/PICC/VAD Present on Arrival Yes /Admission Risk for Readmission Number of Risk Factors 5 At Risk for Readmission Patient is At Risk For Readmission Patient is eligible for Call Back Y Past Medical History (Last Reviewed 05/10/18 @ 10:59 by Shyam Baker MD) Abdominal distension (gaseous) (Acute) Personal history of colonic polyps (Acute) Nausea and vomiting (Inactive) Bloating (Acute) Diabetes (Acute) GERD (gastroesophageal reflux disease) (Acute) Hemorrhoids (Acute) Hypothyroidism (Acute) robotic gastrojejunostomy (Acute) HTN (hypertension) (Chronic) Past Surgical History (Last Reviewed 05/09/18 @ 01:03 by Alfred Bailey MD) History of colonoscopy (Acute ~2015) History of esophagogastroduodenoscopy (EGD) (Acute ~2014) History of right inguinal hernia repair (Acute) History of rotator cuff surgery (Acute) History of thyroidectomy (Acute) Maternal Family History: Family History (Last Reviewed 05/10/18 @ 10:59 by Shyam Baker MD) Father Colon cancer Heart disease Hypertension Myocardial infarction - Social History Lives: Spouse/ Significant Other Smoking Status: Former smoker Alcohol: None Allergies/Adverse Reactions: Allergy/AdvReac Type Severity Reaction Status Date / Time oxycodone HCl [From Percocet] AdvReac Severe nightmares Verified 05/08/18 16:49 Tetracyclines AdvReac Severe Upset Verified 05/08/18 15:54 Stomach Review of Systems Unable to obtain accurate/complete ROS d/t: level of responsivenss Vital Signs Height 5 ft 6 in Weight: 198 lb 13.711 oz Weight in Pounds 198.9 lbs Pulse Ox 97 Temperature 98.3 F Pulse Rate 105 Respiratory Rate 31 Blood Pressure [BP] 89/67 Blood Pressure 89/65 Blood Pressure Position [BP] Semi-Fowlers Blood Pressure Position Semi-Fowlers - Physical Exam General: Lethargic HEENT: Atraumatic, Normocephalic, - - eyes glazed, left eye droop Oropharynx:: Dry mucosa - tongue scabbed. Negative for: Ulcerated lesions Neck:: Supple, Trachea midline. Negative for: JVD, bilateral Cardiac:: Regular rate, Regular rhythm, Normal S1, Normal S2 Lungs: Diminished, Tachypneic, Increased respiratory effort, Excusion symmetrical Abdomen:: Bowel sounds x 4, Soft, Non-distended, Tender - LLQ. Negative for: Hepatosplenomegaly Extremities:: Edema - BLE, L>R. Bilat heals mottled, Cool. Negative for: Cyanosis Neurological: Facial Droop, Slurred Speech Psychiatric:: Negative for: Anxious Laboratory Data: Microbiology 05/11/18 10:55 Respiratory Panel (PCR) - Final Mucosa - Nose 05/08/18 17:10 Blood Culture - Preliminary Blood Culture (Wb) - Left Hand Gram negative allyson 05/08/18 16:10 Blood Culture - Preliminary Blood Culture (Wb) - Port Bacteroides fragilis 05/08/18 18:40 Urine Culture - Final Urine, Clean Catch Mixed Gram Pos & Gram Neg Org 05/08/18 22:52 Influenza Types A,B Direct FA ([place]) - Final Mucosa - Nasopharyngeal Laboratory Tests 05/11/18 05/11/18 05/11/18 Range/Units 17:00 15:20 11:30 WBC (4.4-11.0) K/mm3 RBC (4.6-6.2) M/mm3 Hgb (13.0-16.5) g/dl Hct (40-54) % MCV (80-94) fL MCH (27.0-32.0) pg MCHC (32-36) g/gl RDW (11.6-14.6) % RDW Differential (35.1-43.9) fl Plt Count (150-450) K/mm3 Immature Gran % (Auto) (0.0-0.9) % Neut % (Auto) (47-70) % Lymph % (Auto) (19-41) % [place] % (Auto) (0-10) % Eos % (Auto) (0-5) % Baso % (Auto) (0-1) % Absolute Neuts (auto) (2.0-7.7) X10^3/uL Absolute Lymphs (auto) (0.83-4.51) X10^3/ul Total Counted Differential Comment Diff Path Review Platelet Estimate (ADEQ) Plt Morphology Comment Polychromasia Hypochromasia Anisocytosis Microcytosis APTT 69.5 H (24.1-36.2) Seconds Sodium (136-145) mmol/L Potassium (3.5-5.1) mmol/L Chloride (98-107) mmol/L Carbon Dioxide (21.0-32.0) mmol/L Anion Gap (5-15) BUN (7-18) mg/dL Creatinine (0.70-1.30) mg/dL Estim Creat Clear Calc ml/min Est GFR (MDRD) Af Amer (>60) mL/min Est GFR (MDRD) Non-Af (>60) mL/min BUN/Creatinine Ratio (10-20) RATIO Glucose (74-106) mg/dL Lactic Acid (0.4-2.0) mmol/L Calcium (8.5-10.1) mg/dL Total Bilirubin (0.20-1.00) mg/dL AST (15-37) U/L ALT (16-61) U/L Alkaline Phosphatase (45-117) U/L B-Natriuretic Peptide (0-100) pg/mL Total Protein (6.4-8.2) g/dL Albumin (3.2-5.0) g/dL Globulin (2.2-4.2) g/dL Albumin/Globulin Ratio (0.9-2.4) RATIO Vancomycin Trough 17.3 H (5.0-15.0) ug/mL POC Glucose 191 H (70-110) mg/dL 05/11/18 05/11/18 05/11/18 Range/Units 11:30 11:24 08:00 WBC (4.4-11.0) K/mm3 RBC (4.6-6.2) M/mm3 Hgb (13.0-16.5) g/dl Hct (40-54) % MCV (80-94) fL MCH (27.0-32.0) pg MCHC (32-36) g/gl RDW (11.6-14.6) % RDW Differential (35.1-43.9) fl Plt Count (150-450) K/mm3 Immature Gran % (Auto) (0.0-0.9) % Neut % (Auto) (47-70) % Lymph % (Auto) (19-41) % [place] % (Auto) (0-10) % Eos % (Auto) (0-5) % Baso % (Auto) (0-1) % Absolute Neuts (auto) (2.0-7.7) X10^3/uL Absolute Lymphs (auto) (0.83-4.51) X10^3/ul Total Counted Differential Comment Diff Path Review Platelet Estimate (ADEQ) Plt Morphology Comment Polychromasia Hypochromasia Anisocytosis Microcytosis APTT 48.1 H (24.1-36.2) Seconds Sodium (136-145) mmol/L Potassium (3.5-5.1) mmol/L Chloride (98-107) mmol/L Carbon Dioxide (21.0-32.0) mmol/L Anion Gap (5-15) BUN (7-18) mg/dL Creatinine (0.70-1.30) mg/dL Estim Creat Clear Calc ml/min Est GFR (MDRD) Af Amer (>60) mL/min Est GFR (MDRD) Non-Af (>60) mL/min BUN/Creatinine Ratio (10-20) RATIO Glucose (74-106) mg/dL Lactic Acid 8.8 H* (0.4-2.0) mmol/L Calcium (8.5-10.1) mg/dL Total Bilirubin (0.20-1.00) mg/dL AST (15-37) U/L ALT (16-61) U/L Alkaline Phosphatase (45-117) U/L B-Natriuretic Peptide (0-100) pg/mL Total Protein (6.4-8.2) g/dL Albumin (3.2-5.0) g/dL Globulin (2.2-4.2) g/dL Albumin/Globulin Ratio (0.9-2.4) RATIO Vancomycin Trough (5.0-15.0) ug/mL POC Glucose 153 H (70-110) mg/dL 05/11/18 05/11/18 05/11/18 Range/Units 06:05 04:45 04:45 WBC (4.4-11.0) K/mm3 RBC (4.6-6.2) M/mm3 Hgb (13.0-16.5) g/dl Hct (40-54) % MCV (80-94) fL MCH (27.0-32.0) pg MCHC (32-36) g/gl RDW (11.6-14.6) % RDW Differential (35.1-43.9) fl Plt Count (150-450) K/mm3 Immature Gran % (Auto) (0.0-0.9) % Neut % (Auto) (47-70) % Lymph % (Auto) (19-41) % [place] % (Auto) (0-10) % Eos % (Auto) (0-5) % Baso % (Auto) (0-1) % Absolute Neuts (auto) (2.0-7.7) X10^3/uL Absolute Lymphs (auto) (0.83-4.51) X10^3/ul Total Counted Differential Comment Diff Path Review Platelet Estimate (ADEQ) Plt Morphology Comment Polychromasia Hypochromasia Anisocytosis Microcytosis APTT (24.1-36.2) Seconds Sodium 140 (136-145) mmol/L Potassium 3.3 L (3.5-5.1) mmol/L Chloride 110 H (98-107) mmol/L Carbon Dioxide 11.0 L (21.0-32.0) mmol/L Anion Gap 19 H (5-15) BUN 37 H (7-18) mg/dL Creatinine 1.36 H (0.70-1.30) mg/dL Estim Creat Clear Calc 48.87 ml/min Est GFR (MDRD) Af Amer 68 (>60) mL/min Est GFR (MDRD) Non-Af 56 L (>60) mL/min BUN/Creatinine Ratio 27.2 H (10-20) RATIO Glucose 196 H (74-106) mg/dL Lactic Acid (0.4-2.0) mmol/L Calcium 6.0 L* (8.5-10.1) mg/dL Total Bilirubin 0.60 (0.20-1.00) mg/dL AST 41 H (15-37) U/L ALT 30 (16-61) U/L Alkaline Phosphatase 52 (45-117) U/L B-Natriuretic Peptide 74.2 (0-100) pg/mL Total Protein 3.7 L (6.4-8.2) g/dL Albumin 0.9 L (3.2-5.0) g/dL Globulin 2.8 (2.2-4.2) g/dL Albumin/Globulin Ratio 0.3 L (0.9-2.4) RATIO Vancomycin Trough (5.0-15.0) ug/mL POC Glucose 210 H (70-110) mg/dL 02/25/19 02/25/19 02/24/19 Range/Units 04:45 04:45 22:26 WBC 8.2 (4.4-11.0) K/mm3 RBC 3.03 L (4.6-6.2) M/mm3 Hgb 9.1 L (13.0-16.5) g/dl Hct 28.3 L (40-54) % MCV 93.4 (80-94) fL MCH 30.0 (27.0-32.0) pg MCHC 32.2 (32-36) g/gl RDW 20.4 H (11.6-14.6) % RDW Differential 69.3 H (35.1-43.9) fl Plt Count 17 L* (150-450) K/mm3 Immature Gran % (Auto) 2.200 H (0.0-0.9) % Neut % (Auto) 85.9 H (47-70) % Lymph % (Auto) 9.3 L (19-41) % [place] % (Auto) 1.8 (0-10) % Eos % (Auto) 0.4 (0-5) % Baso % (Auto) 0.4 (0-1) % Absolute Neuts (auto) 7.0 (2.0-7.7) X10^3/uL Absolute Lymphs (auto) 0.76 L (0.83-4.51) X10^3/ul Total Counted Not Reportable Differential Comment SCAN Diff Path Review Reviewed Platelet Estimate MKD DEC (ADEQ) Plt Morphology Comment LARGE Polychromasia 1+ Hypochromasia 1+ Anisocytosis 2+ Microcytosis 1+ APTT 46.1 H (24.1-36.2) Seconds Sodium (136-145) mmol/L Potassium (3.5-5.1) mmol/L Chloride (98-107) mmol/L Carbon Dioxide (21.0-32.0) mmol/L Anion Gap (5-15) BUN (7-18) mg/dL Creatinine (0.70-1.30) mg/dL Estim Creat Clear Calc ml/min Est GFR (MDRD) Af Amer (>60) mL/min Est GFR (MDRD) Non-Af (>60) mL/min BUN/Creatinine Ratio (10-20) RATIO Glucose (74-106) mg/dL Lactic Acid (0.4-2.0) mmol/L Calcium (8.5-10.1) mg/dL Total Bilirubin (0.20-1.00) mg/dL AST (15-37) U/L ALT (16-61) U/L Alkaline Phosphatase (45-117) U/L B-Natriuretic Peptide (0-100) pg/mL Total Protein (6.4-8.2) g/dL Albumin (3.2-5.0) g/dL Globulin (2.2-4.2) g/dL Albumin/Globulin Ratio (0.9-2.4) RATIO Vancomycin Trough (5.0-15.0) ug/mL POC Glucose 226 H (70-110) mg/dL 05/10/18 05/10/18 05/09/18 Range/Units 22:00 04:30 03:30 WBC (4.4-11.0) K/mm3 RBC (4.6-6.2) M/mm3 Hgb (13.0-16.5) g/dl Hct (40-54) % MCV (80-94) fL MCH (27.0-32.0) pg MCHC (32-36) g/gl RDW (11.6-14.6) % RDW Differential (35.1-43.9) fl Plt Count (150-450) K/mm3 Immature Gran % (Auto) (0.0-0.9) % Neut % (Auto) (47-70) % Lymph % (Auto) (19-41) % [place] % (Auto) (0-10) % Eos % (Auto) (0-5) % Baso % (Auto) (0-1) % Absolute Neuts (auto) (2.0-7.7) X10^3/uL Absolute Lymphs (auto) (0.83-4.51) X10^3/ul Total Counted Differential Comment Diff Path Review Reviewed Reviewed Platelet Estimate (ADEQ) Plt Morphology Comment Polychromasia Hypochromasia Anisocytosis Microcytosis APTT 46.2 H (24.1-36.2) Seconds Sodium (136-145) mmol/L Potassium (3.5-5.1) mmol/L Chloride (98-107) mmol/L Carbon Dioxide (21.0-32.0) mmol/L Anion Gap (5-15) BUN (7-18) mg/dL Creatinine (0.70-1.30) mg/dL Estim Creat Clear Calc ml/min Est GFR (MDRD) Af Amer (>60) mL/min Est GFR (MDRD) Non-Af (>60) mL/min BUN/Creatinine Ratio (10-20) RATIO Glucose (74-106) mg/dL Lactic Acid (0.4-2.0) mmol/L Calcium (8.5-10.1) mg/dL Total Bilirubin (0.20-1.00) mg/dL AST (15-37) U/L ALT (16-61) U/L Alkaline Phosphatase (45-117) U/L B-Natriuretic Peptide (0-100) pg/mL Total Protein (6.4-8.2) g/dL Albumin (3.2-5.0) g/dL Globulin (2.2-4.2) g/dL Albumin/Globulin Ratio (0.9-2.4) RATIO Vancomycin Trough (5.0-15.0) ug/mL POC Glucose (70-110) mg/dL 05/08/18 Range/Units 16:10 WBC (4.4-11.0) K/mm3 RBC (4.6-6.2) M/mm3 Hgb (13.0-16.5) g/dl Hct (40-54) % MCV (80-94) fL MCH (27.0-32.0) pg MCHC (32-36) g/gl RDW (11.6-14.6) % RDW Differential (35.1-43.9) fl Plt Count (150-450) K/mm3 Immature Gran % (Auto) (0.0-0.9) % Neut % (Auto) (47-70) % Lymph % (Auto) (19-41) % [place] % (Auto) (0-10) % Eos % (Auto) (0-5) % Baso % (Auto) (0-1) % Absolute Neuts (auto) (2.0-7.7) X10^3/uL Absolute Lymphs (auto) (0.83-4.51) X10^3/ul Total Counted Differential Comment Diff Path Review Reviewed Platelet Estimate (ADEQ) Plt Morphology Comment Polychromasia Hypochromasia Anisocytosis Microcytosis APTT (24.1-36.2) Seconds Sodium (136-145) mmol/L Potassium (3.5-5.1) mmol/L Chloride (98-107) mmol/L Carbon Dioxide (21.0-32.0) mmol/L Anion Gap (5-15) BUN (7-18) mg/dL Creatinine (0.70-1.30) mg/dL Estim Creat Clear Calc ml/min Est GFR (MDRD) Af Amer (>60) mL/min Est GFR (MDRD) Non-Af (>60) mL/min BUN/Creatinine Ratio (10-20) RATIO Glucose (74-106) mg/dL Lactic Acid (0.4-2.0) mmol/L Calcium (8.5-10.1) mg/dL Total Bilirubin (0.20-1.00) mg/dL AST (15-37) U/L ALT (16-61) U/L Alkaline Phosphatase (45-117) U/L B-Natriuretic Peptide (0-100) pg/mL Total Protein (6.4-8.2) g/dL Albumin (3.2-5.0) g/dL Globulin (2.2-4.2) g/dL Albumin/Globulin Ratio (0.9-2.4) RATIO Vancomycin Trough (5.0-15.0) ug/mL POC Glucose (70-110) mg/dL Diagnostic Data: Diagnostic Data Chest CTA 05/08/18 17:49 IMPRESSION: Segmental and subsegmental pulmonary emboli in the right middle and lower lobes. Subsegmental pulmonary emboli in the left upper lobe. No pulmonary infiltrates or pleural effusions. Stable elevation of the left hemidiaphragm. Free air noted in the upper abdomen which was not present on the prior chest CT. Correlation for a history of a recent surgical intervention is recommended. If there was no recent surgery, further evaluation with abdominal CT is recommended. Electronically Signed: Fredo Ptahak, at 19:09 EST Tel , Service support , ADDENDUM: 05/08/18 193 IMPRESSION: Segmental and subsegmental pulmonary emboli in the right middle and lower lobes. Subsegmental pulmonary emboli in the left upper lobe. No pulmonary infiltrates or pleural effusions. Stable elevation of the left hemidiaphragm. Free air noted in the upper abdomen which was not present on the prior chest CT. Correlation for a history of a recent surgical intervention is recommended. If there was no recent surgery, further evaluation with abdominal CT is recommended. N.B. : The above information has been verbally conveyed by Fredo Pathak to Sedrick Schaefer MD, , on 05/08/2018 19:29:28 (ET). Electronically Signed: Fredo Pathak, at 19:09 EST Tel , Service support , ADDENDUM: 05/08/181957 IMPRESSION: Segmental and subsegmental pulmonary emboli in the right middle and lower lobes. Subsegmental pulmonary emboli in the left upper lobe. No pulmonary infiltrates or pleural effusions. Stable elevation of the left hemidiaphragm. Free air noted in the upper abdomen which was not present on the prior chest CT. Correlation for a history of a recent surgical intervention is recommended. If there was no recent surgery, further evaluation with abdominal CT is recommended. N.B. : The above information has been verbally conveyed by Fredo Pathak to Sedrick Schaefer MD, , on 05/08/2018 19:29:28 (ET). Electronically Signed: Fredo Pathak, at 19:09 EST Tel , Service support , Abdomen/Pelvis CT 05/08/18 19:22 IMPRESSION: Study limited without contrast. Redemonstration of a pancreatic mass with an associated air and fluid-filled lesion (necrotic mass versus pseudocyst). This appears grossly unchanged when compared with a contrast-enhanced CT dated 03/04/2018. Free retroperitoneal air adjacent to the left kidney and in the left perinephric space. This is likely due to extension of the air from the adjacent pancreatic cavitary lesion. No urinary contrast extravasation. 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 Moderate amount of ascites. Enlarged prostate. Electronically Signed: Fredo Pathak, at 20:42 EST Tel , Service support , ADDENDUM: 05/08/18 2103 IMPRESSION: Study limited without contrast. Redemonstration of a pancreatic mass with an associated air and fluid-filled lesion (necrotic mass versus pseudocyst). This appears grossly unchanged when compared with a contrast-enhanced CT dated 03/04/2018. Free retroperitoneal air adjacent to the left kidney and in the left perinephric space. This is likely due to extension of the air from the adjacent pancreatic cavitary lesion. No urinary contrast extravasation. 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 Moderate amount of ascites. Enlarged prostate. N.B. : The above information has been verbally conveyed by Fredo Pathak to Sedrick Schaefer MD, , on 05/08/2018 20:56:06 (ET). Electronically Signed: Fredo Pathak, at 20:42 EST Tel , Service support , Brain CT 05/09/18 02:51 IMPRESSION: There is NO evidence of acute ischemic event or hemorrhage. There are chronic involutional and ischemic changes as described. N.B. : The above information has been verbally conveyed by Zafar Freire MD to Dennis Ricks RN, on 05/09/2018 03:32:11 (ET). Electronically Signed: Zafar Freire MD at 3:33 EST , Service support , ADDENDUM: 05/11/18 1019 IMPRESSION: There is NO evidence of acute ischemic event or hemorrhage. There are chronic involutional and ischemic changes as described. N.B. : The above information has been verbally conveyed by Zafar Freire MD to Dennis Ricks RN, on 05/09/2018 03:32:11 (ET). Electronically Signed: Zafar Freire MD at 3:33 EST , Service support , Head CTA 05/09/18 02:51 IMPRESSION: Normal bilateral cervical carotid and vertebral arteries. Electronically Signed: Zafar Freire MD at 4:07 EST , Service support , Neck CTA 05/09/18 02:51 IMPRESSION: Normal bilateral cervical carotid and vertebral arteries. Electronically Signed: Zafar Freire MD at 4:07 EST , Service support , Brain MRI 05/09/18 03:43 IMPRESSION: 1. 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 Senescent changes as above. Electronically Signed: Tone Amaya DO at 10:50 EST , Service support , Chest X-Ray 05/10/18 08:17 IMPRESSION: Stable, nonacute portable x-ray examination of the chest. Electronically Signed: Lui Thompson MD at 12:42 EST , Service support , Assessment and Plan 1. Pancreatic cancer, stage IV(cT3 cNx M1) Peritoneal nodules/supraclavicular nodes- Received 3 cycles of FOLFIRINOX with the last being administered on 04/29/18, supported with Neulasta 05/01/18. Family is interested in knowing if patient had been even in part responsive to chemotherapy. Explained determining a Ca 19-9 at this point, would not guide end of life care decisions. However, will obtain Ca 19-9 per their wishes. Further systemic chemotherapy is unlikely as prognosis is quite poor. 2. VTE- Bilat PEs, LLE DVT and cardioembolic stroke- Patient responsiveness is limited. Discussed end of life care wishes with spouse at length. Patient communicated wishes congruent with Hospice care. Spouse is amenable to Hospice consult to discuss options for placement. Emotional support provided. Current code status is DNR CCA. 3. 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 On Angiomax, to maintain PTT 1.5-2.5 the ULN (54.3-90.5). Platelets now 17,000 however no active bleeding. Continue to monitor. 4. Positive blood cultures- gram neg rods on broad spectrum atb. Britany Chan, MSN, [employer], AOCNP Medications: Prescriptions This Visit Medication Instructions Recorded Guaifen/Dextromethorphan/PE 10 ml PO PRN PRN 05/08/18 [Tussin Cf Cough-Cold Liquid] Insulin Glargine,Hum.rec.anlog 15 unit SQ DAILY 05/08/18 [Basaglar Kwikpen U-100] Levothyroxine [Synthroid] 125 mcg PO DAILY 05/08/18 Mirtazapine [Remeron] 15 mg PO QHS 05/08/18 Ondansetron HCl 8 mg PO PRN PRN 05/08/18 Spironolactone 50 mg PO BID 05/08/18 fentaNYL patch [Duragesic Patch] 12 mcg TRANSDERM. Q3D 05/08/18 Medications Added to Medication List This Visit Category Date Time Status Peg 400/Hypromellose/Glycerin [Artificial Tears] Med 05/11/18 09:44 Active 2 drop EACH EYE Q1H PRN fentaNYL patch [Duragesic patch] Med 05/11/18 10:00 Active 12 mcg TRANSDERM. Q3D Primary Care Provider: Dashawn Perez MD Referring Provider:
--- NOTE | 2018-05-11 17:52 | CON.PCM_ITS ---
Subjective Date of Service:: 05/11/18 Chief Complaint: Stage IV adenocarcinoma of the pancreas History of Present Illness: Mr. Jeronimo Frye is a very pleasant 67-year-old man found to have a duodenal obstruction secondary to a mass in the body of the pancreas. CA-[id number] elevated at 2139. Subsequently he underwent laparotomy at [facility], found to have multiple peritoneal nodules and gastro jejunostomy for duodenal obstruction and biopsy of peritoneal nodes on 03/06/2018. Pathology returned positive for poorly differentiated adenocarcinoma. PET/CT on 03/23/2018 revealed hypermetabolic mass in the pancreatic body/tail, throughout the abdominal, pelvic mesentery retroperitoneal nodes and bilateral supraclavicular areas. Commenced with cycle 1 FOLFIRINOX on 04/01/2018. Last dose of FOLFIRINOX administered on 04/29/2018 (cycle 3) supported with Neulasta 05/01/2018. In the last several weeks patient has noted more uncontrolled blood sugars and increase in amount of ascites. As a result underwent therapeutic paracentesis on 04/30/2018. Mr. Frye presented to [facility] emergency department on 03/07/2019 with complaints of progressively worsening shortness of breath and generalized weakness to the extent ambulation was difficult. Found to be tachycardic. Workup revealed bilateral pulmonary emboli, LLE DVT, cardioembolic stroke and neutropenic fever accompanied by elevated lactic acid indicating septic shock. Given broad spectrum atb, fluid recitation and started on heparin gtt. Upon admission, platelets 93,000. Subsequent to < 24 hrs of heparin administration, platelets noted to be 35,000. HIT suspected, antibodies pending. Heparin discontinued. Patient now maintained on Angiomax. Upon entering the room, patient with many visitors including spouse and son. Patient's breathing labored. Responsive to his name. Denies the presence of pain or discomfort associated with SOB. Per family observations, he is declining in terms of his responsiveness and less engaging. Speech increasingly slurred and today is unable to take PO fluids via straw or otherwise. Past Medical History: Chronic Problems (Last Reviewed 05/10/18 @ 10:59 by Shyam Baker MD) Pancreatic cancer (Chronic) Abdominal pain (Chronic) Past Medical/Surgical History: Past Medical History - Most Recent Inpatient Visit Past Medical History Start: 05/08/18 22:11 Text: Status: Complete Freq: ONCE Protocol: Document 05/08/18 22:11 (Rec: 05/08/18 22:26 [id number]) BMI Required to complete PMH What is Patient's BMI 29.0 Past Medical History Unable History Recalled Yes Query Text:Pt Unable/Family Not Present Neurologic Medical History Hx Stroke/TIA No Hx Dementia/Alzheimer's No Hx Parkinson's Disease No Hx Seizures No Hx Multiple Sclerosis No Hx Migraines Yes Cardiac Medical History VTE Present on Admission Yes: Heparin gtt Hx of Deep Vein Thrombosis/VTE/PE No Hx Hypertension Yes: ON MEDS Hx Chest Pain/Angina No Hx Heart Attack No Hx Cardiac Surgery/Stents/Etc. No Hx Heart Failure No Hx Pacemaker/AICD No Hx Irregular Heartbeat and/or Afib No Hx Anticoagulant Therapy Yes: ASPIRIN Query Text:(Coumadin, Aspirin, Plavix, Xarelto, etc.) Hx Pain in Legs when Walking/Leg Cramps Yes Respiratory Medical History Hx COPD No Hx Emphysema No Hx Smoking Yes: QUIT 1976 Smoking Status Former smoker Hx Tobacco Use in last 12 months No Hx of Pipe Smoking No Hx Sleep Apnea No CPAP Yes BIPAP No Do you snore loudly (louder than talking Yes or can be heard through closed doors)? Do you often feel tired/ fatigued/ No sleepy during daytime? Has anyone observed you stop breathing Yes during sleep? STOP Results Positive Comments on CPAP GI Medical History Hx Ulcer No Hx Hepatitis No Hx Cirrhosis No Hx GI Bleed No Hx Unplanned Weight Loss No Genitourinary Medical History Indwelling Catheter in Place on Arrival/ No Admission Hx Renal Disease No Hx Dialysis No Musculoskeletal History Hx Arthritis Yes: SHOULDER Hx Rheumatoid Arthritis No Endocrine Medical History Hx Diabetes No Hx Thyroid Disease Yes Hematologic Medical History Hx of Blood Transfusion No Hx of Transfusion in last 3 Months No Ever experience any problems with No transfusion(s)? Hx of Preganancy in last 3 Months N/A Nurse Filling Out Transfusion & [facility] Questions: Date: 05/08/18 Time: 22:26 Psycho/Social Medical History Hx Depression No Hx Anxiety Yes Hx Behavior Disorder No Hx Alcohol Use No Hx Substance Use No Other Medical History Hx Blood Disorders No Hx Anemia No Hx Cancer Yes: SKIN CA, PANCREATIC CA Hx Drug Resistant Organism No Wound/Pressure Injury Present on Arrival No /Admission Query Text:If yes, chart assessment in Shift/Clinical Findings Central Line/PICC/VAD Present on Arrival Yes /Admission Risk for Readmission Number of Risk Factors 5 At Risk for Readmission Patient is At Risk For Readmission Patient is eligible for Call Back Y Past Medical History (Last Reviewed 05/10/18 @ 10:59 by Shyam Baker MD) Abdominal distension (gaseous) (Acute) Personal history of colonic polyps (Acute) Nausea and vomiting (Inactive) Bloating (Acute) Diabetes (Acute) GERD (gastroesophageal reflux disease) (Acute) Hemorrhoids (Acute) Hypothyroidism (Acute) robotic gastrojejunostomy (Acute) HTN (hypertension) (Chronic) Past Surgical History (Last Reviewed 05/09/18 @ 01:03 by Alfred Bailey MD) History of colonoscopy (Acute ~2015) History of esophagogastroduodenoscopy (EGD) (Acute ~2014) History of right inguinal hernia repair (Acute) History of rotator cuff surgery (Acute) History of thyroidectomy (Acute) Maternal Family History: Family History (Last Reviewed 05/10/18 @ 10:59 by Shyam Baker MD) Father Colon cancer Heart disease Hypertension Myocardial infarction - Social History Lives: Spouse/ Significant Other Smoking Status: Former smoker Alcohol: None Allergies/Adverse Reactions: Allergy/AdvReac Type Severity Reaction Status Date / Time oxycodone HCl [From Percocet] AdvReac Severe nightmares Verified 05/08/18 16:49 Tetracyclines AdvReac Severe Upset Verified 05/08/18 15:54 Stomach Review of Systems Unable to obtain accurate/complete ROS d/t: level of responsivenss Vital Signs Height 5 ft 6 in Weight: 198 lb 13.711 oz Weight in Pounds 198.9 lbs Pulse Ox 97 Temperature 98.3 F Pulse Rate 105 Respiratory Rate 31 Blood Pressure [BP] 89/67 Blood Pressure 89/65 Blood Pressure Position [BP] Semi-Fowlers Blood Pressure Position Semi-Fowlers - Physical Exam General: Lethargic HEENT: Atraumatic, Normocephalic, - - eyes glazed, left eye droop Oropharynx:: Dry mucosa - tongue scabbed. Negative for: Ulcerated lesions Neck:: Supple, Trachea midline. Negative for: JVD, bilateral Cardiac:: Regular rate, Regular rhythm, Normal S1, Normal S2 Lungs: Diminished, Tachypneic, Increased respiratory effort, Excusion symmetrical Abdomen:: Bowel sounds x 4, Soft, Non-distended, Tender - LLQ. Negative for: Hepatosplenomegaly Extremities:: Edema - BLE, L>R. Bilat heals mottled, Cool. Negative for: Cyanosis Neurological: Facial Droop, Slurred Speech Psychiatric:: Negative for: Anxious Laboratory Data: Microbiology 05/11/18 10:55 Respiratory Panel (PCR) - Final Mucosa - Nose 05/08/18 17:10 Blood Culture - Preliminary Blood Culture (Wb) - Left Hand Gram negative allyson 05/08/18 16:10 Blood Culture - Preliminary Blood Culture (Wb) - Port Bacteroides fragilis 05/08/18 18:40 Urine Culture - Final Urine, Clean Catch Mixed Gram Pos & Gram Neg Org 05/08/18 22:52 Influenza Types A,B Direct FA ([place]) - Final Mucosa - Nasopharyngeal Laboratory Tests 05/11/18 05/11/18 05/11/18 Range/Units 17:00 15:20 11:30 WBC (4.4-11.0) K/mm3 RBC (4.6-6.2) M/mm3 Hgb (13.0-16.5) g/dl Hct (40-54) % MCV (80-94) fL MCH (27.0-32.0) pg MCHC (32-36) g/gl RDW (11.6-14.6) % RDW Differential (35.1-43.9) fl Plt Count (150-450) K/mm3 Immature Gran % (Auto) (0.0-0.9) % Neut % (Auto) (47-70) % Lymph % (Auto) (19-41) % Carver % (Auto) (0-10) % Eos % (Auto) (0-5) % Baso % (Auto) (0-1) % Absolute Neuts (auto) (2.0-7.7) X10^3/uL Absolute Lymphs (auto) (0.83-4.51) X10^3/ul Total Counted Differential Comment Diff Path Review Platelet Estimate (ADEQ) Plt Morphology Comment Polychromasia Hypochromasia Anisocytosis Microcytosis APTT 69.5 H (24.1-36.2) Seconds Sodium (136-145) mmol/L Potassium (3.5-5.1) mmol/L Chloride (98-107) mmol/L Carbon Dioxide (21.0-32.0) mmol/L Anion Gap (5-15) BUN (7-18) mg/dL Creatinine (0.70-1.30) mg/dL Estim Creat Clear Calc ml/min Est GFR (MDRD) Af Amer (>60) mL/min Est GFR (MDRD) Non-Af (>60) mL/min BUN/Creatinine Ratio (10-20) RATIO Glucose (74-106) mg/dL Lactic Acid (0.4-2.0) mmol/L Calcium (8.5-10.1) mg/dL Total Bilirubin (0.20-1.00) mg/dL AST (15-37) U/L ALT (16-61) U/L Alkaline Phosphatase (45-117) U/L B-Natriuretic Peptide (0-100) pg/mL Total Protein (6.4-8.2) g/dL Albumin (3.2-5.0) g/dL Globulin (2.2-4.2) g/dL Albumin/Globulin Ratio (0.9-2.4) RATIO Vancomycin Trough 17.3 H (5.0-15.0) ug/mL POC Glucose 191 H (70-110) mg/dL 05/11/18 05/11/18 05/11/18 Range/Units 11:30 11:24 08:00 WBC (4.4-11.0) K/mm3 RBC (4.6-6.2) M/mm3 Hgb (13.0-16.5) g/dl Hct (40-54) % MCV (80-94) fL MCH (27.0-32.0) pg MCHC (32-36) g/gl RDW (11.6-14.6) % RDW Differential (35.1-43.9) fl Plt Count (150-450) K/mm3 Immature Gran % (Auto) (0.0-0.9) % Neut % (Auto) (47-70) % Lymph % (Auto) (19-41) % Carver % (Auto) (0-10) % Eos % (Auto) (0-5) % Baso % (Auto) (0-1) % Absolute Neuts (auto) (2.0-7.7) X10^3/uL Absolute Lymphs (auto) (0.83-4.51) X10^3/ul Total Counted Differential Comment Diff Path Review Platelet Estimate (ADEQ) Plt Morphology Comment Polychromasia Hypochromasia Anisocytosis Microcytosis APTT 48.1 H (24.1-36.2) Seconds Sodium (136-145) mmol/L Potassium (3.5-5.1) mmol/L Chloride (98-107) mmol/L Carbon Dioxide (21.0-32.0) mmol/L Anion Gap (5-15) BUN (7-18) mg/dL Creatinine (0.70-1.30) mg/dL Estim Creat Clear Calc ml/min Est GFR (MDRD) Af Amer (>60) mL/min Est GFR (MDRD) Non-Af (>60) mL/min BUN/Creatinine Ratio (10-20) RATIO Glucose (74-106) mg/dL Lactic Acid 8.8 H* (0.4-2.0) mmol/L Calcium (8.5-10.1) mg/dL Total Bilirubin (0.20-1.00) mg/dL AST (15-37) U/L ALT (16-61) U/L Alkaline Phosphatase (45-117) U/L B-Natriuretic Peptide (0-100) pg/mL Total Protein (6.4-8.2) g/dL Albumin (3.2-5.0) g/dL Globulin (2.2-4.2) g/dL Albumin/Globulin Ratio (0.9-2.4) RATIO Vancomycin Trough (5.0-15.0) ug/mL POC Glucose 153 H (70-110) mg/dL 05/11/18 05/11/18 05/11/18 Range/Units 06:05 04:45 04:45 WBC (4.4-11.0) K/mm3 RBC (4.6-6.2) M/mm3 Hgb (13.0-16.5) g/dl Hct (40-54) % MCV (80-94) fL MCH (27.0-32.0) pg MCHC (32-36) g/gl RDW (11.6-14.6) % RDW Differential (35.1-43.9) fl Plt Count (150-450) K/mm3 Immature Gran % (Auto) (0.0-0.9) % Neut % (Auto) (47-70) % Lymph % (Auto) (19-41) % Carver % (Auto) (0-10) % Eos % (Auto) (0-5) % Baso % (Auto) (0-1) % Absolute Neuts (auto) (2.0-7.7) X10^3/uL Absolute Lymphs (auto) (0.83-4.51) X10^3/ul Total Counted Differential Comment Diff Path Review Platelet Estimate (ADEQ) Plt Morphology Comment Polychromasia Hypochromasia Anisocytosis Microcytosis APTT (24.1-36.2) Seconds Sodium 140 (136-145) mmol/L Potassium 3.3 L (3.5-5.1) mmol/L Chloride 110 H (98-107) mmol/L Carbon Dioxide 11.0 L (21.0-32.0) mmol/L Anion Gap 19 H (5-15) BUN 37 H (7-18) mg/dL Creatinine 1.36 H (0.70-1.30) mg/dL Estim Creat Clear Calc 48.87 ml/min Est GFR (MDRD) Af Amer 68 (>60) mL/min Est GFR (MDRD) Non-Af 56 L (>60) mL/min BUN/Creatinine Ratio 27.2 H (10-20) RATIO Glucose 196 H (74-106) mg/dL Lactic Acid (0.4-2.0) mmol/L Calcium 6.0 L* (8.5-10.1) mg/dL Total Bilirubin 0.60 (0.20-1.00) mg/dL AST 41 H (15-37) U/L ALT 30 (16-61) U/L Alkaline Phosphatase 52 (45-117) U/L B-Natriuretic Peptide 74.2 (0-100) pg/mL Total Protein 3.7 L (6.4-8.2) g/dL Albumin 0.9 L (3.2-5.0) g/dL Globulin 2.8 (2.2-4.2) g/dL Albumin/Globulin Ratio 0.3 L (0.9-2.4) RATIO Vancomycin Trough (5.0-15.0) ug/mL POC Glucose 210 H (70-110) mg/dL 02/25/19 02/25/19 02/24/19 Range/Units 04:45 04:45 22:26 WBC 8.2 (4.4-11.0) K/mm3 RBC 3.03 L (4.6-6.2) M/mm3 Hgb 9.1 L (13.0-16.5) g/dl Hct 28.3 L (40-54) % MCV 93.4 (80-94) fL MCH 30.0 (27.0-32.0) pg MCHC 32.2 (32-36) g/gl RDW 20.4 H (11.6-14.6) % RDW Differential 69.3 H (35.1-43.9) fl Plt Count 17 L* (150-450) K/mm3 Immature Gran % (Auto) 2.200 H (0.0-0.9) % Neut % (Auto) 85.9 H (47-70) % Lymph % (Auto) 9.3 L (19-41) % Carver % (Auto) 1.8 (0-10) % Eos % (Auto) 0.4 (0-5) % Baso % (Auto) 0.4 (0-1) % Absolute Neuts (auto) 7.0 (2.0-7.7) X10^3/uL Absolute Lymphs (auto) 0.76 L (0.83-4.51) X10^3/ul Total Counted Not Reportable Differential Comment SCAN Diff Path Review Reviewed Platelet Estimate MKD DEC (ADEQ) Plt Morphology Comment LARGE Polychromasia 1+ Hypochromasia 1+ Anisocytosis 2+ Microcytosis 1+ APTT 46.1 H (24.1-36.2) Seconds Sodium (136-145) mmol/L Potassium (3.5-5.1) mmol/L Chloride (98-107) mmol/L Carbon Dioxide (21.0-32.0) mmol/L Anion Gap (5-15) BUN (7-18) mg/dL Creatinine (0.70-1.30) mg/dL Estim Creat Clear Calc ml/min Est GFR (MDRD) Af Amer (>60) mL/min Est GFR (MDRD) Non-Af (>60) mL/min BUN/Creatinine Ratio (10-20) RATIO Glucose (74-106) mg/dL Lactic Acid (0.4-2.0) mmol/L Calcium (8.5-10.1) mg/dL Total Bilirubin (0.20-1.00) mg/dL AST (15-37) U/L ALT (16-61) U/L Alkaline Phosphatase (45-117) U/L B-Natriuretic Peptide (0-100) pg/mL Total Protein (6.4-8.2) g/dL Albumin (3.2-5.0) g/dL Globulin (2.2-4.2) g/dL Albumin/Globulin Ratio (0.9-2.4) RATIO Vancomycin Trough (5.0-15.0) ug/mL POC Glucose 226 H (70-110) mg/dL 05/10/18 05/10/18 05/09/18 Range/Units 22:00 04:30 03:30 WBC (4.4-11.0) K/mm3 RBC (4.6-6.2) M/mm3 Hgb (13.0-16.5) g/dl Hct (40-54) % MCV (80-94) fL MCH (27.0-32.0) pg MCHC (32-36) g/gl RDW (11.6-14.6) % RDW Differential (35.1-43.9) fl Plt Count (150-450) K/mm3 Immature Gran % (Auto) (0.0-0.9) % Neut % (Auto) (47-70) % Lymph % (Auto) (19-41) % Carver % (Auto) (0-10) % Eos % (Auto) (0-5) % Baso % (Auto) (0-1) % Absolute Neuts (auto) (2.0-7.7) X10^3/uL Absolute Lymphs (auto) (0.83-4.51) X10^3/ul Total Counted Differential Comment Diff Path Review Reviewed Reviewed Platelet Estimate (ADEQ) Plt Morphology Comment Polychromasia Hypochromasia Anisocytosis Microcytosis APTT 46.2 H (24.1-36.2) Seconds Sodium (136-145) mmol/L Potassium (3.5-5.1) mmol/L Chloride (98-107) mmol/L Carbon Dioxide (21.0-32.0) mmol/L Anion Gap (5-15) BUN (7-18) mg/dL Creatinine (0.70-1.30) mg/dL Estim Creat Clear Calc ml/min Est GFR (MDRD) Af Amer (>60) mL/min Est GFR (MDRD) Non-Af (>60) mL/min BUN/Creatinine Ratio (10-20) RATIO Glucose (74-106) mg/dL Lactic Acid (0.4-2.0) mmol/L Calcium (8.5-10.1) mg/dL Total Bilirubin (0.20-1.00) mg/dL AST (15-37) U/L ALT (16-61) U/L Alkaline Phosphatase (45-117) U/L B-Natriuretic Peptide (0-100) pg/mL Total Protein (6.4-8.2) g/dL Albumin (3.2-5.0) g/dL Globulin (2.2-4.2) g/dL Albumin/Globulin Ratio (0.9-2.4) RATIO Vancomycin Trough (5.0-15.0) ug/mL POC Glucose (70-110) mg/dL 05/08/18 Range/Units 16:10 WBC (4.4-11.0) K/mm3 RBC (4.6-6.2) M/mm3 Hgb (13.0-16.5) g/dl Hct (40-54) % MCV (80-94) fL MCH (27.0-32.0) pg MCHC (32-36) g/gl RDW (11.6-14.6) % RDW Differential (35.1-43.9) fl Plt Count (150-450) K/mm3 Immature Gran % (Auto) (0.0-0.9) % Neut % (Auto) (47-70) % Lymph % (Auto) (19-41) % Carver % (Auto) (0-10) % Eos % (Auto) (0-5) % Baso % (Auto) (0-1) % Absolute Neuts (auto) (2.0-7.7) X10^3/uL Absolute Lymphs (auto) (0.83-4.51) X10^3/ul Total Counted Differential Comment Diff Path Review Reviewed Platelet Estimate (ADEQ) Plt Morphology Comment Polychromasia Hypochromasia Anisocytosis Microcytosis APTT (24.1-36.2) Seconds Sodium (136-145) mmol/L Potassium (3.5-5.1) mmol/L Chloride (98-107) mmol/L Carbon Dioxide (21.0-32.0) mmol/L Anion Gap (5-15) BUN (7-18) mg/dL Creatinine (0.70-1.30) mg/dL Estim Creat Clear Calc ml/min Est GFR (MDRD) Af Amer (>60) mL/min Est GFR (MDRD) Non-Af (>60) mL/min BUN/Creatinine Ratio (10-20) RATIO Glucose (74-106) mg/dL Lactic Acid (0.4-2.0) mmol/L Calcium (8.5-10.1) mg/dL Total Bilirubin (0.20-1.00) mg/dL AST (15-37) U/L ALT (16-61) U/L Alkaline Phosphatase (45-117) U/L B-Natriuretic Peptide (0-100) pg/mL Total Protein (6.4-8.2) g/dL Albumin (3.2-5.0) g/dL Globulin (2.2-4.2) g/dL Albumin/Globulin Ratio (0.9-2.4) RATIO Vancomycin Trough (5.0-15.0) ug/mL POC Glucose (70-110) mg/dL Diagnostic Data: Diagnostic Data Chest CTA 05/08/18 17:49 IMPRESSION: Segmental and subsegmental pulmonary emboli in the right middle and lower lobes. Subsegmental pulmonary emboli in the left upper lobe. No pulmonary infiltrates or pleural effusions. Stable elevation of the left hemidiaphragm. Free air noted in the upper abdomen which was not present on the prior chest CT. Correlation for a history of a recent surgical intervention is recommended. If there was no recent surgery, further evaluation with abdominal CT is recommended. Electronically Signed: Fredo Pathak, at 19:09 EST Tel , Service support , ADDENDUM: 05/08/18 193 IMPRESSION: Segmental and subsegmental pulmonary emboli in the right middle and lower lobes. Subsegmental pulmonary emboli in the left upper lobe. No pulmonary infiltrates or pleural effusions. Stable elevation of the left hemidiaphragm. Free air noted in the upper abdomen which was not present on the prior chest CT. Correlation for a history of a recent surgical intervention is recommended. If there was no recent surgery, further evaluation with abdominal CT is recommended. N.B. : The above information has been verbally conveyed by Fredo Pathak to Sedrick Schaefer MD, , on 05/08/2018 19:29:28 (ET). Electronically Signed: Fredo Pathak, at 19:09 EST Tel , Service support , ADDENDUM: 05/08/181957 IMPRESSION: Segmental and subsegmental pulmonary emboli in the right middle and lower lobes. Subsegmental pulmonary emboli in the left upper lobe. No pulmonary infiltrates or pleural effusions. Stable elevation of the left hemidiaphragm. Free air noted in the upper abdomen which was not present on the prior chest CT. Correlation for a history of a recent surgical intervention is recommended. If there was no recent surgery, further evaluation with abdominal CT is recommended. N.B. : The above information has been verbally conveyed by Fredo Pathak to Sedrick Schaefer MD, , on 05/08/2018 19:29:28 (ET). Electronically Signed: Fredo Pathak, at 19:09 EST Tel , Service support , Abdomen/Pelvis CT 05/08/18 19:22 IMPRESSION: Study limited without contrast. Redemonstration of a pancreatic mass with an associated air and fluid-filled lesion (necrotic mass versus pseudocyst). This appears grossly unchanged when compared with a contrast-enhanced CT dated 03/04/2018. Free retroperitoneal air adjacent to the left kidney and in the left perinephric space. This is likely due to extension of the air from the adjacent pancreatic cavitary lesion. No urinary contrast extravasation. 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 Moderate amount of ascites. Enlarged prostate. Electronically Signed: Fredo Pathak, at 20:42 EST Tel , Service support , ADDENDUM: 05/08/18 2103 IMPRESSION: Study limited without contrast. Redemonstration of a pancreatic mass with an associated air and fluid-filled lesion (necrotic mass versus pseudocyst). This appears grossly unchanged when compared with a contrast-enhanced CT dated 03/04/2018. Free retroperitoneal air adjacent to the left kidney and in the left perinephric space. This is likely due to extension of the air from the adjacent pancreatic cavitary lesion. No urinary contrast extravasation. 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 Moderate amount of ascites. Enlarged prostate. N.B. : The above information has been verbally conveyed by Fredo Pathak to Sedrick Schaefer MD, , on 05/08/2018 20:56:06 (ET). Electronically Signed: Fredo Pathak, at 20:42 EST Tel , Service support , Brain CT 05/09/18 02:51 IMPRESSION: There is NO evidence of acute ischemic event or hemorrhage. There are chronic involutional and ischemic changes as described. N.B. : The above information has been verbally conveyed by Zafar Freire MD to Dennis Ricks RN, on 05/09/2018 03:32:11 (ET). Electronically Signed: Zafar Freire MD at 3:33 EST , Service support , ADDENDUM: 05/11/18 1019 IMPRESSION: There is NO evidence of acute ischemic event or hemorrhage. There are chronic involutional and ischemic changes as described. N.B. : The above information has been verbally conveyed by Zafar Freire MD to Dennis Ricks RN, on 05/09/2018 03:32:11 (ET). Electronically Signed: Zafar Freire MD at 3:33 EST , Service support , Head CTA 05/09/18 02:51 IMPRESSION: Normal bilateral cervical carotid and vertebral arteries. Electronically Signed: Zafar Freire MD at 4:07 EST , Service support , Neck CTA 05/09/18 02:51 IMPRESSION: Normal bilateral cervical carotid and vertebral arteries. Electronically Signed: Zafar Freire MD at 4:07 EST , Service support , Brain MRI 05/09/18 03:43 IMPRESSION: 1. 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 Senescent changes as above. Electronically Signed: Tone Amaya DO at 10:50 EST , Service support , Chest X-Ray 05/10/18 08:17 IMPRESSION: Stable, nonacute portable x-ray examination of the chest. Electronically Signed: Lui Thompson MD at 12:42 EST , Service support , Assessment and Plan 1. Pancreatic cancer, stage IV(cT3 cNx M1) Peritoneal nodules/supraclavicular nodes- Received 3 cycles of FOLFIRINOX with the last being administered on 04/29/18, supported with Neulasta 05/01/18. Family is interested in knowing if patient had been even in part responsive to chemotherapy. Explained determining a Ca 19-9 at this point, would not guide end of life care decisions. However, will obtain Ca 19-9 per their wishes. Further systemic chemotherapy is unlikely as prognosis is quite poor. 2. VTE- Bilat PEs, LLE DVT and cardioembolic stroke- Patient responsiveness is limited. Discussed end of life care wishes with spouse at length. Patient communicated wishes congruent with Hospice care. Spouse is amenable to Hospice consult to discuss options for placement. Emotional support provided. Current code status is DNR CCA. 3. 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 On Angiomax, to maintain PTT 1.5-2.5 the ULN (54.3-90.5). Platelets now 17,000 however no active bleeding. Continue to monitor. 4. Positive blood cultures- gram neg rods on broad spectrum atb. Britany Chan, MSN, [employer], AOCNP Medications: Prescriptions This Visit Medication Instructions Recorded Guaifen/Dextromethorphan/PE 10 ml PO PRN PRN 05/08/18 [Tussin Cf Cough-Cold Liquid] Insulin Glargine,Hum.rec.anlog 15 unit SQ DAILY 05/08/18 [Basaglar Kwikpen U-100] Levothyroxine [Synthroid] 125 mcg PO DAILY 05/08/18 Mirtazapine [Remeron] 15 mg PO QHS 05/08/18 Ondansetron HCl 8 mg PO PRN PRN 05/08/18 Spironolactone 50 mg PO BID 05/08/18 fentaNYL patch [Duragesic Patch] 12 mcg TRANSDERM. Q3D 05/08/18 Medications Added to Medication List This Visit Category Date Time Status Peg 400/Hypromellose/Glycerin [Artificial Tears] Med 05/11/18 09:44 Active 2 drop EACH EYE Q1H PRN fentaNYL patch [Duragesic patch] Med 05/11/18 10:00 Active 12 mcg TRANSDERM. Q3D Primary Care Provider: Dashawn Perez MD Referring Provider:
[2018-05-11 17:56] LABS: Partial Thromboplast Time 69.7 Seconds (24.1-36.2)
--- NOTE | 2018-05-11 19:47 | NURSING ---
Patients and daughter at bedside, discussed with them that they can stay overnight with the patient if they want too.
--- NOTE | 2018-05-11 21:50 | NURSING ---
Patients dane guerrero at bedside
[2018-05-11 22:45] LABS: Bedside Glucose 192 mg/dL (70-110)
[2018-05-12] VITALS (17 sets, daily range): BP systolic 74–123; BP diastolic 47–110; PULSE 36–109; RESP 24–32; TEMP 36.9–37.1; O2SAT 93–99; BMI 29.0
[2018-05-12] MEDS: Vancomycin IV 1,000 MG/200 ML BAG 200 MG IV (02:41)
[2018-05-12] MEDS: Morphine 2 MG/ML Syringe IV ×3 (04:32→15:59)
[2018-05-12] MEDS: 0.9% NaCl Peripheral Flush Adult/Peds IV ×3 (04:32→07:15)
[2018-05-12 05:20] LABS: Hematocrit 28.6 % (40-54); Hemoglobin 9.3 g/dl (13.0-16.5); Mean Corp Hgb Conc 32.5 g/gl (32-36); Mean Corpuscular Hgb 30.1 pg (27.0-32.0); Mean Corpuscular Volume 92.6 fL (80-94); RBC Distribution Width SD 70.7 fl (35.1-43.9); Red Blood Count 3.09 M/mm3 (4.6-6.2); White Blood Count 18.7 K/mm3 (4.4-11.0)
[2018-05-12 05:24] LABS: Differential Indicated MANUAL DIFF; POSITIVE COUNT YES; POSITIVE DIFFERENTIAL NO; POSITIVE MORPHOLOGY YES
[2018-05-12 05:25] LABS: Absolute Nucleated RBC Count 0.14 10^3/uL (0-5); NRBC Flagged by Analyzer 0.7 % (0-5); Platelet Count 30 K/mm3 (150-450)
[2018-05-12 05:34] LABS: Partial Thromboplast Time 68.2 Seconds (24.1-36.2)
[2018-05-12 06:17] LABS: Lymphocyte 6 % (19-41); Metamyelocyte 3 % (0-1); Myelocyte 1 (0-0); Neutrophil-Band 11 % (0-5); Neutrophil-Segmented 79 % (47-70); Platelet Estimate MKD DEC (ADEQ); Platelet Morphology LARGE; Total Cells Counted 100 (MANUAL DIFF)
[2018-05-12 06:18] LABS: Anisocytosis 1+; Burr Cells RARE; Hypochromasia 1+; Microcytosis 1+; Polychromasia 1+; Reactive Lymphocyte RARE; Schistocytes RARE
[2018-05-12 06:19] LABS: Toxic Granulation 1+; Vacuolated Cells RARE
[2018-05-12 06:20] LABS: Absolute Lymphocyte Count 1.12 X10^3/ul (0.83-4.51); Absolute Neutrophil Count 16.8 X10^3/uL (2.0-7.7)
--- NOTE | 2018-05-12 06:45 | PCM.PN.INT ---
Subjective: The patient was seen and examined at the bedside this morning. Events from the last 24 hours have been reviewed. The patient is currently afebrile with tenuous blood pressure parameters. He is quite ill and fatigued in appearance. The patient is much more labored from a breathing perspective this morning. He is less responsive than previous. Oncology did come and evaluate the patient yesterday and is in agreement that the patient's prognosis is poor. The family is currently considering a transition to hospice care. I spoke with the family at the bedside this morning following rounds. Taking into account the patient's current clinical state and decompensation over the last 24-48 hours, they are now wishing to pursue hospice care. I explained to them that orders will be placed. Objective: The patient's most recent lab work, culture data and imaging studies have all been personally reviewed. Rapid influenza screen was noted to be negative. Blood cultures dated May 08 were positive for the presence of gram-negative rods. Lower extremity Doppler study dated May 08 was positive for the presence of acute DVT. CTA chest revealed segmental and subsegmental pulmonary emboli bilaterally. Surface echocardiogram dated May 09 revealed mild segmental systolic dysfunction with an ejection fraction of 50%. Right ventricular systolic pressure was estimated to be 24 mmHg. General: Lethargic, - - Quite ill and fatigued in appearance. Labored breathing. HEENT: Atraumatic, Normocephalic, Sluggish Pupils Oral: Dry Mucosa Neck: Supple, No Nodes, Trachea Midline Lungs: No rhonchi, No wheeze, No rales, Diminished, Short of Breath, Tachypneic Cardiovascular: Normal S1, Normal S2, No murmurs, Tachycardic Abdomen: Bowel Sounds Present, Soft, Distended Extremities: No clubbing, No cyanosis, Edema Skin: - - No significant change from previous. Musculoskeletal: No Tenderness to Palpation of Joints or Extremities Lymphatic: No Cervical, Supraclavicular, or Inguinal Adenopathy Neurological: - - No focal deficits. We will look in the direction of verbal stimulation but is essentially nonresponsive. Vital Signs Temp Pulse Resp BP Pulse Ox 37.1 C 108 H 28 H 79/59 L 97 05/12/18 00:00 05/12/18 05:00 05/12/18 05:00 05/12/18 05:00 05/12/18 05:00 Oxygen Flow Rate (L/min) 2 Oxygen Delivery Method Room Air Weight: 195 lb 15.855 oz Body Mass Index (BMI) 29.0 Finger Stick Blood Glucose 166 Intake and Output for Last 24 Hours 05/10/18 05/11/18 05/12/18 23:59 23:59 23:59 Intake Total 4778 / 4778 5708.4 / 5708.4 121 / 121 Output Total 675 / 675 950 / 950 300 / 300 Balance 4103 / 4103 4758.4 / 4758.4 -179 / -179 Labs (Last 48 Hours) 05/08/18 05/09/18 05/10/18 16:10 03:30 04:30 WBC 3.6 L RBC 3.25 L Hgb 9.8 L Hct 29.9 L MCV 92.0 MCH 30.2 MCHC 32.8 RDW 19.8 H RDW Differential 65.8 H Plt Count 24 L* Immature Gran % (Auto) 0.300 Neut % (Auto) 86.5 H Lymph % (Auto) 10.7 L Eagle % (Auto) 1.7 Eos % (Auto) 0.0 Baso % (Auto) 0.8 Absolute Neuts (auto) 3.1 Absolute Lymphs (auto) 0.38 L Total Counted Not Reportable Neutrophils % (Manual) Band Neutrophils % Lymphocytes % (Manual) Metamyelocytes % Myelocytes % Nucleated RBC % Differential Comment Diff Path Review Reviewed Reviewed Reviewed Reactive Lymphocytes Toxic Granulation Platelet Estimate MKD DEC Plt Morphology Comment RBC Morphology 2+ Polychromasia Hypochromasia Anisocytosis 2+ Microcytosis Chariton Cells Schistocytes Absolute Retic APTT Sodium Potassium Chloride Carbon Dioxide Anion Gap BUN Creatinine Estim Creat Clear Calc Est GFR (MDRD) Af Amer Est GFR (MDRD) Non-Af BUN/Creatinine Ratio Glucose Lactic Acid Calcium Phosphorus Magnesium Total Bilirubin Direct Bilirubin AST ALT Alkaline Phosphatase B-Natriuretic Peptide Total Protein Albumin Globulin Albumin/Globulin Ratio Lipase Vancomycin Trough Heparin-induced Plt Ab POC Glucose 05/10/18 05/10/18 05/10/18 06:44 07:59 07:59 WBC RBC Hgb Hct MCV MCH MCHC RDW RDW Differential Plt Count Immature Gran % (Auto) Neut % (Auto) Lymph % (Auto) Eagle % (Auto) Eos % (Auto) Baso % (Auto) Absolute Neuts (auto) Absolute Lymphs (auto) Total Counted Neutrophils % (Manual) Band Neutrophils % Lymphocytes % (Manual) Metamyelocytes % Myelocytes % Nucleated RBC % Differential Comment Diff Path Review Reactive Lymphocytes Toxic Granulation Platelet Estimate Plt Morphology Comment RBC Morphology Polychromasia Hypochromasia Anisocytosis Microcytosis Germain Cells Schistocytes Absolute Retic APTT 51.0 H Sodium 138 Potassium 3.6 Chloride 108 H Carbon Dioxide 9.0 L* Anion Gap 21 H BUN 32 H Creatinine 1.31 H Estim Creat Clear Calc 50.73 Est GFR (MDRD) Af Amer 71 Est GFR (MDRD) Non-Af 58 L BUN/Creatinine Ratio 24.4 H Glucose 156 H Lactic Acid Calcium 6.3 L* Phosphorus 3.1 Magnesium 1.8 Total Bilirubin 1.00 Direct Bilirubin 0.59 H AST 49 H ALT 31 Alkaline Phosphatase 52 B-Natriuretic Peptide Total Protein 4.2 L Albumin 1.0 L Globulin 3.2 Albumin/Globulin Ratio Lipase 20 L Vancomycin Trough Heparin-induced Plt Ab POC Glucose 05/10/18 05/10/18 05/10/18 07:59 08:21 12:11 WBC RBC Hgb Hct MCV MCH MCHC RDW RDW Differential Plt Count Immature Gran % (Auto) Neut % (Auto) Lymph % (Auto) Eagle % (Auto) Eos % (Auto) Baso % (Auto) Absolute Neuts (auto) Absolute Lymphs (auto) Total Counted Neutrophils % (Manual) Band Neutrophils % Lymphocytes % (Manual) Metamyelocytes % Myelocytes % Nucleated RBC % Differential Comment Diff Path Review Reactive Lymphocytes Toxic Granulation Platelet Estimate Plt Morphology Comment RBC Morphology Polychromasia Hypochromasia Anisocytosis Microcytosis Char[place] Cells Schistocytes Absolute Retic APTT Sodium Potassium Chloride Carbon Dioxide Anion Gap BUN Creatinine Estim Creat Clear Calc Est GFR (MDRD) Af Amer Est GFR (MDRD) Non-Af BUN/Creatinine Ratio Glucose Lactic Acid 9.0 H* Calcium Phosphorus Magnesium Total Bilirubin Direct Bilirubin AST ALT Alkaline Phosphatase B-Natriuretic Peptide Total Protein Albumin Globulin Albumin/Globulin Ratio Lipase Vancomycin Trough Heparin-induced Plt Ab POC Glucose 144 H 195 H 05/10/18 05/10/18 05/10/18 12:15 12:15 15:00 WBC RBC Hgb Hct MCV MCH MCHC RDW RDW Differential Plt Count Immature Gran % (Auto) Neut % (Auto) Lymph % (Auto) Eagle % (Auto) Eos % (Auto) Baso % (Auto) Absolute Neuts (auto) Absolute Lymphs (auto) Total Counted Neutrophils % (Manual) Band Neutrophils % Lymphocytes % (Manual) Metamyelocytes % Myelocytes % Nucleated RBC % Differential Comment Diff Path Review Reactive Lymphocytes Toxic Granulation Platelet Estimate Plt Morphology Comment RBC Morphology Polychromasia Hypochromasia Anisocytosis Microcytosis [place] Cells Schistocytes Absolute Retic APTT 45.3 H Sodium Potassium Chloride Carbon Dioxide Anion Gap BUN Creatinine Estim Creat Clear Calc Est GFR (MDRD) Af Amer Est GFR (MDRD) Non-Af BUN/Creatinine Ratio Glucose Lactic Acid 13.6 H* Calcium Phosphorus Magnesium Total Bilirubin Direct Bilirubin AST ALT Alkaline Phosphatase B-Natriuretic Peptide Total Protein Albumin Globulin Albumin/Globulin Ratio Lipase Vancomycin Trough 8.9 Heparin-induced Plt Ab POC Glucose 05/10/18 05/10/18 05/10/18 16:22 22:00 22:26 WBC RBC Hgb Hct MCV MCH MCHC RDW RDW Differential Plt Count Immature Gran % (Auto) Neut % (Auto) Lymph % (Auto) Eagle % (Auto) Eos % (Auto) Baso % (Auto) Absolute Neuts (auto) Absolute Lymphs (auto) Total Counted Neutrophils % (Manual) Band Neutrophils % Lymphocytes % (Manual) Metamyelocytes % Myelocytes % Nucleated RBC % Differential Comment Diff Path Review Reactive Lymphocytes Toxic Granulation Platelet Estimate Plt Morphology Comment RBC Morphology Polychromasia Hypochromasia Anisocytosis Microcytosis Germain Cells Schistocytes Absolute Retic APTT 46.2 H Sodium Potassium Chloride Carbon Dioxide Anion Gap BUN Creatinine Estim Creat Clear Calc Est GFR (MDRD) Af Amer Est GFR (MDRD) Non-Af BUN/Creatinine Ratio Glucose Lactic Acid Calcium Phosphorus Magnesium Total Bilirubin Direct Bilirubin AST ALT Alkaline Phosphatase B-Natriuretic Peptide Total Protein Albumin Globulin Albumin/Globulin Ratio Lipase Vancomycin Trough Heparin-induced Plt Ab POC Glucose 247 H 226 H 05/11/18 05/11/18 05/11/18 04:45 04:45 04:45 WBC 8.2 RBC 3.03 L Hgb 9.1 L Hct 28.3 L MCV 93.4 MCH 30.0 MCHC 32.2 RDW 20.4 H RDW Differential 69.3 H Plt Count 17 L* Immature Gran % (Auto) 2.200 H Neut % (Auto) 85.9 H Lymph % (Auto) 9.3 L Eagle % (Auto) 1.8 Eos % (Auto) 0.4 Baso % (Auto) 0.4 Absolute Neuts (auto) 7.0 Absolute Lymphs (auto) 0.76 L Total Counted Not Reportable Neutrophils % (Manual) Band Neutrophils % Lymphocytes % (Manual) Metamyelocytes % Myelocytes % Nucleated RBC % Differential Comment SCAN Diff Path Review Reviewed Reactive Lymphocytes Toxic Granulation Platelet Estimate MKD DEC Plt Morphology Comment LARGE RBC Morphology Polychromasia 1+ Hypochromasia 1+ Anisocytosis 2+ Microcytosis 1+ [place] Cells Schistocytes Absolute Retic APTT 46.1 H Sodium 140 Potassium 3.3 L Chloride 110 H Carbon Dioxide 11.0 L Anion Gap 19 H BUN 37 H Creatinine 1.36 H Estim Creat Clear Calc 48.87 Est GFR (MDRD) Af Amer 68 Est GFR (MDRD) Non-Af 56 L BUN/Creatinine Ratio 27.2 H Glucose 196 H Lactic Acid Calcium 6.0 L* Phosphorus Magnesium Total Bilirubin 0.60 Direct Bilirubin AST 41 H ALT 30 Alkaline Phosphatase 52 B-Natriuretic Peptide Total Protein 3.7 L Albumin 0.9 L Globulin 2.8 Albumin/Globulin Ratio 0.3 L Lipase Vancomycin Trough Heparin-induced Plt Ab POC Glucose 05/11/18 05/11/18 05/11/18 04:45 06:05 08:00 WBC RBC Hgb Hct MCV MCH MCHC RDW RDW Differential Plt Count Immature Gran % (Auto) Neut % (Auto) Lymph % (Auto) Eagle % (Auto) Eos % (Auto) Baso % (Auto) Absolute Neuts (auto) Absolute Lymphs (auto) Total Counted Neutrophils % (Manual) Band Neutrophils % Lymphocytes % (Manual) Metamyelocytes % Myelocytes % Nucleated RBC % Differential Comment Diff Path Review Reactive Lymphocytes Toxic Granulation Platelet Estimate Plt Morphology Comment RBC Morphology Polychromasia Hypochromasia Anisocytosis Microcytosis Germain Cells Schistocytes Absolute Retic APTT Sodium Potassium Chloride Carbon Dioxide Anion Gap BUN Creatinine Estim Creat Clear Calc Est GFR (MDRD) Af Amer Est GFR (MDRD) Non-Af BUN/Creatinine Ratio Glucose Lactic Acid 8.8 H* Calcium Phosphorus Magnesium Total Bilirubin Direct Bilirubin AST ALT Alkaline Phosphatase B-Natriuretic Peptide 74.2 Total Protein Albumin Globulin Albumin/Globulin Ratio Lipase Vancomycin Trough Heparin-induced Plt Ab POC Glucose 210 H 05/11/18 05/11/18 05/11/18 09:00 11:24 11:30 WBC RBC Hgb Hct MCV MCH MCHC RDW RDW Differential Plt Count Immature Gran % (Auto) Neut % (Auto) Lymph % (Auto) Eagle % (Auto) Eos % (Auto) Baso % (Auto) Absolute Neuts (auto) Absolute Lymphs (auto) Total Counted Neutrophils % (Manual) Band Neutrophils % Lymphocytes % (Manual) Metamyelocytes % Myelocytes % Nucleated RBC % Differential Comment Diff Path Review Reactive Lymphocytes Toxic Granulation Platelet Estimate Plt Morphology Comment RBC Morphology Polychromasia Hypochromasia Anisocytosis Microcytosis Germain Cells Schistocytes Absolute Retic APTT 48.1 H Sodium Potassium Chloride Carbon Dioxide Anion Gap BUN Creatinine Estim Creat Clear Calc Est GFR (MDRD) Af Amer Est GFR (MDRD) Non-Af BUN/Creatinine Ratio Glucose Lactic Acid Calcium Phosphorus Magnesium Total Bilirubin Direct Bilirubin AST ALT Alkaline Phosphatase B-Natriuretic Peptide Total Protein Albumin Globulin Albumin/Globulin Ratio Lipase Vancomycin Trough Heparin-induced Plt Ab Pending POC Glucose 153 H 05/11/18 05/11/18 05/11/18 11:30 15:20 17:00 WBC RBC Hgb Hct MCV MCH MCHC RDW RDW Differential Plt Count Immature Gran % (Auto) Neut % (Auto) Lymph % (Auto) Eagle % (Auto) Eos % (Auto) Baso % (Auto) Absolute Neuts (auto) Absolute Lymphs (auto) Total Counted Neutrophils % (Manual) Band Neutrophils % Lymphocytes % (Manual) Metamyelocytes % Myelocytes % Nucleated RBC % Differential Comment Diff Path Review Reactive Lymphocytes Toxic Granulation Platelet Estimate Plt Morphology Comment RBC Morphology Polychromasia Hypochromasia Anisocytosis Microcytosis [place] Cells Schistocytes Absolute Retic APTT 69.5 H Sodium Potassium Chloride Carbon Dioxide Anion Gap BUN Creatinine Estim Creat Clear Calc Est GFR (MDRD) Af Amer Est GFR (MDRD) Non-Af BUN/Creatinine Ratio Glucose Lactic Acid Calcium Phosphorus Magnesium Total Bilirubin Direct Bilirubin AST ALT Alkaline Phosphatase B-Natriuretic Peptide Total Protein Albumin Globulin Albumin/Globulin Ratio Lipase Vancomycin Trough 17.3 H Heparin-induced Plt Ab POC Glucose 191 H 05/11/18 05/11/18 05/12/18 17:20 22:28 05:00 WBC RBC Hgb Hct MCV MCH MCHC RDW RDW Differential Plt Count Immature Gran % (Auto) Neut % (Auto) Lymph % (Auto) Eagle % (Auto) Eos % (Auto) Baso % (Auto) Absolute Neuts (auto) Absolute Lymphs (auto) Total Counted Neutrophils % (Manual) Band Neutrophils % Lymphocytes % (Manual) Metamyelocytes % Myelocytes % Nucleated RBC % Differential Comment Diff Path Review Reactive Lymphocytes Toxic Granulation Platelet Estimate Plt Morphology Comment RBC Morphology Polychromasia Hypochromasia Anisocytosis Microcytosis Germain Cells Schistocytes Absolute Retic APTT 69.7 H 68.2 H Sodium Potassium Chloride Carbon Dioxide Anion Gap BUN Creatinine Estim Creat Clear Calc Est GFR (MDRD) Af Amer Est GFR (MDRD) Non-Af BUN/Creatinine Ratio Glucose Lactic Acid Calcium Phosphorus Magnesium Total Bilirubin Direct Bilirubin AST ALT Alkaline Phosphatase B-Natriuretic Peptide Total Protein Albumin Globulin Albumin/Globulin Ratio Lipase Vancomycin Trough Heparin-induced Plt Ab POC Glucose 192 H 05/12/18 05:00 WBC 18.7 H RBC 3.09 L Hgb 9.3 L Hct 28.6 L MCV 92.6 MCH 30.1 MCHC 32.5 RDW 21.0 H RDW Differential 70.7 H Plt Count 30 L* Immature Gran % (Auto) Neut % (Auto) Not Reportable Lymph % (Auto) Eagle % (Auto) Eos % (Auto) Baso % (Auto) Absolute Neuts (auto) 16.8 H Absolute Lymphs (auto) 1.12 Total Counted 100 Neutrophils % (Manual) 79 H Band Neutrophils % 11 H Lymphocytes % (Manual) 6 L Metamyelocytes % 3 H Myelocytes % 1 H Nucleated RBC % 0.7 Differential Comment RARE Diff Path Review May foll Reactive Lymphocytes RARE Toxic Granulation 1+ Platelet Estimate MKD DEC Plt Morphology Comment LARGE RBC Morphology Polychromasia 1+ Hypochromasia 1+ Anisocytosis 1+ Microcytosis 1+ Germain Cells RARE Schistocytes RARE Absolute Retic 0.14 APTT Sodium Potassium Chloride Carbon Dioxide Anion Gap BUN Creatinine Estim Creat Clear Calc Est GFR (MDRD) Af Amer Est GFR (MDRD) Non-Af BUN/Creatinine Ratio Glucose Lactic Acid Calcium Phosphorus Magnesium Total Bilirubin Direct Bilirubin AST ALT Alkaline Phosphatase B-Natriuretic Peptide Total Protein Albumin Globulin Albumin/Globulin Ratio Lipase Vancomycin Trough Heparin-induced Plt Ab POC Glucose Microbiology 05/11/18 10:55 Mucosa - Nose Respiratory Panel (PCR) - Final 05/08/18 17:10 Blood Culture (Wb) - Left Hand Blood Culture - Preliminary Gram negative allyson 05/08/18 16:10 Blood Culture (Wb) - Port Blood Culture - Preliminary Bacteroides fragilis 05/08/18 18:40 Urine, Clean Catch Urine Culture - Final Mixed Gram Pos & Gram Neg Org Clinical Impression(s) from Imaging Studies Chest X-Ray 05/08/18 16:55 IMPRESSION: No acute thoracic pathology. Electronically Signed: Fredo Zo, at 17:26 EST Tel , Service support , Chest CTA 05/08/18 17:49 IMPRESSION: Segmental and subsegmental pulmonary emboli in the right middle and lower lobes. Subsegmental pulmonary emboli in the left upper lobe. No pulmonary infiltrates or pleural effusions. Stable elevation of the left hemidiaphragm. Free air noted in the upper abdomen which was not present on the prior chest CT. Correlation for a history of a recent surgical intervention is recommended. If there was no recent surgery, further evaluation with abdominal CT is recommended. Electronically Signed: Fredo Pathak, at 19:09 EST Tel , Service support , ADDENDUM: 05/08/18 1936 IMPRESSION: Segmental and subsegmental pulmonary emboli in the right middle and lower lobes. Subsegmental pulmonary emboli in the left upper lobe. No pulmonary infiltrates or pleural effusions. Stable elevation of the left hemidiaphragm. Free air noted in the upper abdomen which was not present on the prior chest CT. Correlation for a history of a recent surgical intervention is recommended. If there was no recent surgery, further evaluation with abdominal CT is recommended. N.B. : The above information has been verbally conveyed by Fredo Pathak to Sedrick Schaefer MD, , on 05/08/2018 19:29:28 (ET). Electronically Signed: Fredo Pathak, at 19:09 EST Tel , Service support , ADDENDUM: 05/08/18 1958 IMPRESSION: Segmental and subsegmental pulmonary emboli in the right middle and lower lobes. Subsegmental pulmonary emboli in the left upper lobe. No pulmonary infiltrates or pleural effusions. Stable elevation of the left hemidiaphragm. Free air noted in the upper abdomen which was not present on the prior chest CT. Correlation for a history of a recent surgical intervention is recommended. If there was no recent surgery, further evaluation with abdominal CT is recommended. N.B. : The above information has been verbally conveyed by Fredo Pathak to Sedrick Schaefer MD, MD, on 05/08/2018 19:29:28 (ET). Electronically Signed: Fredo Zo, at 19:09 EST Tel , Service support , Abdomen/Pelvis CT 05/08/18 19:22 IMPRESSION: Study limited without contrast. Redemonstration of a pancreatic mass with an associated air and fluid-filled lesion (necrotic mass versus pseudocyst). This appears grossly unchanged when compared with a contrast-enhanced CT dated 03/04/2018. Free retroperitoneal air adjacent to the left kidney and in the left perinephric space. This is likely due to extension of the air from the adjacent pancreatic cavitary lesion. No urinary contrast extravasation. 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 Moderate amount of ascites. Enlarged prostate. Electronically Signed: Fredo Pathak, at 20:42 EST Tel , Service support , ADDENDUM: 05/08/182102 IMPRESSION: Study limited without contrast. Redemonstration of a pancreatic mass with an associated air and fluid-filled lesion (necrotic mass versus pseudocyst). This appears grossly unchanged when compared with a contrast-enhanced CT dated 03/04/2018. Free retroperitoneal air adjacent to the left kidney and in the left perinephric space. This is likely due to extension of the air from the adjacent pancreatic cavitary lesion. No urinary contrast extravasation. 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 Moderate amount of ascites. Enlarged prostate. N.B. : The above information has been verbally conveyed by Fredo Pathak to Sedrick Schaefer MD, MD, on 05/08/2018 20:56:06 (ET). Electronically Signed: Fredo Celisrodo, at 20:42 EST Tel , Service support , Brain CT 05/09/18 02:51 IMPRESSION: There is NO evidence of acute ischemic event or hemorrhage. There are chronic involutional and ischemic changes as described. N.B. : The above information has been verbally conveyed by Zafar Freire MD to Dennis Ricks RN, on 05/09/2018 03:32:11 (ET). Electronically Signed: Zafar Freire MD at 3:33 EST , Service support , ADDENDUM: 05/11/18 1019 IMPRESSION: There is NO evidence of acute ischemic event or hemorrhage. There are chronic involutional and ischemic changes as described. N.B. : The above information has been verbally conveyed by Zafar Freire MD to Dennis Ricks RN, on 05/09/2018 03:32:11 (ET). Electronically Signed: Zafar Freire MD at 3:33 EST , Service support , Head CTA 05/09/18 02:51 IMPRESSION: Normal bilateral cervical carotid and vertebral arteries. Electronically Signed: Zafar Freire MD at 4:07 EST , Service support , Neck CTA 05/09/18 02:51 IMPRESSION: Normal bilateral cervical carotid and vertebral arteries. Electronically Signed: Zafar Freire MD at 4:07 EST , Service support , Brain MRI 05/09/18 03:43 IMPRESSION: 1. 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 Senescent changes as above. Electronically Signed: Tone Amaya DO at 10:50 EST , Service support , Chest X-Ray 05/10/18 08:17 IMPRESSION: Stable, nonacute portable x-ray examination of the chest. Electronically Signed: Lui Thompson MD at 12:42 EST , Service support , Medical Necessity - Tobacco Use Smoking Status: Former smoker Assessment/Plan All Active Problems (Last Reviewed 05/10/18 @ 10:59 by Shyam Baker MD) Educational circumstance (Acute) SOB (shortness of breath) (Acute) Ascites, malignant (Acute) Septic shock (Acute) DVT (deep venous thrombosis) (Acute) Pulmonary embolism (Acute) Diabetes (Acute) KAELYN (acute kidney injury) (Acute) Abdominal distension (gaseous) (Acute) Personal history of colonic polyps (Acute) RECOMMENDATIONS: 1. Orders have been placed for referral to hospice care. Comfort care measures will be employed at this time. 2. CODE STATUS has been updated to DNR CC. 3. We will discontinue all nonessential medications. IMPRESSIONS: 1. Gram-negative septic shock in the setting of neutropenic fever secondary to chemotherapy 2. Acute CVA 3. Metastatic pancreatic cancer on chemotherap 4. Acute venous thromboembolic disease 5. Worsening thrombocytopenia 6. Acute kidney injury/anion gap metabolic acidosis This note was generated with [email or web address] dictation software. It may contain incorrect words, spelling, and punctuation that were not noted in checking the note before signing. Code Visit Inpatient E&M: 04283 Subs Hosp L3
--- NOTE | 2018-05-12 06:48 | PN_ITS ---
Subjective: The patient was seen and examined at the bedside this morning. Events from the last 24 hours have been reviewed. The patient is currently afebrile with tenuous blood pressure parameters. He is quite ill and fatigued in appearance. The patient is much more labored from a breathing perspective this morning. He is less responsive than previous. Oncology did come and evaluate the patient yesterday and is in agreement that the patient's prognosis is poor. The family is currently considering a transition to hospice care. I spoke with the family at the bedside this morning following rounds. Taking into account the patient's current clinical state and decompensation over the last 24-48 hours, they are now wishing to pursue hospice care. I explained to them that orders will be placed. Objective: The patient's most recent lab work, culture data and imaging studies have all been personally reviewed. Rapid influenza screen was noted to be negative. Blood cultures dated May 08 were positive for the presence of gram-negative rods. Lower extremity Doppler study dated May 08 was positive for the pre sence of acute DVT. CTA chest revealed segmental and subsegmental pulmonary emboli bilaterally. Surface echocardiogram dated May 09 revealed mild segmental systolic dysfunction with an ejection fraction of 50%. Right ventricular systolic pressure was estimated to be 24 mmHg. General: Lethargic, - - Quite ill and fatigued in appearance. Labored breathing. HEENT: Atraumatic, Normocephalic, Sluggish Pupils Oral: Dry Mucosa Neck: Supple, No Nodes, Trachea Midline Lungs: No rhonchi, No wheeze, No rales, Diminished, Short of Breath, Tachypneic Cardiovascular: Normal S1, Normal S2, No murmurs, Tachycardic Abdomen: Bowel Sounds Present, Soft, Distended Extremities: No clubbing, No cyanosis, Edema Skin: - - No significant change from previous. Musculoskeletal: No Tenderness to Palpation of Joints or Extremities Lymphatic: No Cervical, Supraclavicular, or Inguinal Adenopathy Neurological: - - No focal deficits. We will look in the direction of verbal stimulation but is essentially nonresponsive. Vital Signs Temp Pulse Resp BP Pulse Ox 37.1 C 108 H 28 H 79/59 L 97 05/12/18 00:00 05/12/18 05:00 05/12/18 05:00 05/12/18 05:00 05/12/18 05:00 Oxygen Flow Rate (L/min) 2 Oxygen Delivery Method Room Air Weight: 195 lb 15.855 oz Body Mass Index (BMI) 29.0 Finger Stick Blood Glucose 166 Intake and Output for Last 24 Hours 05/10/18 05/11/18 05/12/18 23:59 23:59 23:59 Intake Total 4778 / 4778 5708.4 / 5708.4 121 / 121 Output Total 675 / 675 950 / 950 300 / 300 Balance 4103 / 4103 4758.4 / 4758.4 -179 / -179 Labs (Last 48 Hours) 05/08/18 05/09/18 05/10/18 16:10 03:30 04:30 WBC 3.6 L RBC 3.25 L Hgb 9.8 L Hct 29.9 L MCV 92.0 MCH 30.2 MCHC 32.8 RDW 19.8 H RDW Differential 65.8 H Plt Count 24 L* Immature Gran % (Auto) 0.300 Neut % (Auto) 86.5 H Lymph % (Auto) 10.7 L Nolan % (Auto) 1.7 Eos % (Auto) 0.0 Baso % (Auto) 0.8 Absolute Neuts (auto) 3.1 Absolute Lymphs (auto) 0.38 L Total Counted Not Reportable Neutrophils % (Manual) Band Neutrophils % Lymphocytes % (Manual) Metamyelocytes % Myelocytes % Nucleated RBC % Differential Comment Diff Path Review Reviewed Reviewed Reviewed Reactive Lymphocytes Toxic Granulation Platelet Estimate MKD DEC Plt Morphology Comment RBC Morphology 2+ Polychromasia Hypochromasia Anisocytosis 2+ Microcytosis Germain Cells Schistocytes Absolute Retic APTT Sodium Potassium Chloride Carbon Dioxide Anion Gap BUN Creatinine Estim Creat Clear Calc Est GFR (MDRD) Af Amer Est GFR (MDRD) Non-Af BUN/Creatinine Ratio Glucose Lactic Acid Calcium Phosphorus Magnesium Total Bilirubin Direct Bilirubin AST ALT Alkaline Phosphatase B-Natriuretic Peptide Total Protein Albumin Globulin Albumin/Globulin Ratio Lipase Vancomycin Trough Heparin-induced Plt Ab POC Glucose 05/10/18 05/10/18 05/10/18 06:44 07:59 07:59 WBC RBC Hgb Hct MCV MCH MCHC RDW RDW Differential Plt Count Immature Gran % (Auto) Neut % (Auto) Lymph % (Auto) Nolan % (Auto) Eos % (Auto) Baso % (Auto) Absolute Neuts (auto) Absolute Lymphs (auto) Total Counted Neutrophils % (Manual) Band Neutrophils % Lymphocytes % (Manual) Metamyelocytes % Myelocytes % Nucleated RBC % Differential Comment Diff Path Review Reactive Lymphocytes Toxic Granulation Platelet Estimate Plt Morphology Comment RBC Morphology Polychromasia Hypochromasia Anisocytosis Microcytosis Barry Cells Schistocytes Absolute Retic APTT 51.0 H Sodium 138 Potassium 3.6 Chloride 108 H Carbon Dioxide 9.0 L* Anion Gap 21 H BUN 32 H Creatinine 1.31 H Estim Creat Clear Calc 50.73 Est GFR (MDRD) Af Amer 71 Est GFR (MDRD) Non-Af 58 L BUN/Creatinine Ratio 24.4 H Glucose 156 H Lactic Acid Calcium 6.3 L* Phosphorus 3.1 Magnesium 1.8 Total Bilirubin 1.00 Direct Bilirubin 0.59 H AST 49 H ALT 31 Alkaline Phosphatase 52 B-Natriuretic Peptide Total Protein 4.2 L Albumin 1.0 L Globulin 3.2 Albumin/Globulin Ratio Lipase 20 L Vancomycin Trough Heparin-induced Plt Ab POC Glucose 05/10/18 05/10/18 05/10/18 07:59 08:21 12:11 WBC RBC Hgb Hct MCV MCH MCHC RDW RDW Differential Plt Count Immature Gran % (Auto) Neut % (Auto) Lymph % (Auto) Nolan % (Auto) Eos % (Auto) Baso % (Auto) Absolute Neuts (auto) Absolute Lymphs (auto) Total Counted Neutrophils % (Manual) Band Neutrophils % Lymphocytes % (Manual) Metamyelocytes % Myelocytes % Nucleated RBC % Differential Comment Diff Path Review Reactive Lymphocytes Toxic Granulation Platelet Estimate Plt Morphology Comment RBC Morphology Polychromasia Hypochromasia Anisocytosis Microcytosis Germain Cells Schistocytes Absolute Retic APTT Sodium Potassium Chloride Carbon Dioxide Anion Gap BUN Creatinine Estim Creat Clear Calc Est GFR (MDRD) Af Amer Est GFR (MDRD) Non-Af BUN/Creatinine Ratio Glucose Lactic Acid 9.0 H* Calcium Phosphorus Magnesium Total Bilirubin Direct Bilirubin AST ALT Alkaline Phosphatase B-Natriuretic Peptide Total Protein Albumin Globulin Albumin/Globulin Ratio Lipase Vancomycin Trough Heparin-induced Plt Ab POC Glucose 144 H 195 H 05/10/18 05/10/18 05/10/18 12:15 12:15 15:00 WBC RBC Hgb Hct MCV MCH MCHC RDW RDW Differential Plt Count Immature Gran % (Auto) Neut % (Auto) Lymph % (Auto) Nolan % (Auto) Eos % (Auto) Baso % (Auto) Absolute Neuts (auto) Absolute Lymphs (auto) Total Counted Neutrophils % (Manual) Band Neutrophils % Lymphocytes % (Manual) Metamyelocytes % Myelocytes % Nucleated RBC % Differential Comment Diff Path Review Reactive Lymphocytes Toxic Granulation Platelet Estimate Plt Morphology Comment RBC Morphology Polychromasia Hypochromasia Anisocytosis Microcytosis Barry Cells Schistocytes Absolute Retic APTT 45.3 H Sodium Potassium Chloride Carbon Dioxide Anion Gap BUN Creatinine Estim Creat Clear Calc Est GFR (MDRD) Af Amer Est GFR (MDRD) Non-Af BUN/Creatinine Ratio Glucose Lactic Acid 13.6 H* Calcium Phosphorus Magnesium Total Bilirubin Direct Bilirubin AST ALT Alkaline Phosphatase B-Natriuretic Peptide Total Protein Albumin Globulin Albumin/Globulin Ratio Lipase Vancomycin Trough 8.9 Heparin-induced Plt Ab POC Glucose 05/10/18 05/10/18 05/10/18 16:22 22:00 22:26 WBC RBC Hgb Hct MCV MCH MCHC RDW RDW Differential Plt Count Immature Gran % (Auto) Neut % (Auto) Lymph % (Auto) Nolan % (Auto) Eos % (Auto) Baso % (Auto) Absolute Neuts (auto) Absolute Lymphs (auto) Total Counted Neutrophils % (Manual) Band Neutrophils % Lymphocytes % (Manual) Metamyelocytes % Myelocytes % Nucleated RBC % Differential Comment Diff Path Review Reactive Lymphocytes Toxic Granulation Platelet Estimate Plt Morphology Comment RBC Morphology Polychromasia Hypochromasia Anisocytosis Microcytosis Germain Cells Schistocytes Absolute Retic APTT 46.2 H Sodium Potassium Chloride Carbon Dioxide Anion Gap BUN Creatinine Estim Creat Clear Calc Est GFR (MDRD) Af Amer Est GFR (MDRD) Non-Af BUN/Creatinine Ratio Glucose Lactic Acid Calcium Phosphorus Magnesium Total Bilirubin Direct Bilirubin AST ALT Alkaline Phosphatase B-Natriuretic Peptide Total Protein Albumin Globulin Albumin/Globulin Ratio Lipase Vancomycin Trough Heparin-induced Plt Ab POC Glucose 247 H 226 H 05/11/18 05/11/18 05/11/18 04:45 04:45 04:45 WBC 8.2 RBC 3.03 L Hgb 9.1 L Hct 28.3 L MCV 93.4 MCH 30.0 MCHC 32.2 RDW 20.4 H RDW Differential 69.3 H Plt Count 17 L* Immature Gran % (Auto) 2.200 H Neut % (Auto) 85.9 H Lymph % (Auto) 9.3 L Nolan % (Auto) 1.8 Eos % (Auto) 0.4 Baso % (Auto) 0.4 Absolute Neuts (auto) 7.0 Absolute Lymphs (auto) 0.76 L Total Counted Not Reportable Neutrophils % (Manual) Band Neutrophils % Lymphocytes % (Manual) Metamyelocytes % Myelocytes % Nucleated RBC % Differential Comment SCAN Diff Path Review Reviewed Reactive Lymphocytes Toxic Granulation Platelet Estimate MKD DEC Plt Morphology Comment LARGE RBC Morphology Polychromasia 1+ Hypochromasia 1+ Anisocytosis 2+ Microcytosis 1+ Germain Cells Schistocytes Absolute Retic APTT 46.1 H Sodium 140 Potassium 3.3 L Chloride 110 H Carbon Dioxide 11.0 L Anion Gap 19 H BUN 37 H Creatinine 1.36 H Estim Creat Clear Calc 48.87 Est GFR (MDRD) Af Amer 68 Est GFR (MDRD) Non-Af 56 L BUN/Creatinine Ratio 27.2 H Glucose 196 H Lactic Acid Calcium 6.0 L* Phosphorus Magnesium Total Bilirubin 0.60 Direct Bilirubin AST 41 H ALT 30 Alkaline Phosphatase 52 B-Natriuretic Peptide Total Protein 3.7 L Albumin 0.9 L Globulin 2.8 Albumin/Globulin Ratio 0.3 L Lipase Vancomycin Trough Heparin-induced Plt Ab POC Glucose 05/11/18 05/11/18 05/11/18 04:45 06:05 08:00 WBC RBC Hgb Hct MCV MCH MCHC RDW RDW Differential Plt Count Immature Gran % (Auto) Neut % (Auto) Lymph % (Auto) Nolan % (Auto) Eos % (Auto) Baso % (Auto) Absolute Neuts (auto) Absolute Lymphs (auto) Total Counted Neutrophils % (Manual) Band Neutrophils % Lymphocytes % (Manual) Metamyelocytes % Myelocytes % Nucleated RBC % Differential Comment Diff Path Review Reactive Lymphocytes Toxic Granulation Platelet Estimate Plt Morphology Comment RBC Morphology Polychromasia Hypochromasia Anisocytosis Microcytosis Germain Cells Schistocytes Absolute Retic APTT Sodium Potassium Chloride Carbon Dioxide Anion Gap BUN Creatinine Estim Creat Clear Calc Est GFR (MDRD) Af Amer Est GFR (MDRD) Non-Af BUN/Creatinine Ratio Glucose Lactic Acid 8.8 H* Calcium Phosphorus Magnesium Total Bilirubin Direct Bilirubin AST ALT Alkaline Phosphatase B-Natriuretic Peptide 74.2 Total Protein Albumin Globulin Albumin/Globulin Ratio Lipase Vancomycin Trough Heparin-induced Plt Ab POC Glucose 210 H 05/11/18 05/11/18 05/11/18 09:00 11:24 11:30 WBC RBC Hgb Hct MCV MCH MCHC RDW RDW Differential Plt Count Immature Gran % (Auto) Neut % (Auto) Lymph % (Auto) Nolan % (Auto) Eos % (Auto) Baso % (Auto) Absolute Neuts (auto) Absolute Lymphs (auto) Total Counted Neutrophils % (Manual) Band Neutrophils % Lymphocytes % (Manual) Metamyelocytes % Myelocytes % Nucleated RBC % Differential Comment Diff Path Review Reactive Lymphocytes Toxic Granulation Platelet Estimate Plt Morphology Comment RBC Morphology Polychromasia Hypochromasia Anisocytosis Microcytosis Germain Cells Schistocytes Absolute Retic APTT 48.1 H Sodium Potassium Chloride Carbon Dioxide Anion Gap BUN Creatinine Estim Creat Clear Calc Est GFR (MDRD) Af Amer Est GFR (MDRD) Non-Af BUN/Creatinine Ratio Glucose Lactic Acid Calcium Phosphorus Magnesium Total Bilirubin Direct Bilirubin AST ALT Alkaline Phosphatase B-Natriuretic Peptide Total Protein Albumin Globulin Albumin/Globulin Ratio Lipase Vancomycin Trough Heparin-induced Plt Ab Pending POC Glucose 153 H 05/11/18 05/11/18 05/11/18 11:30 15:20 17:00 WBC RBC Hgb Hct MCV MCH MCHC RDW RDW Differential Plt Count Immature Gran % (Auto) Neut % (Auto) Lymph % (Auto) Nolan % (Auto) Eos % (Auto) Baso % (Auto) Absolute Neuts (auto) Absolute Lymphs (auto) Total Counted Neutrophils % (Manual) Band Neutrophils % Lymphocytes % (Manual) Metamyelocytes % Myelocytes % Nucleated RBC % Differential Comment Diff Path Review Reactive Lymphocytes Toxic Granulation Platelet Estimate Plt Morphology Comment RBC Morphology Polychromasia Hypochromasia Anisocytosis Microcytosis Barry Cells Schistocytes Absolute Retic APTT 69.5 H Sodium Potassium Chloride Carbon Dioxide Anion Gap BUN Creatinine Estim Creat Clear Calc Est GFR (MDRD) Af Amer Est GFR (MDRD) Non-Af BUN/Creatinine Ratio Glucose Lactic Acid Calcium Phosphorus Magnesium Total Bilirubin Direct Bilirubin AST ALT Alkaline Phosphatase B-Natriuretic Peptide Total Protein Albumin Globulin Albumin/Globulin Ratio Lipase Vancomycin Trough 17.3 H Heparin-induced Plt Ab POC Glucose 191 H 05/11/18 05/11/18 05/12/18 17:20 22:28 05:00 WBC RBC Hgb Hct MCV MCH MCHC RDW RDW Differential Plt Count Immature Gran % (Auto) Neut % (Auto) Lymph % (Auto) Nolan % (Auto) Eos % (Auto) Baso % (Auto) Absolute Neuts (auto) Absolute Lymphs (auto) Total Counted Neutrophils % (Manual) Band Neutrophils % Lymphocytes % (Manual) Metamyelocytes % Myelocytes % Nucleated RBC % Differential Comment Diff Path Review Reactive Lymphocytes Toxic Granulation Platelet Estimate Plt Morphology Comment RBC Morphology Polychromasia Hypochromasia Anisocytosis Microcytosis Barry Cells Schistocytes Absolute Retic APTT 69.7 H 68.2 H Sodium Potassium Chloride Carbon Dioxide Anion Gap BUN Creatinine Estim Creat Clear Calc Est GFR (MDRD) Af Amer Est GFR (MDRD) Non-Af BUN/Creatinine Ratio Glucose Lactic Acid Calcium Phosphorus Magnesium Total Bilirubin Direct Bilirubin AST ALT Alkaline Phosphatase B-Natriuretic Peptide Total Protein Albumin Globulin Albumin/Globulin Ratio Lipase Vancomycin Trough Heparin-induced Plt Ab POC Glucose 192 H 05/12/18 05:00 WBC 18.7 H RBC 3.09 L Hgb 9.3 L Hct 28.6 L MCV 92.6 MCH 30.1 MCHC 32.5 RDW 21.0 H RDW Differential 70.7 H Plt Count 30 L* Immature Gran % (Auto) Neut % (Auto) Not Reportable Lymph % (Auto) Nolan % (Auto) Eos % (Auto) Baso % (Auto) Absolute Neuts (auto) 16.8 H Absolute Lymphs (auto) 1.12 Total Counted 100 Neutrophils % (Manual) 79 H Band Neutrophils % 11 H Lymphocytes % (Manual) 6 L Metamyelocytes % 3 H Myelocytes % 1 H Nucleated RBC % 0.7 Differential Comment RARE Diff Path Review May foll Reactive Lymphocytes RARE Toxic Granulation 1+ Platelet Estimate MKD DEC Plt Morphology Comment LARGE RBC Morphology Polychromasia 1+ Hypochromasia 1+ Anisocytosis 1+ Microcytosis 1+ Barry Cells RARE Schistocytes RARE Absolute Retic 0.14 APTT Sodium Potassium Chloride Carbon Dioxide Anion Gap BUN Creatinine Estim Creat Clear Calc Est GFR (MDRD) Af Amer Est GFR (MDRD) Non-Af BUN/Creatinine Ratio Glucose Lactic Acid Calcium Phosphorus Magnesium Total Bilirubin Direct Bilirubin AST ALT Alkaline Phosphatase B-Natriuretic Peptide Total Protein Albumin Globulin Albumin/Globulin Ratio Lipase Vancomycin Trough Heparin-induced Plt Ab POC Glucose Microbiology 05/11/18 10:55 Mucosa - Nose Respiratory Panel (PCR) - Final 05/08/18 17:10 Blood Culture (Wb) - Left Hand Blood Culture - Preliminary Gram negative allyson 05/08/18 16:10 Blood Culture (Wb) - Port Blood Culture - Preliminary Bacteroides fragilis 05/08/18 18:40 Urine, Clean Catch Urine Culture - Final Mixed Gram Pos & Gram Neg Org Clinical Impression(s) from Imaging Studies Chest X-Ray 05/08/18 16:55 IMPRESSION: No acute thoracic pathology. Electronically Signed: Fredo Zo, at 17:26 EST Tel , Service support , Chest CTA 05/08/18 17:49 IMPRESSION: Segmental and subsegmental pulmonary emboli in the right middle and lower lobes. Subsegmental pulmonary emboli in the left upper lobe. No pulmonary infiltrates or pleural effusions. Stable elevation of the left hemidiaphragm. Free air noted in the upper abdomen which was not present on the prior chest CT. Correlation for a history of a recent surgical intervention is recommended. If there was no recent surgery, further evaluation with abdominal CT is recommended. Electronically Signed: Fredo Pathak, at 19:09 EST Tel , Service support , ADDENDUM: 05/08/18 1936 IMPRESSION: Segmental and subsegmental pulmonary emboli in the right middle and lower lobes. Subsegmental pulmonary emboli in the left upper lobe. No pulmonary infiltrates or pleural effusions. Stable elevation of the left hemidiaphragm. Free air noted in the upper abdomen which was not present on the prior chest CT. Correlation for a history of a recent surgical intervention is recommended. If there was no recent surgery, further evaluation with abdominal CT is recommended. N.B. : The above information has been verbally conveyed by Fredo Pathak to Sedrick Schaefer MD, , on 05/08/2018 19:29:28 (ET). Electronically Signed: Fredo Pathak, at 19:09 EST Tel , Service support , ADDENDUM: 05/08/18 1958 IMPRESSION: Segmental and subsegmental pulmonary emboli in the right middle and lower lobes. Subsegmental pulmonary emboli in the left upper lobe. No pulmonary infiltrates or pleural effusions. Stable elevation of the left hemidiaphragm. Free air noted in the upper abdomen which was not present on the prior chest CT. Correlation for a history of a recent surgical intervention is recommended. If there was no recent surgery, further evaluation with abdominal CT is recommended. N.B. : The above information has been verbally conveyed by Fredo Pathak to Sedrick Schaefer MD, MD, on 05/08/2018 19:29:28 (ET). Electronically Signed: Fredo Pathak, at 19:09 EST Tel , Service support , Abdomen/Pelvis CT 05/08/18 19:22 IMPRESSION: Study limited without contrast. Redemonstration of a pancreatic mass with an associated air and fluid-filled lesion (necrotic mass versus pseudocyst). This appears grossly unchanged when compared with a contrast-enhanced CT dated 03/04/2018. Free retroperitoneal air adjacent to the left kidney and in the left perinephric space. This is likely due to extension of the air from the adjacent pancreatic cavitary lesion. No urinary contrast extravasation. 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 Moderate amount of ascites. Enlarged prostate. Electronically Signed: Fredo Pathak, at 20:42 EST Tel , Service support , ADDENDUM: 05/08/182102 IMPRESSION: Study limited without contrast. Redemonstration of a pancreatic mass with an associated air and fluid-filled lesion (necrotic mass versus pseudocyst). This appears grossly unchanged when compared with a contrast-enhanced CT dated 03/04/2018. Free retroperitoneal air adjacent to the left kidney and in the left perinephric space. This is likely due to extension of the air from the adjacent pancreatic cavitary lesion. No urinary contrast extravasation. 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 Moderate amount of ascites. Enlarged prostate. N.B. : The above information has been verbally conveyed by Fredo Pathak to Sedrick Schaefer MD, MD, on 05/08/2018 20:56:06 (ET). Electronically Signed: Fredo Pathak, at 20:42 EST Tel , Service support , Brain CT 05/09/18 02:51 IMPRESSION: There is NO evidence of acute ischemic event or hemorrhage. There are chronic involutional and ischemic changes as described. N.B. : The above information has been verbally conveyed by Zafar Freire MD to Dennis Ricks RN, on 05/09/2018 03:32:11 (ET). Electronically Signed: Zafar Freire MD at 3:33 EST , Service support , ADDENDUM: 05/11/18 1019 IMPRESSION: There is NO evidence of acute ischemic event or hemorrhage. There are chronic involutional and ischemic changes as described. N.B. : The above information has been verbally conveyed by Zafar Freire MD to Dennis Ricks RN, on 05/09/2018 03:32:11 (ET). Electronically Signed: Zafar Freire MD at 3:33 EST , Service support , Head CTA 05/09/18 02:51 IMPRESSION: Normal bilateral cervical carotid and vertebral arteries. Electronically Signed: Zafar Freire MD at 4:07 EST , Service support , Neck CTA 05/09/18 02:51 IMPRESSION: Normal bilateral cervical carotid and vertebral arteries. Electronically Signed: Zafar Freire MD at 4:07 EST , Service support , Brain MRI 05/09/18 03:43 IMPRESSION: 1. 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 Senescent changes as above. Electronically Signed: Tone Amaya DO at 10:50 EST , Service support , Chest X-Ray 05/10/18 08:17 IMPRESSION: Stable, nonacute portable x-ray examination of the chest. Electronically Signed: Lui Thompson MD at 12:42 EST , Service support , Medical Necessity - Tobacco Use Smoking Status: Former smoker Assessment/Plan All Active Problems (Last Reviewed 05/10/18 @ 10:59 by Shyam Baker MD) Educational circumstance (Acute) SOB (shortness of breath) (Acute) Ascites, malignant (Acute) Septic shock (Acute) DVT (deep venous thrombosis) (Acute) Pulmonary embolism (Acute) Diabetes (Acute) KAELYN (acute kidney injury) (Acute) Abdominal distension (gaseous) (Acute) Personal history of colonic polyps (Acute) RECOMMENDATIONS: 1. Orders have been placed for referral to hospice care. Comfort care measures will be employed at this time. 2. CODE STATUS has been updated to DNR CC. 3. We will discontinue all nonessential medications. IMPRESSIONS: 1. Gram-negative septic shock in the setting of neutropenic fever secondary to chemotherapy 2. Acute CVA 3. Metastatic pancreatic cancer on chemotherap 4. Acute venous thromboembolic disease 5. Worsening thrombocytopenia 6. Acute kidney injury/anion gap metabolic acidosis This note was generated with [employer] dictation software. It may contain incorrect words, spelling, and punctuation that were not noted in checking the note before signing. Code Visit Inpatient E&M: 10474 Subs Hosp L3
[2018-05-12] MEDS: Insulin Lispro 100 UNIT/ML INSULN.PEN SC (07:09)
--- NOTE | 2018-05-12 07:19 | PCM.PN.HOSP ---
Patient Problems: Active and Suspected Problems (Last Reviewed 05/10/18 @ 10:59 by Shyam Baker MD) Septic shock (Acute) DVT (deep venous thrombosis) (Acute) Pulmonary embolism (Acute) Diabetes (Acute) KAELYN (acute kidney injury) (Acute) Subjective: Patient seen more lethargic than prior day. Was seen in consultation by oncology on 05/11/2015 discussions regarding hospice care initiated. Consultation was placed for hospice evaluation this a.m. Objective: GENERAL: frail HEENT: Atraumatic; EYES; Anicteric, NECK; supple, normal thyroid, RESPIRATORY: Diminished to auscultation bilaterally, CARDIOVASCULAR: Regular S1 S2, GI: soft, non-tender, normoactive bowel sounds, : No Renal angle tenderness; EXTREMITIES: kwabena edema, no clubbing, no cyanosis. MUSCULOSKELETAL: No Joint Tenderness; NEURO: Awake; left facial droop SKIN: No Rash PSYCH; flat affect Vitals/I&O's: Vital Signs Temp Pulse Resp BP Pulse Ox 98.7 F 108 H 27 H 87/63 L 98 05/12/18 00:00 05/12/18 06:00 05/12/18 06:00 05/12/18 06:00 05/12/18 06:00 Oxygen Flow Rate (L/min) 2 Oxygen Delivery Method Room Air Weight: 88.9 kg Body Mass Index (BMI) 29.0 Finger Stick Blood Glucose 166 Intake and Output for Last 24 Hours 05/10/18 05/11/18 05/12/18 23:59 23:59 23:59 Intake Total 4778 / 4778 5708.4 / 5708.4 496 / 496 Output Total 675 / 675 950 / 950 300 / 300 Balance 4103 / 4103 4758.4 / 4758.4 196 / 196 Microbiology Past 72 Hours 05/11/18 10:55 Mucosa - Nose Respiratory Panel (PCR) - Final 05/08/18 17:10 Blood Culture (Wb) - Left Hand Blood Culture - Preliminary Gram negative allyson 05/08/18 16:10 Blood Culture (Wb) - Port Blood Culture - Preliminary Bacteroides fragilis 05/08/18 18:40 Urine, Clean Catch Urine Culture - Final Mixed Gram Pos & Gram Neg Org 05/08/18 22:52 Mucosa - Nasopharyngeal Influenza Types A,B Direct FA ([place]) - Final Laboratory Results 05/08/18 16:10: Diff Path Review Reviewed 05/09/18 03:30: Diff Path Review Reviewed 05/10/18 04:30: Diff Path Review Reviewed 05/11/18 04:45: Diff Path Review Reviewed 05/11/18 04:45: Sodium 140, Potassium 3.3 L, Chloride 110 H, Carbon Dioxide 11.0 L, Anion Gap 19 H, BUN 37 H, Creatinine 1.36 H, Estim Creat Clear Calc 48.87, Est GFR (MDRD) Af Amer 68, Est GFR (MDRD) Non-Af 56 L, BUN/Creatinine Ratio 27.2 H, Glucose 196 H, Calcium 6.0 L*, Total Bilirubin 0.60, AST 41 H, ALT 30, Alkaline Phosphatase 52, Total Protein 3.7 L, Albumin 0.9 L, Globulin 2.8, Albumin/Globulin Ratio 0.3 L 05/11/18 04:45: B-Natriuretic Peptide 74.2 05/11/18 08:00: Lactic Acid 8.8 H* 05/11/18 09:00: Heparin-induced Plt Ab Pending 05/11/18 11:24: POC Glucose 153 H 05/11/18 11:30: APTT 48.1 H 05/11/18 11:30: Vancomycin Trough 17.3 H 05/11/18 15:20: APTT 69.5 H 05/11/18 17:00: POC Glucose 191 H 05/11/18 17:20: APTT 69.7 H 05/11/18 22:28: POC Glucose 192 H 05/12/18 05:00: APTT 68.2 H 05/12/18 05:00: WBC 18.7 H, RBC 3.09 L, Hgb 9.3 L, Hct 28.6 L, MCV 92.6, MCH 30.1, MCHC 32.5, RDW 21.0 H, RDW Differential 70.7 H, Plt Count 30 L*, Neut % (Auto) Not Reportable, Absolute Neuts (auto) 16.8 H, Absolute Lymphs (auto) 1.12, Total Counted 100, Neutrophils % (Manual) 79 H, Band Neutrophils % 11 H, Lymphocytes % (Manual) 6 L, Metamyelocytes % 3 H, Myelocytes % 1 H, Nucleated RBC % 0.7, Differential Comment RARE, Diff Path Review May foll, Reactive Lymphocytes RARE, Toxic Granulation 1+, Platelet Estimate MKD DEC, Plt Morphology Comment LARGE, Polychromasia 1+, Hypochromasia 1+, Anisocytosis 1+, Microcytosis 1+, Caldwell Cells RARE, Schistocytes RARE, Absolute Retic 0.14 Current Medications Acetaminophen (Tylenol) 650 mg PO Q6H PRN PRN PRN Reason: Mild Pain (scale 0-3)/T>100.7 Last Admin: 05/10/18 09:42 Dose: 650 mg Acetaminophen (Tylenol) 650 mg RECTAL Q6H PRN PRN PRN Reason: fever > 100.4 Last Admin: 05/09/18 04:36 Dose: 650 mg Calamine/Phenol (Calmoseptine Ointment) 1 applic TOPICAL BID [facility]; Protocol Last Admin: 05/11/18 21:42 Dose: 1 applic Chlorhexidine Gluconate () 1 each TOPICAL DAILY [facility] [place] Last Admin: 05/11/18 16:10 Dose: Not Given Dextrose (D50w Syringe) 0 gm IV X1 PRN; Protocol PRN Reason: Hypoglycemia Docusate Sodium (Colace) 100 mg PO BID [facility] [place] Last Admin: 05/11/18 21:41 Dose: Not Given Fentanyl (Duragesic Patch) 12 mcg TRANSDERM. Q3D [facility] [place] Last Admin: 05/11/18 10:42 Dose: 12 mcg Glucagon () 1 mg IM .X1 PRN PRN Reason: Hypoglycemia Guaifenesin/Phenyleph/Dextrometh (Robitussin Cf) 10 ml PO Q6H PRN PRN PRN Reason: COUGH Haloperidol Lactate (Haldol) 3 mg IV Q6H PRN PRN PRN Reason: ANXIETY/AGITATION Piperacillin Sod/Tazobactam (Sod 3.375 gm/ Sodium Chloride) 50 mls @ 12.5 mls/hr IV Q8 [place] Last Admin: 05/12/18 07:08 Dose: 12.5 mls/hr Vancomycin IV Pharmacy to Dose (1,250 ea/ Sodium Chloride) 500 mls @ 250 mls/hr IV PRN PRN; Protocol Sodium Chloride () 250 mls @ 15 mls/hr IV .[id number] PRN PRN Reason: SALINE FLUSH Last Admin: 05/11/18 13:01 Dose: 15 mls/hr Vancomycin HCl (Vancomycin) 1,000 mg in 200 mls @ 200 mls/hr IV Q12H [facility] [place] Last Admin: 05/12/18 02:41 Dose: 200 mls/hr Bivalirudin 250 mg/ Sodium (Chloride) 50 mls @ 1.44 mls/hr IV .[id number] [facility] [place]; Protocol Last Admin: 05/11/18 09:32 Dose: 1.44 mls/hr Insulin Human Lispro (Humalog Kwikpen (Bkc)) 0 unit SC ACHS [facility] [place]; Protocol Last Admin: 05/12/18 07:09 Dose: 2 u Levothyroxine Sodium (Synthroid) 125 mcg PO DAILY@0600 [facility] [place] Last Admin: 05/12/18 06:55 Dose: Not Given Lidocaine/Prilocaine (Emla Cream W/Tegaderm) 0 gm TOPICAL DAILY PRN PRN; Protocol Loperamide HCl (Imodium) 2 mg PO BID PRN PRN PRN Reason: Diarrhea Last Admin: 05/10/18 09:43 Dose: 2 mg Mirtazapine (Remeron) 15 mg PO QHS [facility] [place] Last Admin: 05/11/18 21:42 Dose: Not Given Morphine Sulfate () 2 mg IV Q3H PRN PRN PRN Reason: SEVERE PAIN (6-10/10) Last Admin: 05/12/18 04:32 Dose: 2 mg Ondansetron HCl (Zofran) 4 mg IV Q8H PRN PRN PRN Reason: Nausea Pantoprazole Sodium (Protonix) 40 mg PO DAILY [facility] [place] Last Admin: 05/11/18 09:42 Dose: 40 mg Prochlorperazine Maleate (Compazine Suppository) 25 mg RECTAL BID PRN PRN PRN Reason: NAUSEA/VOMITING Sodium Chloride () 5 - 15 ml IV UD PRN PRN Reason: SALINE FLUSH Last Admin: 05/12/18 07:15 Dose: 10 ml Sodium Chloride () 10 ml IV UD PRN PRN Reason: VAD FLUSH Last Admin: 05/11/18 04:47 Dose: 10 ml Medical Necessity - Tobacco Use Smoking Status: Former smoker Assessment/Plan All Active Problems (Last Reviewed 05/10/18 @ 10:59 by Shyam Baker MD) Educational circumstance (Acute) SOB (shortness of breath) (Acute) Ascites, malignant (Acute) Septic shock (Acute) DVT (deep venous thrombosis) (Acute) Pulmonary embolism (Acute) Diabetes (Acute) KAELYN (acute kidney injury) (Acute) Abdominal distension (gaseous) (Acute) Personal history of colonic polyps (Acute) 67-year-old gentleman with history of stage IV pancreatic CA sent to the ED by the primary care physician on account of progressive generalized weakness and shortness of breath. An assessment of septic shock secondary to gram-negative sepsis was made on admission. Patient subsequent imaging studies on admission also demonstrated Segmental and subsegmental pulmonary emboli in the right middle and lower lobes. Subsegmental pulmonary emboli in the left upper lobe. Found to have DVT involving lower extremities. Patient was started on broad-spectrum antibiotics with Zosyn and vancomycin as well as heparin and admitted to the intensive care unit 1. Septic shock secondary to acute cystitis with subsequent gram-negative anaerobic bacteremia. Patient managed on Zosyn and vancomycin. Cultures so far positive for gram-negative rods as well as Bacteroides fragilis in the blood final identification and sensitivities pending condition continues to remain fragile and given his underlying history of stage IV pancreatic CA since were held with patient and family regarding goals of care. Decision was made to consult hospice. 2. 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 Acute venous embolism. Patient was found to have bilateral PE as well as DVT. Patient prior to today had been managed with heparin however as stated above heparin was discontinued patient started on Bivalirudin 4. Stage IV pancreatic CA 5. Diabetes mellitus type 2 6. 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 Heparin was subsequently discontinued patient started on Bivalirudin 7. Hypokalemia corrected per protocol 8. Hypocalcemia corrected per protocol 9. 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 monitoring H&H with plans to transfuse if hemoglobin falls below 7 or patient becomes symptomatic Microbiology 05/11/18 10:55 Mucosa - Nose Respiratory Panel (PCR) - Final 05/08/18 17:10 Blood Culture (Wb) - Left Hand Blood Culture - Preliminary Gram negative allyson 05/08/18 16:10 Blood Culture (Wb) - Port Blood Culture - Preliminary Bacteroides fragilis 05/08/18 18:40 Urine, Clean Catch Urine Culture - Final Mixed Gram Pos & Gram Neg Org 05/08/18 22:52 Mucosa - Nasopharyngeal Influenza Types A,B Direct FA ([place]) - Final Code Visit Inpatient E&M: 45808 Subs Hosp L3
[2018-05-12 07:25] LABS: Bedside Glucose 196 mg/dL (70-110)
[2018-05-12] MEDS: CHLORHEXIDINE GLUC 2% CLOTH 1 EACH TOWELETTE TOPICAL (07:39)
[2018-05-12] MEDS: Menthol/Lanolin/Calamine/Znox 113 GM Tube 1 APPLIC TOPICAL (07:39)
--- NOTE | 2018-05-12 09:33 | CASEMGMT ---
Addendum entered by Krystian Thayer 05/12/18 10:33: Hospice liason here to meet family. Updated clinical given to her. Lalita QUINTANA Original Note: RN TRAMAINE Note: Family meeting with Dr. Murrieta, re: plan of care going forward. Family is calm, asked questions and verbalized they would like comfort measures and Hospice consult at this time. Order placed in chart. E.Jayce, LUCIUS will make referral. Plan is for Hospice to see pt/family in hospital today. Lalita REBOLLEDO RN AC
--- NOTE | 2018-05-12 09:44 | CASEMGMT ---
Family decided to go with Hospice. SW spoke with patient's family and explained SW will make a referral and someone from Hospice will be calling them to set up a meeting. SW made sure field contact person's name and phone number were correct. SW called Hospice and spoke with Odalis regarding referral. SW also faxed over information. Tami ELLSWORTH MSW
--- NOTE | 2018-05-12 10:28 | CASEMGMT ---
LUCIUS spoke with Yuli from [facility]. She is on her way to the hospital to meet with family. LUCIUS called patient's RN, Naun and let her know this information. Tami ELLSWORTH MSW
--- NOTE | 2018-05-12 11:49 | CHAPLAIN ---
Type of Pastoral Visit _x__ Initial Visit ___ Follow-up Visit ___ On-call Visit ___ General Patient Visit ___ Spiritual Assessment ___ Family Conference ___ Bereavement ___ Rapid Response ___ Code Blue ___ Other (describe below) Pastoral Care Referral From ___ Patient _x__ Family _x__ Nurse ___ Physician ___ Developer Advisor ___ Doughnut Machine Operator Helper ___ Other (describe below) Sacrament/Intervention ___ Active listening ___ Anointing ___ Taoist ___ Bereavement ___ Communion ___ Mirta exploration ___ ___ Life review ___ Prayer ___ Reconciliation ___ Sacrament of Sick ___ Supportive presence ___ Wedding ___ Other (describe below) Pastoral Comments patient is being evaluated by hospice staff; met with family members to offer support and spiritual care; spouse requests prayer and further visits as able while pt is in the hospital
--- NOTE | 2018-05-12 12:08 | CASEMGMT ---
Addendum entered by Krystian Thayer 05/12/18 12:19: White melvin cart requested for Family. Lalita CLARK Original Note: Addendum entered by Krystian Thayer 05/12/18 12:14: Emotional support provided to family. They are calm and are calling other family members in. RENATO REDD offered assistance if needed. Lalita CLARK Original Note: RENATO REDD Note. Per Hospice nurse, family has agreed to Hospice care and have signed admission. [facility] not [facility] to [facility] at [facility] time per nurse as his condition is too fragile to tolerate move. LUCIUS Alejandro updated via phone message. Lalita QUINTANA
--- NOTE | 2018-05-12 16:10 | CHAPLAIN ---
Type of Pastoral Visit ___ Initial Visit _x__ Follow-up Visit ___ On-call Visit ___ General Patient Visit ___ Spiritual Assessment ___ Family Conference ___ Bereavement ___ Rapid Response ___ Code Blue ___ Other (describe below) Pastoral Care Referral From ___ Patient _x__ Family ___ Nurse ___ Physician ___ Cement Mason Apprentice ___ Caption Writer ___ Other (describe below) Sacrament/Intervention _x__ Active listening ___ Anointing ___ Baptist ___ Bereavement ___ Communion ___ Mirta exploration ___ ___ Life review ___ Prayer ___ Reconciliation ___ Sacrament of Sick _x__ Supportive presence ___ Wedding ___ Other (describe below) Pastoral Comments patient is expected to soon and this coke crusher operator brought white melvin for staff to give from bereavement team; met with family members again; family is well supported; family has evidence of strong Episcopal mirta and welcome spiritual care and presence of coke crusher operator
[2018-05-12] MEDS: morphine (oral solution) 10MG/0.5ML Syringe 5 MG SL ×5 (17:00→21:41)
--- NOTE | 2018-05-12 17:06 | NURSING ---
Pt arrive from ICU and is dyspnic. Respirations at 34 per min and family at bedside. called and new orders for roxinol and ativan received. Prn roxinol given.Family in room and will let nurse know if any distress is noted.
[2018-05-12] MEDS: LORazepam 2 MG/ML Bottle 1 MG SL (17:14)
[2018-05-12] MEDS: Atropine Sulfate 1% 2 ml Bottle 4 DRP PO (19:33)
--- NOTE | 2018-05-12 21:53 | NURSING ---
FAMILY REQUESTED THAT THIS RN ASSESS THE PT. PT NO LONGER TAKING BREATHS. NO HEART SOUNDS AUSCULTATED. ANESTHESIOLOGY MEDICAL DOCTOR ANNE MARIE NOTIFIED.
--- NOTE | 2018-05-13 07:24 | EXP.PCM_ITS ---
Preliminary Cause of Septic shock secondary to gram-negative septicemia Date of Admission: 05/08/18 Date of : 05/12/18 - Principle Diagnosis Septic shock secondary to acute cystitis with subsequent gram-negative and anaerobic septicemia Problem List: 1. Septic shock secondary to acute cystitis with subsequent gram-negative and anaerobic septicemia 2. 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 Acute venous embolism. Patient was found to have bilateral PE as well as DVT 4. Stage IV pancreatic CA 5. Diabetes mellitus type 2H 6. Heparin-induced Thrombocytopenia. 7. Hypokalemia 8. Hypocalcemia 9. 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 Hospital Course 67-year-old gentleman with history of stage IV pancreatic CA sent to the ED by the primary care physician on account of progressive generalized weakness and shortness of breath. An assessment of septic shock secondary to gram-negative sepsis was made on admission. Patient subsequent imaging studies on admission also demonstrated Segmental and subsegmental pulmonary emboli in the right middle and lower lobes. Subsegmental pulmonary emboli in the left upper lobe. Found to have DVT involving lower extremities. Patient was started on broad- spectrum antibiotics with Zosyn and vancomycin as well as heparin and admitted to the intensive care unit. Patient condition continued to deteriorate despite optimal medical management. Patient also had a precipitous drop in her platelet count attributed to heparin-induced trouble cytopenia heparin subsequently discontinued patient started on Bivalirudin. On 05/11/2018 patient family elected for patient to go hospice. Aggressive measures discontinued. Did initiate symptom management. On 2152 on 06/09/2018 patient was found without heart tones and without spontaneous breathing. Patient was pronounced . Time spent coordinating care; 32 minutes Code Visit Inpatient E&M: 34457 Disch Hosp
[2018-05-13 10:18] LABS: Pathologist Review Reviewed
[2018-05-13 16:56] LABS: Heparin-Induced Plt Ab 0.127 OD (0.000-0.400)
[2018-05-13 17:05] LABS: Carbohydrate Ag 19-9 2261 860 U/mL (0-35)
== END 2018-05-12 21:53 | DRG 871 ==
LOC: ED 16:43 → ICU 21:26 → MS3 05-12 15:58
PROVIDERS: Internal Medicine; Internal Medicine Critical Care Medicine; Nurse Practitioner Family; Admitting Provider Hospitalist; Emergency Provider Emergency Medicine; Family Provider Family Medicine; PCP Family Medicine; Visit Provider Internal Medicine
DX: A41.50 Gram-negative sepsis, unspecified (principal); R65.21 Severe sepsis with septic shock; I26.99 Other pulmonary embolism without acute cor pulmonale; I63.40 Cerebral infarction due to embolism of unspecified cerebral artery; E87.2 Acidosis; C25.9 Malignant neoplasm of pancreas, unspecified; C77.0 Secondary and unspecified malignant neoplasm of lymph nodes of head, face and neck; I82.402 Acute embolism and thrombosis of unspecified deep veins of left lower extremity; N30.00 Acute cystitis without hematuria; N17.9 Acute kidney failure, unspecified; A41.4 Sepsis due to anaerobes; E03.9 Hypothyroidism, unspecified; I10 Essential (primary) hypertension; E11.9 Type 2 diabetes mellitus without complications; Z66 Do not resuscitate; D63.0 Anemia in neoplastic disease; E83.51 Hypocalcemia; E87.6 Hypokalemia; D75.82 Heparin induced thrombocytopenia (HIT); T45.515A Adverse effect of anticoagulants, initial encounter; Z51.5 Encounter for palliative care; E86.0 Dehydration; D70.1 Agranulocytosis secondary to cancer chemotherapy; T45.1X5A Adverse effect of antineoplastic and immunosuppressive drugs, initial encounter; R50.81 Fever presenting with conditions classified elsewhere; Z79.4 Long term (current) use of insulin; Z79.899 Other long term (current) drug therapy; Z87.891 Personal history of nicotine dependence
CPT/HCPCS: 36415; 36591; 70450; 70496; 70498; 70551; 71045; 71275; 74176; 80048; 80053; 80061; 80076; 80202; 81001; 82962; 83605; 83690; 83735; 83880; 84100; 84484; 85025; 85027; 85379; 85610; 85730; 86022; 86301; 87040; 87077; 87086; 87088; 87633; 87804; 92526; 92610; 93005; 93306; 93971; 97163; 97166; 97802; 99282; J7030; J7050; J7120; Q9957; Q9967; A4216; C8929; J0583; J2405; J3490